=== PATIENT | female | born 1965 | race Caucasian/White ===

== ENCOUNTER 2019-08-30 23:55 | Emergency (ER) | payer OTHER, SELFPAY ==
[2019-08-31] VITALS (7 sets, daily range): BP systolic 142–153; BP diastolic 70–81; PULSE 61–69; RESP 16–17; TEMP 36.6; O2SAT 97–100; BMI 30.9
--- NOTE | 2019-08-31 00:11 | XR_ITS ---
PROCEDURE: XR FOREARM LT 2V CLINICAL INDICATION: fall Posttraumatic pain and deformity with swelling COMPARISON: No exams were available for comparison FINDINGS: Comminuted fracture involves the distal radius with mild dorsal angulation of the distal fracture fragment but no significant displacement. There may be intra-articular extension of the fracture better seen on the wrist images.. The joint spaces are well-preserved. No significant degenerative/arthritic changes. No erosive changes evident. Other findings:None. IMPRESSION: Comminuted nondisplaced distal radial fracture with dorsal angulation of the distal fracture fragment Dictated by: Jay Gilbert MD 08/31/2019 07:26 Electronically signed by Jay Gilbert MD in [place] 08/31/2019 07:26
--- NOTE | 2019-08-31 00:11 | XR_ITS ---
PROCEDURE: XR WRIST LT MIN 3V CLINICAL INDICATION: fall Posttraumatic pain and deformity COMPARISON: No exams were available for comparison FINDINGS: There is a comminuted distal radial fracture with dorsal angulation of the distal fracture fragment without significant displacement. There also appears to be a nondisplaced fracture involving the base of the ulnar styloid. There may be intra-articular extension of the distal radial fracture. This may be confirmed with CT if clinically warranted. There are mild osteoarthritic changes of the scapho trapezium joint. IMPRESSION: Comminuted distal radial fracture with possible intra-articular extension and suspected nondisplaced fracture at the base of the ulnar styloid. Dictated by: Jay Gilbert MD 08/31/2019 07:26 Electronically signed by Jay Gilbert MD in [place] 08/31/2019 07:26
--- NOTE | 2019-08-31 00:35 | HMH.EDUPEXT ---
ED Disposition Clinical Impression: Fracture of wrist Qualifiers: Encounter type: initial encounter Fracture type: closed Laterality: left Qualified Code(s): S62.102A - Fracture of unspecified carpal bone, left wrist, initial encounter for closed fracture Disposition: Home, Self-Care Condition on Discharge: Good Instructions: DI for Wrist Fracture Additional Instructions: call ortho this am Referrals: Provider,Ysabel, [Primary Care Provider] - Radha Paris MD [Physician] - - Critical Care Critical Care Time: No Attestation: On 08/30/19, the high probability of a clinically significant, sudden or life threatening deterioration of the following system(s) required my full and direct attention, intervention and personal management. The time I documented below is in addition to time spent performing reported procedures but includes the following listed in this critical care notation. Medical Decision Making - Medical Records Medical records reviewed: Yes: I reviewed the patient's medical records. - Ashu Inquiry Pt receiving controlled substance: No Vital Signs: 08/31/19 00:06 Temperature 97.9 F Temperature Source Oral Pulse Rate [Right Brachial] 66 Respiratory Rate 17 Blood Pressure [Right Arm] 153/81 H Blood Pressure Mean [Right Arm] 105 Blood Pressure Source [Right Arm] Automatic Cuff Blood Pressure Position [Right Arm] Sitting 02 Sat by Pulse Oximetry 97 Oxygen Delivery Method Room Air Orders (Tests/Meds): ED MEDICATIONS Discontinued Medications Generic Name Dose Route Start Last Admin Trade Name Freq PRN Reason Stop Dose Admin Fentanyl Citrate 50 mcg 08/31/19 00:57 Fentanyl 100mcg/2ml Vial IV 08/31/19 00:58 ONCE ONE Ketorolac Tromethamine 30 mg 08/31/19 00:38 Toradol 30mg/Ml Vial IV 08/31/19 00:39 ONCE ONE Midazolam HCl 2 mg 08/31/19 00:51 Midazolam 2mg/2ml Vial IV 08/31/19 00:52 ONCE ONE ORDERS Category Date Time Status XR forearm LT 2V Stat Exams 08/31/19 00:11 Ordered XR wrist LT min 3V Stat Exams 08/31/19 00:11 Ordered - Radiology Data #1 Image(s): Forearm, Hand Image Reviewed: Yes I reviewed the patient's radiology image Preliminary Findings: Abnormal (wrist fx ) - Physician Consults Physician Consulted: jeffrey Reason -: Pt condition Upper Extremity HPI - General Chief Complaint: Extremity Injury, Upper Stated Complaint: AO fall 08/30/19 23:30 possible broken L arm Time Seen by Provider: 08/31/19 00:15 Mode of Arrival: Ambulatory Source of Information: Patient, Medical Record Limitations: No Limitations Description of Symptoms (Recalled from ER Triage Doc. by RN): Patient reports she was walking through the house and tripped over an old tv that she had just replaced. Patient denies hitting her head or pain anywhere other than her left wrist that she landed on. - History of Present Illness HPI narrative: fell at home with acute lt wrist injury - no other injury and no loc MD complaint: injury to: left, wrist Onset (ago): hour(s) Other Extremity Injury: Left: wrist Handedness: right Place: home Severity: moderate Context: fall Associated symptoms: denies other symptoms - Related Data Allergies Allergy/AdvReac Type Severity Reaction Status Date / Time CODEINE Allergy Unknown Uncoded 04/12/17 14:05 PCN (PENICILLIN) Allergy Unknown Uncoded 04/12/17 14:05 [facility] History - Hepatitis A Screen Drug use history?: No High risk sexual behaviors?: No History of sexually transmitted infection?: No Currently employed?: No Childcare worker?: No Do you have indoor plumbing?: Yes Do you have electricity?: Yes Attestation statement:: This patient has been screened for Hepatitis A risk factors. I have reviewed the patient's past medical history: Yes - Social History Alcohol Intake: never Occupational Status: employed ROS Obtained: Yes All systems reviewed & no additional complaints - Const
--- NOTE | 2019-08-31 00:55 | PC.NURSE ---
Talked with Jonah from pharmacy, confirmed fentanyl dosing. 50mcg.
--- NOTE | 2019-08-31 01:40 | PC.NURSE ---
Patient came in for a fall that injured her left wrist. After reviewing x-rays, MD decided to set and splint under conscious sedation. After pt signed consent, patient was given 50mcg of fentanyl and 2mg versed. Patient tolerated very well. Patient was alert, oriented and talking through the entire procedure. Vitals signs within in normal limits throughout. Patient was discharged home with boyfriend and told to follow up with ortho first thing in the morning.
== END 2019-08-31 01:44 | disposition home or self-care (01) ==
PROVIDERS: Emergency Provider Emergency Medicine
DX: S52.502A Unspecified fracture of the lower end of left radius, initial encounter for closed fracture (principal); W01.0XXA Fall on same level from slipping, tripping and stumbling without subsequent striking against object, initial encounter; Y92.019 Unspecified place in single-family (private) house as the place of occurrence of the external cause; Z88.5 Allergy status to narcotic agent; Z88.0 Allergy status to penicillin
CPT/HCPCS: 25605; 29125; 73090; 73110; 96375; 99152; 99285

== ENCOUNTER → 2019-08-31 16:30 | Outpatient (CLI) | payer OTHER, SELFPAY ==
--- NOTE | 2019-08-31 16:52 | XR_ITS ---
PROCEDURE: XR WRIST LT MIN 3V CLINICAL INDICATION: post reduction wrist Fracture COMPARISON: XR WRIST LT MIN 3V from 08/31/2019 FINDINGS: Cast has been placed. Comminuted fracture of the distal radius once again noted with mild dorsal displacement and angulation of the distal fracture fragment. The dorsal angulation has slightly improved. IMPRESSION: Slight improvement in the dorsally angulated comminuted fracture of the distal radius with minimal dorsal displacement Dictated by: Jay Gilbetr MD 08/31/2019 17:32 Electronically signed by Jay Gilbert MD in [place] 08/31/2019 17:32
== END ==
PROVIDERS: Visit Provider Orthopaedic Surgery
DX: S52.502A Unspecified fracture of the lower end of left radius, initial encounter for closed fracture (principal); W01.0XXA Fall on same level from slipping, tripping and stumbling without subsequent striking against object, initial encounter; Y92.019 Unspecified place in single-family (private) house as the place of occurrence of the external cause; Z88.5 Allergy status to narcotic agent; Z88.0 Allergy status to penicillin
CPT/HCPCS: 73110

== ENCOUNTER → 2019-09-04 11:23 | Outpatient (CLI) | payer OTHER, SELFPAY ==
[2019-09-04 11:57] LABS: Basophils # 0.1 K/mm3 (0-0.2); Basophils % 0.8 % (0.1-2.0); Eosinophils # 0.2 K/mm3 (0.0-0.4); Eosinophils % 3.2 % (0.1-12.0); Hematocrit 40.1 % (37.0-47.0); Hemoglobin 12.5 g/dL (12.2-16.2); Lymphocytes # 1.9 K/mm3 (0.7-4.5); Lymphocytes % 30.8 % (10-50); Mean Corpuscular HGB Conc 31.2 g/dL (31.8-35.4); Mean Corpuscular Hemoglobin 28.8 pg (27.0-31.2); Mean Corpuscular Volume 92.3 fl (81-99); Mean Platelet Volume 7.9 fl (7.4-10.4); Monocytes # 0.3 K/mm3 (0.1-1.0); Monocytes % 5.3 % (1.7-9.3); Neutrophils # 3.6 K/mm3 (1.8-7.8); Neutrophils % 59.8 % (37.0-80.0); Platelet Count 307 K/mm3 (142-424); Red Blood Count 4.34 M/mm3 (4.20-5.40); Red Cell Distribution Width 12.9 % (11.5-17.5)
[2019-09-04 12:38] LABS: Chloride 104 mmol/L (98-107)
[2019-09-04 12:39] LABS: Sodium 135 mmol/L (136-145)
[2019-09-04 12:41] LABS: Alanine Aminotransferase 18 U/L (12-78); Alkaline Phosphatase 73 U/L (38-126); Aspartate Amino Transferase 24 U/L (14-36); Bilirubin,Total 0.4 mg/dl (0.2-1.3); Blood Urea Nitrogen 19 mg/dl (7-17); Estimated Glomerular Filt Rate 58 ml/min (>60); GFR (African American) 70 ML/MIN (>60)
[2019-09-04 12:42] LABS: Albumin Level 3.9 g/dl (3.5-5.0); Albumin/Globulin Ratio 1.5 (1.1-1.8); Calcium 9.3 mg/dl (8.4-10.2); Carbon Dioxide 28 mmol/L (22.0-30.0); Globulin 2.6 g/dL (1.3-3.2); Glucose 126 mg/dl (74-100); Total Protein,Serum 6.5 g/dl (6.3-8.2)
[2019-09-25 16:11] LABS: Covid-19 Nasal PCR Sendout Lex NOT DETECTED
== END ==
PROVIDERS: Visit Provider Orthopaedic Surgery
DX: Z01.818 Encounter for other preprocedural examination (principal); S62.109A Fracture of unspecified carpal bone, unspecified wrist, initial encounter for closed fracture
CPT/HCPCS: 36415; 80053; 85025; U0004

== ENCOUNTER 2019-09-06 08:02 | Day surgery (SDC) | payer OTHER, SELFPAY ==
--- NOTE | 2019-09-03 09:37 | SUR.PREOP ---
09/03/2019 @ 0937--PHONE CALL MADE TO PATIENT. PATIENT UNDERSTANDS THAT LAB WORK AND COVID TESTING NEEDS TO BE COMPLETED @ 1100 ON 09/04/2019. PATIENT UNDERSTANDS IF LAB WORK AND COVID-19 TESTS ARE NOT COMPLETED BY 12PM ON THAT DATE, THE SURGERY SCHEDULED WILL BE CANCELLED AND RESCHEDULED FOR ANOTHER TIME.
[2019-09-06] VITALS (15 sets, daily range): BP systolic 133–171; BP diastolic 60–93; PULSE 64–88; RESP 12–20; TEMP 36.4–43; O2SAT 93–96
--- NOTE | 2019-09-06 08:45 | ECG_ITS ---
APPROVED REPORT Exam: Resting ECG HR:64 bpm ECG Measurements Heart Rate 64 AXES MN 150 P 24 QRSd 104 QRS 38 QT 436 T 16 QTc 449 <Conclusion> Normal sinus rhythm Normal ECG Electronically signed by : Reji English, 09/07/2019 06:32:48
[2019-09-06 08:47] LABS: Urine Pregnancy, HCG Qual. Negative (Negative)
--- NOTE | 2019-09-06 12:19 | P.PN_ITS ---
[facility] Anesthesia Checklist - Structural Data Admitted From: Home Planned Operative Procedure/s: orif l wrist Consent for Planned Operative Procedure(s) Verified: Yes - Additional verifications Anesthesia Reactions: No Hx Blood Transfusions: No Blood Transfusion Reaction: No - Airway Assessment C-Spine Mobility Assessed: Yes TMJ Mobility Assessed: Yes Dentition: Good Dentition - Neurological Assessment Level of Consciousness: Awake, Alert, Appropriate - Anesthesia Plan Anesthesia Risk discussed: Yes Anesthesia Plan: Verified ASA Class: II Anesthesia Type: General w/block - Preoperative Comments Pre-Operative Comments: explained supraclav block to pt, pt agrees to proceed [facility] History I have reviewed the patient's past medical history: Yes Medical History: Denies:: Cancer, Diabetes Mellitus Type 1, Diabetes Mellitus Type 2, MRSA, Seizures *Have you ever received a pneumonia vaccine?: No *Have you received a flu vaccine this season?: No Other Medical History: Denies: Blood Transfusion Reaction Anesthesia experience/problems:: none Amputation: No Fractures: No - *Social History Smoking Status: Never smoker Alcohol Intake: never Substance Use Type: denies use *Occupational Status:: employed Housing: house *Travel in the last 8 weeks: None Family Hx:: Unable to obtain
--- NOTE | 2019-09-06 13:24 | XR_ITS ---
PROCEDURE: XR WRIST LT 2V CLINICAL INDICATION: ORIF LEFT WRIST COMPARISON: No exams were available for comparison FINDINGS: Fluoroscopy time: 3 minutes and 29 seconds Fluoro utilized for ORIF of the comminuted distal radial fracture. Multiple images submitted demonstrates placement of an anterior bone plate with multiple screws with good alignment and no significant displacement IMPRESSION: The good alignment status post ORIF distal radial fracture Dictated by: Jay Gilbert MD 09/06/2019 17:27 Electronically signed by Jay Gilbert MD in [place] 09/06/2019 17:27
--- NOTE | 2019-09-06 14:19 | P.PN_ITS ---
[facility] Anesthesia Record Part I Intake, IV Amount: 2,200 Estimated blood loss (mL): 0 Urine output (mL): 0 Blood Pressure: 162/80 SaO2: 93 Pulse Rate: 85 Respiratory Rate: 12 Temperature: 97.5 F Patient is:: Awake, Stable Stable to PACU at:: 14:15
--- NOTE | 2019-09-06 14:25 | XR_ITS ---
PROCEDURE: XR WRIST LT 2V CLINICAL INDICATION: s/p ORIF Follow-up surgery COMPARISON: XR WRIST LT MIN 3V from 08/31/2019 XR WRIST LT MIN 3V from 08/31/2019 FINDINGS: Status post ORIF distal radial fracture with an anterior bone plate. There is good alignment of the fracture fragments with decreased dorsal displacement and angulation of the distal radial fracture. IMPRESSION: Good alignment status post ORIF distal radial fracture Dictated by: Jay Gilbert MD 09/06/2019 15:41 Electronically signed by Jay Gilbert MD in [place] 09/06/2019 15:41
--- NOTE | 2019-09-06 15:25 | SUR.PHASEII ---
Percocet 5/325 given for C/O pain of 7 .
--- NOTE | 2019-09-06 15:43 | PC.NURSE ---
143-pt reports c/o nausea, medicated with Zofran 4mg IVP per JUN 1433-radiology at bedside 144-pt eating ice chips w/nolvia mist and yu well, reports nausea is easing, pt being medicated per JUN for pain, bp easing, at bedside 145-detailed report called to CELESTINO Greco 1501-pt transported to post op via stretcher w/gage rails up and left in care of CELESTINO Greco with bed locked in lowest position, vss, pt stable
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
--- NOTE | 2019-09-07 13:45 | HMH.ANESII ---
[facility] Anesthesia Record Part II Discharge Time: 14:45 Destination: [facility] PACU nurse assessment reviewed?: Yes Patient Condition:: Good Anesthesia Complications:: None Swallowing reflex intact?: Yes Cyanosis?: No Blood Pressure: 155/78 Pulse Rate: 82 Temperature: 99.1 F Mental Status: Alert & Oriented Pain level:: 7 Nausea and/or vomitting:: None Intake, IV Amount: 2,000
[2019-09-07 13:46] VITALS: BP 155/78; PULSE 82; TEMP 37.3
== END 2019-09-06 15:42 | disposition home or self-care (01) ==
PROVIDERS: Visit Provider Orthopaedic Surgery
PROC: (CPT 25608; principal; 2019-09-06 10:00)
DX: S52.572A Other intraarticular fracture of lower end of left radius, initial encounter for closed fracture (principal); W01.0XXA Fall on same level from slipping, tripping and stumbling without subsequent striking against object, initial encounter; Y92.019 Unspecified place in single-family (private) house as the place of occurrence of the external cause; G56.02 Carpal tunnel syndrome, left upper limb
CPT/HCPCS: 25608; 64721; 73100; 76000; 81025; 93005; 96374; C1713; C1776; J2405

== ENCOUNTER → 2019-09-18 10:23 | Outpatient (CLI) | payer OTHER, SELFPAY ==
--- NOTE | 2019-09-18 10:29 | XR_ITS ---
PROCEDURE: XR WRIST LT MIN 3V CLINICAL INDICATION: s/p distal radius FX- remove splint COMPARISON: XR WRIST LT 2V from 09/06/2019 FINDINGS: AP and lateral views of the wrist were obtained following removal of the cast. The volar bone plate is noted fixated to the radius by multiple threaded screws reducing the comminuted fracture of the distal radius in good alignment. There is no significant callus formation seen at the fracture line as yet. The carpal bones all appear intact. IMPRESSION: Stable post ORIF distal radial fracture Dictated by: Dr. Zak Roberts MD 09/18/2019 11:[address] Zak Roberts MD in [place] 09/18/2019 11:06
== END ==
PROVIDERS: PCP Nurse Practitioner Family; Visit Provider Orthopaedic Surgery
DX: S62.102A Fracture of unspecified carpal bone, left wrist, initial encounter for closed fracture (principal)
CPT/HCPCS: 73110

== ENCOUNTER → 2019-10-04 09:47 | Outpatient (CLI) | payer OTHER, SELFPAY ==
--- NOTE | 2019-10-04 09:56 | XR_ITS ---
PROCEDURE: XR WRIST LT MIN 3V CLINICAL INDICATION: s/p wrist fx Follow-up ORIF left wrist COMPARISON: XR WRIST LT MIN 3V from 08/31/2019 XR WRIST LT MIN 3V from 08/31/2019 XR WRIST LT 2V from 09/06/2019 XR WRIST LT MIN 3V from 09/18/2019 FINDINGS: Ventral bone plate remains in place. There is good alignment of the distal radial fracture. Fracture line is still visible. IMPRESSION: Good alignment status post ORIF distal radial fracture not significantly changed Dictated by: Jay Gilbert MD 10/04/2019 14:05 Electronically signed by Jay Gilbert MD in [place] 10/04/2019 14:05
== END ==
PROVIDERS: PCP Nurse Practitioner Family; Visit Provider Orthopaedic Surgery
DX: S62.102A Fracture of unspecified carpal bone, left wrist, initial encounter for closed fracture (principal)
CPT/HCPCS: 73110

== ENCOUNTER → 2019-10-25 09:19 | Outpatient (CLI) | payer OTHER, SELFPAY ==
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
== END ==
PROVIDERS: PCP Nurse Practitioner Family; Visit Provider Orthopaedic Surgery
DX: S62.102A Fracture of unspecified carpal bone, left wrist, initial encounter for closed fracture (principal)
CPT/HCPCS: 73110

== ENCOUNTER 2019-10-25 11:25 | Outpatient (RCR) | payer OTHER, SELFPAY | END 2019-10-25 12:00 | disposition home or self-care (01) | LOC: OT 11:25 | PROVIDERS: Visit Provider Orthopaedic Surgery | DX: S62.102A Fracture of unspecified carpal bone, left wrist, initial encounter for closed fracture (principal) | CPT/HCPCS: 97763 ==

== ENCOUNTER 2019-12-02 23:26 | Emergency (ER) | payer OTHER, SELFPAY ==
[2019-12-02 23:28] VITALS: BMI 31.7
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
[2019-12-02 23:40] VITALS: BP 138/81; PULSE 84; RESP 18; TEMP 36.9; O2SAT 96; BMI 31.7
[2019-12-02 23:53] LABS: ABG Base Excess -2.9 mmol/L (-2.4-2.3); ABG HCO3 21.7 mmhg (22.0-26.0); ABG Oxygen Saturation 97 % (90-100); ABG PCO2 34.4 mmhg (35.0-45.0); ABG PH 7.42 mmol/L (7.35-7.45); ABG PO2 82.9 mmhg (80-100); ABG TCO2 22.7 mmhg (23-27)
[2019-12-02 23:54] LABS: Allen's Test Y; Oxygen R/A %; Source R/R
[2019-12-03 00:01] LABS: Basophils # 0.1 K/mm3 (0-0.2); Basophils % 0.5 % (0.1-2.0); Eosinophils # 0.1 K/mm3 (0.0-0.4); Hematocrit 42.4 % (37.0-47.0); Hemoglobin 14.3 g/dL (12.2-16.2); Lymphocytes # 3.4 K/mm3 (0.7-4.5); Lymphocytes % 32.9 % (10-50); Mean Corpuscular HGB Conc 33.6 g/dL (31.8-35.4); Mean Corpuscular Hemoglobin 30.5 pg (27.0-31.2); Mean Corpuscular Volume 90.7 fl (81-99); Mean Platelet Volume 7.5 fl (7.4-10.4); Monocytes # 0.6 K/mm3 (0.1-1.0); Monocytes % 5.3 % (1.7-9.3); Neutrophils # 6.3 K/mm3 (1.8-7.8); Neutrophils % 60.3 % (37.0-80.0); Platelet Count 321 K/mm3 (142-424); Red Blood Count 4.68 M/mm3 (4.20-5.40); Red Cell Distribution Width 12.9 % (11.5-17.5); White Blood Count 10.5 K/mm3 (4.8-10.8)
[2019-12-03 00:05] VITALS: PULSE 78
[2019-12-03 00:06] VITALS: PULSE 81
[2019-12-03 00:08] LABS: Chloride 102 mmol/L (98-107); Sodium 140 mmol/L (136-145)
[2019-12-03 00:09] LABS: Potassium 3.5 mmoL/L (3.5-5.1)
[2019-12-03 00:11] LABS: Alanine Aminotransferase 19 U/L (12-78); Albumin Level 4.3 g/dl (3.5-5.0); Albumin/Globulin Ratio 1.2 (1.1-1.8); Alkaline Phosphatase 117 U/L (38-126); Anion Gap 16.5 mEq/L (5-15); Aspartate Amino Transferase 28 U/L (14-36); Bilirubin,Total 0.4 mg/dl (0.2-1.3); Blood Urea Nitrogen 19 mg/dl (7-17); Calcium 9.6 mg/dl (8.4-10.2); Carbon Dioxide 25 mmol/L (22.0-30.0); Creatinine Clearance Estimated 66 mL/min (50-200); Estimated Glomerular Filt Rate 43 ml/min (>60); GFR (African American) 52 ML/MIN (>60); Globulin 3.5 g/dL (1.3-3.2); Glucose 112 mg/dl (74-100); Total Protein,Serum 7.8 g/dl (6.3-8.2)
[2019-12-03 00:17] LABS: C-Reactive Protein 1.7 mg/L (0-4)
[2019-12-03 00:26] LABS: Erythrocyte Sedimentation Rate 16 mm/hr (0-30); Troponin I < 0.01 ng/ml (0.00-0.034)
[2019-12-03 00:28] LABS: Coronavirus 19 IgG Antibody Negative (Negative); Coronavirus 19 IgM Antibody Negative (Negative)
--- NOTE | 2019-12-03 00:31 | HMH.EDCP ---
ED Disposition Clinical Impression: Renal insufficiency Reactive airway disease with acute exacerbation Qualifiers: Asthma severity: moderate Asthma persistence: persistent Qualified Code(s): J45.41 - Moderate persistent asthma with (acute) exacerbation Disposition: Home, Self-Care Condition on Discharge: Good Instructions: DI for Shortness of Breath Additional Instructions: see pcp for follow up Referrals: Vickie Romero PA [Primary Care Provider] - - Critical Care Critical Care Time: No Attestation: On 12/02/19, the high probability of a clinically significant, sudden or life threatening deterioration of the following system(s) required my full and direct attention, intervention and personal management. The time I documented below is in addition to time spent performing reported procedures but includes the following listed in this critical care notation. Medical Decision Making - Medical Records Medical records reviewed: Yes: I reviewed the patient's medical records. - Ashu Inquiry Pt receiving controlled substance: No Vital Signs: 12/02/19 23:40 12/03/19 00:05 12/03/19 00:06 Temperature 98.4 F Temperature Source Oral Pulse Rate 78 81 Pulse Rate [Left] 84 Respiratory Rate 18 Blood Pressure [Right Arm] 138/81 Blood Pressure Mean [Right Arm] 100 Blood Pressure Source [Right Arm] Automatic Cuff Blood Pressure Position [Right Arm] Sitting 02 Sat by Pulse Oximetry 96 Oxygen Delivery Method Room Air - Lab Data Lab results reviewed: Yes: I reviewed the patient's lab results. Lab Results 12/02/19 23:41: WBC 10.5, RBC 4.68, Hgb 14.3, Hct 42.4, MCV 90.7, MCH 30.5, MCHC 33.6, RDW 12.9, Plt Count 321, MPV 7.5, Neut % (Auto) 60.3, Lymph % (Auto) 32.9, [place] % (Auto) 5.3, Eos % (Auto) 1.0, Baso % (Auto) 0.5, Neut # (Auto) 6.3, Lymph # (Auto) 3.4, [place] # (Auto) 0.6, Eos # (Auto) 0.1, Baso # (Auto) 0.1, ESR 16 12/02/19 23:41: Sodium 140, Potassium 3.5, Chloride 102, Carbon Dioxide 25, Anion Gap 16.5 H, BUN 19 H, Creatinine 1.30 H, Estimated Creat Clear 66, Estimated GFR 43 L, Est GFR ( Amer) 52 L, Glucose 112 H, Calcium 9.6, Total Bilirubin 0.4, AST 28, ALT 19, Alkaline Phosphatase 117, Troponin I < 0.01, C-Reactive Protein 1.7, Total Protein 7.8, Albumin 4.3, Globulin 3.5 H, Albumin/Globulin Ratio 1.2 12/02/19 23:41: SARS-CoV-2 IgG Ab (Rapid) Negative, SARS-CoV-2 IgM Ab (Rapid) Negative 12/02/19 23:52: Specimen Source R/r, O2 % R/a, ABG pH 7.42, ABG pCO2 34.4 L, ABG pO2 82.9, ABG HCO3 21.7 L, ABG Total CO2 22.7 L, ABG O2 Saturation 97, ABG Base Excess -2.9 L, Jay Test Y Result diagrams: 12/02/19 23:41 12/02/19 23:41 Orders (Tests/Meds): ED MEDICATIONS Generic Name Dose Route Start Last Admin Trade Name Freq PRN Reason Stop Dose Admin Sodium Chloride 1,000 mls @ 999 mls/hr 12/02/19 23:45 12/02/19 23:53 Sod Chlor 0.9% 1000ml Bag IV 12/03/19 00:45 999 mls/hr .Q1H1M PERRY Administration Discontinued Medications Generic Name Dose Route Start Last Admin Trade Name Freq PRN Reason Stop Dose Admin Albuterol/Ipratropium 3 ml 12/02/19 23:48 12/02/19 23:53 Duoneb 3ml Neb IH 12/02/19 23:49 3 ml ONCE ONE Administration Methylprednisolone Sodium Succinate 125 mg 12/02/19 23:39 12/02/19 23:53 Solu-Medrol 125mg/2ml Vial IV 12/02/19 23:40 125 mg ONCE ONE Administration ORDERS Category Date Time Status XR chest 2V Stat Exams 12/02/19 23:39 Taken Troponin I Q3H Lab 12/03/19 02:45 Ordered Troponin I Q3H Lab 12/03/19 05:45 Ordered ABG [Arterial Blood Gas] Stat RT 12/02/19 23:37 Ordered - Radiology Data #1 Image(s): Chest Image Reviewed: Yes I reviewed the patient's radiology image Preliminary Findings: Abnormal (nonspecific) - ECG Data Tracing #1 Normal Sinus Rhythm: Yes Ischemic changes: non-specific ST-T wave changes - ZABRINA Score for Non-Stemi Age of Patient: 50-59 years old Heart Rate: 70-89 bpm Sy
[2019-12-03 00:47] VITALS: BP 136/74; PULSE 78; RESP 16; TEMP 36.9; O2SAT 99
--- NOTE | 2019-12-03 23:39 | ECG_ITS ---
APPROVED REPORT Exam: Resting ECG HR:79 bpm ECG Measurements Heart Rate 79 AXES KS 136 P 35 QRSd 106 QRS 48 QT 396 T 2 QTc 454 <Conclusion> Normal sinus rhythm ST & T wave abnormality, consider inferior ischemia Abnormal ECG Electronically signed by : Reji English, 12/03/2019 20:00:50
== END 2019-12-03 00:49 | disposition home or self-care (01) ==
PROVIDERS: Emergency Provider Emergency Medicine; PCP Nurse Practitioner Family
DX: J45.901 Unspecified asthma with (acute) exacerbation (principal); N28.9 Disorder of kidney and ureter, unspecified; F41.9 Anxiety disorder, unspecified; Z87.891 Personal history of nicotine dependence; Z79.899 Other long term (current) drug therapy; Z88.0 Allergy status to penicillin; Z88.5 Allergy status to narcotic agent
CPT/HCPCS: 71046; 80053; 82803; 84484; 85025; 85651; 86140; 86328; 93005; 96365; 96375; 99282; 99283

== ENCOUNTER 2020-02-11 20:19 | Emergency (ER) | payer OTHER, SELFPAY ==
[2020-02-11 20:39] VITALS: BP 150/88; PULSE 76; RESP 12; TEMP 36.4; O2SAT 97; BMI 38.7
[2020-02-11 20:49] VITALS: BP 136/76; PULSE 69; RESP 17; TEMP 36.2; O2SAT 97; BMI 38.2
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
--- NOTE | 2020-02-11 20:58 | PC.NURSE ---
called rad to notify. spoke with
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
[2020-02-11 22:05] VITALS: BP 141/73; PULSE 89; RESP 16; TEMP 36.7; O2SAT 98
== END 2020-02-11 22:12 | disposition home or self-care (01) ==
LOC: UTC 20:28 → ER 20:45
PROVIDERS: Emergency Provider Emergency Medicine; PCP Nurse Practitioner Family
DX: S63.502A Unspecified sprain of left wrist, initial encounter (principal); S83.91XA Sprain of unspecified site of right knee, initial encounter; S83.92XA Sprain of unspecified site of left knee, initial encounter; Y04.0XXA Assault by unarmed brawl or fight, initial encounter; Y92.019 Unspecified place in single-family (private) house as the place of occurrence of the external cause; F41.9 Anxiety disorder, unspecified; Z79.899 Other long term (current) drug therapy; Z88.0 Allergy status to penicillin; Z88.5 Allergy status to narcotic agent
CPT/HCPCS: 71045; 73090; 73110; 73502; 73562; 99283

== ENCOUNTER 2021-09-05 18:01 | Emergency (ER) | payer OTHER, MEDICAID, SELFPAY ==
[2021-09-05 18:02] VITALS: BMI 36.0
--- NOTE | 2021-09-05 18:02 | PC.NURSE ---
at bedside upon arrival.
--- NOTE | 2021-09-05 18:04 | PC.NURSE ---
FSBS 111 upon arrival.
--- NOTE | 2021-09-05 18:08 | ECG_ITS ---
APPROVED REPORT Exam: Resting ECG HR:72 bpm ECG Measurements Heart Rate 72 AXES MO 140 P 39 QRSd 110 QRS 47 QT 382 T 20 QTc 406 Conclusion SINUS RHYTHM Left atrial abnormality Late R wave progression and Inf. STTW changes are at least 2 years old. BORDERLINE ECG UNCONFIRMED REPORT Electronically signed by : Reji English MD 09/06/2021 09:01:23
--- NOTE | 2021-09-05 18:08 | CT_ITS ---
PROCEDURE INFORMATION: Exam: CT Head Without Contrast Exam date and time: 09/05/21 06:14 PM Age: 56 years old Clinical indication: Dizziness and other: Vertigo; Additional info: Blurry viz, vertigo, lue weakness, started yesterd TECHNIQUE: Imaging protocol: Computed tomography of the head without contrast. Radiation optimization: All CT scans at this facility use at least one of these dose optimization techniques: automated exposure control; mA and/or kV adjustment per patient size (includes targeted exams where dose is matched to clinical indication); or iterative reconstruction. COMPARISON: No relevant prior studies available. FINDINGS: Brain: Normal. No hemorrhage. Unremarkable white matter. No mass effect. Cerebral ventricles: No ventriculomegaly. Paranasal sinuses: Visualized sinuses are unremarkable. No fluid levels. Mastoid air cells: Visualized mastoid air cells are well aerated. Bones/joints: Unremarkable. No acute fracture. Soft tissues: Unremarkable. IMPRESSION: No acute intracranial abnormality.
--- NOTE | 2021-09-05 18:09 | HMH.EDGENADL ---
ED Disposition Clinical Impression: Vertigo, Paresthesia and pain of left extremity Disposition: Home, Self-Care Condition on Discharge: Good Instructions: DI for Vertigo, DI for Transient Ischemic Attack Additional Instructions: follow up with neurology as scheduled, return for worse or any concerns Referrals: Vickie Romero PA [Primary Care Provider] - - Critical Care Critical Care Time: No Attestation: On , the high probability of a clinically significant, sudden or life threatening deterioration of the following system(s) required my full and direct attention, intervention and personal management. The time I documented below is in addition to time spent performing reported procedures but includes the following listed in this critical care notation. Medical Decision Making - Medical Records Medical records reviewed: Yes: I reviewed the patient's medical records. - Ashu Inquiry Pt receiving controlled substance: No Vital Signs: 09/05/21 18:15 09/05/21 18:24 Temperature 98.4 F Temperature Source Oral Pulse Rate 82 Pulse Rate [Left Radial] 85 Respiratory Rate 17 Blood Pressure 134/63 Blood Pressure [Right Arm] 167/84 H Blood Pressure Mean [Right Arm] 111 02 Sat by Pulse Oximetry 97 97 Oxygen Delivery Method Room Air - Lab Data Lab Results 09/05/21 18:09: WBC 10.7, RBC 4.68, Hgb 14.7, Hct 44.2, MCV 94.4, MCH 31.4 H, MCHC 33.3, RDW 13.1, Plt Count 324, MPV 8.3, Neut % (Auto) 77.1, Lymph % (Auto) 15.3, [place] % (Auto) 4.9, Eos % (Auto) 1.2, Baso % (Auto) 1.6, Neut # (Auto) 8.3 H, Lymph # (Auto) 1.6, [place] # (Auto) 0.5, Eos # (Auto) 0.1, Baso # (Auto) 0.2 09/05/21 18:09: Sodium 135 L, Potassium 4.2, Chloride 103, Carbon Dioxide 26, Anion Gap 10.2, BUN 28 H, Creatinine 1.20 H, Estimated Creat Clear 80, Estimated GFR 47 L, Est GFR ( Amer) 56 L, Glucose 130 H, Calcium 9.3, Total Bilirubin 0.5, AST 29, ALT 22, Alkaline Phosphatase 79, Total Protein 6.7, Albumin 3.9, Globulin 2.8, Albumin/Globulin Ratio 1.4 Result diagrams: 09/05/21 18:09 09/05/21 18:09 Orders (Tests/Meds): ED MEDICATIONS Generic Name Dose Route Start Last Admin Trade Name Freq PRN Reason Stop Dose Admin Sodium Chloride 1,000 mls @ 999 mls/hr 09/05/21 19:30 09/05/21 19:29 Sod Chlor 0.9% 1000ml Bag IV 09/05/21 20:30 999 mls/hr .Q1H1M PERRY Administration Discontinued Medications Generic Name Dose Route Start Last Admin Trade Name Freq PRN Reason Stop Dose Admin Aspirin 324 mg 09/05/21 19:23 09/05/21 19:29 Aspirin 81mg Chewable Tablet PO 09/05/21 19:24 324 mg ONCE ONE Administration Iopamidol 93 ml 09/05/21 19:33 09/05/21 19:34 Iopamidol-370 (76%);100ml Bottle IV 09/05/21 19:34 93 ml ONCE ONE Administration Meclizine HCl 50 mg 09/05/21 18:09 09/05/21 18:12 Meclizine 25mg Tablet PO 09/05/21 18:10 50 mg ONCE ONE Administration Sodium Chloride 50 ml 09/05/21 19:33 09/05/21 19:34 0.9 % Sodium Chloride 50 Ml Vial IV 09/05/21 19:34 50 ml ONCE ONE Administration Sodium Chloride 10 ml 09/05/21 19:33 09/05/21 19:34 Sodium Chloride 0.9% 10ml Syr (Rad Only) IV 09/05/21 19:34 10 ml ONCE ONE Administration ORDERS Category Date Time Status ECG Request by /Nse Stat Y 09/05/21 18:08 Stop Req - ECG Data Tracing #1 I reviewed this ECG and interpreted as documented below: ekg by me nsr, poss lae, non spec q waves, no st elev Medical Decision Narrative: 809pm reeval, neuro intact lue symptoms and vertigo resoved with meclizine, discussed cta results, has f/u with neurology scheduled, ok with plan to retur for worse General Adult HPI - General Stated complaint: left side weakness Time Seen by Provider: 09/05/21 18:09 - History of Present Illness HPI narrative: vertigo, blurry viz, nausea, lue weakness started yesterday, wax/wane h/o recent dx tia Onset (ago): day(s) Radiation: non-radiation Severity: moderate Consistenc
[2021-09-05 18:15] VITALS: BP 167/84; PULSE 85; RESP 17; TEMP 36.9; O2SAT 97; BMI 36.0
[2021-09-05 18:16] LABS: Basophils # 0.2 K/mm3 (0-0.2); Basophils % 1.6 % (0.1-2.0); Eosinophils # 0.1 K/mm3 (0.0-0.4); Eosinophils % 1.2 % (0.1-12.0); Hematocrit 44.2 % (37.0-47.0); Hemoglobin 14.7 g/dL (12.2-16.2); Lymphocytes # 1.6 K/mm3 (0.7-4.5); Lymphocytes % 15.3 % (10-50); Mean Corpuscular HGB Conc 33.3 g/dL (31.8-35.4); Mean Corpuscular Hemoglobin 31.4 pg (27.0-31.2); Mean Corpuscular Volume 94.4 fl (81-99); Mean Platelet Volume 8.3 fl (7.4-10.4); Monocytes # 0.5 K/mm3 (0.1-1.0); Monocytes % 4.9 % (1.7-9.3); Neutrophils # 8.3 K/mm3 (1.8-7.8); Neutrophils % 77.1 % (37.0-80.0); Platelet Count 324 K/mm3 (142-424); Red Blood Count 4.68 M/mm3 (4.20-5.40); Red Cell Distribution Width 13.1 % (11.5-17.5); White Blood Count 10.7 K/mm3 (4.8-10.8)
--- NOTE | 2021-09-05 18:16 | PC.NURSE ---
PT to rad
[2021-09-05 18:20] LABS: Chloride 103 mmol/L (98-107); Potassium 4.2 mmoL/L (3.5-5.1); Sodium 135 mmol/L (136-145)
[2021-09-05 18:22] LABS: Alanine Aminotransferase 22 U/L (12-78); Aspartate Amino Transferase 29 U/L (14-36); Blood Urea Nitrogen 28 mg/dl (7-17); Creatinine Clearance Estimated 80 mL/min (50-200); Estimated Glomerular Filt Rate 47 ml/min (>60); GFR (African American) 56 ML/MIN (>60)
[2021-09-05 18:23] LABS: Albumin Level 3.9 g/dl (3.5-5.0); Albumin/Globulin Ratio 1.4 (1.1-1.8); Alkaline Phosphatase 79 U/L (38-126); Anion Gap 10.2 mEq/L (5-15); Bilirubin,Total 0.5 mg/dl (0.2-1.3); Calcium 9.3 mg/dl (8.4-10.2); Carbon Dioxide 26 mmol/L (22.0-30.0); Globulin 2.8 g/dL (1.3-3.2); Glucose 130 mg/dl (74-100); Total Protein,Serum 6.7 g/dl (6.3-8.2)
[2021-09-05 18:24] VITALS: BP 134/63; PULSE 82; O2SAT 97
--- NOTE | 2021-09-05 18:24 | PC.NURSE ---
Pt returned from rad
--- NOTE | 2021-09-05 19:07 | CT_ITS ---
PROCEDURE INFORMATION: Exam: CT Angiography Head With Contrast, Arteriography Exam date and time: 09/05/21 07:14 PM Age: 56 years old Clinical indication: Weakness; Additional info: Vertigo, lue weakness/drift TECHNIQUE: Imaging protocol: Computed tomography angiography of the head with contrast. Exam focused on the arteries. 3D rendering (Not supervised by radiologist): MIP and/or 3D reconstructed images were created by the technologist. Radiation optimization: All CT scans at this facility use at least one of these dose optimization techniques: automated exposure control; mA and/or kV adjustment per patient size (includes targeted exams where dose is matched to clinical indication); or iterative reconstruction. Contrast material: ISOVUE 370; Contrast volume: 93 ml; Contrast route: INTRAVENOUS (IV); COMPARISON: CT HEAD/BRAIN WO CON 09/05/21 06:14 PM FINDINGS: ANTERIOR CIRCULATION: Right internal carotid artery: Unremarkable. Intracranial segment is patent with no significant stenosis. No aneurysm. Right middle cerebral artery: Unremarkable. No occlusion or significant stenosis. No aneurysm. Right anterior cerebral artery: Unremarkable. No occlusion or significant stenosis. No aneurysm. Left internal carotid artery: Unremarkable. Intracranial segment is patent with no significant stenosis. No aneurysm. Left middle cerebral artery: Unremarkable. No occlusion or significant stenosis. No aneurysm. Left anterior cerebral artery: Unremarkable. No occlusion or significant stenosis. No aneurysm. POSTERIOR CIRCULATION: Right vertebral artery: Unremarkable. No occlusion or significant stenosis. No aneurysm. Left vertebral artery: Unremarkable. No occlusion or significant stenosis. No aneurysm. Basilar artery: Unremarkable. No occlusion or significant stenosis. No aneurysm. Right posterior cerebral artery: Unremarkable. No occlusion or significant stenosis. No aneurysm. Left posterior cerebral artery: Unremarkable. No occlusion or significant stenosis. No aneurysm. Brain: No definite mass, mass effect, or midline shift. Cerebral ventricles: No ventriculomegaly. Bones/joints: Unremarkable. No acute fracture. Soft tissues: Unremarkable. IMPRESSION: No large vessel stenosis or occlusion.
--- NOTE | 2021-09-05 19:07 | CT_ITS ---
PROCEDURE INFORMATION: Exam: CT Angiography Neck With Contrast Exam date and time: 09/05/21 07:14 PM Age: 56 years old Clinical indication: Weakness; Additional info: Vertigo, lue weakness/drift TECHNIQUE: Imaging protocol: Computed tomography angiography of the neck with contrast. 3D rendering (Not supervised by radiologist): MIP and/or 3D reconstructed images were created by the technologist. Radiation optimization: All CT scans at this facility use at least one of these dose optimization techniques: automated exposure control; mA and/or kV adjustment per patient size (includes targeted exams where dose is matched to clinical indication); or iterative reconstruction. Contrast material: ISOVUE 370; Contrast volume: 93 ml; Contrast route: INTRAVENOUS (IV); COMPARISON: CT HEAD/BRAIN WO CON 09/05/21 06:14 PM FINDINGS: Right common carotid artery: No stenosis. No dissection or occlusion. Right internal carotid artery: No stenosis of the extracranial segment. No dissection or occlusion. Right external carotid artery: No occlusion or stenosis of the origin. Left common carotid artery: No stenosis. No dissection or occlusion. Left internal carotid artery: No stenosis of the extracranial segment. No dissection or occlusion. Left external carotid artery: No occlusion or stenosis of the origin. Right vertebral artery: No stenosis. No dissection or occlusion. Left vertebral artery: No stenosis. No dissection or occlusion. Soft tissues: Normal. No significant soft tissue swelling. Bones/joints: No acute fracture. IMPRESSION: No stenosis or occlusion. REFERENCES: NASCET CRITERIA. The degree of internal carotid artery stenosis is based on NASCET criteria. Normal is no stenosis. Mild is less than 50% stenosis. Moderate is 50-69% stenosis. Severe is 70% to 99% stenosis. Total occlusion is no detectable patent lumen.
--- NOTE | 2021-09-05 19:27 | PC.NURSE ---
patient to radiology
[2021-09-05 20:23] VITALS: BP 137/77; PULSE 74; RESP 16; TEMP 36.6; O2SAT 98
== END 2021-09-05 21:00 | disposition home or self-care (01) ==
PROVIDERS: Emergency Provider Emergency Medicine; PCP Nurse Practitioner Family
DX: R42 Dizziness and giddiness (principal); R20.2 Paresthesia of skin; R11.0 Nausea
CPT/HCPCS: 70450; 70496; 70498; 80053; 85025; 93005; 96360; 99284; Q9967

== ENCOUNTER → 2021-11-03 18:26 | Outpatient (CLI) | payer OTHER, SELFPAY ==
[2021-11-03 19:34] LABS: Microscopic, Urine URINE MICROSCOPIC (MICROSCOPIC)
[2021-11-03 19:38] LABS: Basophils # 0.1 K/mm3 (0-0.2); Basophils % 1.2 % (0.1-2.0); Eosinophils # 0.1 K/mm3 (0.0-0.4); Eosinophils % 1.3 % (0.1-12.0); Hematocrit 46.1 % (37.0-47.0); Hemoglobin 14.1 g/dL (12.2-16.2); Lymphocytes # 2.3 K/mm3 (0.7-4.5); Lymphocytes % 32.4 % (10-50); Mean Corpuscular HGB Conc 30.7 g/dL (31.8-35.4); Mean Corpuscular Hemoglobin 30.6 pg (27.0-31.2); Mean Corpuscular Volume 99.6 fl (81-99); Mean Platelet Volume 8.3 fl (7.4-10.4); Monocytes # 0.5 K/mm3 (0.1-1.0); Monocytes % 6.9 % (1.7-9.3); Neutrophils # 4.2 K/mm3 (1.8-7.8); Neutrophils % 58.2 % (37.0-80.0); Platelet Count 339 K/mm3 (142-424); Red Blood Count 4.63 M/mm3 (4.20-5.40); Red Cell Distribution Width 13.2 % (11.5-17.5); White Blood Count 7.2 K/mm3 (4.8-10.8)
[2021-11-03 19:46] LABS: Anion Gap 12.2 mEq/L (5-15); Blood Urea Nitrogen 16 mg/dl (7-17); Carbon Dioxide 28 mmol/L (22.0-30.0); Chloride 99 mmol/L (98-107); Estimated Glomerular Filt Rate 47 ml/min (>60); GFR (African American) 56 ML/MIN (>60); Glucose 116 mg/dl (74-100); Phosphorous 3.9 mg/dl (2.5-4.5); Potassium 3.2 mmoL/L (3.5-5.1); Sodium 136 mmol/L (136-145)
[2021-11-03 20:02] LABS: 25-OH Vitamin D, Total 26.5 ng/mL (30-100)
[2021-11-03 20:15] LABS: Creatinine,Urine Random 72 mg/dL (Not Estab.)
[2021-11-03 20:34] LABS: Appearance,Urine CLEAR (Clear); Bilirubin,Urine Negative (Negative); Blood, Urine Negative (Negative); Color,Urine YELLOW (Yellow); Glucose,Urine (UA) Negative (Negative); Ketones,Urine Negative (Negative); Leukocyte Esterase,Urine Negative (Negative); Nitrate,Urine Negative (Negative); Protein,Urine Negative (Negative); Specific Gravity, Urine <= 1.005 (1.005-1.030); Urobilinogen,Urine 0.2 EU/dl (0.2)
[2021-11-03 20:37] LABS: Bacteria,Urine Trace /lpf; Squamous Epithelial Cell,Urine Occasional #/hpf (0-5); WBC,Urine Occasional #/hpf (0-3)
== END ==
PROVIDERS: PCP Internal Medicine Nephrology; Visit Provider Internal Medicine Nephrology
DX: N18.9 Chronic kidney disease, unspecified (principal); E55.9 Vitamin D deficiency, unspecified
CPT/HCPCS: 36415; 80069; 81001; 82306; 82570; 84155; 85025

== ENCOUNTER 2022-01-06 00:39 | Emergency (ER) | payer OTHER, SELFPAY ==
[2022-01-06 00:39] VITALS: BP 164/87; PULSE 72; RESP 19; TEMP 36.8; O2SAT 98; BMI 51.5
--- NOTE | 2022-01-06 00:48 | ECG_ITS ---
APPROVED REPORT Exam: Resting ECG HR:77 bpm ECG Measurements Heart Rate 77 AXES ND 162 P 61 QRSd 111 QRS 64 QT 374 T 40 QTc 405 Conclusion SINUS RHYTHM Old nonsignificant Q waves in inferior leads. Late R wave progression, unchanged from prior ABNORMAL ECG UNCONFIRMED REPORT Electronically signed by : Reji English MD 01/06/2022 07:14:01
--- NOTE | 2022-01-06 00:48 | XR_ITS ---
PROCEDURE INFORMATION: Exam: XR Chest Exam date and time: 01/06/2022 1:08 AM Age: 56 years old Clinical indication: Sternal or substernal pain; Additional info: Chest pain TECHNIQUE: Imaging protocol: Radiologic exam of the chest. Views: 1 view. COMPARISON: CR XR CHEST AP 02/11/2020 9:01 PM FINDINGS: Lungs: Low lung volumes, limiting evaluation of lung bases. No definite acute airspace consolidation. Pleural spaces: No large pleural effusion. No pneumothorax. Heart/Mediastinum: Cardiomediastinal is likely unchanged from prior chest radiographs accounting for above the technique. Bones/joints: No acute osseous abnormality. IMPRESSION: No acute findings.
--- NOTE | 2022-01-06 00:49 | HMH.EDGENADL ---
Discharge Plan Disposition Patient Disposition: Home, Self-Care Condition: Good Chief Complaint: Chest Pain Prescriptions Prescriptions: No Action methocarbamol 750 mg tablet 750 mg PO DAILY Label Comments: TAKE 1 TABLET BY MOUTH TWICE DAILY NEEDED FOR MUSCLE SPASM bisoprolol-hydrochlorothiazide 2.5-6.25 mg tablet 1 tab PO DAILY Label Comments: TAKE 1 TABLET BY MOUTH ONCE DAILY topiramate 200 mg tablet 200 mg PO DAILY Label Comments: TAKE 2 TABLETS BY MOUTH ONCE DAILY potassium chloride 10 mEq Capsule, Extended Release 10 meq PO DAILY bumetanide 1 mg tablet 1 mg PO BID Activity Restrictions/Add. Instructions Additional Instructions/Restrictions: You have been evaluated for chest pain. This is possibly due to inflammation, chest wall pain. Please monitor your symptoms closely. Follow-up with your primary care doctor and primary cargo services coordinator. Return to the emergency department at once if chest pain should return or if you have any new or worsening symptoms, shortness of breath, difficulty breathing, other concerns Clinical Impressions Clinical Impression: Chest wall pain Instructions Patient Instructions: DI for Atypical Chest Pain Discharge ED Provider: Trisha Pedroza Adult HPI General Chief complaint: Chest Pain Stated complaint: Chest Pain Time Seen by Provider: 01/06/22 00:50 Mode of Arrival: Ambulatory Source of Information: Patient Limitations: No Limitations History of Present Illness HPI narrative: 56-year-old female presenting to the emergency department with chest pain. Pain is located in the left upper chest wall. Described as constant, pressure sensation. Started approximately 2 hours ago she was getting ready for bed. Has been constant since onset. Localized to the left upper chest. Does not radiate to the jaw, arm, back. No associated nausea, diaphoresis, cough, shortness of breath. She has had pain like this on and off for the last few days. No particular association with exertion or activity. Denies recent illness, fevers, chills, nausea, vomiting. She has history of CHF and CKD. Denies history of coronary artery disease. No medications prior to arrival. Does not take daily aspirin. Related Data Home Medications Medication Instructions Recorded Confirmed bisoprolol 2.5 1 tab PO DAILY Heart disease 08/31/19 01/06/22 mg-hydrochlorothiazide 6.25 mg tablet methocarbamol 750 mg tablet 750 mg PO DAILY Arthritis 08/31/19 01/06/22 topiramate 200 mg tablet 200 mg PO DAILY bp 08/31/19 01/06/22 bumetanide 1 mg tablet 1 mg PO BID Fluid 01/06/22 01/06/22 potassium chloride 10 mEq 10 meq PO DAILY Supplement 01/06/22 01/06/22 capsule,extended release Allergies Allergy/AdvReac Type Severity Reaction Status Date / Time codeine Allergy Unknown Verified 10/25/19 09:59 allergy reaction Penicillins Allergy Unknown Verified 10/25/19 09:59 allergy reaction PFSH PFSH Social History Smoking Status: Never smoker alcohol intake: never substance use type: denies use current occupational status: other Travel in the last 8 weeks: None housing: house current occupational exposures/hazards: Yes ROS Obtained: Yes All systems reviewed & no additional complaints except as documented Constitutional Constitutional: Denies chills, Denies fever(s) and Denies headache(s) ENT Ears, Nose, Mouth, and Throat: Denies dizziness and Denies headache(s) Cardiovascular Cardiovascular: Reports chest pain, Reports chest pain at rest, Denies dyspnea, Denies palpitations and Reports paroxysmal nocturnal dyspnea Respiratory Respiratory: Denies cough, Denies dyspnea, Denies pain with breathing and Denies wheezing Gastrointestinal Gastrointestingal: Denies abdominal pain, nausea or vomiting Musculoskeletal Musculoskeletal: Denies numbness and Denies radiating pain into limb Neurologic Neurologic: Denies di
[2022-01-06 00:52] LABS: Coronavirus 19, PCR Not Detected (NotDetected); Influenza A, PCR Not Detected (NotDetected); Influenza B, PCR Not Detected (NotDetected)
[2022-01-06 00:57] LABS: Basophils # 0.1 K/mm3 (0-0.2); Basophils % 1.2 % (0.1-2.0); Eosinophils # 0.4 K/mm3 (0.0-0.4); Eosinophils % 3.1 % (0.1-12.0); Hematocrit 44.8 % (37.0-47.0); Hemoglobin 14.1 g/dL (12.2-16.2); Lymphocytes # 2.4 K/mm3 (0.7-4.5); Lymphocytes % 19.3 % (10-50); Mean Corpuscular HGB Conc 31.5 g/dL (31.8-35.4); Mean Corpuscular Hemoglobin 29.4 pg (27.0-31.2); Mean Corpuscular Volume 93.4 fl (81-99); Mean Platelet Volume 7.8 fl (7.4-10.4); Monocytes # 0.6 K/mm3 (0.1-1.0); Neutrophils # 8.8 K/mm3 (1.8-7.8); Neutrophils % 71.4 % (37.0-80.0); Platelet Count 403 K/mm3 (142-424); Red Cell Distribution Width 12.9 % (11.5-17.5); White Blood Count 12.3 K/mm3 (4.8-10.8)
[2022-01-06 01:01] VITALS: BP 141/67; PULSE 68; RESP 19
[2022-01-06 01:01] LABS: Chloride 102 mmol/L (98-107); Potassium 3.8 mmoL/L (3.5-5.1); Sodium 138 mmol/L (136-145)
[2022-01-06 01:03] LABS: Alanine Aminotransferase 20 U/L (12-78); Aspartate Amino Transferase 29 U/L (14-36); Blood Urea Nitrogen 20 mg/dl (7-17); Creatinine Clearance Estimated 50 mL/min (50-200); Estimated Glomerular Filt Rate 52 ml/min (>60); GFR (African American) 62 ML/MIN (>60)
[2022-01-06 01:04] LABS: Albumin Level 4.3 g/dl (3.5-5.0); Albumin/Globulin Ratio 1.3 (1.1-1.8); Alkaline Phosphatase 138 U/L (38-126); Anion Gap 11.8 mEq/L (5-15); Calcium 8.7 mg/dl (8.4-10.2); Carbon Dioxide 28 mmol/L (22.0-30.0); Globulin 3.3 g/dL (1.3-3.2); Glucose 115 mg/dl (74-100); Total Protein,Serum 7.6 g/dl (6.3-8.2)
[2022-01-06 01:10] LABS: Bilirubin,Total < 0.1 mg/dl (0.2-1.3)
[2022-01-06 01:18] LABS: Troponin I < 0.01 ng/ml (0.00-0.034)
[2022-01-06 01:30] VITALS: BP 125/63; PULSE 68; RESP 17
[2022-01-06 02:00] VITALS: BP 132/70; PULSE 66; RESP 20
[2022-01-06 02:30] VITALS: BP 124/76; PULSE 76; RESP 14
--- NOTE | 2022-01-06 02:39 | PC.NURSE ---
PT AWARE THAT NEXT LABS ARE DUE AT 0245. NO ACUTE DISTRESS NOTED. PT PLAYING VIDEO GAMES ON PHONE.
--- NOTE | 2022-01-06 02:54 | PC.NURSE ---
TROPONIN DRAWN AND SENT PER MD REQUEST.
[2022-01-06 03:25] LABS: Troponin I < 0.01 ng/ml (0.00-0.034)
[2022-01-06 03:38] VITALS: BP 131/71; PULSE 67; PULSE 68; RESP 16; TEMP 36.8; O2SAT 97
== END 2022-01-06 03:57 | disposition home or self-care (01) ==
PROVIDERS: Emergency Provider Emergency Medicine; PCP Nurse Practitioner Family
DX: R07.89 Other chest pain (principal); Z88.5 Allergy status to narcotic agent; Z88.0 Allergy status to penicillin; Z79.899 Other long term (current) drug therapy
CPT/HCPCS: 71045; 80053; 84484; 85025; 93005; 96374; 99284; C9803; J2405; U0003; U0005

== ENCOUNTER 2022-02-10 19:33 | Emergency (ER) | payer OTHER, SELFPAY ==
[2022-02-10 20:02] VITALS: BP 135/85; PULSE 76; RESP 19; TEMP 36.8; O2SAT 98; BMI 36.0
--- NOTE | 2022-02-10 20:09 | EXP.UTC ---
Discharge Plan Disposition Patient Disposition: Home, Self-Care Condition: Good Prescriptions Prescriptions: No Action methocarbamol 750 mg tablet 750 mg PO DAILY Label Comments: TAKE 1 TABLET BY MOUTH TWICE DAILY NEEDED FOR MUSCLE SPASM bisoprolol-hydrochlorothiazide 2.5-6.25 mg tablet 1 tab PO DAILY Label Comments: TAKE 1 TABLET BY MOUTH ONCE DAILY topiramate 200 mg tablet 200 mg PO DAILY Label Comments: TAKE 2 TABLETS BY MOUTH ONCE DAILY potassium chloride 10 mEq Capsule, Extended Release 10 meq PO DAILY bumetanide 1 mg tablet 1 mg PO BID Referrals Follow up/Referrals: Vickie Romero PA [Primary Care Provider] - See instructions Activity Restrictions/Add. Instructions Additional Instructions/Restrictions: Follow up with [facility] for the result of your lab work and further treatment and evaluation Return if needed Straight to ER if any life threatening symptoms Clinical Impressions Clinical Impression: Routine lab draw Discharge ED Provider: Nancy Staton [facility] General Stated complaint: metabolic panel Mode of Arrival: Wheelchair Source of Information: Patient Limitations: No Limitations Time Seen by Provider: 02/10/22 20:09 Description of Symptoms (Recalled from Triage Doc. by RN): NEEDS LABS DRAWN FOR [facility] HEENT Symptoms (Recalled from RN notes): No Resp Symptoms (Recalled from RN notes): No Skin Symptoms (Recalled from RN notes): No MS Symptoms (Recalled from RN notes): No Functional Status (Recalled from RN notes): NA History of Present Illness Provider Complaint: Patient states that she was suppose to have an order to get CBC CMP and Vit D drawn but when she got here the order wasnt here and she has an appointment with [facility] in the morning and needs to get the labs drawn States that they told her that she could get them drawn and leave but she is unable to find the order so she came in here wanting to see if we could look up last lab work done by her architectural technologist and repeat it for them for her appointment in the morning Related Data Home Medications Medication Instructions Recorded Confirmed bisoprolol 2.5 1 tab PO DAILY Heart disease 08/31/19 01/06/22 mg-hydrochlorothiazide 6.25 mg tablet methocarbamol 750 mg tablet 750 mg PO DAILY Arthritis 08/31/19 01/06/22 topiramate 200 mg tablet 200 mg PO DAILY bp 08/31/19 01/06/22 bumetanide 1 mg tablet 1 mg PO BID Fluid 01/06/22 01/06/22 potassium chloride 10 mEq 10 meq PO DAILY Supplement 01/06/22 01/06/22 capsule,extended release Allergies Allergy/AdvReac Type Severity Reaction Status Date / Time codeine Allergy Unknown Verified 10/25/19 09:59 allergy reaction Penicillins Allergy Unknown Verified 10/25/19 09:59 allergy reaction Worker's Comp Is this a Worker's Comp case?: No PFSH PFSH Social History Smoking Status: Never smoker alcohol intake: never substance use type: denies use current occupational status: other Travel in the last 8 weeks: None housing: house current occupational exposures/hazards: Yes ROS Obtained: Yes All systems reviewed & no additional complaints except as documented and Yes Systems reviewed as appropriate & no additional complaints except as documented Constitutional Constitutional: Reports system reviewed and no additional complaints, except as documented and Reports as per HPI Comments: just needing repeat labs for Nephology appointement in the morning Cardiovascular Cardiovascular: Reports system reviewed and no additional complaints, except as documented and Reports as per HPI Respiratory Respiratory: Reports system reviewed and no additional complaints, except as documented and Reports as per HPI Gastrointestinal Gastrointestingal: Reports system reviewed and no additional complaints, except as documented and as per HPI Musculoskeletal Musculoskeletal: Reports system reviewed an
[2022-02-10 20:25] VITALS: BP 135/85; PULSE 76; RESP 18; TEMP 36.8; O2SAT 98
== END 2022-02-10 20:25 | disposition home or self-care (01) ==
PROVIDERS: Emergency Provider Nurse Practitioner; PCP Nurse Practitioner Family
DX: Z01.89 Encounter for other specified special examinations (principal)
CPT/HCPCS: 99211; G0463

== ENCOUNTER → 2022-03-23 10:35 | Outpatient (CLI) | payer OTHER, MEDICAID, SELFPAY ==
--- NOTE | 2022-03-23 10:43 | XR_ITS ---
FINAL REPORT CLINICAL HISTORY: knee pain, best images possible COMPARISON: 02/11/2020 FINDINGS: RIGHT KNEE Three weight-bearing views of the right knee were obtained. There is no acute fracture or dislocation. Visualized joint spaces are normally aligned. There are severe degenerative changes which are diffuse but most pronounced in the medial compartment. The bones are osteopenic. Bulky osteophytes are noted. Soft tissues are unremarkable. IMPRESSION: Interval progression of severe degenerative change. Reviewed, Interpreted and Dictated by Faustino Najera MD Transcribed by Xochitl Muniz Authenticated and [facility]
--- NOTE | 2022-03-23 10:43 | XR_ITS ---
FINAL REPORT CLINICAL HISTORY: knee pain, best images possible COMPARISON: 02/11/2020 FINDINGS: LEFT KNEE Three weight-bearing views of the left knee were obtained. There is no acute fracture or dislocation. Visualized joint spaces are normally aligned. There are severe degenerative changes which are diffuse but most pronounced in the medial compartment. The bones are osteopenic. Bulky osteophytes are noted. Soft tissues are unremarkable. IMPRESSION: Interval progression of severe degenerative change. Reviewed, Interpreted and Dictated by Faustino Najera MD Transcribed by Xochitl Muniz Authenticated and [facility]
== END ==
PROVIDERS: PCP Nurse Practitioner Family; Visit Provider Orthopaedic Surgery
DX: M25.561 Pain in right knee (principal); M25.562 Pain in left knee
CPT/HCPCS: 73562

== ENCOUNTER → 2022-04-20 08:46 | Outpatient (POV) | payer OTHER, MEDICAID, SELFPAY ==
--- NOTE | 2022-04-20 09:04 | EXP.PAIN.OV ---
HPI Data of Consult Patient: new to practice Consult date: 04/20/22 Requesting Physician: Dione Patino APRN Primary Care Provider: CAMILO Weller Consult Narrative Reason for consult: Bilateral knee pain History of present illness: Ms. Guzman is a 57 year old female who presents today as a new patient. She is a referral from Isaac Patino's office. Today she states her pain is 7 out of 10. She states the pain is all in her bilateral knees and denies any trauma or injury specific to this pain. She states this pain has been going on for years and progressively worsened over time. Patient states she was actually referred 20 years ago for knee surgery due to them being [id number] however she wanted to push it off at that point. Patient rates her pain today a 7 out of 10 and describes it as a sharp, achy, intense sensation that is worse with increased activity. Patient does have to use a cane or a rolling walker to help with her ambulation. Patient states this pain with decreased range of motion does interfere with her ability to perform activities of daily living and states that even walking is significantly affected. Patient states she did go to Dr. Patino here at [facility] for evaluation of her knee pain however he did think that she would do better at orthopedics. Patient is scheduled for left knee arthroplasty on June 11. Patient has had physical therapy in the past however this did not provide significant improvement. Patient does use Biofreeze and lidocaine patches to provide some temporary relief along with heat and ice. Patient is currently managed on tramadol 50 mg 4 times a day and gabapentin 600 mg 3 times a day from an outside provider. Patient denies any side effects from these medications. She states these medications do help. Patient states she did have multiple knee injections in the past that provided significant improvement however over time these became less and less effective. Patient states that she is also interested in physical therapy at this time for her left knee due to a recent locking sensation. Patient states she would like to get increased range of motion before she goes for her surgery. Patient states she does also have severe degenerative disc disease throughout her spine that she has been treated for in the past. Her Ashu is [phone]. Its been reviewed and appropriate. CC: Dione Patino APRN [facility] Disclaimer: The information contained in this section may have been updated after the patient was seen, as this information can be updated by other users. Social History Smoking Status: Never smoker alcohol intake: never substance use type: denies use current occupational status: other Travel in the last 8 weeks: None housing: house current occupational exposures/hazards: Yes Review of Systems Review of Systems Review of systems:: pertinent systems reviewed and negative unless documented below Review of systems (narrative): Review of Systems: General: No recent weight changes, no fever, no sleep disturbances Respiratory: No cough, no shortness of air, no recurring pulmonary infections Cardiovascular/peripheral vascular: No chest pain, no palpitations, no edema, no shortness of breath Gastrointestinal: No new onset incontinence, normal bowel movements reported Genitourinary: No new onset incontinence Musculoskeletal: Bilateral knee pain Psychiatric: [Normal mood/affect] Neurological: [Denies weakness in extremities], [denies balance issues] Meds Home Medications and Allergies Home Medications Medication Instructions Recorded Confirmed Type bisoprolol 2.5 1 tab PO DAILY Heart disease 08/31/19 03/23/22 History mg-hydrochlorothiazide 6.25 mg tablet methocarbamol 750 mg tablet 750 mg PO DAILY Arthritis 08/31/19 03/23/22 History topiramate 200 mg tablet 200 mg PO DAILY bp 08/31/19 03/23/22
[2022-04-20 09:09] VITALS: BP 142/72; PULSE 76; RESP 18; O2SAT 97; BMI 36.0
== END ==
PROVIDERS: PCP Nurse Practitioner Family; Visit Provider Nurse Practitioner Family
DX: M17.0 Bilateral primary osteoarthritis of knee (principal); Z79.899 Other long term (current) drug therapy
CPT/HCPCS: 99202; G0463

== ENCOUNTER 2022-05-04 10:57 | Outpatient (RCR) | payer OTHER, SELFPAY ==
--- NOTE | 2022-05-04 14:54 | HMH.PTOPEV ---
PT Outpatient Evaluation Rehab PT Outpatient Evaluation Start: 05/04/22 11:05 Freq: Status: Active Protocol: Document 05/04/22 11:52 CATE (Rec: 05/04/22 14:54 CATE [id number]) E-signed By Holger Floyd, PT Outpatient Therapy Subjective History Subjective History Pt reports h/o chronic left knee pain for 20+ years. Pt reports h/o multiple traumatic events that have cause previous injury to left knee, leading to recent Xrays revealing severe degeneration. Pt reports over the last month the left knee has 'fused ', and 'it used to move pretty good but now its stuck and painful.' Pt reports a left TKA is scheduled for 06/11/22, and 'I'm here hoping to get my quad tendon stretched out, and left knee moving better to get ready for surgery.' PMH: TIA July-reports some residual LLE weakness, chronic right knee pain w/limited ROM , kidney dx. Chief Complaint Pain,Stiff,Swelling,Weakness Symptom Type Ache,Throb,Sharp,Dull,Stabbing Symptoms Relieved By Nothing Symptoms Aggravated By Standing,Physical Activity, Walking Prior Functional Limitations Housework,Standing,Walking, Stairs Current Functional Limitations Housework,Standing,Walking, Stairs Symptom Description Constant and Continuous Level of pain today (0-10) 8 Pain scale - at its best (0-10) 8 Pain scale - at its worst (0-10) 10 Hip/Knee Eval Gait Observation General Gait Pattern Observation Antalgic Gait,Wide Based Gait, Shuffling Step,Hips Posterior to MAIK Assistive Device Assistive Devices Rolling / Wheeled Walker Palpation Tenderness left Knee Palpation Finding Tenderness Knee Palpation Overall Comment 3-4/4 global left knee,3-4/4 circumferentially around jt line MMT Hip Flexion Strength Grade 4 Good Hip Abduction Strength Grade 4 Good Hip Adduction Strength Grade 4 Good Hip Extension Strength Grade 4 Good Knee Extension Strength Grade 5 Normal Knee Flexion Strength Grade 5 Normal
== END 2022-05-04 10:59 | disposition home or self-care (01) ==
LOC: PT 10:57
PROVIDERS: PCP Nurse Practitioner Family; Visit Provider Nurse Practitioner Family
DX: M25.562 Pain in left knee (principal); M23.92 Unspecified internal derangement of left knee
CPT/HCPCS: 97140; 97163

== ENCOUNTER → 2022-05-12 15:23 | Outpatient (POV) | payer OTHER, SELFPAY ==
[2022-05-12 15:56] VITALS: BP 151/68; PULSE 87; RESP 18; O2SAT 97; BMI 37.4
--- NOTE | 2022-05-12 16:09 | EXP.PAIN.SOA ---
[facility] Pain Management SOAP Note Subjective:: Patient is a 57-year-old female who presents today for injection denial. We are currently treating the patient for osteoarthritis bilateral knees, bilateral knee pain. Today she rates her pain a 9 out of 10. Patient denies any new trauma or injury. Patient denies any change to location or type of pain she experiences. At our last visit we did prescribe compounding cream however she states this caused her to have nausea and diarrhea and has discontinued use. Patient does state that she continues to have significant pain in her right knee and describes it as a sharp achy intense sensation that is worse with increased activity. Patient continues to use a rolling walker to assist with ambulation. Patient does state this does affect her ability to perform activities of daily living and that she is unable to do the smallest things such as cooking or cleaning or even walking due to her pain. Patient did go to Dr. Patino here at [facility] initially for her knee pain however she was sent on to orthopedics. Patient is scheduled for a left knee arthroplasty on June 11. Patient states that she did go to her physical therapy referral appointment that we schedule however she states that at this initial evaluation she was told that they could not do anything for her. Patient states that he said that her knee was in such bad condition that they would not be able to provide any additional benefit. Patient does use Biofreeze and lidocaine patches along with heat and ice for temporary relief. Patient is managed with tramadol 50 mg 4 times a day and gabapentin 600 mg 3 times a day from an outside provider. Patient denies any side effects from these medications. She states these medications do not provide significant improvement. She is requesting something stronger for her pain. Her Ashu is [phone]. Its been reviewed and appropriate. Review of Systems: General: No recent weight changes, no fever, no sleep disturbances Respiratory: No cough, no shortness of air, no recurring pulmonary infections Cardiovascular/peripheral vascular: No chest pain, no palpitations, no edema, no shortness of breath Gastrointestinal: No new onset incontinence, normal bowel movements reported Genitourinary: No new onset incontinence Musculoskeletal: Bilateral knee pain Psychiatric: [Normal mood/affect] Neurological: [Denies weakness in extremities], [denies balance issues] Objective:: Physical Exam: General: Alert and oriented x3, no acute distress, pleasant and cooperative Lungs: Respirations even and unlabored, symmetrical chest expansion Eyes: PERRL Musculoskeletal: Flexion and extension of bilateral knees somewhat guarded secondary to pain, [antalgic gait noted] Neurological: Speech clear, no gross sensory deficit ORT score updated with low risk Assessment:: Osteoarthritis bilateral knees, bilateral knee pain Plan:: Patient continues to experience significant pain in her bilateral knees with limited range of motion. Patient has tried and failed conservative therapy such as oral medications, topicals, heat and ice, physical therapy, at home stretching and exercise for longer than 6 weeks. I do think the patient would get beneficial relief with a genicular nerve block. Risk and benefits were discussed with the patient. She would like to proceed forward with this plan of care. At this time we will not prescribe anything additional for pain. We will resubmit to insurance for a right knee genicular nerve block and contact the patient's once we have approval. Patient has been instructed to contact the clinic with any concerns before the next appointment. Dr. Lindsey has reviewed this note and agrees with this plan of care. This note was dictated using voice recognition software and make contain errors or omissions. [facility] Disclaimer: The information contained in this section may have been updated after the patient was seen,
== END ==
PROVIDERS: PCP Nurse Practitioner Family; Visit Provider Nurse Practitioner Family
DX: M17.0 Bilateral primary osteoarthritis of knee (principal); M25.561 Pain in right knee; M25.562 Pain in left knee
CPT/HCPCS: 99212; G0463

== ENCOUNTER 2022-09-01 15:29 | Emergency (ER) | payer OTHER, SELFPAY ==
[2022-09-01] VITALS (8 sets, daily range): BP systolic 126–144; BP diastolic 69–82; PULSE 62–74; RESP 16–20; TEMP 36.6–36.7; O2SAT 97–100; BMI 37.8
--- NOTE | 2022-09-01 16:09 | CT_ITS ---
PROCEDURE INFORMATION: Exam: CT Abdomen And Pelvis Without Contrast Exam date and time: 09/01/2022 4:58 PM Age: 57 years old Clinical indication: Abdominal pain; Flank; Lower; Additional info: Kidney stone protocol TECHNIQUE: Imaging protocol: Computed tomography of the abdomen and pelvis without contrast. Radiation optimization: All CT scans at this facility use at least one of these dose optimization techniques: automated exposure control; mA and/or kV adjustment per patient size (includes targeted exams where dose is matched to clinical indication); or iterative reconstruction. REPORTING DATA: Count of CT and Cardiac NM exams in prior 12 months: This patient has received 3 known CTs and 0 known cardiac nuclear medicine studies in the 12 months prior to the current study. COMPARISON: CR XR HIP LT 2-3V W/PELVIS 02/11/2020 9:08 PM FINDINGS: Lungs: Dependent bilateral lung base opacities favor atelectasis. Left upper quadrant click mild atelectasis Liver: Normal. No mass. Gallbladder and bile ducts: Normal. No calcified stones. No ductal dilation. Pancreas: Normal. No ductal dilation. Spleen: Normal. No splenomegaly. Adrenal glands: Normal. No mass. Kidneys and ureters: Normal. No hydronephrosis. Stomach and bowel: Unremarkable. No obstruction. No mucosal thickening. Appendix: No evidence of appendicitis. Intraperitoneal space: Unremarkable. No free air. No significant fluid collection. Vasculature: Unremarkable. No abdominal aortic aneurysm. Lymph nodes: Unremarkable. No enlarged lymph nodes. Urinary bladder: Unremarkable as visualized. Reproductive: Unremarkable as visualized. Bones/joints: Please see CT lumbar spine report for spine findings. Soft tissues: Normal. IMPRESSION: No CT evidence of obstructive nephropathy.
--- NOTE | 2022-09-01 16:21 | HMH.EDGENADL ---
Discharge Plan Disposition Patient Disposition: Home, Self-Care Prescriptions Prescriptions: New cefdinir 300 mg capsule 300 mg PO BID 10 Days Qty: 20 0RF No Action methocarbamol 750 mg tablet 750 mg PO DAILY Label Comments: TAKE 1 TABLET BY MOUTH TWICE DAILY NEEDED FOR MUSCLE SPASM bisoprolol-hydrochlorothiazide 2.5-6.25 mg tablet 1 tab PO DAILY Label Comments: TAKE 1 TABLET BY MOUTH ONCE DAILY topiramate 200 mg tablet 200 mg PO DAILY Label Comments: TAKE 2 TABLETS BY MOUTH ONCE DAILY potassium chloride 10 mEq Capsule, Extended Release 10 meq PO DAILY bumetanide 1 mg tablet 1 mg PO BID Referrals Follow up/Referrals: Vickie Romero PA [Primary Care Provider] - See instructions Activity Restrictions/Add. Instructions Additional Instructions/Restrictions: Follow-up withReturn for worsening pain dysuria or any other concerns within the next 8 hours Clinical Impressions Clinical Impression: Back pain Instructions Patient Instructions: DI for Acute Abdominal Pain Discharge ED Provider: Tejas Vazquez General Adult HPI General Chief complaint: Abdominal Pain Stated complaint: Possible Kidney Infection Time Seen by Provider: 09/01/22 15:30 Mode of Arrival: Wheelchair Source of Information: Patient Limitations: No Limitations Description of Symptoms (Recalled from ER Triage Doc. by RN): 57 F presents to ED with c/o blood tinged urine that began today, associated lower back pain. pt reports UTI treatment ongoing for 2 weeks. pt has been taking batrium. History of Present Illness HPI narrative: 57-year-old female presents with flank pain for 2 weeks and blood-tinged urine today. She says that she has been treated for urinary tract infection initially with Macrobid but had allergic reaction to it and then had Bactrim for 14 days per PCP with some improvement but then her pain and symptoms began again. She says that the pain is a little worse on the left side than the right. She follows with [facility] Related Data Home Medications Medication Instructions Recorded Confirmed bisoprolol 2.5 1 tab PO DAILY Heart disease 08/31/19 05/12/22 mg-hydrochlorothiazide 6.25 mg tablet methocarbamol 750 mg tablet 750 mg PO DAILY Arthritis 08/31/19 05/12/22 topiramate 200 mg tablet 200 mg PO DAILY bp 08/31/19 05/12/22 bumetanide 1 mg tablet 1 mg PO BID Fluid 01/06/22 05/12/22 potassium chloride 10 mEq 10 meq PO DAILY Supplement 01/06/22 05/12/22 capsule,extended release Previous Rx's Medication Instructions Recorded cefdinir 300 mg capsule 300 mg PO BID 10 days #20 caps 09/01/22 Allergies Allergy/AdvReac Type Severity Reaction Status Date / Time codeine Allergy Unknown Verified 03/23/22 13:08 allergy reaction Penicillins Allergy Unknown Verified 03/23/22 13:08 allergy reaction PFSH [facility] Disclaimer: The information contained in this section may have been updated after the patient was seen, as this information can be updated by other users. Medical History (Updated 09/01/22 @ 19:01 by Tejas Vazquez MD) Anxiety Arthritis Asthma HTN (hypertension) Surgical History (Updated 04/20/22 @ 09:44 by Lola Glover RN) H/O colonoscopy H/O left wrist surgery Social History (Updated 04/20/22 @ 09:45 by Lola Glover RN) Smoking Status: Never smoker alcohol intake: never substance use type: denies use current occupational status: other Travel in the last 8 weeks: None housing: house current occupational exposures/hazards: Yes ROS Obtained: Yes All systems reviewed & no additional complaints except as documented Constitutional Constitutional: Denies excessive sweating and Denies fatigue Eyes Eyes: Denies dry eyes ENT Ears, Nose, Mouth, and Throat: Denies dry mouth Cardiovascular Cardiovascular: Denies dyspnea Respiratory Respiratory: Denies dyspnea Gastrointestinal Gastrointestin
--- NOTE | 2022-09-01 16:31 | CT_ITS ---
PROCEDURE INFORMATION: Exam: CT Lumbar Spine Without Contrast Exam date and time: 09/01/2022 5:01 PM Age: 57 years old Clinical indication: Low back pain; Additional info: Lower back pain TECHNIQUE: Imaging protocol: Computed tomography of the lumbar spine without contrast. Radiation optimization: All CT scans at this facility use at least one of these dose optimization techniques: automated exposure control; mA and/or kV adjustment per patient size (includes targeted exams where dose is matched to clinical indication); or iterative reconstruction. REPORTING DATA: Count of CT and Cardiac NM exams in prior 12 months: This patient has received 3 known CTs and 0 known cardiac nuclear medicine studies in the 12 months prior to the current study. COMPARISON: CT ABDOMEN PELVIS WO CON 09/01/2022 4:58 PM FINDINGS: Bones/joints: Moderate loss of intervertebral disc space with degenerative changes at T11 through L1, and L4 through S1. Grade 1 anterolisthesis of L4 over L5 related to facet arthrosis with uncovering of the disc and resulting in moderate bilateral neural foraminal stenosis at that level. Moderate bilateral neural foraminal stenosis at L5-S1 secondary to facet and endplate osteophytosis. Soft tissues: Unremarkable. IMPRESSION: Moderate loss of intervertebral disc space with degenerative changes at T11 through L1, and L4 through S1. Grade 1 anterolisthesis of L4 over L5 related to facet arthrosis with uncovering of the disc and resulting in moderate bilateral neural foraminal stenosis at that level. Moderate bilateral neural foraminal stenosis at L5-S1 secondary to facet and endplate osteophytosis.
[2022-09-01 16:37] LABS: Basophils # 0.1 K/mm3 (0-0.2); Basophils % 0.9 % (0.1-2.0); Eosinophils # 0.2 K/mm3 (0.0-0.4); Eosinophils % 3.1 % (0.1-12.0); Hematocrit 41.6 % (37.0-47.0); Hemoglobin 13.3 g/dL (12.2-16.2); Lymphocytes % 35.3 % (10-50); Mean Corpuscular Hemoglobin 29.7 pg (27.0-31.2); Mean Corpuscular Volume 92.8 fl (81-99); Monocytes # 0.4 K/mm3 (0.1-1.0); Monocytes % 6.2 % (1.7-9.3); Neutrophils # 3.1 K/mm3 (1.8-7.8); Neutrophils % 54.5 % (37.0-80.0); Platelet Count 299 K/mm3 (142-424); Red Blood Count 4.49 M/mm3 (4.20-5.40); Red Cell Distribution Width 13.5 % (11.5-17.5); White Blood Count 5.7 K/mm3 (4.8-10.8)
--- NOTE | 2022-09-01 16:37 | PC.NURSE ---
UA sent to lab
[2022-09-01 16:40] LABS: Chloride 99 mmol/L (98-107); Potassium 3.7 mmoL/L (3.5-5.1); Sodium 138 mmol/L (136-145)
[2022-09-01 16:42] LABS: Blood Urea Nitrogen 17 mg/dl (7-17); Creatinine Clearance Estimated 76 mL/min (50-200); Estimated Glomerular Filt Rate 42 ml/min (>60); GFR (African American) 51 ML/MIN (>60)
[2022-09-01 16:43] LABS: Alanine Aminotransferase 22 U/L (12-78); Albumin Level 4.2 g/dl (3.5-5.0); Albumin/Globulin Ratio 1.4 (1.1-1.8); Alkaline Phosphatase 97 U/L (38-126); Anion Gap 18.7 mEq/L (5-15); Aspartate Amino Transferase 30 U/L (14-36); Bilirubin,Total 0.3 mg/dl (0.2-1.3); Calcium 8.9 mg/dl (8.4-10.2); Carbon Dioxide 24 mmol/L (22.0-30.0); Globulin 3.1 g/dL (1.3-3.2); Glucose 102 mg/dl (74-100); Lipase 85 U/L (23-300); Total Protein,Serum 7.3 g/dl (6.3-8.2)
[2022-09-01 16:44] LABS: Microscopic, Urine URINE MICROSCOPIC (MICROSCOPIC)
[2022-09-01 17:01] LABS: Appearance,Urine CLEAR (Clear); Bilirubin,Urine Negative (Negative); Blood, Urine Negative (Negative); Color,Urine YELLOW (Yellow); Glucose,Urine (UA) Negative (Negative); Ketones,Urine Negative (Negative); Leukocyte Esterase,Urine Negative (Negative); Nitrate,Urine Negative (Negative); PH,Urine 5.5 (5.0-8.5); Protein,Urine Negative (Negative); Urobilinogen,Urine 0.2 EU/dl (0.2)
== END 2022-09-01 19:27 | disposition home or self-care (01) ==
PROVIDERS: Emergency Provider Emergency Medicine; PCP Nurse Practitioner Family
DX: M54.50 Low back pain, unspecified (principal); R31.9 Hematuria, unspecified
CPT/HCPCS: 36415; 72131; 74176; 80053; 81001; 83690; 85025; 87086; 96361; 96374; 96375; 99285; J2405

== ENCOUNTER → 2023-03-23 07:26 | Outpatient (CLI) | payer MEDICAID, SELFPAY ==
--- NOTE | 2023-03-23 07:29 | MR_ITS ---
FINAL REPORT CLINICAL HISTORY: CHRONIC MIDLINE LOW BACK PAIN. low back pain worse on left side. intermittent bilateral leg pain COMPARISON: CT lumbar spine 09/01/2022 FINDINGS: Multiplanar MR imaging of the lumbar spine was performed without contrast. On the sagittal T2-weighted images, there is abnormal decreased signal involving primarily the L4-5 and L5-S1 discs. The vertebrae are of normal height. There is grade 1 anterolisthesis of L4 on L5. L1-2: There is no significant canal stenosis or neural foraminal narrowing. L2-3: A mild annular bulge is present, with mild bilateral neural foraminal narrowing. There is no significant canal stenosis. L3-4: Mild annular bulge is present, with mild bilateral neural foraminal narrowing. There is no significant canal stenosis. L4-5: There is a large annular bulge present, with severe canal stenosis, severe right neural foraminal narrowing, and moderate to severe left neural foraminal narrowing. L5-S1: A moderate-sized bulge is present, with mild right neural foraminal narrowing and mild to moderate left neural foraminal narrowing. There is no significant canal stenosis. IMPRESSION: Multilevel lumbar degenerative disc disease, most prominent at the L4-5 level with severe canal stenosis and severe right, moderate to severe left neural foraminal narrowing. There is also anterolisthesis of L4 on L5 at this level, grade 1. Reviewed, Interpreted and Dictated by Harris Pimentel MD Transcribed by India Rees Authenticated and [facility]
== END ==
PROVIDERS: PCP Nurse Practitioner Family; Visit Provider Nurse Practitioner Family
DX: M54.51 Vertebrogenic low back pain (principal); G89.29 Other chronic pain
CPT/HCPCS: 72148; 76376

== ENCOUNTER 2023-11-15 14:48 | Inpatient (IN) | payer MEDICAID, SELFPAY ==
[2023-11-15] VITALS (11 sets, daily range): BP systolic 111–156; BP diastolic 58–80; PULSE 56–76; RESP 14–22; TEMP 36.6–37.2; O2SAT 95–98; BMI 41.1; BMI 42.4
--- NOTE | 2023-11-15 14:47 | ECG_ITS ---
APPROVED REPORT Exam: Resting ECG HR:73 bpm ECG Measurements Heart Rate 73 AXES ND 161 P 64 QRSd 112 QRS 52 QT 391 T -2 QTc 417 Conclusion SINUS RHYTHM POSSIBLE INFERIOR MYOCARDIAL INFARCTION , PROBABLY OLD [30 ms Q WAVE IN II/aVF] BORDERLINE ECG UNCONFIRMED REPORT Electronically signed by : SHIRIN MORAN, 11/16/2023 06:03:49
--- NOTE | 2023-11-15 15:08 | XR_ITS ---
FINAL REPORT CLINICAL HISTORY: soa, chest pains started last night FINDINGS: No acute pulmonary opacity is present. There is no evidence of effusion or pneumothorax. Mediastinum is unremarkable. Heart size is normal. IMPRESSION: No acute abnormality. Authenticated and [facility]
--- NOTE | 2023-11-15 15:10 | [facility].EDCP ---
Discharge Plan Disposition Chief Complaint: Chest Pain Prescriptions Prescriptions: No Action methocarbamol 750 mg tablet 750 mg PO DAILY Patient Comments: TAKE 1 TABLET BY MOUTH TWICE DAILY NEEDED FOR MUSCLE SPASM bisoprolol-hydrochlorothiazide 2.5-6.25 mg tablet 1 tab PO DAILY Patient Comments: TAKE 1 TABLET BY MOUTH ONCE DAILY topiramate 200 mg tablet 200 mg PO DAILY Patient Comments: TAKE 2 TABLETS BY MOUTH ONCE DAILY oxycodone 5 mg tablet 5 mg PO gabapentin 800 mg tablet 800 mg PO tramadol 50 mg tablet 50 mg PO cephalexin 500 mg capsule 500 mg PO TID 10 Days Qty: 30 0RF bumetanide 1 mg tablet 1 mg PO BID potassium chloride 10 mEq capsule, extended release 10 meq PO DAILY Qty: 10 0RF Referrals Follow up/Referrals: Provider,Referral, MD [Primary Care Provider] - See instructions Discharge ED Provider: Shankar Lan General Chief Complaint: Chest Pain Stated Complaint: chest pain Time Seen by Provider: 11/15/23 15:00 History of Present Illness HPI narrative: 58-year-old female presents to the ER for concerns of chest pain. Patient does have a history of CHF on Bumex 0.5 mg 3 times daily, she states she has been gaining weight recently, up approximately 15 pounds in the last few months despite being compliant with her medication. Patient states her chest pain started yesterday, and has continued to be present, pressure-like sensation in the center of her chest radiating to the her left shoulder. She also has had an increase in her shortness of breath, worse with exertion, she has also had episodes of sweating and nausea. Patient reports previously having pneumonia and states this feels somewhat similar with tightness in the chest, however she does not have any of the other associated symptoms she had previously. Patient states she had 1 episode of emesis yesterday. She takes daily aspirin secondary to prior stroke. Related Data Home Medications Medication Instructions Recorded Confirmed bisoprolol 2.5 1 tab PO DAILY Heart disease 08/31/19 10/06/22 mg-hydrochlorothiazide 6.25 mg tablet methocarbamol 750 mg tablet 750 mg PO DAILY Arthritis 08/31/19 10/06/22 topiramate 200 mg tablet 200 mg PO DAILY bp 08/31/19 10/06/22 bumetanide 1 mg tablet 1 mg PO BID Fluid 01/06/22 10/06/22 gabapentin 800 mg tablet 800 mg PO 10/06/22 10/06/22 oxycodone 5 mg tablet 5 mg PO 10/06/22 10/06/22 tramadol 50 mg tablet 50 mg PO 10/06/22 10/06/22 Previous Rx's Medication Instructions Recorded potassium chloride 10 mEq 10 meq PO DAILY #10 caps 09/01/22 capsule,extended release cephalexin 500 mg capsule 500 mg PO TID 10 days #30 caps 10/06/22 Allergies Allergy/AdvReac Type Severity Reaction Status Date / Time codeine Allergy Unknown Verified 10/06/22 13:57 allergy reaction Penicillins Allergy Unknown Verified 10/06/22 13:57 allergy reaction PFSH [facility] Disclaimer: The information contained in this section may have been updated after the patient was seen, as this information can be updated by other users. Medical History Anxiety Arthritis Asthma HTN (hypertension) Surgical History H/O colonoscopy H/O left wrist surgery Social History Smoking Status: Never smoker alcohol intake: never substance use type: denies use current occupational status: other Travel in the last 8 weeks: None housing: house current occupational exposures/hazards: Yes ROS Obtained: Yes All systems reviewed & no additional complaints except as documented Constitutional Constitutional: Denies chills, Denies fever(s), Denies headache(s) and Denies weakness Eyes Eyes: Denies change in vision ENT Ears, Nose, Mouth, and Throat: Denies dizziness, Denies headache(s), Denies nasal congestion and Denies sore throat Cardiovascular Cardiovascular: Reports chest pain, Reports chest pain at rest, Reports chest pain with activity, Reports dyspnea, Reports dyspnea on exertion, Reports leg edema and Reports radiating jaw, neck or arm pain Respiratory Respiratory: Denies cough, Reports dyspnea and Reports dyspnea on exertion Gastrointestinal Gastrointestingal: Reports nausea and vomiting; Denies constipation or diarrhea Genitourinary Female Genitourinary: Denies dysuria Musculoskeletal Musculoskeletal: Denies arthralgias, Denies myalgias, Denies numbness and Denies tingling Integumentary/Breasts Skin/Breast: Denies change in pigmentation Neurologic Neurologic: Denies dizziness, Denies headache(s), Denies numbness, Denies tingling and Denies weakness Physical Exam General General appearance: alert and in no apparent distress Head Head exam: atraumatic and normocephalic Eye Eye exam: Present PERRL and EOMI ENT ENT exam: Present mucous membranes moist Neck Neck exam: Present normal inspection and full ROM Chest Chest inspection: Present symmetric chest wall rise Respiratory Respiratory exam: Present normal lung sounds bilaterally; Absent respiratory distress, wheezes or stridor Cardiovascular Cardiovascular exam: Present regular rate and normal rhythm Abdominal Exam Abdominal exam: Present soft; Absent distention or tenderness Extremities Exam Extremities exam: Present full ROM and edema (Mild, nonpitting) Neurological Exam Neurological exam: Present alert and oriented X3; Absent motor sensory deficit Psychiatric Psychiatric exam: Present normal affect and normal mood Skin Skin exam: Present warm and dry HEART Score HEART Score HEART Score assessment performed?: Yes History (anamnesis): Moderately suspicious ECG: Non-specific disturbance Age: 45-65 years Risk factors: 1-2 risk factors Troponin: </= normal limit HEART Score: 4 Critical Care Critical Care Time Critical Care Time: No Medical Decision Making Medical Records Medical records reviewed: Yes I reviewed the patient's medical records. MR Comment: Review of previous records demonstrates patient has been evaluated by her primary care physician for cellulitis, has previous fracture as well as bilateral knee replacement. ECG today appears similar compared to previous. Ashu Inquiry Pt receiving controlled substance: No Vital Signs Vital Signs: 11/15/23 14:49 11/15/23 15:31 11/15/23 15:51 Temperature 97.8 F Temperature Source Oral Pulse Rate 65 69 Pulse Rate [Left Radial] 76 Respiratory Rate 16 19 22 Blood Pressure 133/65 128/63 Blood Pressure [Right Arm] 140/70 Blood Pressure Mean 79 Blood Pressure Mean [Right Arm] 93 02 Sat by Pulse Oximetry 98 97 95 Oxygen Delivery Method Room Air 11/15/23 16:31 11/15/23 17:01 11/15/23 17:28 Temperature Temperature Source Pulse Rate 66 62 63 Pulse Rate [Left Radial] Respiratory Rate 22 Blood Pressure 117/58 L 122/71 156/80 H Blood Pressure [Right Arm] Blood Pressure Mean 84 85 Blood Pressure Mean [Right Arm] 02 Sat by Pulse Oximetry 97 98 98 Oxygen Delivery Method Lab Data Labs: Lab Results 11/15/23 14:57: WBC 5.5, RBC 4.18 L, Hgb 13.6, Hct 39.3, MCV 94.0, MCH 32.6 H, MCHC 34.7, RDW 13.9, Plt Count 248, MPV 8.2, Neut % (Auto) 65.4, Lymph % (Auto) 23.6, [place] % (Auto) 5.6, Eos % (Auto) 4.5, Baso % (Auto) 0.9, Neut # (Auto) 3.6, Lymph # (Auto) 1.3, [place] # (Auto) 0.3, Eos # (Auto) 0.3, Baso # (Auto) 0.1, Sodium 138, Potassium 4.2, Chloride 110 H, Carbon Dioxide 22, Anion Gap 10.2, BUN 16, Creatinine 1.00, Estimated Creat Clear 107, Estimated GFR 57 L, Est GFR ( Amer) 69, Glucose 121 H, Calcium 9.0, Magnesium 1.8, Total Bilirubin 0.5, AST 41 H, ALT 23, Alkaline Phosphatase 71, Troponin I < 0.01, NT-Pro-B Natriuret Pep 574 H, Total Protein 7.3, Albumin 4.1, Globulin 3.2, Albumin/Globulin Ratio 1.3 11/15/23 15:31: SARS-CoV-2 (PCR) Not detected, Influenza A Untype (PCR) Not detected, Influenza Type B (PCR) Not detected 11/15/23 14:57 11/15/23 14:57 Response Orders (Tests/Meds): ED MEDICATIONS Generic Name Dose Route Start Last Admin Trade Name Freq PRN Reason Stop Dose Admin Bumetanide 1 mg 11/15/23 17:42 Bumetanide 1mg/4ml Vial IV 11/15/23 17:43 ONCE ONE Discontinued Medications Generic Name Dose Route Start Last Admin Trade Name Freq PRN Reason Stop Dose Admin Aspirin 324 mg 11/15/23 15:08 11/15/23 15:25 Aspirin 81mg Chewable Tablet PO 11/15/23 15:09 324 mg ONCE ONE Administration Belladonna Alkaloids 60 ml 11/15/23 15:50 11/15/23 16:35 Belladonna Alkaloids 60 Ml Ml PO 11/15/23 15:51 60 ml ONCE ONE Administration Iopamidol 70 ml 11/15/23 16:18 11/15/23 16:19 Iopamidol-370 (76%);100ml Bottle IV 11/15/23 16:19 70 ml ONCE ONE Administration Ondansetron HCl 4 mg 11/15/23 15:08 11/15/23 15:25 Ondansetron 4mg/2ml Vial IV 11/15/23 15:09 4 mg ONCE ONE Administration Sodium Chloride 10 ml 11/15/23 16:18 11/15/23 16:19 Sodium Chloride 0.9% 10ml Syr (Rad Only) IV 11/15/23 16:19 10 ml ONCE ONE Administration Sodium Chloride 50 ml 11/15/23 16:18 11/15/23 16:19 0.9 % Sodium Chloride 50 Ml Vial IV 11/15/23 16:19 50 ml ONCE ONE Administration ORDERS Category Date Time Status CT abdomen pelvis w con Stat Cat Scan 11/15/23 15:[address] angio chest PE protocol Stat Cat Scan 11/15/23 15:50 Completed Cardiology Consult [Consult to Cardiology] [CONS] Cons 11/15/23 17:44 Active Routine CXR --portable [XR chest portable] Stat Exams 11/15/23 15:08 Completed BNP [NT Pro Brain Natriuretic Pep.] Stat Lab 11/15/23 14:57 Completed CBC w/Auto Diff [Complete Blood Count Auto Diff] Stat Lab 11/15/23 14:57 Completed CMP [Comprehensive Metabolic Panel] Stat Lab 11/15/23 14:57 Completed Complete Blood Count Auto Diff AMLAB Lab 11/16/23 06:00 Ordered Comprehensive Metabolic Panel AMLAB Lab 11/16/23 06:00 Ordered Lipid Panel AMLAB Lab 11/16/23 06:00 Ordered Magnesium AMLAB Lab 11/16/23 06:00 Ordered Magnesium Stat Lab 11/15/23 14:57 Completed Rapid PCR Covid and Flu A/B Stat Lab 11/15/23 15:31 Completed Trop I [Troponin I] Stat Lab 11/15/23 14:57 Completed Troponin I Q3H Lab 11/15/23 18:15 Ordered Troponin I Q3H Lab 11/15/23 21:15 Ordered Troponin I Timed Lab 11/16/23 06:00 Ordered CA echo doppler complete Routine Y 11/15/23 17:44 Ordered MDM Narrative Medical Decision Narrative: In summary, this 58-year-old female presents to the emergency department today with chest pain/pressure, dyspnea on exertion, weight gain over the last multiple months, nausea. On initial evaluation patient is hemodynamically stable, afebrile, no tenderness to palpation of the chest wall, no obvious abnormalities on her cardiopulmonary exam aside from bilateral lower extremity edema. Differential diagnosis includes but is not limited to ACS, CHF, I considered the possibility of PE however patient is not hypotensive, hypoxic, or tachycardic. She also has no history of blood clot. Additionally considered possibility of electrolyte abnormality, kidney failure, CHF exacerbation, pneumonia. Based on these concerns, I ordered cardiac workup, chest x-ray, serum labs. ECG personally interpreted demonstrates normal sinus rhythm, rate 73, normal axis, isolated depression in lead II without reciprocal changes, nonspecific, no STEMI. Patient received Zofran, chewable aspirin for treatment. Labs personally reviewed demonstrate CBC with no leukocytosis or anemia, platelets normal, CMP with normal sodium and potassium, chloride slightly elevated but nonactionable, normal creatinine, reassuring against kidney dysfunction despite patient's active diuretic use, initial troponin undetectably low at less than 0.01, reassuring against acute cardiac injury especially since patient has been symptomatic for nearly 24 hours. Repeat EKG personally interpreted demonstrates normal sinus rhythm, rate 70, no dynamic changes, normal axis, no STEMI, similar to previous. XR personally interpreted demonstrates no acute thoracic abnormality, no significant pulmonary edema or pleural effusion, no lobar infiltrate, see radiology read for final interpretation. Patient did start complaining of worsening chest pain in the ER, her blood pressure would not support nitro administration, so this was not given. She had already received aspirin. Her heart rate, blood pressure, and oxygenation remained stable. Symptoms are similar to esophageal spasm/reflux, she is receiving GI cocktail for symptomatic reasons, I also did decide to scan the patient for PE as well as for intra-abdominal pathology. CT imaging personally interpreted demonstrate no PE, multifocal adenopathy present, nonspecific and nonactionable at this time, abdomen unremarkable. See radiology read for final interpretation. On reassessment, GI cocktail had not significantly improved patient's symptoms. She does continue to be stable however. Patient ambulated in the ER, she had worsening symptoms with this Though her oxygen remained above 95% on room air. Patient continues to have angina that is worse with exertion as well as exertional dyspnea. I believe she requires admission for monitoring and inpatient cardiology evaluation. I discussed this case with Dr. Jorge who has accepted the patient for admission.
--- NOTE | 2023-11-15 15:14 | PC.NURSE ---
requested 2nd EKG be done in 30-45 from the time the order was put in. will do when time is up.
[2023-11-15 15:18] LABS: Chloride 110 mmol/L (98-107)
[2023-11-15 15:19] LABS: Potassium 4.2 mmoL/L (3.5-5.1); Sodium 138 mmol/L (136-145)
[2023-11-15 15:21] LABS: Alanine Aminotransferase 23 U/L (12-78); Albumin Level 4.1 g/dl (3.5-5.0); Albumin/Globulin Ratio 1.3 (1.1-1.8); Alkaline Phosphatase 71 U/L (38-126); Anion Gap 10.2 mEq/L (5-15); Aspartate Amino Transferase 41 U/L (14-36); Bilirubin,Total 0.5 mg/dl (0.2-1.3); Blood Urea Nitrogen 16 mg/dl (7-17); Carbon Dioxide 22 mmol/L (22.0-30.0); Creatinine Clearance Estimated 107 mL/min (50-200); Estimated Glomerular Filt Rate 57 ml/min (>60); GFR (African American) 69 ML/MIN (>60); Globulin 3.2 g/dL (1.3-3.2); Glucose 121 mg/dl (74-100); Total Protein,Serum 7.3 g/dl (6.3-8.2)
[2023-11-15 15:22] LABS: Basophils # 0.1 K/mm3 (0-0.2); Basophils % 0.9 % (0.1-2.0); Eosinophils # 0.3 K/mm3 (0.0-0.4); Eosinophils % 4.5 % (0.1-12.0); Hematocrit 39.3 % (37.0-47.0); Hemoglobin 13.6 g/dL (12.2-16.2); Lymphocytes # 1.3 K/mm3 (0.7-4.5); Lymphocytes % 23.6 % (10-50); Mean Corpuscular HGB Conc 34.7 g/dL (31.8-35.4); Mean Corpuscular Hemoglobin 32.6 pg (27.0-31.2); Mean Platelet Volume 8.2 fl (7.4-10.4); Monocytes # 0.3 K/mm3 (0.1-1.0); Monocytes % 5.6 % (1.7-9.3); Neutrophils # 3.6 K/mm3 (1.8-7.8); Neutrophils % 65.4 % (37.0-80.0); Platelet Count 248 K/mm3 (142-424); Red Blood Count 4.18 M/mm3 (4.20-5.40); Red Cell Distribution Width 13.9 % (11.5-17.5); White Blood Count 5.5 K/mm3 (4.8-10.8)
[2023-11-15] MEDS: ONDANSETRON 4MG/2ML VIAL 4 MG IV ×2 (15:25→21:23)
[2023-11-15] MEDS: ASPIRIN 81MG CHEWABLE TABLET 324 MG PO (15:25)
[2023-11-15 15:31] LABS: NT Pro Brain Natriuretic Pep. 574 pg/mL (0-125)
[2023-11-15 15:35] LABS: Coronavirus 19, PCR Not Detected (NotDetected); Influenza A, PCR Not Detected (NotDetected); Influenza B, PCR Not Detected (NotDetected)
[2023-11-15 15:46] LABS: Troponin I < 0.01 ng/ml (0.00-0.034)
--- NOTE | 2023-11-15 15:48 | ECG_ITS ---
APPROVED REPORT Exam: Resting ECG HR:70 bpm ECG Measurements Heart Rate 70 AXES LA 163 P 60 QRSd 122 QRS 60 QT 423 T 1 QTc 444 Conclusion SINUS RHYTHM ANTEROLATERAL MYOCARDIAL INFARCTION , OF INDETERMINATE AGE [40+ ms Q WAVE IN I/aVL/V3-V6] ABNORMAL ECG UNCONFIRMED REPORT Electronically signed by : SHIRIN MORAN, 11/16/2023 06:03:36
--- NOTE | 2023-11-15 15:50 | CT_ITS ---
FINAL REPORT TECHNIQUE: Thin section axial CT with contrast with multiplanar reconstruction CLINICAL HISTORY: soa, chest pain FINDINGS: Pulmonary vessels enhance in normal fashion without evidence of embolism. Thoracic aorta shows no dissection or aneurysm. There is mild atelectasis. No focal infiltrate is seen. There is no significant pleural effusion. There is no significant pericardial effusion. There is mild multifocal adenopathy. A right paratracheal node measures up to 23 mm. An AP window node measures up to 18 mm. There is mild bilateral hilar adenopathy. The largest node on the left measures 19 mm. IMPRESSION: 1. No evidence of pulmonary embolism. 2. Mild multifocal adenopathy. 4 to 6-month chest CT is recommended. Reviewed, Interpreted and Dictated by Faustino Najera MD Transcribed by Naomi Cruz Authenticated and [facility]
--- NOTE | 2023-11-15 15:50 | CT_ITS ---
FINAL REPORT TECHNIQUE: Axial CT images of the abdomen and pelvis were performed without IV contrast. This study was performed with techniques to keep radiation doses as low as reasonably achievable (ALARA). Individualized dose reduction techniques using automated exposure control or adjustment of mA and/or kV according to the patient's size were employed. CLINICAL HISTORY: chest pain nausea FINDINGS: Abdomen: The gallbladder is unremarkable. The solid organs are unremarkable. No bowel obstruction is present. There is mild fecal impaction. There is no free air. No fluid collection is seen. There is no adenopathy. Pelvis: The appendix is not visualized but there are no secondary signs of appendicitis. The uterus is unremarkable. No bowel wall thickening is present. There is no free fluid. No pelvic mass is seen. IMPRESSION: No acute findings. Reviewed, Interpreted and Dictated by Faustino Najera MD Transcribed by Naomi Cruz Authenticated and . [facility]
[2023-11-15 16:05] LABS: Magnesium 1.8 mg/dl (1.6-2.3)
[2023-11-15] MEDS: 0.9 % SODIUM CHLORIDE 50 ML VIAL IV (16:19)
[2023-11-15] MEDS: IOPAMIDOL-370 (76%);100ML BOTTLE 70 ML IV (16:19)
[2023-11-15] MEDS: SODIUM CHLORIDE 0.9% 10ML SYR (RAD ONLY) 10 ML IV (16:19)
[2023-11-15] MEDS: BELLADONNA ALKALOIDS 60 ML ML PO (16:35)
--- NOTE | 2023-11-15 17:30 | PC.NURSE ---
this nurse ambulated pt around nurses station to assess room air saturation while pt is ambulating. pt O2 sat was 96% at lowest. pt heart rate 90 at the highest. while ambulating pt reports that she is still experiencing shortness of breath while walking. pt reports that she does more strenous activity at home. notified.
--- NOTE | 2023-11-15 18:04 | PC.NURSE ---
report called to live on second floor
[2023-11-15] MEDS: BUMETANIDE 1MG/4ML VIAL 1 MG IV (18:12)
--- NOTE | 2023-11-15 18:36 | PC.NURSE ---
MED REC COMPLETED USING EXTERNAL MEDICATION HISTORY
--- NOTE | 2023-11-15 18:50 | EXP.HP ---
History of Present Illness *Admission Date: 11/15/23 *Reason for visit:: dyspnea with exertion *History of present illness: Ms. Andrews is a 58-year-old female with history of hypertension, heart disease, previous stroke, morbid obesity, neuropathy with cauda equina. She presented to the ER because of complaint of worsening shortness of breath with exertion over the past several days to week and gain of approximately 15 pounds in the last month despite taking her diuretic 0.5 mg 3 times a day. States that she was at an event a month ago and had no difficulty walking around with no dyspnea with exertion. She has become more fatigued with exertion and feels like her legs are more swollen. Had an episode of chest pain with exertion that started yesterday, better at rest. Pressure sensation that radiated to her left neck and shoulder. Denies any diarrhea or vomiting. No syncope. Did have an episode of sweating however accompanied by nausea. Says she feels short of breath like when she had pneumonia and pleurisy previously but does not have quite the same pain. Workup in the ER with negative CT PE, negative EKG, negative troponin. Continues to have chest pain however. ER requested admission for further management of CHF exacerbation given her elevated BNP and cardiology evaluation. On evaluation after arriving to the floor, patient appears chronically ill and is morbidly obese. Stable on room air. Speech somewhat pressured. Appears little anxious but states she is not. Reports compliance with her diuretic regimen but just not having any increase in urine output. Feels like she has had a difficult time voiding. Sometimes has difficulty with urination due to her back injury. Reports decreased sensation in her region. Alert and oriented x 4. [facility] Disclaimer: The information contained in this section may have been updated after the patient was seen, as this information can be updated by other users. Medical History (Updated 11/15/23 @ 19:29 by Celio Jorge MD) Asthma Anxiety HTN (hypertension) Arthritis Surgical History H/O left wrist surgery H/O colonoscopy Social History Smoking Status: Never smoker alcohol intake: never substance use type: denies use current occupational status: other Travel in the last 8 weeks: None housing: house current occupational exposures/hazards: Yes Review of Systems Review of Systems Review of systems (narrative): 14 point review of systems performed, pertinent positives and negatives as per HPI Constitutional Constitutional: Denies headache(s) and Denies weakness ENT Ears, Nose, Mouth, and Throat: Denies dizziness and Denies headache(s) *Musculoskeletal Musculoskeletal: Denies numbness and Denies tingling *Neurologic Neurologic: Denies dizziness, Denies headache(s), Denies numbness, Denies tingling and Denies weakness Meds Home Medications and Allergies Home Medications Medication Instructions Recorded Confirmed Type bisoprolol 2.5 1 tab PO HS Heart disease 08/31/19 11/15/23 History mg-hydrochlorothiazide 6.25 mg tablet topiramate 200 mg tablet 200 mg PO HS bp 08/31/19 11/15/23 History tramadol 50 mg tablet 50 mg PO NEEDED PRN Pain 10/06/22 11/15/23 History acetaminophen 500 mg tablet 500 mg PO Q6H PRN Pain 11/15/23 11/15/23 History albuterol sulfate 90 mcg/actuation 90 mcg inhalation NEEDED PRN 11/15/23 11/15/23 History aerosol inhaler (Ventolin HFA) Shortness Of Breath bisoprolol 2.5 1 tab PO DAILY 11/15/23 11/15/23 History mg-hydrochlorothiazide 6.25 mg tablet bumetanide 0.5 mg tablet 0.5 mg PO BID 11/15/23 11/15/23 History cholecalciferol (vitamin D3) 25 25 mcg PO HS 11/15/23 11/15/23 History mcg (1,000 unit) tablet gabapentin 600 mg tablet 600 mg PO TID 11/15/23 11/15/23 History potassium chloride 10 mEq 10 meq PO BID 11/15/23 11/15/23 History tablet,extended release venlafaxine 37.5 mg 37.5 mg PO HS 11/15/23 11/15/23 History capsule,extended release 24 hr New Prescriptions to Start Prescriptions: Allergies Allergy/AdvReac Type Severity Reaction Status Date / Time codeine Allergy Unknown Verified 10/06/22 13:57 allergy reaction Penicillins Allergy Unknown Verified 10/06/22 13:57 allergy reaction Exam Data for Last 24 hours Vital signs and Labs for Last 24 Hours: Temp Pulse Resp BP Pulse Ox O2 Del Method 98.0 F 62 14 122/69 97 Room Air 11/15/23 18:43 11/15/23 18:43 11/15/23 18:43 11/15/23 18:43 11/15/23 18:43 11/15/23 18:43 Laboratory Results - last 24 hr 11/15/23 14:57: WBC 5.5, RBC 4.18 L, Hgb 13.6, Hct 39.3, MCV 94.0, MCH 32.6 H, MCHC 34.7, RDW 13.9, Plt Count 248, MPV 8.2, Neut % (Auto) 65.4, Lymph % (Auto) 23.6, [facility] % (Auto) 5.6, Eos % (Auto) 4.5, Baso % (Auto) 0.9, Neut # (Auto) 3.6, Lymph # (Auto) 1.3, [facility] # (Auto) 0.3, Eos # (Auto) 0.3, Baso # (Auto) 0.1, Sodium 138, Potassium 4.2, Chloride 110 H, Carbon Dioxide 22, Anion Gap 10.2, BUN 16, Creatinine 1.00, Estimated Creat Clear 107, Estimated GFR 57 L, Est GFR ( Amer) 69, Glucose 121 H, Calcium 9.0, Magnesium 1.8, Total Bilirubin 0.5, AST 41 H, ALT 23, Alkaline Phosphatase 71, Troponin I < 0.01, NT-Pro-B Natriuret Pep 574 H, Total Protein 7.3, Albumin 4.1, Globulin 3.2, Albumin/Globulin Ratio 1.3 11/15/23 15:31: SARS-CoV-2 (PCR) Not detected, Influenza A Untype (PCR) Not detected, Influenza Type B (PCR) Not detected I & O for Last 24 hours: Intake & Output 11/12/23 11/13/23 11/14/23 11/15/23 23:59 23:59 23:59 23:59 Output Total 0 / 0 Balance 0 / 0 Weight 112.066 kg Constitutional Constitutional: no acute distress, morbidly obese, chronically ill appearing and cooperative *Routine HEENT Exam Head: Present normocephalic Eye: Present EOMI and PERRL ENT: Present mucous membranes moist *Routine Neck Exam Neck: Present supple; Absent lymphadenopathy Routine Chest/Breast/Axilla Exam Chest wall: Absent tenderness *Routine Respiratory Exam Respiratory: Present CTA bilaterally, crackles (in bases) and distant breath sounds; Absent rhonchi or wheezes *Routine Cardiovascular Exam Cardiovascular: Present RRR *Routine Abdominal Exam Abdominal: Present soft and normoactive bowel sounds; Absent tenderness *Routine Rectal Exam Rectal:: deferred *Routine Genitalia Exam Genitalia:: deferred *Routine Extremities Exam Extremities: Present edema (2+ to thighs); Absent cyanosis or clubbing Comments: Well-healed scars over both knees from previous joint replacements *Routine Skin Exam Skin: Present warm; Absent rash *Routine Neurological Exam Neurological: Present alert, oriented X3 and moving all extremities; Absent altered mental status Routine Psychiatric Exam Psychiatric: Present normal thought process and anxious Assessment and Plan *Assessment and plan (1) Chest pain: Status: Acute Qualifiers: Chest pain type: precordial pain Qualified Code(s): R07.2 - Precordial pain Category: Medical Code(s): R07.9 - Chest pain, unspecified (2) Dyspnea on exertion: Status: Acute Category: Medical Code(s): R06.09 - Other forms of dyspnea (3) Back pain: Status: Acute Qualifiers: Back pain location: low back pain Chronicity: chronic Back pain laterality: midline Category: Medical Code(s): M54.9 - Dorsalgia, unspecified (4) Morbid obesity: Status: Chronic Category: Medical Code(s): E66.01 - Morbid (severe) obesity due to excess calories (5) Anxiety: Status: Chronic Category: Medical Code(s): F41.9 - Anxiety disorder, unspecified (6) HTN (hypertension): Status: Chronic Qualifiers: Hypertension type: primary hypertension Qualified Code(s): I10 - Essential (primary) hypertension Category: Medical Code(s): I10 - Essential (primary) hypertension Plan 58-year-old female who presents with chest pain with exertion, worsening dyspnea with exertion. Concern for CHF exacerbation. Discussed case with ER physician, request admission for further management of CHF exacerbation and intractable chest pain/unstable angina. I agreed to admit for further management. Cardiology consulted. Will monitor on telemetry overnight. Initiating diuretics. Patient stable on room air. Has had significant weight gain. Monitor output closely. Further management pending evaluation in the morning. Problems addressed as follows: CHF exacerbation -Per my review of chest imaging, has increased pulmonary vascular congestion. Initiate Bumex 1 mg twice daily, first dose now. Strict I's and O's -BNP elevated at 570. -Reported 15 pound weight gain. -Echocardiogram ordered and pending. -Cardiology consulted, appreciate their recommendations. -Monitor on telemetry. -Resume home bisoprolol HCTZ 2.5 mg / 6.25 mg twice daily -Personal review of CT PE, no blood clots noted. EKG with no ischemic changes. Serial troponins <0.01 x2, repeat overnight. Chronic back pain, neuropathy: Continue gabapentin 600 mg 3 times a day, continue tramadol 50 mg as needed every 6 hours. Anxiety: Continue Effexor 37.5 mg nightly Morbid obesity: Complicates all aspects of her care. Full code 40 mg Lovenox subcu twice daily Cardiac diet, n.p.o. at midnight
[2023-11-15 18:56] LABS: Troponin I < 0.01 ng/ml (0.00-0.034)
[2023-11-15] MEDS: TRAMADOL 50MG TABLET 50 MG PO (21:04)
[2023-11-15] MEDS: ENOXAPARIN 40MG/0.4ML SYRINGE 40 MG SQ (21:04)
[2023-11-15] MEDS: GABAPENTIN 600MG TABLET 600 MG PO (21:04)
[2023-11-15] MEDS: TOPIRAMATE 200 MG 200 EACH PO (21:05)
--- NOTE | 2023-11-15 21:10 | PC.NURSE ---
2109: Pt medications are unavailable, contacted Ko Babb APRN and made aware at this time. No new orders given, pt will resume medications tomorrow am. 2114: Pt also complained of nausea, Ko called back, new orders for zofran 4mg
[2023-11-15] MEDS: ACETAMINOPHEN 500MG TAB 1000 MG PO (21:56)
[2023-11-15 21:58] LABS: Troponin I < 0.01 ng/ml (0.00-0.034)
[2023-11-16] VITALS (10 sets, daily range): BP systolic 107–131; BP diastolic 56–88; PULSE 52–72; RESP 16–20; TEMP 36.4–36.6; O2SAT 95–98; BMI 44.3
--- NOTE | 2023-11-16 03:35 | PC.NURSE ---
Pt is alert and oriented x4 and currently tolerating RA well. Pt has complained of moderate to severe pain in her left abd. Pt has also c/o nausea, pt has been treated per MAR. there have been no other acute changes.
[2023-11-16] MEDS: TRAMADOL 50MG TABLET 50 MG PO (03:51)
[2023-11-16] MEDS: ACETAMINOPHEN 500MG TAB 1000 MG PO (03:51)
--- NOTE | 2023-11-16 07:00 | CA_ITS ---
APPROVED REPORT EXAM: Comprehensive 2D, Doppler, and color-flow Echocardiogram Wool Merchant: Karine Ruffin RDCS Ht: 5 ft 4 in Wt: 240lbs BSA: 2.11 BP: 110/60 mmHg Indications: CP,DIZZINESS,EDEMA 2D Dimensions LA Volume 77.70 mL LA Volume Index 36.65 mL/m2 (M/F) 16-34 M-Mode Dimensions RVDd 1.96 cm (0.9-2.6) LA Diam 3.39 cm (1.9-4.0) LVDd 3.99 cm (3.5-5.7) LVDs 2.99 cm (3.5-5.7) IVSd 1.44 cm (0.6-1.1) PWd 1.14 cm (0.6-1.1) EF (Teich) 50.10% FS 25.10% EDV (Teich) 69.60 mL ESV (Teich) 34.70 mL LV Diastology E Decel Time 223 (160-240 msec) E/A Ratio 1.5 Mitral Valve MV E Max Turner. 86.0 (40-130 cm/s) MV A Velocity 57.0 (40-130 cm/s) E/A Ratio 1.50 MV PHT 65.0 ms Tricuspid Valve TR P. Velocity 248.00 cm/s RAP Estimate 10.00 mmHg RVSP 34.60 mmHg Left Ventricle The left ventricle is normal size. The left ventricular systolic function is normal. The left ventricular ejection fraction is within the normal range. There is increased LV wall thickness. There is normal LV segmental wall motion. The left ventricular diastolic function is normal. LVEF is 55%. Right Ventricle Right ventricle is mildly dilated. The right ventricular systolic function is normal. Atria Left atrium is mildly dilated. Right atrium is mildly dilated. There is no Doppler evidence of interatrial shunt. Aortic Valve The aortic valve opens well. There is no aortic valvular stenosis. No aortic regurgitation is present. Mitral Valve The mitral valve is normal in structure. No evidence of mitral valve stenosis. Trace mitral regurgitation. Tricuspid Valve The tricuspid valve leaflets are thin and pliable. Mild tricuspid regurgitation. RVSP is 25-30 mmHg. Pulmonic Valve The pulmonary valve is normal in structure. Trace pulmonic regurgitation. Great Vessels The aortic root is normal in size. Trace pulmonic regurgitation. IVC is normal in size and collapses >50% with inspiration. Pericardium There is no pericardial effusion. Other Information Study Quality: Fair Conclusion Normal biventricular systolic function. Mild RV dilation. No regional wall motion abnormalities are noted. Mild TR. Electronically signed by : Beatriz Toledo MD 11/16/2023 13:34:09
[2023-11-16 07:47] LABS: Basophils # 0.1 K/mm3 (0-0.2); Basophils % 1.3 % (0.1-2.0); Eosinophils # 0.3 K/mm3 (0.0-0.4); Eosinophils % 6.2 % (0.1-12.0); Hematocrit 40.2 % (37.0-47.0); Hemoglobin 12.7 g/dL (12.2-16.2); Lymphocytes # 1.4 K/mm3 (0.7-4.5); Lymphocytes % 33.8 % (10-50); Mean Corpuscular HGB Conc 31.6 g/dL (31.8-35.4); Mean Corpuscular Hemoglobin 30.1 pg (27.0-31.2); Mean Corpuscular Volume 95.2 fl (81-99); Mean Platelet Volume 8.2 fl (7.4-10.4); Monocytes # 0.5 K/mm3 (0.1-1.0); Neutrophils # 1.9 K/mm3 (1.8-7.8); Neutrophils % 46.6 % (37.0-80.0); Platelet Count 231 K/mm3 (142-424); Red Blood Count 4.22 M/mm3 (4.20-5.40); Red Cell Distribution Width 13.8 % (11.5-17.5); White Blood Count 4.2 K/mm3 (4.8-10.8)
[2023-11-16 07:52] LABS: Alanine Aminotransferase 18 U/L (12-78); Albumin Level 3.4 g/dl (3.5-5.0); Albumin/Globulin Ratio 1.2 (1.1-1.8); Alkaline Phosphatase 82 U/L (38-126); Anion Gap 7.8 mEq/L (5-15); Aspartate Amino Transferase 26 U/L (14-36); Bilirubin,Total 0.3 mg/dl (0.2-1.3); Blood Urea Nitrogen 18 mg/dl (7-17); Calcium 8.8 mg/dl (8.4-10.2); Carbon Dioxide 27 mmol/L (22.0-30.0); Chloride 108 mmol/L (98-107); Chol/HDL Ratio 2.9 (1-3.5); Cholesterol 158 mg/dl (140-200); Creatinine Clearance Estimated 45 mL/min (50-200); Estimated Glomerular Filt Rate 46 ml/min (>60); GFR (African American) 56 ML/MIN (>60); Globulin 2.8 g/dL (1.3-3.2); Glucose 83 mg/dl (74-100); HDL Cholesterol 54 mg/dl (40-60); Magnesium 2.1 mg/dl (1.6-2.3); Potassium 3.8 mmoL/L (3.5-5.1); Sodium 139 mmol/L (136-145); Total Protein,Serum 6.2 g/dl (6.3-8.2); Triglycerides 92 mg/dl (30-150); VLDL Cholesterol 18 mg/dL (0-40)
[2023-11-16 08:03] LABS: Direct LDL Cholesterol 68.29 mg/dL (100-129)
[2023-11-16 08:14] LABS: Troponin I < 0.01 ng/ml (0.00-0.034)
--- NOTE | 2023-11-16 08:30 | HMH.PHAINT1 ---
Pharmacy Intervention Comments: HOME MEDICATION LIST VERIFIED USING LIST FROM OUTPATIENT PHARMACY AND PT INTERVIEW
--- NOTE | 2023-11-16 09:14 | CT_ITS ---
APPROVED REPORT Correctional Cook: CLINICAL INDICATION Chest Pain TECHNIQUE Image Acquisition: A 128 slice MDCT scanner ([employer]) was used for data acquisition. A noncontrast coronary calcium scan was performed. A CT attenuation threshold of 130 Hounsfield units (HU) was used for the detection of calcium in contiguous voxels of 1 sq mm in area to be counted as individual lesions. Bolus tracking in the ascending aorta with a threshold of 180 HU was performed. Immediately afterwards, ECG synchronized cardiac CT was then performed from the cardiac base to apex using retrospective gating with ECG tube current modulation. A total of 85 mL of Isovue 370 mg/mL contrast medium was administered at 5 mL/sec followed by a saline flush using a biphasic injection protocol. A tube voltage of 120 KVp was used. The patient received the following medications prior to the cardiac CT. 0.4 mg of sublingual nitroglycerin The average heart rate at the time of acquisition was 51 bpm and regular. Image Reconstruction Transaxial images were reconstructed at 0.67 mm slide thickness. Data was reviewed interactively on an advanced workstation capable of 2 and 3-dimensional displays in all conventional reconstruction formats, including multiplanar reformations, maximum intensity projections, curved multiplanar reformations, and volume rendered reconstructions. When applicable, selected routine images describing the relevant coronary anatomy and pathology were saved and sent to PACS. Complications None Technical Quality Overall image quality was good. Coronary artery opacification was adequate. Total DLP (Dose-Length Product) is 2825.8 mGy-cm. The reported value represents the total of one or more individual components during the CT acquisition of this date and at this time, and as such, the same value may appear in more than one CT report depending on the interpreting/reporting physicians. COMPARISON None FINDINGS CT Coronary Calcium Scoring LMA (Left Main Artery) = 0 LAD (Left Anterior Descending) = 63 LCX (Left Coronary Circumflex) = 0 RCA (Right Coronary Artery) = 3 Total Calcium Score = 66 using the AJ-130 method. The observed calcium score of 66 is at 90th percentile for subjects of the same age, sex, and race/ethnicity. The interpretation of the calcium heart score is based on the following continuum*: 0 = no calcified plaque detected (risk of coronary artery disease is very low ??? less than 5%) 1-10 = calcium detected in extremely minimal levels (risk of coronary diseases is still low ??? less than 10%) 11-100 = mild levels of plaque detected with certainty (mild or minimal narrowing of heart arteries is likely) 101-400 = definite,at least moderate levels of plaque detected (relatively high risk of a heart attack within 3-5 years) >401-999 = extensive levels of plaque detected (high risk of heart attack, high levels of vascular disease are present, high likelihood of at least one significant coronary narrowing) *The calcium heart score quantifies the burden of coronary calcification/plaque in the coronary arteries. The calcium heart score is not able to evaluate the presence or burden of non-calcified (i.e. soft) plaque. There is no identifiable calcification in the aortic valve, mitral annulus or mitral valve, pericardium, or myocardium. Coronary CT Angiography The coronary arterial system is right dominant. Quantitative Stenosis Grading: Left Main (LM): The left main originates normally from the left sinus of Valsalva. The LM bifurcates into the left anterior descending artery and left circumflex artery. The LM is patent with no evidence of atherosclerosis. Left Anterior Descending (LAD) and Diagonal Branches: The LAD gives off 2 diagonal branch(es). There is calcified plaque in the proximal LAD with no significant luminal stenosis. There is also another non-calcified plaque noted in the mid-LAD segment with up to 50-70% luminal stenosis of indeterminate hemodynamic significance. There is no evidence of LAD-myocardial bridge. Left Circumflex (LCX) and Obtuse Marginals (OM): The LCX gives off 1 Obtuse Marginal (OM) branch(es). The LCX and its branches are patent with no evidence of atherosclerosis. Right Coronary Artery (RCA): The RCA originates normally from the right sinus of Valsalva. The RCA gives off a posterior descending artery (PDA) and posterolateral (PL) branches. There is calcified plaque in the proximal RCA segment, with no luminal stenosis. Non-Coronary Cardiac Findings: Analysis of the left ventricular (LV) structure and function was performed after 3-D reconstruction of the LV from axial images, with user-corrected automatic contouring for assessment of LV volumes and user-defined reconstruction from oblique planes for measurement of 3-D cardiac structure and function. -The left ventricle systolic function is normal. -There is no left atrial appendage filling defect. Two right pulmonary veins and two left pulmonary veins drain normally into the left atrium. -No pericardial thickening or calcification. -Central and branch pulmonary arteries in the [id number] are unremarkable. -Thoracic aorta within the visualized thoracic aortic-branches in the [id number] is unremarkable. Extracardiac Structures No significant extra-cardiac findings. Note, however, that this study is focused on the cardiac findings. IMPRESSION -Presence of coronary calcification with an Agatston score = 66 using the AJ-130 method. -The observed calcium score of 66 is at 90th percentile for subjects of the same age, sex, and race/ethnicity. -Moderate non-calcified plaque in the mid-LAD segment possibly with significant flow-limiting atherosclerosis in that segment. -CAD-RADS 3. Management recommendations per ACC/AHA guidelines*, as clinically appropriate. *Recommendations: CAD RADS 0: Reassurance. Consider non-atherosclerotic causes of chest pain. CAD RADS 1: Consider non-atherosclerotic causes of chest pain. Consider preventive therapy and risk factor modification. CAD RADS 2: Consider non-atherosclerotic causes of chest pain. Consider preventive therapy and risk factor modification, particularly for patients with nonobstructive plaque in multiple segments. CAD RADS 3: Consider further functional testing. Consider symptom-guided anti-ischemic and preventive pharmacotherapy as well as risk factor modification per published guideline statements. CAD RADS 4A: Consider further functional testing or invasive coronary angiography with revascularization per published guideline statements. Consider symptom-guided anti-ischemic and preventive pharmacotherapy as well as risk factor modification per published guideline statements. CAD RADS 4B: Invasive coronary angiography recommended with revascularization per published guideline statements. Consider symptom-guided anti-ischemic and preventive pharmacotherapy as well as risk factor modification per published guideline statements. CAD RADS 5: Consider invasive angiography and/or viability assessment with revascularization per published guideline statements. Consider symptom-guided anti-ischemic and preventive pharmacotherapy as well as risk factor modification per published guideline statements. CRITICAL RESULT None COMMUNICATION Per this written report The coronary and cardiac findings of this CCTA were reviewed, reported, and signed by Elliot Toledo MD (Outbound Sales Agent) Conclusion Electronically signed by : Beatriz Toledo MD 11/16/2023 13:31:37
[2023-11-16] MEDS: BUMETANIDE 1MG/4ML VIAL 2 MG IV ×2 (09:23→17:08)
[2023-11-16] MEDS: HYDROCODONE/APAP 5/325 MG TABLET 1 TAB PO ×3 (09:24→22:14)
[2023-11-16] MEDS: METHOCARBAMOL 500MG TABLET 500 MG PO ×2 (09:24→20:06)
[2023-11-16] MEDS: ENOXAPARIN 40MG/0.4ML SYRINGE 40 MG SQ ×2 (09:24→20:05)
[2023-11-16] MEDS: GABAPENTIN 600MG TABLET 600 MG PO ×2 (09:24→20:05)
--- NOTE | 2023-11-16 09:32 | P.CONCA_ITS ---
History of Present Illness History of Present Illness Consult date: 11/16/23 Requesting physician: Celio Jorge Consult reason: chest pain and shortness of breath Chief complaint: chest pain History of present illness: This is a 58-year-old white female presented to the emergency department complaints of chest pain and shortness of breath. She has a past medical history of hypertension, previous TIA, morbid obesity, chronic kidney disease, neuropathy with cauda equina and headaches. The patient states that she has been having worsening shortness of breath and chest pain for approximately 2 days. She states that she had sudden onset of pressure in the substernal aspect of her chest that radiated to the left side and up into her left shoulder and the left side of her neck and into her jaw. The patient states that this was coming and going for approximately 2 days and then she started to have profound shortness of breath. She also reports that she has gained approximately 15 pounds in the last month despite taking her Bumex half a milligram to 1 mg 3 times daily. She states that she has been on Bumex for quite some time for her edema and she does see a geophysical observer for chronic kidney disease who recently decreased her Bumex but she was still having to take the higher dose because of the shortness of breath and edema. The patient states that despite increasing her diuretics back to the 1 mg 3 times a day she did not have any increase in her urine output. The patient states that with her shortness of breath she had some orthopnea and bilateral lower extremity edema. She states that she felt like she was fluid overloaded and decided to come into the emergency department. Her chest pressure was also associated with shortness of breath, nausea and diaphoresis. She did have 1 episode of vomiting. She denies any fevers, chills, or diarrhea. The patient was admitted to the hospital due to her chest pain and elevated BNP consistent with CHF. She has been treated with IV Bumex and states that her symptoms have improved but she is still currently having the pressure in her chest. It was previously and 9 out of 10 in intensity and now it is around a 4-5/10 in intensity. Of note, during my examination this morning the patient is lying flat with no shortness of breath when I walk in the room. [facility] Disclaimer: The information contained in this section may have been updated after the patient was seen, as this information can be updated by other users. Medical History (Updated 11/16/23 @ 09:38 by Giuliana Mercedes APRN) (HFpEF) heart failure with preserved ejection fraction Abnormal electrocardiogram [ECG] [EKG] Unstable angina Asthma Anxiety HTN (hypertension) Arthritis Surgical History H/O left wrist surgery H/O colonoscopy Social History Smoking Status: Never smoker alcohol intake: never substance use type: denies use current occupational status: other Travel in the last 8 weeks: None housing: house current occupational exposures/hazards: Yes Review of Systems Review of Systems Review of systems:: pertinent systems reviewed and negative unless documented below Constitutional Constitutional: Reports system reviewed and no additional complaints, except as documented, Denies headache(s), Denies weakness and Reports weight gain Eyes Eyes: Reports system reviewed and no additional complaints, except as documented ENT Ears, Nose, Mouth, and Throat: Reports system reviewed and no additional complaints, except as documented, Denies dizziness and Denies headache(s) *Cardiovascular Cardiovascular: Reports system reviewed and no additional complaints, except as documented, Reports chest pain, Reports chest pain at rest, Reports chest pain with activity, Reports diaphoresis, Reports dyspnea, Reports dyspnea on exertion, Reports edema, Reports leg edema and Reports orthopnea *Respiratory Respiratory: Reports system reviewed and no additional complaints, except as documented, Denies cough, Reports dyspnea and Reports dyspnea on exertion *Gastrointestinal Gastrointestinal: Reports system reviewed and no additional complaints, except as documented, Reports nausea and Reports vomiting *Genitourinary Genitourinary: Reports system reviewed and no additional complaints, except as documented *Musculoskeletal Musculoskeletal: Reports system reviewed and no additional complaints, except as documented, Denies numbness and Denies tingling Integumentary/Breasts Skin/Breast: Reports system reviewed and no additional complaints, except as documented *Neurologic Neurologic: Reports system reviewed and no additional complaints, except as documented, Denies dizziness, Denies headache(s), Denies numbness, Denies ti ngling and Denies weakness Psychiatric Psychiatric: Reports system reviewed and no additional complaints, except as documented Endocrine Endocrine: Reports system reviewed and no additional complaints, except as documented Hematologic/Lymphatic Hematologic/Lymphatic: Reports system reviewed and no additional complaints, except as documented Allergic/Immunologic Allergic/Immunologic: Reports system reviewed and no additional complaints, except as documented Exam Data for Last 24 hours Vital signs and Labs for Last 24 Hours: Temp Pulse Resp BP Pulse Ox O2 Del Method 97.9 F 55 L 18 120/66 98 Room Air 11/16/23 08:00 11/16/23 08:00 11/16/23 08:00 11/16/23 08:00 11/16/23 08:00 11/16/23 08:00 Laboratory Results - last 24 hr 11/15/23 14:57: WBC 5.5, RBC 4.18 L, Hgb 13.6, Hct 39.3, MCV 94.0, MCH 32.6 H, MCHC 34.7, RDW 13.9, Plt Count 248, MPV 8.2, Neut % (Auto) 65.4, Lymph % (Auto) 23.6, [place] % (Auto) 5.6, Eos % (Auto) 4.5, Baso % (Auto) 0.9, Neut # (Auto) 3.6, Lymph # (Auto) 1.3, [place] # (Auto) 0.3, Eos # (Auto) 0.3, Baso # (Auto) 0.1, Sodium 138, Potassium 4.2, Chloride 110 H, Carbon Dioxide 22, Anion Gap 10.2, BUN 16, Creatinine 1.00, Estimated Creat Clear 107, Estimated GFR 57 L, Est GFR ( Amer) 69, Glucose 121 H, Calcium 9.0, Magnesium 1.8, Total Bilirubin 0.5, AST 41 H, ALT 23, Alkaline Phosphatase 71, Troponin I < 0.01, NT-Pro-B Natriuret Pep 574 H, Total Protein 7.3, Albumin 4.1, Globulin 3.2, Albumin/Globulin Ratio 1.3 11/15/23 15:31: SARS-CoV-2 (PCR) Not detected, Influenza A Untype (PCR) Not detected, Influenza Type B (PCR) Not detected 11/15/23 18:19: Troponin I < 0.01 11/15/23 21:17: Troponin I < 0.01 11/16/23 05:38: WBC 4.2 L, RBC 4.22, Hgb 12.7, Hct 40.2, MCV 95.2, MCH 30.1, MCHC 31.6 L, RDW 13.8, Plt Count 231, MPV 8.2, Neut % (Auto) 46.6, Lymph % (Auto) 33.8, [place] % (Auto) 12.0 H, Eos % (Auto) 6.2, Baso % (Auto) 1.3, Neut # (Auto) 1.9, Lymph # (Auto) 1.4, [place] # (Auto) 0.5, Eos # (Auto) 0.3, Baso # (Auto) 0.1, Sodium 139, Potassium 3.8, Chloride 108 H, Carbon Dioxide 27, Anion Gap 7.8, BUN 18 H, Creatinine 1.20 H, Estimated Creat Clear 45, Estimated GFR 46 L, Est GFR ( Amer) 56 L, Glucose 83 D, Calcium 8.8, Magnesium 2.1 D, Total Bilirubin 0.3, AST 26 D, ALT 18, Alkaline Phosphatase 82, Troponin I < 0.01, Total Protein 6.2 L, Albumin 3.4 L D, Globulin 2.8, Albumin/Globulin Ratio 1.2, Triglycerides 92, Cholesterol 158, LDL Cholesterol Direct 68.29 L, VLDL Cholesterol 18, HDL Cholesterol 54, Cholesterol/HDL Ratio 2.9 I & O for Last 24 hours: Intake & Output 11/13/23 11/14/23 11/15/23 11/16/23 23:59 23:59 23:59 23:59 Intake Total 480 / 480 270 / 270 Output Total 0 / 0 800 / 800 Balance 480 / 480 -530 / -530 Weight 247 lb 1 oz 259 lb 8 oz Narrative: EKG #1 shows sinus rhythm with a rate of 73 bpm and old anterior lateral OH pattern. EKG #2 shows sinus rhythm with a rate of 70 bpm and old anterior lateral OH pattern. Constitutional Constitutional: no acute distress and morbidly obese *Routine HEENT Exam Head: Present normocephalic and atraumatic ENT: Present mucous membranes moist *Routine Neck Exam Neck: Present supple, full ROM and normal carotid upstroke; Absent JVD, carotid bruit or lymphadenopathy *Routine Respiratory Exam Respiratory: Present CTA bilaterally, normal respiratory effort, able to speak in complete sentences and symmetric chest movement *Routine Cardiovascular Exam Cardiovascular: Present RRR, Normal S1 and Normal S2; Absent murmur or gallop *Routine Abdominal Exam Abdominal: Present soft and normoactive bowel sounds; Absent tenderness, distended or organomegaly *Routine Extremities Exam Extremities: Present full ROM, pulses intact and normal capillary refill; Absent cyanosis, clubbing or edema *Routine Skin Exam Skin: Present intact and warm; Absent erythema *Routine Neurological Exam Neurological: Present alert, oriented X3 and CN II-XII intact; Absent sensory deficit or motor deficit Routine Psychiatric Exam Psychiatric: Present normal affect Meds Home Medications and Allergies Home Medications ?Medication ?Instructions ?Recorded ?Confirmed ?Type tramadol 50 mg tablet 50 mg PO TIDP PRN Pain, Moderate 10/06/22 11/16/23 History acetaminophen 500 mg tablet 500 mg PO Q6H PRN Pain 11/15/23 11/15/23 History albuterol sulfate 90 mcg/actuation 90 mcg inhalation NEEDED PRN 11/15/23 11/15/23 History aerosol inhaler (Ventolin HFA) Shortness Of Breath bisoprolol 2.5 1 tab PO DAILY 11/15/23 11/15/23 History mg-hydrochlorothiazide 6.25 mg tablet bumetanide 0.5 mg tablet 0.5 mg PO BID 11/15/23 11/15/23 History cholecalciferol (vitamin D3) 25 25 mcg PO HS 11/15/23 11/15/23 History mcg (1,000 unit) tablet gabapentin 600 mg tablet 600 mg PO TID 11/15/23 11/15/23 History potassium chloride 10 mEq 20 meq PO BID 11/15/23 11/16/23 History tablet,extended release venlafaxine 37.5 mg 37.5 mg PO HS 11/15/23 11/15/23 History capsule,extended release 24 hr topiramate 100 mg tablet 100 mg PO DAILY 11/16/23 11/16/23 History New Prescriptions to Start Prescriptions: Allergies Allergy/AdvReac Type Severity Reaction Status Date / Time codeine Allergy Unknown Verified 10/06/22 13:57 allergy reaction Penicillins Allergy Unknown Verified 10/06/22 13:57 allergy reaction Assessment and Plan *Assessment and plan (1) Unstable angina: Status: Acute Category: Medical Code(s): I20.0 - Unstable angina (2) Dyspnea on exertion: Status: Acute Category: Medical Code(s): R06.09 - Other forms of dyspnea (3) (HFpEF) heart failure with preserved ejection fraction: Status: Acute Qualifiers: Heart failure chronicity: acute Qualified Code(s): I50.31 - Acute diastolic (congestive) heart failure Category: Medical Code(s): I50.30 - Unspecified diastolic (congestive) heart failure (4) Abnormal electrocardiogram [ECG] [EKG]: Status: Acute Category: Medical Code(s): R94.31 - Abnormal electrocardiogram [ECG] [EKG] (5) HTN (hypertension): Status: Chronic Qualifiers: Hypertension type: primary hypertension Qualified Code(s): I10 - Essential (primary) hypertension Category: Medical Code(s): I10 - Essential (primary) hypertension (6) Anxiety: Status: Chronic Category: Medical Code(s): F41.9 - Anxiety disorder, unspecified (7) Morbid obesity: Status: Chronic Category: Medical Code(s): E66.01 - Morbid (severe) obesity due to excess calories (8) Renal insufficiency: Status: Acute Category: Medical Code(s): N28.9 - Disorder of kidney and ureter, unspecified Plan Plan: 1. The patient was admitted to the hospital with acute HFpEF. She had an lexis vated BNP at 574. She has been diuresed with IV Lasix. She is on Bumex 2 mg IV twice daily. Will continue with IV diuresis at this time. Strict I's and O's. 2. Stop hydrochlorothiazide and leave her on bisoprolol 2.5 mg p.o. daily. 3. The patient is still having chest pain and symptoms consistent with unstable angina. She ruled out for an OH. Will plan to proceed with CTA of the coronary arteries to rule out ischemia. 4. Her heart rate is already less than 60 bpm so we will give her nitroglycerin 0.4 mg sublingual x 1 dose prior to the CTA of the coronary arteries. 5. Will obtain an echocardiogram to evaluate her LV function due to shortness of breath and elevated BNP. 6. Her blood pressure is well-controlled. 7. Her LDL goal is less than 100. Her LDL is 68. 8. The patient does have chronic kidney disease. Her creatinine is stable at 1.2. Will continue to follow her renal function. 9. Start Jardiance 10 mg daily due to her HFpEF. 10. Consider Entresto for HFpEF prior to discharge home, but will hold off on this for now due to be on lower side. 11. Further recommendations will be made pending the patient's response to treatment and the results of her echocardiogram and CTA of the coronary arteries today. Thank you for the opportunity to help participate in the care of this patient. All recommendations and orders are per Dr. Toledo. Addendum: CTA of the coronary artery shows: The patient has at least moderate coronary artery disease to the mid LAD in the range of 50 to 70% stenosis Will plan to proceed with left cardiac catheterization to evaluate her coronary artery disease due to the CCTA showing that she may have an LAD lesion in the 70% range and her unstable angina. Will proceed with left cardiac catheterization tomorrow. The patient has mentioned the risk and benefits of proceeding with left cardiac catheterization. The patient verbalized understanding and is agreeable to proceeding with the procedure. N.p.o. after midnight. Start aspirin 81 mg daily for coronary artery disease. Start Lipitor 40 mg p.o. nightly for coronary artery disease and hyperlipidemia. Stop bisoprolol. Studies show that beta-blockers should try to be avoided in patients with HFpEF. Start Entresto 24/26 mg p.o. twice daily for HFpEF. Repeat BMP in the morning.
--- NOTE | 2023-11-16 10:30 | PC.NURSE ---
Patient called out having nausea and chest pain. Patient given zofran. BP obtained and it was 134/80, nitroglycerin given, notified favce to face by RN, EKG obtained and troponin ordered. Patient states that the nitro did help her chest pain. Patient described the pain as a crushing pressure and rated it as an 8/10.
[2023-11-16] MEDS: NITROGLYCERIN 0.4MG SL TABLET 0.4 MG SL ×3 (10:35→21:42)
[2023-11-16] MEDS: ONDANSETRON 4MG/2ML VIAL 4 MG IV (10:35)
--- NOTE | 2023-11-16 10:45 | ECG_ITS ---
APPROVED REPORT Exam: Resting ECG HR:63 bpm ECG Measurements Heart Rate 63 AXES TN 171 P 50 QRSd 108 QRS 51 QT 434 T 19 QTc 442 Conclusion SINUS RHYTHM POSSIBLE LATERAL MYOCARDIAL INFARCTION , PROBABLY OLD [30 ms Q WAVE IN I/aVL/V5/V6] POSSIBLE INFERIOR MYOCARDIAL INFARCTION , PROBABLY OLD [30 ms Q WAVE IN II/aVF] BORDERLINE ECG UNCONFIRMED REPORT Electronically signed by : Reji English MD 11/16/2023 15:59:04
[2023-11-16] MEDS: SODIUM CHLORIDE 0.9% 10ML SYR (RAD ONLY) 10 ML IV (11:27)
[2023-11-16] MEDS: 0.9 % SODIUM CHLORIDE 50 ML VIAL IV (11:27)
[2023-11-16] MEDS: IOPAMIDOL-370 (76%);100ML BOTTLE 85 ML IV (11:27)
[2023-11-16 12:30] LABS: Troponin I < 0.01 ng/ml (0.00-0.034)
[2023-11-16] MEDS: ASPIRIN EC 81MG TABLET 81 MG PO (13:26)
--- NOTE | 2023-11-16 13:42 | P.PN_ITS ---
Subjective *Date: 11/16/23 *Time: 13:42 Interval history: Stable overnight from a cardiovascular standpoint. Having back pain with radiation down her left leg. Not getting relief with gabapentin and tramadol. Denies any nausea or vomiting. Had episode of chest pain this morning on rousheryln ds. Partially reproducible on exam but deeper in her chest per her report. Pressure-like in sensation. Slight nausea but no emesis. No shortness of breath. No oxygen requirement. Medical Exam Vital signs and Labs for Last 24 Hours: Vital Signs Temp Pulse Pulse Resp BP BP BP 11/16/23 12:00 60 11/16/23 12:00 97.6 F 52 L 20 121/62 11/16/23 08:00 60 11/16/23 08:00 97.9 F 55 L 18 120/66 11/16/23 07:00 11/16/23 05:00 11/16/23 04:00 97.6 F 58 L 16 107/56 L 11/16/23 04:00 60 11/16/23 03:00 11/16/23 01:00 11/16/23 00:00 60 11/15/23 23:58 97.9 F 56 L 17 111/63 11/15/23 23:00 11/15/23 21:00 11/15/23 20:00 11/15/23 20:00 70 11/15/23 19:47 98.9 F 60 18 140/74 11/15/23 18:43 98.0 F 62 14 122/69 11/15/23 18:30 98.0 F 63 22 156/80 H 11/15/23 17:28 63 22 156/80 H 11/15/23 17:01 62 122/71 11/15/23 16:31 66 117/58 L 11/15/23 15:51 69 22 128/63 11/15/23 15:31 65 19 133/65 11/15/23 14:49 97.8 F 76 16 140/70 Pulse Ox O2 Del Method 11/16/23 12:00 11/16/23 12:00 98 Room Air 11/16/23 08:00 11/16/23 08:00 98 Room Air 11/16/23 07:00 Room Air 11/16/23 05:00 Room Air 11/16/23 04:00 98 Room Air 11/16/23 04:00 11/16/23 03:00 Room Air 11/16/23 01:00 Room Air 11/16/23 00:00 11/15/23 23:58 97 Room Air 11/15/23 23:00 Room Air 11/15/23 21:00 Room Air 11/15/23 20:00 Room Air 11/15/23 20:00 11/15/23 19:47 97 Room Air 11/15/23 18:43 97 Room Air 11/15/23 18:30 Room Air 11/15/23 17:28 98 11/15/23 17:01 98 11/15/23 16:31 97 11/15/23 15:51 95 11/15/23 15:31 97 11/15/23 14:49 98 Room Air Intake and Output 11/15/23 11/16/23 11/16/23 23:59 07:59 15:59 Intake Total 480 / 480 510 / 510 Output Total 0 / 0 800 / 2600 1800 / 2600 Balance 480 / 480 -800 / -2090 -1290 / -2090 Intake: Intake, Oral Amount 480 / 480 510 / 510 Output: Output, Urine Amount 0 / 0 800 / 2600 1800 / 2600 Other: Number of Unmeasured Voids 1 Weight 112.066 kg 117.707 kg Patient Weight 11/16/23 23:59 Weight 117.707 kg Laboratory Results - last 24 hr 11/15/23 14:57: WBC 5.5, RBC 4.18 L, Hgb 13.6, Hct 39.3, MCV 94.0, MCH 32.6 H, MCHC 34.7, RDW 13.9, Plt Count 248, MPV 8.2, Neut % (Auto) 65.4, Lymph % (Auto) 23.6, [place] % (Auto) 5.6, Eos % (Auto) 4.5, Baso % (Auto) 0.9, Neut # (Auto) 3.6, Lymph # (Auto) 1.3, [place] # (Auto) 0.3, Eos # (Auto) 0.3, Baso # (Auto) 0.1, Sodium 138, Potassium 4.2, Chloride 110 H, Carbon Dioxide 22, Anion Gap 10.2, BUN 16, Creatinine 1.00, Estimated Creat Clear 107, Estimated GFR 57 L, Est GFR ( Amer) 69, Glucose 121 H, Calcium 9.0, Magnesium 1.8, Total Bilirubin 0 .5, AST 41 H, ALT 23, Alkaline Phosphatase 71, Troponin I < 0.01, NT-Pro-B Natriuret Pep 574 H, Total Protein 7.3, Albumin 4.1, Globulin 3.2, Albumin/Glob ulin Ratio 1.3 11/15/23 15:31: SARS-CoV-2 (PCR) Not detected, Influenza A Untype (PCR) Not detected, Influenza Type B (PCR) Not detected 11/15/23 18:19: Troponin I < 0.01 11/15/23 21:17: Troponin I < 0.01 11/16/23 05:38: WBC 4.2 L, RBC 4.22, Hgb 12.7, Hct 40.2, MCV 95.2, MCH 30.1, MCHC 31.6 L, RDW 13.8, Plt Count 231, MPV 8.2, Neut % (Auto) 46.6, Lymph % (Auto) 33.8, [place] % (Auto) 12.0 H, Eos % (Auto) 6.2, Baso % (Auto) 1.3, Neut # (Auto) 1.9, Lymph # (Auto) 1.4, [place] # (Auto) 0.5, Eos # (Auto) 0.3, Baso # (Auto) 0.1, Sodium 139, Potassium 3.8, Chloride 108 H, Carbon Dioxide 27, Anion Gap 7.8, BUN 18 H, Creatinine 1.20 H, Estimated Creat Clear 45, Estimated GFR 46 L, Est GFR ( Amer) 56 L, Glucose 83 D, Calcium 8.8, Magnesium 2.1 D, Total Bilirubin 0.3, AST 26 D, ALT 18, Alkaline Phosphatase 82, Troponin I < 0.01, Total Protein 6.2 L, Albumin 3.4 L D, Globulin 2.8, Albumin/Globulin Ratio 1.2, Triglycerides 92, Cholesterol 158, LDL Cholesterol Direct 68.29 L, VLDL Cholesterol 18, HDL Cholesterol 54, Cholesterol/HDL Ratio 2.9 11/16/23 11:45: Troponin I < 0.01 I & O for Labs for Last 24 Hours: Intake & Output 11/13/23 11/14/23 11/15/23 07/24/24 23:59 23:59 23:59 23:59 Intake Total 480 / 480 510 / 510 Output Total 0 / 0 2600 / 2600 Balance 480 / 480 -2089 / -2089 Weight 112.066 kg 117.707 kg Constitutional: Present no acute distress, morbidly obese and cooperative Head: Present atraumatic and normocephalic ENT: Present normal exam Neck: Present normal inspection Respiratory: Present CTA bilaterally and normal respiratory effort; Absent rhonchi, wheezes or crackles Cardiac: Present Reg Rate and Rhythm Comment:: Mild tenderness left upper chest pectoralis, does not reproduce all of her chest pain however GI: Present soft and normal bowel sounds; Absent distention or tenderness Rectal (female): Present deferred (female): Present deferred Extremities: Present normal inspection, full ROM and edema (Trace to the knees) Skin: Present intact; Absent erythema Neuro: Present Grossly Intact, alert, awake, oriented x 3 and moves all extremities Assessment and Plan *Assessment and plan (1) Unstable angina: Status: Acute Category: Medical Code(s): I20.0 - Unstable angina (2) (HFpEF) heart failure with preserved ejection fraction: Status: Acute Qualifiers: Heart failure chronicity: acute Qualified Code(s): I50.31 - Acute diastolic (congestive) heart failure Category: Medical Code(s): I50.30 - Unspecified diastolic (congestive) heart failure (3) CAD (coronary artery disease): Status: Acute Category: Medical Code(s): I25.10 - Atherosclerotic heart disease of tribal coronary artery without angina pectoris (4) Back pain: Status: Acute Qualifiers: Back pain laterality: midline Back pain location: low back pain Chronicity: chronic Category: Medical Code(s): M54.9 - Dorsalgia, unspecified (5) Morbid obesity: Status: Chronic Category: Medical Code(s): E66.01 - Morbid (severe) obesity due to excess calories (6) Anxiety: Status: Chronic Category: Medical Code(s): F41.9 - Anxiety disorder, unspecified (7) HTN (hypertension): Status: Chronic Qualifiers: Hypertension type: primary hypertension Qualified Code(s): I10 - Essential (primary) hypertension Category: Medical Code(s): I10 - Essential (primary) hypertension Plan 58-year-old female who presents with chest pain with exertion, worsening dyspnea with exertion. Concern for CHF exacerbation. Discussed case with ER physician, request admission for further management of CHF exacerbation and intractable chest pain/unstable angina. I agreed to admit for further management. Cardiol radah consulted. Will monitor on telemetry overnight. Initiating diuretics. Patient stable on room air. Has had significant weight gain. Monitor output closely. Further management pending evaluation in the morning. Problems addressed as follows: Unstable angina CAD CHF exacerbation -Continue Bumex 1 mg IV twice daily -Discussed case with cardiology, will obtain CCTA today. Pending results, will consider pursuing heart cath. -Slight improvement in breathing today. Remains on room air. Having pain this morning that responded to nitroglycerin -Reported 15 pound weight gain. -Echocardiogram repeat luminary result showing diastolic dysfunction. -Monitor on telemetry. - Continue aspirin 81 mg daily, Jardiance 10 mg daily, initiate Entresto 24/26 mg tablet twice daily - repeat EKG this morning with stable non-ischemic findings Chronic back pain, neuropathy: Continue gabapentin 600 mg q8hp. DC tramadol; Initiate Hydrocodone 3/325mg q6hp. monitor for toxicity. Anxiety: Continue Effexor 37.5 mg nightly Morbid obesity: Complicates all aspects of her care. Full code 40 mg Lovenox subcu twice daily Cardiac diet, n.p.o. at midnight
--- NOTE | 2023-11-16 13:53 | PC.NURSE ---
Home Medications Thomas Dawn ?Medication ?Instructions ?Recorded ?Confirmed tramadol 50 mg tablet 50 mg PO TIDP PRN Pain, Moderate 10/06/22 11/16/23 acetaminophen 500 mg tablet 500 mg PO Q6H PRN Pain 11/15/23 11/15/23 albuterol sulfate 90 mcg/actuation 90 mcg inhalation NEEDED PRN 11/15/23 11/15/23 aerosol inhaler (Ventolin HFA) Shortness Of Breath bisoprolol 2.5 1 tab PO DAILY 11/15/23 11/15/23 mg-hydrochlorothiazide 6.25 mg tablet bumetanide 0.5 mg tablet 0.5 mg PO BID 11/15/23 11/15/23 cholecalciferol (vitamin D3) 25 25 mcg PO HS 11/15/23 11/15/23 mcg (1,000 unit) tablet gabapentin 600 mg tablet 600 mg PO TID 11/15/23 11/15/23 potassium chloride 10 mEq 20 meq PO BID 11/15/23 11/16/23 tablet,extended release venlafaxine 37.5 mg 37.5 mg PO HS 11/15/23 11/15/23 capsule,extended release 24 hr topiramate 100 mg tablet 100 mg PO DAILY 11/16/23 11/16/23
--- NOTE | 2023-11-16 16:00 | PC.NURSE ---
Patient a&ox4 and vss. Patient had one time event of chest pain today MD aware. Patient has back pain as well and PRN medications are helping. Patient to be NPO after midnight per cardiology.
[2023-11-16] MEDS: SACUBITRIL/VALSARTAN 24-26MG TABLET 1 EACH PO (20:05)
[2023-11-16] MEDS: TOPIRAMATE 100MG TABLET 100 MG PO (20:06)
[2023-11-16] MEDS: VENLAFAXINE 37.5MG TABLET 37.5 MG PO (20:06)
[2023-11-16] MEDS: ATORVASTATIN 40MG TABLET 40 MG PO (20:06)
--- NOTE | 2023-11-16 21:37 | PC.NURSE ---
2130 PATIENT C/O LEFT CHEST PRESSURE 8/10 NON-RADIATING . NO SOA. BP 111/64 59 HR 18 RESPS 95% 02 SAT ROOM AIR. POSTURE RELAXED. WAS WATCHING TV. MARGO Ro APRN NOTIFIED AND ORDER RFECEIVED FOR SL NTG.
--- NOTE | 2023-11-16 21:51 | PC.NURSE ---
2133 PATIENT RECEIVED NTG 0.4 MG SL. AT 2138 PATIENT REPORTS NO RELEIF FROM CHEST PRESSURE. RATES 8/10. PATIENT DOES NOT LOOK DISTRESSED. POSTURE RELAXED. VS: 115/67 HR 72 RESPS 18 02 SAT 95% ON ROOM AIR. SKIN W/D AND PINK. LUNGS CTA, HR REGULAR. RECEIVED 2ND NTG SL AT 2141. AT 50 PATIENT REPORTS RELIEF FROM CHEST PAIN.
--- NOTE | 2023-11-16 22:17 | PC.NURSE ---
2214 pATIENT NOW C/O BACK AND JOINT PAIN 11/01. REQUESTED AND RECEIVED pERCOCET 5/325 MG 1 TAB PO.
--- NOTE | 2023-11-16 23:10 | PC.NURSE ---
[id number] PATIENT IS PAIN FREE AT THIS TIME. WATCHING tv. ON PHONE. NAD.
[2023-11-17] VITALS (20 sets, daily range): BP systolic 101–143; BP diastolic 52–94; PULSE 55–89; RESP 16–18; TEMP 36.4–36.7; O2SAT 95–100; BMI 43.3
[2023-11-17] MEDS: ONDANSETRON 4MG/2ML VIAL 4 MG IV (03:44)
[2023-11-17] MEDS: GABAPENTIN 600MG TABLET 600 MG PO ×2 (03:48→16:02)
--- NOTE | 2023-11-17 05:34 | PC.NURSE ---
NO FURTHER C/O CHEST PAIN. HAS HAD SOME BACK PAIN REQUIRING MEDICATION. RESTING QUIETLY AT THIS TIME. NPO FOR CARDIAC CATH TODAY.
[2023-11-17 06:34] LABS: Basophils # 0.1 K/mm3 (0-0.2); Basophils % 1.2 % (0.1-2.0); Eosinophils # 0.3 K/mm3 (0.0-0.4); Eosinophils % 7.2 % (0.1-12.0); Hematocrit 39.2 % (37.0-47.0); Lymphocytes # 1.3 K/mm3 (0.7-4.5); Lymphocytes % 29.4 % (10-50); Mean Corpuscular HGB Conc 33.2 g/dL (31.8-35.4); Mean Corpuscular Volume 93.5 fl (81-99); Mean Platelet Volume 7.7 fl (7.4-10.4); Monocytes # 0.3 K/mm3 (0.1-1.0); Neutrophils # 2.4 K/mm3 (1.8-7.8); Neutrophils % 55.2 % (37.0-80.0); Platelet Count 218 K/mm3 (142-424); Red Blood Count 4.19 M/mm3 (4.20-5.40); Red Cell Distribution Width 13.9 % (11.5-17.5); White Blood Count 4.4 K/mm3 (4.8-10.8)
[2023-11-17 06:50] LABS: Alanine Aminotransferase 18 U/L (12-78); Albumin Level 3.4 g/dl (3.5-5.0); Albumin/Globulin Ratio 1.2 (1.1-1.8); Alkaline Phosphatase 92 U/L (38-126); Anion Gap 9.2 mEq/L (5-15); Aspartate Amino Transferase 26 U/L (14-36); Bilirubin,Total 0.2 mg/dl (0.2-1.3); Blood Urea Nitrogen 20 mg/dl (7-17); Calcium 8.9 mg/dl (8.4-10.2); Carbon Dioxide 26 mmol/L (22.0-30.0); Chloride 106 mmol/L (98-107); Creatinine Clearance Estimated 54 mL/min (50-200); Estimated Glomerular Filt Rate 57 ml/min (>60); GFR (African American) 69 ML/MIN (>60); Globulin 2.8 g/dL (1.3-3.2); Glucose 89 mg/dl (74-100); Magnesium 2.2 mg/dl (1.6-2.3); Potassium 3.2 mmoL/L (3.5-5.1); Sodium 138 mmol/L (136-145); Total Protein,Serum 6.2 g/dl (6.3-8.2)
--- NOTE | 2023-11-17 07:08 | IR_ITS ---
APPROVED REPORT Patient Location: Inpatient Manager Medicaid: KAREEM Cho RT (R) PROCEDURES Left heart catheterization Left ventriculogram selective coronary angiogram Drug-eluting stent deployment to the mid LAD INDICATION Unstable angina, Coronary artery disease, Abnormal CCTA, Informed consent was obtained prior to the procedure. COMPLICATIONS NONE Estimated Blood Loss: LESS THAN 10 ML TECHNIQUE One percent lidocaine used to anesthetize the right anterior aspect of the wrist. The right radial artery was accessed via the Seldinger technique. A 6 Marshallese sheath was placed in the right radial artery. 2.5 mg of Verapamil, 800 mcg of nitroglycerin, 1mg Lidocaine and 5000 U Heparin were given through the arterial sheath. The papa catheter was also used to perform left heart catheterization, left ventriculogram and selective coronary angiogram. At the end of the diagnostic angiogram therapeutic heparin was administered giving a therapeutic ACT and the guide catheter was placed in left main artery followed by Choice PT extra-support wire placed distally. A 3.5 x 30 mm [place] frontier stent was deployed at 13 damian reducing the severe tandem stenoses to less than 10%. YUE-3 flow was present before and after the procedure. At the end the procedure the apparatus was removed the sheath was removed and hemostasis was achieved using TR banding patient was transferred to the postop putting in stable condition ANGIOGRAPHIC RESULTS The left main artery Normal The left anterior descending artery Has proximal 10% luminal irregularities with a mid vessel concentric 70 to 80% stenosis followed by an additional 50 to 60% stenosis with remaining vessel having mild diffuse 10% luminal regularities The circumflex artery Large nondominant normal The right coronary artery Dominant proximal 20 to 30% stenosis mid vessel concentric 30 to 40% stenosis and a distal 30% stenosis The VALENCIA ventriculogram reveals Normal 65% The left ventricular end-diastolic pressure 10 mmHg IMPRESSION Severe mid LAD disease as described above Successful stenting of the mid LAD severe disease reduced to 0% with 1 drug-eluting stent Normal ejection fraction Normal LVEDP PLAN 1. Effient and aspirin 2. LDL less than 55 to be achieved with high intensity statin 3. Avoidance of tobacco products 4. Cardiac rehabilitation 5. Risk factor modification Electronically signed by : Zackary Hilliard MD 11/17/2023 13:50:43
[2023-11-17] MEDS: HYDROCODONE/APAP 5/325 MG TABLET 1 TAB PO ×3 (07:39→22:43)
[2023-11-17] MEDS: POTASSIUM CHLORIDE 20MEQ TAB 40 MEQ PO ×2 (08:37→12:12)
[2023-11-17] MEDS: BUMETANIDE 1MG/4ML VIAL 2 MG IV (08:38)
[2023-11-17] MEDS: ASPIRIN EC 81MG TABLET 81 MG PO (08:38)
[2023-11-17] MEDS: SACUBITRIL/VALSARTAN 24-26MG TABLET 1 EACH PO ×2 (08:38→20:25)
[2023-11-17] MEDS: EMPAGLIFLOZIN 10MG TABLET 10 MG PO (08:38)
[2023-11-17] MEDS: ENOXAPARIN 40MG/0.4ML SYRINGE 40 MG SQ (08:38)
--- NOTE | 2023-11-17 09:38 | P.PN_ITS ---
Subjective Subjective Date: 11/17/23 Time: 09:00 Principal diagnosis: unstable angina, CAD Interval history: This is a 58-year-old female who presented to the emergency department with complaints of chest pain and shortness of breath. She did rule out for an MO. She underwent CCTA yesterday which showed a moderate and on calcified plaque in the mid LAD segment possibly with significant flow-limiting atherosclerosis in that segment. Further intervention with left cardiac catheterization has been recommended. This morning she states that she has had an episode of chest heaviness more so on the left side. It radiated to her left shoulder and neck. It was associated with shortness of breath and diaphoresis. It did resolve after a second dose of nitroglycerin was given. She denies any current chest pain or pressure. She states that her shortness of breath and lower extremity edema have significantly improved with diuresis but she still feels like she has fluid on board and would benefit from continued diuresis at this time. She denies any fever, chills, nausea, vomiting, diarrhea, PND or orthopnea. Exam Data for Last 24 hours Vital signs and Labs for Last 24 Hours: Temp Pulse Resp BP Pulse Ox O2 Del Method 97.6 F 60 18 114/68 97 Room Air 11/17/23 07:26 11/17/23 08:00 11/17/23 07:26 11/17/23 07:26 11/17/23 07:26 11/17/23 09:00 Laboratory Results - last 24 hr 11/16/23 11:45: Troponin I < 0.01 11/17/23 05:56: WBC 4.4 L, RBC 4.19 L, Hgb 13.0, Hct 39.2, MCV 93.5, MCH 31.0, MCHC 33.2, RDW 13.9, Plt Count 218, MPV 7.7, Neut % (Auto) 55.2, Lymph % (Auto) 29.4, [place] % (Auto) 7.0, Eos % (Auto) 7.2, Baso % (Auto) 1.2, Neut # (Auto) 2.4, Lymph # (Auto) 1.3, [place] # (Auto) 0.3, Eos # (Auto) 0.3, Baso # (Auto) 0.1, Sodium 138, Potassium 3.2 L, Chloride 106, Carbon Dioxide 26, Anion Gap 9.2, BUN 20 H, Creatinine 1.00, Estimated Creat Clear 54, Estimated GFR 57 L, Est GFR ( Amer) 69 D, Glucose 89, Calcium 8.9, Magnesium 2.2, Total Bilirubin 0.2, AST 26, ALT 18, Alkaline Phosphatase 92, Total Protein 6.2 L, Albumin 3.4 L , Globulin 2.8, Albumin/Globulin Ratio 1.2 I & O for Last 24 hours: Intake & Output 11/14/23 11/15/23 11/16/23 11/17/23 23:59 23:59 23:59 23:59 Intake Total 480 / 480 930 / 1170 240 / 240 Output Total 800 / 800 4800 / 5800 2450 / 2450 Balance -320 / -320 -3870 / -4630 -2210 / -2210 Weight 247 lb 1 oz 259 lb 8 oz 253 lb 11.2 oz Narrative: CCTA shows: -Presence of coronary calcification with an Agatston score = 66 using the AJ-130 method. -The observed calcium score of 66 is at 90th percentile for subjects of the same age, sex, and race/ethnicity. -Moderate non-calcified plaque in the mid-LAD segment possibly with significant flow-limiting atherosclerosis in that segment. -CAD-RADS 3. Management recommendations per ACC/AHA guidelines*, as clinically appropriate. Echo shows: Normal biventricular systolic function. Mild RV dilation. No regional wall motion abnormalities are noted. Mild TR. Constitutional Constitutional: no acute distress and morbidly obese *Routine HEENT Exam Head: Present normocephalic and atraumatic ENT: Present mucous membranes moist *Routine Neck Exam Neck: Present supple, full ROM and normal carotid upstroke; Absent JVD, carotid bruit or lymphadenopathy *Routine Respiratory Exam Respiratory: Present CTA bilaterally, normal respiratory effort, able to speak in complete sentences and symmetric chest movement *Routine Cardiovascular Exam Cardiovascular: Present RRR, Normal S1 and Normal S2; Absent murmur or gallop *Routine Abdominal Exam Abdominal: Present soft and normoactive bowel sounds; Absent tenderness, distended or organomegaly *Routine Extremities Exam Extremities: Present full ROM, pulses intact and normal capillary refill; Absent cyanosis, clubbing or edema *Routine Skin Exam Skin: Present intact and warm; Absent erythema *Routine Neurological Exam Neurological: Present alert, oriented X3 and CN II-XII intact; Absent sensory deficit or motor deficit Routine Psychiatric Exam Psychiatric: Present normal affect Progress Note: A&P Assessment and plan (1) Unstable angina: Status: Acute (2) (HFpEF) heart failure with preserved ejection fraction: Status: Acute (3) CAD (coronary artery disease): Status: Acute (4) HTN (hypertension): Status: Chronic (5) Back pain: Status: Acute (6) Morbid obesity: Status: Chronic (7) Anxiety: Status: Chronic Assessment and Plan Assessment and Plan for All Diagnoses:: Plan: 1. The patient was admitted to the hospital with chest pain and shortness of breath. She was found to have acute HFpEF. She had an elevated BNP. She has been diuresed with IV Bumex. She has a -3870 mL fluid balance overnight. Will continue IV Bumex at this time. 2. The patient is hypokalemic this morning. She is getting her potassium replaced per the hospitalist. Will also add spironolactone 25 mg p.o. daily as this is a potassium sparing diuretic and to help with an additional diuresis. 3. The patient continues to have symptoms consistent with unstable angina. CCTA showed that she does have moderate, non-calcified plaque in the mid LAD segment possibly with significant flow-limiting atherosclerosis in that segment. Will plan to proceed with left cardiac catheterization today to evaluate her coronary artery disease due to her unstable angina and abnormal CCTA. 4. The patient has mentioned the risks and benefits of proceeding with left cardiac catheterization. The patient verbalized understanding and is agreeable in proceeding with the procedure. 5. The patient will be n.p.o. in preparation for left cardiac catheterization. 6. Echocardiogram shows a normal ejection fraction and no significant valvular disease. 7. Her blood pressure is well-controlled. 8. Her LDL goal is less than 55. Her LDL is 68. She has been started on a statin. 9. Continue aspirin 81 mg daily. 10. The patient does have HFpEF. Will continue Bumex, Entresto and Jardiance. Spironolactone has been added today. 11. No beta-kelley as studies show that beta-blockers should try to be avoided in patients with HFpEF. 12. The patient does have chronic kidney disease. Her renal function is normal at this time. 13. Repeat a BMP in the morning. 14. Further recommendations will be made pending the patient's response to treatment and the results of her left cardiac catheterization today. Thank you for the opportunity to help participate in the care of this patient. All recommendations and orders are per Dr. Toleod. AMB Pre-cath Criteria Pre-cath considerations: Clinical evaluation and indication for coronary angiography includes:: know CAD, new onset angina <= 2 months and worsening angina Patient is describing chest pain symtom as:: typical angina Clinical risk factors:: CAD, HTN, HFpEF, morbid obesity, unstable angina Patient is taking:: beta kelley Risks and benefits:: We will plan to proceed with LHC/coronary angiography with right radial access. The patient has been educated on the risks and benefits of proceeding with LHC/coronary angiography with right radial access. The patient verbalized understanding and is agreeable in proceeding with the procedure.
[2023-11-17] MEDS: METHOCARBAMOL 500MG TABLET 500 MG PO (10:33)
[2023-11-17] MEDS: ACETAMINOPHEN 325MG TAB 650 MG PO ×2 (10:37→22:56)
--- NOTE | 2023-11-17 12:09 | PC.NURSE ---
Spoke with wharf laborer, they will come to get patient shortly. Patient aware and prepped and ready for procedure.
[2023-11-17] MEDS: SPIRONOLACTONE 25MG TABLET 25 MG PO (12:12)
[2023-11-17] MEDS: HEPARIN 1,000 UNITS/500ML NS (CATH LAB) 3000 UNIT IV (13:24)
[2023-11-17] MEDS: 0.9 % SODIUM CHLORIDE 500 ML 25 ML IV (13:24)
[2023-11-17] MEDS: diphenhydrAMINE 50MG/ML VIAL 50 MG IV (13:24)
[2023-11-17] MEDS: LIDOCAINE 1% 10ML MDV 20 ML IJ (13:25)
[2023-11-17] MEDS: VERAPAMIL 2.5MG/ML 2ML VIAL 2.5 MG IV (13:25)
[2023-11-17] MEDS: HEPARIN 1,000 UNITS/ML 10ML VIAL (CATH LAB) 10000 UNIT IV (13:26)
[2023-11-17] MEDS: NITROGLYCERIN 800MCG/8ML SYR (CATH LAB) 800 MCG IA (13:29)
[2023-11-17] MEDS: MIDAZOLAM HCL 1MG/1ML 5ML VIAL 1 MG IV (13:39)
[2023-11-17] MEDS: FENTANYL 100MCG/2ML VIAL 25 MCG IV (13:39)
[2023-11-17] MEDS: PRASUGREL 10MG TAB 60 MG PO (14:00)
[2023-11-17] MEDS: IOPAMIDOL-370 (76%);100ML BOTTLE 90 ML IV (14:19)
[2023-11-17 14:23] LABS: CATHL Activated Clotting Time 320 SEC (74-125)
[2023-11-17] MEDS: BUMETANIDE 1 MG TABLET PO (15:59)
--- NOTE | 2023-11-17 16:19 | PC.NURSE ---
Pt requested pain medication as soon as she arrived back to the floor from lift slab operator. Pt was informed that pain medication could not safely be given when she arrived back to the floor from the lift slab operator because she was so lethargic and it was not safe to give her narcotics. Pt had been educated multiple times that she was too drowsy to give her narcotic pain meds safely until patient was more alert. When patient was able to get pain medication Irma, RN had made 2 attempts to give patient her pain medication and as soon as she tried to assess the patient's pain she made 2 phone calls, one call with each attempt. This RN went into pt room to give pt pain medication. As soon as I walked through the door the patient was screaming and cussing at me. webbing inspectorCELESTINO Rodríguez came into room behind myself when I told the patient that she was not going to scream and cuss at me and our staff like that. webbing inspector asked MD what pain medications would be appropriate with the PRN medications ordered. MD stated that it was ok to give both her [place] and Gabapentin together this time. webbing inspectorCELESTINO Rodríguez pulled and gave pt's PRN pain medication and verified them with myself. Patient was again educated why nursing staff had to wait to give her her pain medications. Pt verbalized understanding. When this RN and discharge planner left pt's room the patient appeared to be more calm.
--- NOTE | 2023-11-17 17:39 | P.PN_ITS ---
Subjective *Date: 11/17/23 *Time: 17:39 Interval history: Some intermittent chest pain overnight. Still having some back pain. Awaiting heart cath this morning. Denies any nausea or vomiting. Stable on room air. Medical Exam Vital signs and Labs for Last 24 Hours: Vital Signs Temp Pulse Pulse Resp BP Pulse Ox O2 Del Method 11/17/23 16:50 Room Air 11/17/23 16:44 62 18 117/68 95 Room Air 11/17/23 16:15 60 16 129/75 100 Room Air 11/17/23 16:00 65 11/17/23 15:45 69 16 143/77 H 100 Room Air 11/17/23 15:15 58 L 16 127/88 100 Room Air 11/17/23 15:08 62 17 135/72 99 Room Air 11/17/23 15:00 Room Air 11/17/23 14:45 56 L 17 121/62 100 Room Air 11/17/23 14:30 56 L 16 117/62 100 Room Air 11/17/23 14:15 56 L 17 117/66 100 Room Air 11/17/23 14:10 97.5 F L 55 L 16 113/76 100 Room Air 11/17/23 12:58 Room Air 11/17/23 12:00 60 11/17/23 12:00 98.0 F 63 16 101/52 L 98 Room Air 11/17/23 11:00 Room Air 11/17/23 09:00 Room Air 11/17/23 08:00 60 11/17/23 08:00 Room Air 11/17/23 07:26 97.6 F 65 18 114/68 97 Room Air 11/17/23 06:37 Room Air 11/17/23 05:00 Room Air 11/17/23 04:00 97.7 F 60 17 107/72 L 97 Room Air 11/17/23 04:00 55 L 11/17/23 02:57 Room Air 11/17/23 01:00 Room Air 11/17/23 00:00 60 11/17/23 00:00 97.6 F 62 17 120/69 96 Room Air 11/16/23 22:59 Room Air 11/16/23 21:39 72 18 115/67 95 Room Air 11/16/23 21:30 59 L 18 111/64 95 Room Air 11/16/23 20:50 Room Air 07/24/24 20:00 97 Room Air 11/16/23 20:00 63 11/16/23 19:47 68 16 131/88 97 Room Air Intake and Output 11/17/23 11/17/23 11/17/23 07:59 15:59 23:59 Intake Total 240 / 240 0 / 240 Output Total 2450 / 2450 0 / 2450 0 / 2450 Balance -2210 / -2210 0 / -2210 0 / -2210 Intake: Intake, Oral Amount 240 / 240 0 / 240 Output: Output, Urine Amount 2450 / 2450 0 / 2450 0 / 2450 Other: Number of Unmeasured Voids 1 1 Weight 115.076 kg Patient Weight 11/17/23 23:59 Weight 115.076 kg Laboratory Results - last 24 hr 11/17/23 05:56: WBC 4.4 L, RBC 4.19 L, Hgb 13.0, Hct 39.2, MCV 93.5, MCH 31.0, MCHC 33.2, RDW 13.9, Plt Count 218, MPV 7.7, Neut % (Auto) 55.2, Lymph % (Auto) 29.4, [place] % (Auto) 7.0, Eos % (Auto) 7.2, Baso % (Auto) 1.2, Neut # (Auto) 2.4, Lymph # (Auto) 1.3, [place] # (Auto) 0.3, Eos # (Auto) 0.3, Baso # (Auto) 0.1, Sodium 138, Potassium 3.2 L, Chloride 106, Carbon Dioxide 26, Anion Gap 9.2, BUN 20 H, Creatinine 1.00, Estimated Creat Clear 54, Estimated GFR 57 L, Est GFR ( Amer) 69 D, Glucose 89, Calcium 8.9, Magnesium 2.2, Total Bilirubin 0.2, AST 26, ALT 18, Alkaline Phosphatase 92, Total Protein 6.2 L, Albumin 3.4 L , Globulin 2.8, Albumin/Globulin Ratio 1.2 11/17/23 13:32: Activated Clotting Time 320 H* I & O for Labs for Last 24 Hours: Intake & Output 11/14/23 11/15/23 11/16/23 11/17/23 23:59 23:59 23:59 23:59 Intake Total 480 / 480 930 / 1170 240 / 240 Output Total 800 / 800 4800 / 5800 2450 / 2450 Balance -320 / -320 -3870 / -4630 -2210 / -2210 Weight 112.066 kg 117.707 kg 115.076 kg Constitutional: Present no acute distress, morbidly obese and cooperative Head: Present atraumatic and normocephalic ENT: Present normal exam Neck: Present normal inspection Respiratory: Present CTA bilaterally and normal respiratory effort; Absent rhonchi, wheezes or crackles Cardiac: Present Reg Rate and Rhythm GI: Present soft and normal bowel sounds; Absent distention or tenderness Rectal (female): Present deferred (female): Present deferred Extremities: Present normal inspection, full ROM and edema (Trace to the knees) Skin: Present intact; Absent erythema Neuro: Present Grossly Intact, alert, awake, oriented x 3 and moves all extremities Assessment and Plan *Assessment and plan (1) Unstable angina: Status: Acute Category: Medical Code(s): I20.0 - Unstable angina (2) (HFpEF) heart failure with preserved ejection fraction: Status: Acute Qualifiers: Heart failure chronicity: acute Qualified Code(s): I50.31 - Acute diastolic (congestive) heart failure Category: Medical Code(s): I50.30 - Unspecified diastolic (congestive) heart failure (3) CAD (coronary artery disease): Status: Acute Category: Medical Code(s): I25.10 - Atherosclerotic heart disease of hoh coronary artery without angina pectoris (4) Back pain: Status: Acute Qualifiers: Back pain laterality: midline Back pain location: low back pain Chronicity: chronic Category: Medical Code(s): M54.9 - Dorsalgia, unspecified (5) Morbid obesity: Status: Chronic Category: Medical Code(s): E66.01 - Morbid (severe) obesity due to excess calories (6) Anxiety: Status: Chronic Category: Medical Code(s): F41.9 - Anxiety disorder, unspecified (7) HTN (hypertension): Status: Chronic Qualifiers: Hypertension type: primary hypertension Qualified Code(s): I10 - Essential (primary) hypertension Category: Medical Code(s): I10 - Essential (primary) hypertension Plan 58-year-old female who presents with chest pain with exertion, worsening dyspnea with exertion. Concern for CHF exacerbation. Discussed case with ER physician, request admission for further management of CHF exacerbation and intractable chest pain/unstable angina. I agreed to admit for further management. Cardiology consulted. CCTA yesterday with concern for LAD disease. Going for heart cath. Further management pending findings. Continues to require inpatient management. Problems addressed as follows: Unstable angina CAD CHF exacerbation -Continue Bumex 1 mg IV twice daily -Discussed case with cardiology, given calcifications identified in LAD on CCTA, will go for left heart cath today. Further management after intervention pending stent placement or not. -Shortness of breath improving. -Monitor on telemetry. - Continue aspirin 81 mg daily, Jardiance 10 mg daily, initiate Entresto 24/26 mg tablet twice daily, spironolactone 25 mg daily. -Potassium low at 3.2 due to diuresis. Will replace orally. Magnesium 2.2. Kidney function normal BUN 20, creatinine 1 Chronic back pain, neuropathy: Continue gabapentin 600 mg q8hp. Hydrocodone 5/325mg q6hp. monitor for toxicity. Anxiety: Continue Effexor 37.5 mg nightly Morbid obesity: Complicates all aspects of her care. Full code Heparinized in [employer]. Discontinue Lovenox. Cardiac diet, n.p.o. at midnight
--- NOTE | 2023-11-17 17:54 | PC.NURSE ---
Pt states she is feeling better after getting pain medication. Pt radial band off with no bleeding from site. VSS. Pt ambulating to and from bathroom independently. pt tolerating meals well. Pt resting in bed with no complaints at this time.
[2023-11-17] MEDS: ATORVASTATIN 40MG TABLET 40 MG PO (20:25)
[2023-11-17] MEDS: VENLAFAXINE 37.5MG TABLET 37.5 MG PO (20:26)
[2023-11-17] MEDS: TOPIRAMATE 100MG TABLET 100 MG PO ×2 (20:26→22:51)
[2023-11-17] MEDS: TOPIRAMATE 100MG TABLET 200 MG PO (22:52)
[2023-11-18] VITALS: PULSE 68
[2023-11-18 00:27] VITALS: BP 107/58; PULSE 69; RESP 17; TEMP 36.6; O2SAT 97
[2023-11-18] MEDS: GABAPENTIN 600MG TABLET 600 MG PO ×2 (00:27→08:21)
[2023-11-18 04:00] VITALS: PULSE 66; BMI 43.7
[2023-11-18 04:37] VITALS: BP 106/62; PULSE 66; RESP 16; TEMP 36.4; O2SAT 96
--- NOTE | 2023-11-18 04:39 | PC.NURSE ---
DRSG TO RIGHT RADIAL CATH SITE C/D/I. NO S/S OF COMPLICATIONS. NSR ON TELEMETRY. NO C/O CHEST PAIN OR SOA. VITAL SIGNS STABLE. AFEBRILE.
[2023-11-18 07:11] LABS: Alanine Aminotransferase 23 U/L (12-78); Albumin Level 3.9 g/dl (3.5-5.0); Albumin/Globulin Ratio 1.3 (1.1-1.8); Alkaline Phosphatase 90 U/L (38-126); Anion Gap 11.8 mEq/L (5-15); Aspartate Amino Transferase 45 U/L (14-36); Bilirubin,Total 0.6 mg/dl (0.2-1.3); Blood Urea Nitrogen 18 mg/dl (7-17); Carbon Dioxide 20 mmol/L (22.0-30.0); Chloride 110 mmol/L (98-107); Creatinine Clearance Estimated 60 mL/min (50-200); Estimated Glomerular Filt Rate 65 ml/min (>60); GFR (African American) 78 ML/MIN (>60); Glucose 88 mg/dl (74-100); Potassium 3.8 mmoL/L (3.5-5.1); Sodium 138 mmol/L (136-145); Total Protein,Serum 6.9 g/dl (6.3-8.2)
[2023-11-18 08:00] VITALS: BP 127/72; PULSE 59; PULSE 60; RESP 18; TEMP 36.4; O2SAT 99
[2023-11-18 08:01] LABS: Basophils # 0.1 K/mm3 (0-0.2); Basophils % 1.1 % (0.1-2.0); Eosinophils # 0.3 K/mm3 (0.0-0.4); Eosinophils % 6.6 % (0.1-12.0); Hematocrit 44.5 % (37.0-47.0); Hemoglobin 14.4 g/dL (12.2-16.2); Lymphocytes # 1.1 K/mm3 (0.7-4.5); Lymphocytes % 22.6 % (10-50); Mean Corpuscular HGB Conc 32.3 g/dL (31.8-35.4); Mean Corpuscular Hemoglobin 30.9 pg (27.0-31.2); Mean Corpuscular Volume 95.8 fl (81-99); Mean Platelet Volume 7.8 fl (7.4-10.4); Monocytes # 0.4 K/mm3 (0.1-1.0); Monocytes % 7.2 % (1.7-9.3); Neutrophils # 3.2 K/mm3 (1.8-7.8); Neutrophils % 62.5 % (37.0-80.0); Platelet Count 220 K/mm3 (142-424); Red Blood Count 4.65 M/mm3 (4.20-5.40); Red Cell Distribution Width 13.8 % (11.5-17.5); White Blood Count 5.1 K/mm3 (4.8-10.8)
[2023-11-18] MEDS: EMPAGLIFLOZIN 10MG TABLET 10 MG PO (08:16)
[2023-11-18] MEDS: BUMETANIDE 1 MG TABLET PO (08:16)
[2023-11-18] MEDS: ASPIRIN EC 81MG TABLET 81 MG PO (08:16)
[2023-11-18] MEDS: PRASUGREL 10MG TAB 10 MG PO (08:16)
[2023-11-18] MEDS: TOPIRAMATE 100MG TABLET 100 MG PO (08:16)
[2023-11-18] MEDS: SPIRONOLACTONE 25MG TABLET 25 MG PO (08:16)
[2023-11-18] MEDS: SACUBITRIL/VALSARTAN 24-26MG TABLET 1 EACH PO (08:16)
--- NOTE | 2023-11-18 08:16 | P.PN_ITS ---
Subjective Subjective Date: 11/18/23 Time: 08:15 Principal diagnosis: unstable angina, CAD Interval history: This is a 58-year-old patient who presented to the emergency department complaints of chest pain and shortness of breath. She was found to have acute HFpEF. She was also having unstable angina and underwent left cardiac catheterization with stenting to the mid LAD. She tolerated the procedure well and is on Effient and aspirin for dual antiplatelet therapy. This morning she denies any chest pain or pressure. She denies any shortness of breath or edema. She denies any fever, chills, nausea, vomiting, diarrhea, PND or orthopnea. Exam Data for Last 24 hours Vital signs and Labs for Last 24 Hours: Temp Pulse Resp BP Pulse Ox O2 Del Method 97.5 F L 59 L 18 127/72 99 Room Air 11/18/23 08:00 11/18/23 08:00 11/18/23 08:00 11/18/23 08:00 11/18/23 08:00 11/18/23 08:00 Laboratory Results - last 24 hr 11/17/23 13:32: Activated Clotting Time 320 H* 11/18/23 05:58: WBC 5.1, RBC 4.65, Hgb 14.4, Hct 44.5, MCV 95.8, MCH 30.9, MCHC 32.3, RDW 13.8, Plt Count 220, MPV 7.8, Neut % (Auto) 62.5, Lymph % (Auto) 22.6, [place] % (Auto) 7.2, Eos % (Auto) 6.6, Baso % (Auto) 1.1, Neut # (Auto) 3.2, Lymph # (Auto) 1.1, [place] # (Auto) 0.4, Eos # (Auto) 0.3, Baso # (Auto) 0.1, Sodium 138, Potassium 3.8, Chloride 110 H, Carbon Dioxide 20 L, Anion Gap 11.8, BUN 18 H, Creatinine 0.90, Estimated Creat Clear 60, Estimated GFR 65, Est GFR ( Amer) 78, Glucose 88, Calcium 9.0, Total Bilirubin 0.6, AST 45 H D, ALT 23 D, Alkaline Phosphatase 90, Total Protein 6.9, Albumin 3.9 D, Globulin 3.0, Albumin/Globulin Ratio 1.3 I & O for Last 24 hours: Intake & Output 11/15/23 11/16/23 11/17/23 11/18/23 23:59 23:59 23:59 23:59 Intake Total 480 / 480 930 / 1170 1820 / 1820 Output Total 800 / 800 4800 / 5800 3351 / 4151 1400 / 1400 Balance -320 / -320 -3870 / -4630 -1531 / -2331 -1400 / -1400 Weight 247 lb 1 oz 259 lb 8 oz 253 lb 11.2 oz 256 lb 6.4 oz Narrative: Left heart cath shows: The left main artery Normal The left anterior descending artery Has proximal 10% luminal irregularities with a mid vessel concentric 70 to 80% stenosis followed by an additional 50 to 60% stenosis with remaining vessel having mild diffuse 10% luminal regularities The circumflex artery Large nondominant normal The right coronary artery Dominant proximal 20 to 30% stenosis mid vessel concentric 30 to 40% stenosis and a distal 30% stenosis The VALENCIA ventriculogram reveals Normal 65% The left ventricular end-diastolic pressure 10 mmHg IMPRESSION Severe mid LAD disease as described above Successful stenting of the mid LAD severe disease reduced to 0% with 1 drug-eluting stent Normal ejection fraction Normal LVEDP PLAN 1. Effient and aspirin 2. LDL less than 55 to be achieved with high intensity statin 3. Avoidance of tobacco products 4. Cardiac rehabilitation 5. Risk factor modification Constitutional Constitutional: no acute distress and morbidly obese *Routine HEENT Exam Head: Present normocephalic and atraumatic ENT: Present mucous membranes moist *Routine Neck Exam Neck: Present supple, full ROM and normal carotid upstroke; Absent JVD, carotid bruit or lymphadenopathy *Routine Respiratory Exam Respiratory: Present CTA bilaterally, normal respiratory effort, able to speak in complete sentences and symmetric chest movement *Routine Cardiovascular Exam Cardiovascular: Present RRR, Normal S1 and Normal S2; Absent murmur or gallop *Routine Abdominal Exam Abdominal: Present soft and normoactive bowel sounds; Absent tenderness, distended or organomegaly *Routine Extremities Exam Extremities: Present full ROM, pulses intact and normal capillary refill; Absent cyanosis, clubbing or edema *Routine Skin Exam Skin: Present intact and warm; Absent erythema *Routine Neurological Exam Neurological: Present alert, oriented X3 and CN II-XII intact; Absent sensory deficit or motor deficit Routine Psychiatric Exam Psychiatric: Present normal affect Progress Note: A&P Assessment and plan (1) (HFpEF) heart failure with preserved ejection fraction: Status: Acute (2) CAD (coronary artery disease): Status: Acute (3) HTN (hypertension): Status: Chronic (4) Hyperlipidemia: Status: Acute (5) Back pain: Status: Acute (6) Morbid obesity: Status: Chronic (7) Anxiety: Status: Chronic Assessment and Plan Assessment and Plan for All Diagnoses:: Plan: 1. The patient was admitted to the hospital with HFpEF. She was diuresed with IV Bumex. Left cardiac catheterization yesterday showed an LVEDP of 10 mmHg so she was switched over to oral Bumex. Will continue with oral diuresis with Bumex 1 mg p.o. twice daily and spironolactone 25 mg p.o. daily as an outpatient. 2. Her potassium level has normalized. 3. The patient did undergo a left cardiac catheterization due to unstable angina and abnormal CCTA. She is status post stenting to the mid LAD with 1 drug-eluting stent. She tolerated the procedure well and will remain on Effient and aspirin for dual antiplatelet therapy. 4. Her blood pressure is well-controlled. 5. Her LDL goal is less than 55. Her LDL is 68. She has been started on a statin. 6. Will continue Bumex, Entresto, Jardiance and spironolactone for HFpEF. 7. No beta-kelley at this time as studies show beta-kelley should try to be avoided in patients with HFpEF. 8. Her renal function is normal. 9. Cardiac rehab on an outpatient basis. 10. The patient is stable for discharge home today from a cardiac standpoint. She will need to follow-up in cardiology clinic next week. 11. The patient can be discharged on the following cardiac medications: Aspirin 81 mg daily, Effient 10 mg p.o. daily, nitroglycerin 0.4 mg sublingual as needed for chest pain, Lipitor 40 mg p.o. nightly, Bumex 1 mg p.o. twice daily, Jardiance 10 mg daily, Entresto 24/26 mg p.o. twice daily, spironolactone 25 mg p.o. daily, Protonix 40 mg p.o. daily. Thank you for the opportunity to help participate in the care of this patient. All recommendations and orders are per Dr. Toledo.
--- NOTE | 2023-11-18 11:00 | PC.NURSE ---
During discharge of pt this nurse asked the pt if she had anyone to come pick her up to take her home, Pt stated I am my own ride i drove myself here my truck is parked in front of the ER and I have no one else for a ride . MD made aware and pt was educated that she is not 24 hour post heart cath and it is recommended not to drive. pt verbalized understanding but stated she was going to drive anyways.
--- NOTE | 2023-11-18 11:22 | P.DS_ITS ---
General Admission date:: 11/15/23 Discharge date: 11/18/23 HPI HPI HPI: Ms. Guzman is a 58-year-old female with history of hypertension, heart disease, previous stroke, morbid obesity, neuropathy with cauda equina. She presented to the ER because of complaint of worsening shortness of breath with exertion over the past several days to week and gain of approximately 15 pounds in the last month despite taking her diuretic 0.5 mg 3 times a day. States that she was at an event a month ago and had no difficulty walking around with no dyspnea with exertion. She has become more fatigued with exertion and feels like her legs are more swollen. Had an episode of chest pain with exertion that started yesterday, better at rest. Pressure sensation that radiated to her left neck and shoulder. Denies any diarrhea or vomiting. No syncope. Did have an episode of sweating however accompanied by nausea. Says she feels short of breath like when she had pneumonia and pleurisy previously but does not have quite the same pain. Workup in the ER with negative CT PE, negative EKG, negative troponin. Continues to have chest pain however. ER requested admission for further management of CHF exacerbation given her elevated BNP and cardiology evaluation. On evaluation after arriving to the floor, patient appears chronically ill and is morbidly obese. Stable on room air. Speech somewhat pressured. Appears little anxious but states she is not. Reports compliance with her diuretic regimen but just not having any increase in urine output. Feels like she has had a difficult time voiding. Sometimes has difficulty with urination due to her back injury. Reports decreased sensation in her region. Alert and oriented x 4. Hospital Course Hospital Course Hospital Course: 58-year-old female who presents with chest pain with exertion, worsening dyspnea with exertion. Concern for CHF exacerbation. Discussed case with ER physician, request admission for further management of CHF exacerbation and intractable chest pain/unstable angina. I agreed to admit for further management. Cardiology consulted. CCTA showed concern for LAD disease. Taken for heart cath on 11/16. Found to have mid LAD lesion. Stents placed. Achieved good results. Medically stable to discharge home on goal-directed therapy. Will have outpatient follow-up with cardiology. Problems addressed as follows: Unstable angina CAD CHF exacerbation -Patient was admitted for heart failure preserved ejection fraction, unstable angina, persistent chest pain. Cardiology was consulted. She was diuresed with Bumex with some improvement in shortness of breath but still having pain. CCTA was obtained showing calcifications in the LAD concerning for stenosis. Was taken for left heart cath on 11/16 which showed LVEDP of 10 mmHg so she was switched over to oral Bumex. Also found to have LAD stenosis of 80%. Received 1 drug-eluting stent to the mid LAD. Tolerated procedure well with resolution of her chest pain. Will continue aspirin and Effient daily for dual antiplatelet therapy. Blood pressures remained well-controlled. Started on Entresto low-dose, Jardiance, and spironolactone for heart failure. No beta- kelley at this time due to its relative contraindication and heart failure with preserved ejection fraction. LDL goal less than 55, LDL currently 68. Started on high intensity statin with Lipitor 40 mg nightly. Given her clinical improvement, patient stable to discharge home for further management as an outpatient. Chronic back pain, neuropathy: Continue gabapentin 600 mg q8hp. Hydrocodone 5/325mg q6hp. monitor for toxicity. Resume tramadol at discharge. Sent with short course of hydrocodone. Anxiety: Continue Effexor 37.5 mg nightly Morbid obesity: Complicates all aspects of her care. Stable to discharge home. Plan for close follow-up with cardiology. Recommended she discuss with her surgeon for her back the appropriate timeframe for possible surgery. Will need to be on aspirin and Effient for 2 to 3 months prior to considering elective surgical intervention. Exam Data for Last 24 hours Vital signs and Labs for Last 24 Hours: Temp Pulse Resp BP Pulse Ox O2 Del Method 97.6 F 60 18 114/68 97 Room Air 11/17/23 07:26 11/17/23 08:00 11/17/23 07:26 11/17/23 07:26 11/17/23 07:26 11/17/23 11:00 Laboratory Results - last 24 hr 11/16/23 11:45: Troponin I < 0.01 11/17/23 05:56: WBC 4.4 L, RBC 4.19 L, Hgb 13.0, Hct 39.2, MCV 93.5, MCH 31.0, MCHC 33.2, RDW 13.9, Plt Count 218, MPV 7.7, Neut % (Auto) 55.2, Lymph % (Auto) 29.4, [place] % (Auto) 7.0, Eos % (Auto) 7.2, Baso % (Auto) 1.2, Neut # (Auto) 2.4, Lymph # (Auto) 1.3, [place] # (Auto) 0.3, Eos # (Auto) 0.3, Baso # (Auto) 0.1, Sodium 138, Potassium 3.2 L, Chloride 106, Carbon Dioxide 26, Anion Gap 9.2, BUN 20 H, Creatinine 1.00, Estimated Creat Clear 54, Estimated GFR 57 L, Est GFR ( Amer) 69 D, Glucose 89, Calcium 8.9, Magnesium 2.2, Total Bilirubin 0.2, AST 26, ALT 18, Alkaline Phosphatase 92, Total Protein 6.2 L, Albumin 3.4 L , Globulin 2.8, Albumin/Globulin Ratio 1.2 I & O for Last 24 hours: Intake & Output 11/14/23 11/15/23 11/16/23 11/17/23 23:59 23:59 23:59 23:59 Intake Total 480 / 480 930 / 1170 240 / 240 Output Total 800 / 800 4800 / 5800 2450 / 2450 Balance -320 / -320 -3870 / -4630 -2210 / -2210 Weight 112.066 kg 117.707 kg 115.076 kg Constitutional Constitutional: no acute distress, morbidly obese and cooperative *Routine HEENT Exam Head: Present normocephalic Eye: Present EOMI and PERRL ENT: Present mucous membranes moist *Routine Neck Exam Neck: Present supple; Absent lymphadenopathy *Routine Respiratory Exam Respiratory: Present CTA bilaterally; Absent rhonchi, wheezes or crackles *Routine Cardiovascular Exam Cardiovascular: Present RRR *Routine Abdominal Exam Abdominal: Present soft and normoactive bowel sounds; Absent tenderness *Routine Rectal Exam Patient deferred: visual exam *Routine Exam Patient deferred: external exam *Routine Extremities Exam Extremities: Absent cyanosis, clubbing or edema *Routine Skin Exam Skin: Present warm; Absent rash *Routine Neurological Exam Neurological: Present alert, oriented X3 and moving all extremities; Absent altered mental status Results Data Completed and Pending Labs on day of discharge: Labs from last 24 hours 11/17/23 11/16/23 05:56 11:45 WBC 4.4 L RBC 4.19 L Hgb 13.0 Hct 39.2 MCV 93.5 MCH 31.0 MCHC 33.2 RDW 13.9 Plt Count 218 MPV 7.7 Neut % (Auto) 55.2 Lymph % (Auto) 29.4 [place] % (Auto) 7.0 Eos % (Auto) 7.2 Baso % (Auto) 1.2 Neut # (Auto) 2.4 Lymph # (Auto) 1.3 [place] # (Auto) 0.3 Eos # (Auto) 0.3 Baso # (Auto) 0.1 Sodium 138 Potassium 3.2 L Chloride 106 Carbon Dioxide 26 Anion Gap 9.2 BUN 20 H Creatinine 1.00 Estimated Creat Clear 54 Estimated GFR 57 L Est GFR ( Amer) 69 D Glucose 89 Calcium 8.9 Magnesium 2.2 Total Bilirubin 0.2 AST 26 ALT 18 Alkaline Phosphatase 92 Troponin I < 0.01 Total Protein 6.2 L Albumin 3.4 L Globulin 2.8 Albumin/Globulin Ratio 1.2 DS: Diagnosis Discharge Diagnosis (1) Unstable angina: Status: Acute Code(s): I20.0 - Unstable angina (2) (HFpEF) heart failure with preserved ejection fraction: Status: Acute Code(s): I50.30 - Unspecified diastolic (congestive) heart failure Qualifiers: Heart failure chronicity: acute Qualified Code(s): I50.31 - Acute diastolic (congestive) heart failure (3) CAD (coronary artery disease): Status: Acute Code(s): I25.10 - Atherosclerotic heart disease of [place] coronary artery without angina pectoris (4) HTN (hypertension): Status: Chronic Code(s): I10 - Essential (primary) hypertension Qualifiers: Hypertension type: primary hypertension Qualified Code(s): I10 - Essential (primary) hypertension (5) Back pain: Status: Acute Code(s): M54.9 - Dorsalgia, unspecified Qualifiers: Back pain laterality: midline Back pain location: low back pain Chronicity: chronic (6) Morbid obesity: Status: Chronic Code(s): E66.01 - Morbid (severe) obesity due to excess calories (7) Anxiety: Status: Chronic Code(s): F41.9 - Anxiety disorder, unspecified Meds Home Medications and Allergies Home Medications ?Medication ?Instructions ?Recorded ?Confirmed ?Type tramadol 50 mg tablet 50 mg PO TIDP PRN Pain, Moderate 10/06/22 11/16/23 History acetaminophen 500 mg tablet 500 mg PO Q6H PRN Pain 11/15/23 11/15/23 History albuterol sulfate 90 mcg/actuation 90 mcg inhalation NEEDED PRN 11/15/23 11/15/23 History aerosol inhaler (Ventolin HFA) Shortness Of Breath cholecalciferol (vitamin D3) 25 25 mcg PO HS 11/15/23 11/15/23 History mcg (1,000 unit) tablet gabapentin 600 mg tablet 600 mg PO TID 11/15/23 11/15/23 History potassium chloride 10 mEq 20 meq PO BID 11/15/23 11/16/23 History tablet,extended release venlafaxine 37.5 mg 37.5 mg PO HS 11/15/23 11/15/23 History capsule,extended release 24 hr topiramate 100 mg tablet 300 mg PO DAILY 11/16/23 11/17/23 History aspirin 81 mg tablet,delayed 81 mg PO DAILY 30 days #30 tabs 11/17/23 Rx release atorvastatin 40 mg tablet 40 mg PO HS 30 days #30 tabs 11/17/23 Rx bumetanide 1 mg tablet 1 mg PO BIDL 30 days #60 tabs 11/17/23 Rx empagliflozin 10 mg tablet 10 mg PO DAILY 30 days #30 tabs 11/17/23 Rx (Jardiance) hydrocodone 5 mg-acetaminophen 325 1 tab PO Q6HP PRN Severe Pain 11/17/23 Rx mg tablet (7-10) 3 days #12 tabs prasugrel 10 mg tablet 10 mg PO DAILY 30 days #30 tabs 11/17/23 Rx sacubitril 24 mg-valsartan 26 mg 1 tab PO BID 30 days #60 tabs 11/17/23 Rx tablet (Entresto) spironolactone 25 mg tablet 25 mg PO DAILY 30 days #30 tabs 11/17/23 Rx New Prescriptions to Start Prescriptions: Celio Grace atorvastatin Luisito,Celio bumetanide Celio Jorge empagliflozin [Jardiance] Celio Jorge hydrocodone-acetaminophen Celio Jorge prasugrel Celio Jorge sacubitril-valsartan [Entresto] Celio Jorge spironolactone Celio Jorge Allergies Allergy/AdvReac Type Severity Reaction Status Date / Time codeine Allergy Unknown Verified 10/06/22 13:57 allergy reaction Penicillins Allergy Unknown Verified 10/06/22 13:57 allergy reaction Discharge Plan Disposition Patient Disposition: Home, Self-Care Condition: Fair Discharge Order Discharge Orders: Discharge Order (Routine); Ordered 11/18/23 Ordered By: Celio Jorge Follow up Plan Follow up with: Lanette Cerda APRN [Referring] - 11/24/23 9:20 am Zackary Hilliard MD [Staff Physician] - 11/30/23 1:00 pm Prescriptions/Medication Reconciliation: New atorvastatin 40 mg Tablet 40 mg PO HS 30 Days Qty: 30 0RF aspirin 81 mg Tablet,Delayed Release (Dr/Ec) 81 mg PO DAILY 30 Days Qty: 30 0RF bumetanide 1 mg Tablet 1 mg PO BIDL 30 Days Qty: 60 0RF Jardiance 10 mg Tablet 10 mg PO DAILY 30 Days Qty: 30 0RF hydrocodone-acetaminophen 5-325 mg Tablet 1 tab PO Q6HP PRN (Reason: Severe Pain (7-10)) 3 Days Qty: 12 0RF prasugrel 10 mg Tablet 10 mg PO DAILY 30 Days Qty: 30 0RF Entresto 24-26 mg Tablet 1 tab PO BID 30 Days Qty: 60 0RF spironolactone 25 mg Tablet 25 mg PO DAILY 30 Days Qty: 30 0RF Continued tramadol 50 mg tablet 50 mg PO TIDP PRN (Reason: Pain, Moderate) venlafaxine 37.5 mg capsule,extended release 24hr 37.5 mg PO HS albuterol sulfate [Ventolin HFA] 90 mcg/actuation HFA aerosol inhaler 90 mcg INHALATION NEEDED PRN (Reason: Shortness Of Breath) cholecalciferol (vitamin D3) 25 mcg (1,000 unit) tablet 25 mcg PO HS gabapentin 600 mg tablet 600 mg PO TID potassium chloride 10 mEq tablet extended release 20 meq PO BID acetaminophen 500 mg Tablet 500 mg PO Q6H PRN (Reason: Pain) topiramate 100 mg tablet 300 mg PO DAILY Discontinued bisoprolol-hydrochlorothiazide 2.5-6.25 mg tablet 1 tab PO DAILY bumetanide 0.5 mg tablet 0.5 mg PO BID Problem Reconciliation Problems Reviewed?: Yes Patient Discharge Instructions ACTIVITY: Continue current activity DIET: continue same diet Patient Instructions: DI for Angina, DI for Cardiac Catheterization, DI for Surgical Site Infection Print Language: Japanese Providers Primary Care Provider: Provider,Referral Admit Provider: Celio Jorge Attending Provider: Celio Jorge
--- NOTE | 2023-11-21 13:00 | CARE MANAGER ---
Called and spoke with patient regarding recent discharge. Patient stated that she is feeling some better, has started new medication and aware of f/u appts. She has some concerns over all the new medication and her kidney function. Plans to have labs drawn prior to 11/23 visit with PCP. No other concerns voiced at time of call.
== END 2023-11-18 09:57 | disposition home or self-care (01) | DRG 321 ==
LOC: ER 15:14 → 2ND 17:46
PROVIDERS: Internal Medicine; Admitting Provider Internal Medicine Adolescent Medicine; Emergency Provider Emergency Medicine; Visit Provider Internal Medicine Adolescent Medicine
PROC: 027034Z Dilation of Coronary Artery, One Artery with Drug-eluting Intraluminal Device, Percutaneous Approach (ICD-10-PCS; principal; 2023-11-17 13:00)
DX: I13.0 Hypertensive heart and chronic kidney disease with heart failure and stage 1 through stage 4 chronic kidney disease, or unspecified chronic kidney disease (principal); I50.31 Acute diastolic (congestive) heart failure; G83.4 Cauda equina syndrome; Z68.41 Body mass index [BMI] 40.0-44.9, adult; I25.110 Atherosclerotic heart disease of native coronary artery with unstable angina pectoris; E66.01 Morbid (severe) obesity due to excess calories; Z86.73 Personal history of transient ischemic attack (TIA), and cerebral infarction without residual deficits; G62.9 Polyneuropathy, unspecified; G89.29 Other chronic pain; F41.9 Anxiety disorder, unspecified; N18.9 Chronic kidney disease, unspecified
CPT/HCPCS: 36415; 71045; 71275; 74177; 75574; 80053; 80061; 83735; 83880; 84484; 85025; 85347; 87636; 92928; 93005; 93306; 93458; 99152; 99285; C1725; C1769; C1874; C9600; J1200; J1644; J1650; J2250; J2405; J3010; Q9967

== ENCOUNTER 2023-12-24 14:45 | Emergency (ER) | payer MEDICAID, SELFPAY ==
[2023-12-24] VITALS (9 sets, daily range): BP systolic 110–136; BP diastolic 52–112; PULSE 58–75; RESP 13–20; TEMP 36.7; O2SAT 94–99; BMI 40.3
--- NOTE | 2023-12-24 14:45 | ECG_ITS ---
APPROVED REPORT Exam: Resting ECG HR:66 bpm ECG Measurements Heart Rate 66 AXES MS 163 P 50 QRSd 109 QRS 56 QT 386 T -8 QTc 399 Conclusion SINUS RHYTHM POSSIBLE LATERAL MYOCARDIAL INFARCTION , OF INDETERMINATE AGE [30 ms Q WAVE IN I/aVL/V5/V6] POSSIBLE INFERIOR MYOCARDIAL INFARCTION , OF INDETERMINATE AGE [30 ms Q WAVE IN II/aVF] ABNORMAL ECG Electronically signed by : MAHENDRA CASE, 12/27/2023 18:20:37
--- NOTE | 2023-12-24 15:12 | PC.NURSE ---
Dr. Serrano at [facility] for pt eval
--- NOTE | 2023-12-24 15:17 | XR_ITS ---
PROCEDURE INFORMATION: Exam: XR Chest Exam date and time: 12/24/2023 3:23 PM Age: 58 years old Clinical indication: Pain; Chest pressure; Additional info: Chest pain TECHNIQUE: Imaging protocol: Radiologic exam of the chest. Views: 1 view. Total images: 1 COMPARISON: CT ANGIO CHEST PE PROTOCOL 11/15/2023 4:10 PM FINDINGS: Lungs: Unremarkable. No consolidation. Pleural spaces: Unremarkable. No pleural effusion. No pneumothorax. Heart/Mediastinum: Unremarkable. No cardiomegaly. Bones/joints: Unremarkable. IMPRESSION: No acute findings.
--- NOTE | 2023-12-24 15:19 | ED_ITS ---
Discharge Plan Disposition Patient Disposition: Home, Self-Care Chief Complaint: Chest Pain Prescriptions Prescriptions: No Action tramadol 50 mg tablet 50 mg PO TIDP PRN (Reason: Pain, Moderate) venlafaxine 37.5 mg capsule,extended release 24hr 37.5 mg PO HS albuterol sulfate [Ventolin HFA] 90 mcg/actuation HFA aerosol inhaler 90 mcg INHALATION NEEDED PRN (Reason: Shortness Of Breath) cholecalciferol (vitamin D3) 25 mcg (1,000 unit) tablet 25 mcg PO HS gabapentin 600 mg tablet 600 mg PO TID potassium chloride 10 mEq tablet extended release 20 meq PO BID acetaminophen 500 mg Tablet 500 mg PO Q6H PRN (Reason: Pain) topiramate 100 mg tablet 300 mg PO DAILY atorvastatin 40 mg Tablet 40 mg PO HS 30 Days Qty: 30 0RF aspirin 81 mg Tablet,Delayed Release (Dr/Ec) 81 mg PO DAILY 30 Days Qty: 30 0RF bumetanide 1 mg Tablet 1 mg PO BIDL 30 Days Qty: 60 0RF prasugrel 10 mg Tablet 10 mg PO DAILY 30 Days Qty: 30 0RF Entresto 24-26 mg Tablet 1 tab PO BID 30 Days Qty: 60 0RF spironolactone 25 mg Tablet 25 mg PO DAILY 30 Days Qty: 30 0RF Referrals Follow up/Referrals: Provider,Referral, MD [Primary Care Provider] - See instructions Activity Restrictions/Add. Instructions Additional Instructions/Restrictions: At this time it was felt you are safe to be discharged home. If new or worsening symptoms please do not hesitate to return the emergency department. Please follow-up with cardiology clinic at 9 AM on Tuesday, tell them that Dr. Zach Angel agreed that you are to be seen. Clinical Impressions Clinical Impression: Chest pain Print Language Print Language: Samoan Discharge ED Provider: Sohail Serrano HPI General Chief Complaint: Chest Pain Stated Complaint: chest pain Time Seen by Provider: 12/24/23 14:58 Mode of Arrival: Ambulatory Source of Information: Patient Limitations: No Limitations Description of Symptoms (Recalled from ER Triage Doc. by RN): pt presents to ED with c/o chest pain ongoing for one month. pt reports approx 1 month ago she had a stent placed with dr angel. pt reports nausea began approx 1 hour ago, dizziness began approx 30 mins ago. History of Present Illness HPI narrative: Patient is a 58-year-old female with past medical history of recent cardiac stenting, hyperlipidemia, hypertension, obesity, volume overload who presents emergency department for evaluation of chest pain. Patient has had chest pain for many months ultimately resulting in stenting last month. Her chest pain has persisted, intermittent, daily. However over the last 48 hours it has been persistent, substernal and left chest, does not radiate through to the back, moderate in intensity. She has had episodes of lightheadedness with tunnel vision after she is walking around for a few minutes, never at rest. She has a slight cough, slight poorly localizable frontal left headache, generalized weakness. No vomiting. She is concerned about her chronic kidney disease. She has been compliant with her medications for which they changed many of few weeks ago. No other acute complaints at this time. Related Data Home Medications ?Medication ?Instructions ?Recorded ?Confirmed tramadol 50 mg tablet 50 mg PO TIDP PRN Pain, Moderate 10/06/22 11/30/23 acetaminophen 500 mg tablet 500 mg PO Q6H PRN Pain 11/15/23 11/30/23 albuterol sulfate 90 mcg/actuation 90 mcg inhalation NEEDED PRN 11/15/23 11/30/23 aerosol inhaler (Ventolin HFA) Shortness Of Breath cholecalciferol (vitamin D3) 25 25 mcg PO HS 11/15/23 11/30/23 mcg (1,000 unit) tablet gabapentin 600 mg tablet 600 mg PO TID 11/15/23 11/30/23 potassium chloride 10 mEq 20 meq PO BID 11/15/23 11/30/23 tablet,extended release venlafaxine 37.5 mg 37.5 mg PO HS 11/15/23 11/30/23 capsule,extended release 24 hr topiramate 100 mg tablet 300 mg PO DAILY 11/16/23 11/30/23 Previous Rx's ?Medication ?Instructions ?Recorded aspirin 81 mg tablet,delayed 81 mg PO DAILY 30 days #30 tabs 11/17/23 release atorvastatin 40 mg tablet 40 mg PO HS 30 days #30 tabs 11/17/23 bumetanide 1 mg tablet 1 mg PO BIDL 30 days #60 tabs 11/17/23 prasugrel 10 mg tablet 10 mg PO DAILY 30 days #30 tabs 11/17/23 sacubitril 24 mg-valsartan 26 mg 1 tab PO BID 30 days #60 tabs 11/17/23 tablet (Entresto) spironolactone 25 mg tablet 25 mg PO DAILY 30 days #30 tabs 11/17/23 Allergies Allergy/AdvReac Type Severity Reaction Status Date / Time codeine Allergy Unknown Verified 12/24/23 15:05 allergy reaction Penicillins Allergy Unknown Verified 12/24/23 15:05 allergy reaction PFSH PFS Disclaimer: The information contained in this section may have been updated after the patient was seen, as this information can be updated by other users. Medical History Hyperlipidemia (HFpEF) heart failure with preserved ejection fraction Abnormal electrocardiogram [ECG] [EKG] Unstable angina Asthma Anxiety HTN (hypertension) Arthritis Surgical History H/O left wrist surgery H/O colonoscopy Social History Smoking Status: Never smoker alcohol intake: never substance use type: denies use current occupational status: other Travel in the last 8 weeks: None housing: house current occupational exposures/hazards: Yes ROS Obtained: Yes Systems reviewed as appropriate & no additional complaints except as documented Physical Exam General General appearance: alert and in no apparent distress Head Head exam: atraumatic and normocephalic Eye Eye exam: Present PERRL and EOMI ENT ENT exam: Present mucous membranes moist Neck Neck exam: Present normal inspection Chest Chest inspection: Present normal inspection and symmetric chest wall rise Respiratory Respiratory exam: Present normal lung sounds bilaterally; Absent respiratory distress Cardiovascular Cardiovascular exam: Present regular rate and normal rhythm Abdominal Exam Abdominal exam: Present soft; Absent tenderness Extremities Exam Extremities exam: Present edema (Bilateral lower extremities distal to the knee) Neurological Exam Neurological exam: Present alert and CN II-XII intact; Absent motor sensory deficit Psychiatric Psychiatric exam: Present normal affect Skin Skin exam: Present warm and dry HEART Score HEART Score HEART Score assessment performed?: Yes History (anamnesis): Moderately suspicious ECG: Non-specific disturbance Age: 45-65 years Risk factors: Atherosclerosis history Troponin: </= normal limit HEART Score: 5 Critical Care Critical Care Time Critical Care Time: No Medical Decision Making Ashu Inquiry Pt receiving controlled substance: No Vital Signs Vital Signs: 12/24/23 14:47 12/24/23 15:06 12/24/23 16:01 Temperature 98.1 F Temperature Source Oral Pulse Rate 67 58 L Pulse Rate [Left Radial] 71 Respiratory Rate 19 16 Blood Pressure 124/57 L Blood Pressure [Right Arm] 126/75 Blood Pressure Mean [Right Arm] 92 02 Sat by Pulse Oximetry 97 95 Oxygen Delivery Method Room Air Room Air 12/24/23 16:31 12/24/23 17:00 12/24/23 17:30 Temperature Temperature Source Pulse Rate Pulse Rate [Left Radial] Respiratory Rate 16 18 13 Blood Pressure 132/60 136/69 110/52 L Blood Pressure [Right Arm] Blood Pressure Mean [Right Arm] 02 Sat by Pulse Oximetry 94 L 95 96 Oxygen Delivery Method Room Air Room Air Room Air 12/24/23 18:00 12/24/23 18:31 Temperature Temperature Source Pulse Rate 65 75 Pulse Rate [Left Radial] Respiratory Rate 18 19 Blood Pressure 128/77 120/90 Blood Pressure [Right Arm] Blood Pressure Mean [Right Arm] 02 Sat by Pulse Oximetry 94 L 99 Oxygen Delivery Method Room Air Room Air Lab Data Labs: Lab Results 12/24/23 14:58: WBC 5.8, RBC 4.77, Hgb 14.3, Hct 45.4, MCV 95.2, MCH 29.9, MCHC 31.5 L, RDW 13.4, Plt Count 246, MPV 8.1, Neut % (Auto) 69.3, Lymph % (Auto) 19.3, [place] % (Auto) 5.0, Eos % (Auto) 5.5, Baso % (Auto) 0.8, Neut # (Auto) 4.0, Lymph # (Auto) 1.1, [place] # (Auto) 0.3, Eos # (Auto) 0.3, Baso # (Auto) 0.1, D- Dimer 0.41, Sodium 138, Potassium 4.0, Chloride 106, Carbon Dioxide 25, Anion Gap 11.0, BUN 28 H, Creatinine 1.20 H, Estimated Creat Clear 87, Estimated GFR 46 L, Est GFR ( Amer) 56 L, Glucose 129 H, Calcium 9.1, Magnesium 2.2, Total Bilirubin 0.6, AST 35, ALT 24, Alkaline Phosphatase 80, Total Creatine Kinase 52, Troponin I < 0.01, NT-Pro-B Natriuret Pep 63.5, Total Protein 7.6, Albumin 4.5, Globulin 3.1, Albumin/Globulin Ratio 1.5, Lipase 89 12/24/23 18:06: Troponin I < 0.01 12/24/23 14:58 12/24/23 14:58 Response Orders (Tests/Meds): ED MEDICATIONS Discontinued Medications Generic Name Dose Route Start Last Admin Trade Name Freq PRN Reason Stop Dose Admin Acetaminophen 1,000 mg 12/24/23 15:17 12/24/23 15:26 Acetaminophen 1,000mg/100ml Vial IV 12/24/23 15:18 1,000 mg ONCE ONE Administration Aspirin 324 mg 12/24/23 15:17 12/24/23 15:26 Aspirin 81mg Chewable Tablet PO 12/24/23 15:18 324 mg ONCE ONE Administration Belladonna Alkaloids 60 ml 12/24/23 18:10 12/24/23 18:18 Belladonna Alkaloids 60 Ml Ml PO 12/24/23 18:11 60 ml ONCE ONE Administration Morphine Sulfate 4 mg 12/24/23 15:18 12/24/23 15:26 Morphine 4mg/Ml Syringe IV 12/24/23 15:19 4 mg ONCE ONE Administration Ondansetron HCl 4 mg 12/24/23 15:37 12/24/23 15:42 Ondansetron 4mg/2ml Vial IV 12/24/23 15:38 4 mg ONCE ONE Administration Promethazine HCl 25 mg 12/24/23 17:02 12/24/23 17:06 Promethazine Hcl 25mg/Ml 1ml Vial IV 12/24/23 17:03 25 mg ONCE ONE Administration Sodium Chloride 25 ml 12/24/23 17:02 12/24/23 17:06 Sodium Chloride 0.9% 25ml Bag IV 12/24/23 17:03 25 ml ONCE ONE Administration ORDERS Category Date Time Status CXR --portable [XR chest portable] Stat Exams 12/24/23 15:17 Completed POCUS Point of Care (ER Only) Stat Exams 12/24/23 15:19 Completed BNP [NT Pro Brain Natriuretic Pep.] Stat Lab 12/24/23 14:58 Completed CBC w/Auto Diff [Complete Blood Count Auto Diff] Stat Lab 12/24/23 14:58 Completed CK [Creatine Kinase] Stat Lab 12/24/23 14:58 Completed CMP [Comprehensive Metabolic Panel] Stat Lab 12/24/23 14:58 Completed D-Dimer Stat Lab 12/24/23 14:58 Completed Lipase Stat Lab 12/24/23 14:58 Completed MG [Magnesium] Stat Lab 12/24/23 14:58 Completed Trop I [Troponin I] Stat Lab 12/24/23 14:58 Completed Troponin I Q3H Lab 12/24/23 18:06 Completed Troponin I Q3H Lab 12/24/23 21:30 Ordered ECG Data Tracing #1: ECG Narrative: Independently turbid by me rate 66, rhythm is regular, axis is normal, no ST elevation in anatomical contiguous leads, QTc 399 Tracing #2: ECG Narrative: Independently interpreted by me rate is 59, rhythm is regular, axis is normal, no ST elevation in anatomical contiguous leads, QTc 420. No dynamic changes from prior. MDM Narrative Medical Decision Narrative: In summary patient is a 58-year-old female past medical history described above who presents emergency department for evaluation of chest pain, general tiredness, tunnel vision upon prolonged ambulation. Patient is hemodynamically stable nontoxic-appearing upon arrival, afebrile. Differential diagnosis includes ACS, chronic chest pain, viral syndrome, aortic dissection, pulmonary embolism, among others. Workup will be conducted with hematologic labs, chest x-ray, EKG, serial troponins. Initial inventions include IV Tylenol, aspirin, morphine, Zofran. Patient appears extravascular hypervolemic so crystalloid resuscitation will be deferred. Patient has a nonfocal neurologic exam therefore intracranial imaging was considered but will be deferred. From a cardiovascular standpoint she had a SHIREEN stent to the LAD on and is on DAPT with aspirin and Effient. The case was discussed with Dr. Angel who agrees that patient is appropriate for outpatient management at this time as acute stent thrombosis would be very clinically apparent. Patient will follow- up Tuesday at 9 AM with cardiology.
[2023-12-24 15:25] LABS: Basophils # 0.1 K/mm3 (0-0.2); Basophils % 0.8 % (0.1-2.0); Eosinophils # 0.3 K/mm3 (0.0-0.4); Eosinophils % 5.5 % (0.1-12.0); Hematocrit 45.4 % (37.0-47.0); Hemoglobin 14.3 g/dL (12.2-16.2); Lymphocytes # 1.1 K/mm3 (0.7-4.5); Lymphocytes % 19.3 % (10-50); Mean Corpuscular HGB Conc 31.5 g/dL (31.8-35.4); Mean Corpuscular Hemoglobin 29.9 pg (27.0-31.2); Mean Corpuscular Volume 95.2 fl (81-99); Mean Platelet Volume 8.1 fl (7.4-10.4); Monocytes # 0.3 K/mm3 (0.1-1.0); Neutrophils % 69.3 % (37.0-80.0); Platelet Count 246 K/mm3 (142-424); Red Blood Count 4.77 M/mm3 (4.20-5.40); Red Cell Distribution Width 13.4 % (11.5-17.5); White Blood Count 5.8 K/mm3 (4.8-10.8)
[2023-12-24] MEDS: ASPIRIN 81MG CHEWABLE TABLET 324 MG PO (15:26)
[2023-12-24] MEDS: MORPHINE 4MG/ML SYRINGE 4 MG IV (15:26)
[2023-12-24] MEDS: ACETAMINOPHEN 1,000MG/100ML VIAL 1000 MG IV (15:26)
[2023-12-24 15:27] LABS: Albumin Level 4.5 g/dl (3.5-5.0); Chloride 106 mmol/L (98-107); Sodium 138 mmol/L (136-145)
[2023-12-24 15:30] LABS: Alanine Aminotransferase 24 U/L (12-78); Albumin/Globulin Ratio 1.5 (1.1-1.8); Alkaline Phosphatase 80 U/L (38-126); Aspartate Amino Transferase 35 U/L (14-36); Bilirubin,Total 0.6 mg/dl (0.2-1.3); Blood Urea Nitrogen 28 mg/dl (7-17); Calcium 9.1 mg/dl (8.4-10.2); Carbon Dioxide 25 mmol/L (22.0-30.0); Creatine Kinase 52 U/L (30-135); Creatinine Clearance Estimated 87 mL/min (50-200); Estimated Glomerular Filt Rate 46 ml/min (>60); GFR (African American) 56 ML/MIN (>60); Globulin 3.1 g/dL (1.3-3.2); Glucose 129 mg/dl (74-100); Magnesium 2.2 mg/dl (1.6-2.3); Total Protein,Serum 7.6 g/dl (6.3-8.2)
[2023-12-24 15:40] LABS: NT Pro Brain Natriuretic Pep. 63.5 pg/mL (0-125)
[2023-12-24] MEDS: ONDANSETRON 4MG/2ML VIAL 4 MG IV (15:42)
[2023-12-24 15:43] LABS: Troponin I < 0.01 ng/ml (0.00-0.034)
[2023-12-24 15:50] LABS: D-Dimer 0.41 ug/mL (0.0-0.5)
[2023-12-24] MEDS: SODIUM CHLORIDE 0.9% 25ML BAG 25 ML IV (17:06)
[2023-12-24] MEDS: PROMETHAZINE HCL 25MG/ML 1ML VIAL 25 MG IV (17:06)
[2023-12-24] MEDS: BELLADONNA ALKALOIDS 60 ML ML PO (18:18)
[2023-12-24 18:20] LABS: Lipase 89 U/L (23-300)
[2023-12-24 18:53] LABS: Troponin I < 0.01 ng/ml (0.00-0.034)
--- NOTE | 2023-12-24 18:53 | ECG_ITS ---
APPROVED REPORT Exam: Resting ECG HR:59 bpm ECG Measurements Heart Rate 59 AXES WY 181 P 52 QRSd 114 QRS 60 QT 422 T 34 QTc 420 Conclusion SINUS BRADYCARDIA POSSIBLE LATERAL MYOCARDIAL INFARCTION , PROBABLY OLD [30 ms Q WAVE IN I/aVL/V5/V6] POSSIBLE INFERIOR MYOCARDIAL INFARCTION , PROBABLY OLD [30 ms Q WAVE IN II/aVF] BORDERLINE ECG Electronically signed by : MAHENDRA ACSE, 12/27/2023 18:16:37
== END 2023-12-24 19:25 | disposition home or self-care (01) ==
PROVIDERS: Emergency Provider Emergency Medicine
DX: R07.9 Chest pain, unspecified (principal); R11.0 Nausea; I11.0 Hypertensive heart disease with heart failure; E78.5 Hyperlipidemia, unspecified; I50.30 Unspecified diastolic (congestive) heart failure; I20.9 Angina pectoris, unspecified
CPT/HCPCS: 71045; 80053; 82550; 83690; 83735; 83880; 84484; 85025; 85378; 93005; 96374; 96375; 99285; J0131; J2270; J2405; J2550

== ENCOUNTER 2024-04-03 15:49 | Outpatient (CLI) | payer MEDICAID, SELFPAY ==
[2024-04-03 16:28] LABS: Basophils # 0.1 K/mm3 (0-0.2); Basophils % 0.9 % (0.1-2.0); Eosinophils # 0.1 K/mm3 (0.0-0.4); Eosinophils % 2.4 % (0.1-12.0); Hematocrit 42.6 % (37.0-47.0); Hemoglobin 14.6 g/dL (12.2-16.2); Lymphocytes # 1.3 K/mm3 (0.7-4.5); Lymphocytes % 26.5 % (10-50); Mean Corpuscular HGB Conc 34.3 g/dL (31.8-35.4); Mean Corpuscular Hemoglobin 32.5 pg (27.0-31.2); Mean Corpuscular Volume 94.6 fl (81-99); Mean Platelet Volume 7.6 fl (7.4-10.4); Monocytes # 0.4 K/mm3 (0.1-1.0); Monocytes % 7.7 % (1.7-9.3); Neutrophils # 3.2 K/mm3 (1.8-7.8); Neutrophils % 62.4 % (37.0-80.0); Platelet Count 251 K/mm3 (142-424); Red Cell Distribution Width 13.1 % (11.5-17.5); White Blood Count 5.1 K/mm3 (4.8-10.8)
[2024-04-03 18:08] LABS: Alanine Aminotransferase 17 U/L (12-78); Albumin Level 4.3 g/dl (3.5-5.0); Alkaline Phosphatase 81 U/L (38-126); Aspartate Amino Transferase 27 U/L (14-36); Bilirubin,Direct 0.4 mg/dl (0.0-0.4); Bilirubin,Indirect 0.1 mg/dL (0.0-0.9); Bilirubin,Total 0.5 mg/dl (0.2-1.3); Bilirubin,Unconjugated 0.1 mg/dL (0.0-1.1); Blood Urea Nitrogen 20 mg/dl (7-17); Calcium 9.2 mg/dl (8.4-10.2); Carbon Dioxide 24 mmol/L (22.0-30.0); Chloride 107 mmol/L (98-107); Chol/HDL Ratio 2.8 (1-3.5); Cholesterol 176 mg/dl (140-200); Estimated Glomerular Filt Rate 46 ml/min (>60); GFR (African American) 56 ML/MIN (>60); Glucose 95 mg/dl (74-100); HDL Cholesterol 63 mg/dl (40-60); Sodium 140 mmol/L (136-145); Total Protein,Serum 6.7 g/dl (6.3-8.2); Triglycerides 93 mg/dl (30-150); VLDL Cholesterol 19 mg/dL (0-40)
[2024-04-03 18:09] LABS: Anion Gap 12.7 mEq/L (5-15); Potassium 3.7 mmoL/L (3.5-5.1)
[2024-04-03 18:15] LABS: Free T4 (Free Thyroxine) 0.86 ng/dl (0.78-2.19)
[2024-04-03 18:19] LABS: Direct LDL Cholesterol 88.82 mg/dL (100-129)
[2024-04-03 18:37] LABS: Thyroid Stimulating Hormone 1.83 uIU/mL (0.465-4.68)
== END 2024-04-03 23:59 | disposition home or self-care (01) ==
LOC: LAB 15:50
PROVIDERS: PCP Nurse Practitioner Family; Visit Provider Physician Assistant
DX: R60.1 Generalized edema (principal); R07.89 Other chest pain; E78.49 Other hyperlipidemia; I25.10 Atherosclerotic heart disease of native coronary artery without angina pectoris; I50.31 Acute diastolic (congestive) heart failure; R94.31 Abnormal electrocardiogram [ECG] [EKG]; I10 Essential (primary) hypertension; R06.09 Other forms of dyspnea
CPT/HCPCS: 36415; 80048; 80061; 80076; 83735; 84439; 84443; 85025

== ENCOUNTER 2024-04-13 08:16 | Day surgery (SDC) | payer MEDICAID, SELFPAY ==
[2024-04-13] VITALS (11 sets, daily range): BP systolic 111–144; BP diastolic 60–85; PULSE 54–73; RESP 14–20; TEMP 36.7; O2SAT 95–100; BMI 40.5
--- NOTE | 2024-04-13 07:20 | IR_ITS ---
APPROVED REPORT Patient Location: Outpatient PROCEDURES Left heart catheterization Left ventriculogram Selective coronary angiogram INDICATION Worsening angina pectoris, Known coronary artery disease Informed consent was obtained prior to the procedure. COMPLICATIONS NONE Estimated Blood Loss: LESS THAN 10 ML TECHNIQUE One percent lidocaine used to anesthetize the right anterior aspect of the wrist. The right radial artery was accessed via the Seldinger technique. A 6 [place]ian sheath was placed in the right radial artery. 2.5 mg of Verapamil, 800 mcg of nitroglycerin, 1mg Lidocaine and 5000 U Heparin were given through the arterial sheath. The papa catheter was also used to perform left heart catheterization, left ventriculogram and selective coronary angiogram. At the end of the procedure the sheath was removed good hemostasis was achieved using Traclet band, patient was transferred to the postop holding area in stable condition. ANGIOGRAPHIC RESULTS The left main artery Normal The left anterior descending artery Has proximal 10% stenosis with a mid vessel stent which is widely patent free of in-stent restenosis with excellent proximal distal transitioning The circumflex artery Nondominant with 10% luminal regularities The right coronary artery Large and dominant with proximal 10 to 20% stenosis mid vessel along 30% stenosis with a distal eccentric 40% stenosis The VALENCIA ventriculogram reveals Preserved at 55% The left ventricular end-diastolic pressure 15 mmHg IMPRESSION Coronary artery disease as described above Slightly slow flow down the LAD consistent with endothelial dysfunction PLAN 1. Risk factor modification with empiric treatment for endothelial dysfunction 2. Maximize antianginal medications Electronically signed by : Zackary Hilliard MD 04/13/2024 14:41:28
[2024-04-13 09:04] LABS: Chloride 110 mmol/L (98-107); Potassium 4.1 mmoL/L (3.5-5.1); Sodium 136 mmol/L (136-145)
[2024-04-13 09:07] LABS: Anion Gap 8.1 mEq/L (5-15); Blood Urea Nitrogen 24 mg/dl (7-17); Carbon Dioxide 22 mmol/L (22.0-30.0); Creatinine Clearance Estimated 94 mL/min (50-200); Estimated Glomerular Filt Rate 51 ml/min (>60); GFR (African American) 62 ML/MIN (>60)
[2024-04-13 09:08] LABS: Calcium 8.9 mg/dl (8.4-10.2); Glucose 110 mg/dl (74-100)
[2024-04-13 09:40] LABS: Basophils % 0.9 % (0.1-2.0); Eosinophils % 2.6 % (0.1-12.0); Hematocrit 40.3 % (37.0-47.0); Hemoglobin 13.6 g/dL (12.2-16.2); Lymphocytes # 1.5 K/mm3 (0.7-4.5); Lymphocytes % 34.3 % (10-50); Mean Corpuscular HGB Conc 33.7 g/dL (31.8-35.4); Mean Corpuscular Hemoglobin 31.2 pg (27.0-31.2); Mean Corpuscular Volume 92.4 fl (81-99); Mean Platelet Volume 10.1 fl (7.4-10.4); Monocytes % 8.1 % (1.7-9.3); Neutrophils # 2.3 K/mm3 (1.8-7.8); Neutrophils % 53.9 % (37.0-80.0); Platelet Count 267 K/mm3 (142-424); Red Blood Count 4.36 M/mm3 (4.20-5.40); Red Cell Distribution Width 12.4 % (11.5-17.5); White Blood Count 4.3 K/mm3 (4.8-10.8)
[2024-04-13 09:41] LABS: Eosinophils # 0.1 K/mm3 (0.0-0.4); Monocytes # 0.4 K/mm3 (0.1-1.0)
[2024-04-13] MEDS: 0.9 % SODIUM CHLORIDE 500 ML 25 ML IV (10:21)
[2024-04-13] MEDS: FENTANYL 100MCG/2ML VIAL 50 MCG IV (10:21)
[2024-04-13] MEDS: LIDOCAINE 1% 10ML MDV 20 ML IJ (10:21)
[2024-04-13] MEDS: VERAPAMIL 2.5MG/ML 2ML VIAL 2.5 MG IV (10:22)
[2024-04-13] MEDS: NITROGLYCERIN 800MCG/8ML SYR (CATH LAB) 800 MCG IA (10:22)
[2024-04-13] MEDS: MIDAZOLAM HCL 1MG/ML 5ML VIAL 1 MG IV (10:22)
[2024-04-13] MEDS: HEPARIN 1,000 UNITS/ML 10ML VIAL (CATH LAB) 10000 UNIT IV (10:22)
[2024-04-13] MEDS: diphenhydrAMINE 50MG/ML VIAL 50 MG IV (11:10)
[2024-04-13] MEDS: HEPARIN 1,000 UNITS/500ML NS (CATH LAB) 3000 UNIT IV (11:10)
[2024-04-13] MEDS: ACETAMINOPHEN 325MG TAB 650 MG PO (12:45)
[2024-04-13] MEDS: IOPAMIDOL-370 (76%);100ML BOTTLE 50 ML IV (13:30)
== END 2024-04-13 13:42 | disposition home or self-care (01) ==
PROVIDERS: PCP Nurse Practitioner Family; Visit Provider Internal Medicine
DX: I25.118 Atherosclerotic heart disease of native coronary artery with other forms of angina pectoris (principal); R94.31 Abnormal electrocardiogram [ECG] [EKG]; Z79.899 Other long term (current) drug therapy; I50.30 Unspecified diastolic (congestive) heart failure; I11.0 Hypertensive heart disease with heart failure
CPT/HCPCS: 80048; 85025; 93458; 99152; C1725; C1769; J1200; J1644; J2250; J3010; Q9967

== ENCOUNTER 2024-05-21 15:39 | Emergency (ER) | payer MEDICAID, SELFPAY ==
--- NOTE | 2024-05-21 16:08 | ECG_ITS ---
APPROVED REPORT Exam: Resting ECG HR:70 bpm ECG Measurements Heart Rate 70 AXES CO 143 P 47 QRSd 112 QRS 54 QT 388 T 37 QTc 408 Conclusion SINUS RHYTHM PROBABLE ANTEROLATERAL MYOCARDIAL INFARCTION , PROBABLY OLD [35 ms Q WAVE IN I/aVL/V3-V6] ABNORMAL ECG Electronically signed by : MAHENDRA CASE, 05/21/2024 21:34:12
[2024-05-21 16:19] VITALS: BP 125/69; PULSE 69; RESP 18; TEMP 36.4; O2SAT 99; BMI 39.6
[2024-05-21 16:30] VITALS: BP 118/64; PULSE 61; O2SAT 99
--- NOTE | 2024-05-21 16:52 | [facility].EDGENADL ---
Discharge Plan Disposition Patient Disposition: Home, Self-Care Condition: Good Prescriptions Prescriptions: New methocarbamol 750 mg tablet 750 mg PO Q6H PRN (Reason: muscle spasm) Qty: 20 0RF lidocaine 5 % adhesive patch,medicated 1 patch topical DAILY Qty: 30 0RF Rx Instructions: leave on most painful area for up to 12 hrs No Action tramadol 50 mg tablet 50 mg PO TIDP PRN (Reason: Pain, Moderate) isosorbide mononitrate 30 mg tablet extended release 24 hr 30 mg PO DAILY Qty: 90 3RF nitroglycerin 0.4 mg tablet, sublingual 0.4 mg sublingual Q5-15M PRN (Reason: chest pain) Qty: 30 1RF Rx Instructions: do not exceed 3 doses per episode ondansetron 4 mg tablet,disintegrating 4 mg PO DAILY torsemide 20 mg tablet 20 mg PO BID Qty: 60 2RF spironolactone [Aldactone] 50 mg tablet 50 mg PO BID Qty: 60 2RF rosuvastatin [Crestor] 10 mg tablet 10 mg PO DAILY Qty: 30 2RF ranolazine 1,000 mg tablet extended release 12 hr See Rx Instructions .ROUTE .COMPLEX Qty: 180 3RF Dose Instruction: TAKE ONE TABLET BY MOUTH 2 TIMES A DAY Rx Instructions: TAKE ONE TABLET BY MOUTH 2 TIMES A DAY venlafaxine 37.5 mg capsule,extended release 24hr 37.5 mg PO HS albuterol sulfate [Ventolin HFA] 90 mcg/actuation HFA aerosol inhaler 90 mcg INHALATION NEEDED PRN (Reason: Shortness Of Breath) cholecalciferol (vitamin D3) 25 mcg (1,000 unit) tablet 25 mcg PO HS gabapentin 600 mg tablet 600 mg PO TID potassium chloride 10 mEq tablet extended release 20 meq PO BID acetaminophen 500 mg Tablet 500 mg PO Q6H PRN (Reason: Pain) topiramate 100 mg tablet 300 mg PO DAILY prasugrel 10 mg Tablet 10 mg PO DAILY 30 Days Qty: 30 0RF sacubitril-valsartan [Entresto] 24-26 mg Tablet 1 tab PO BID 30 Days Qty: 60 0RF Referrals Follow up/Referrals: Isaac Patino DO [Staff Physician] - See instructions Lanette Cerda APRN [Primary Care Provider] - See instructions Activity Restrictions/Add. Instructions Additional Instructions/Restrictions: We found no evidence of acute fracture during your visit today. If you have continued problems I have referred you to orthopedics for reevaluation. Follow-up with your PCP within 48 hours if you have no improvement new or worsening signs or symptoms or return to the ER as needed. Clinical Impressions Clinical Impression: Contusion of multiple sites Fall Qualifiers: Encounter type: initial encounter Qualified Code(s): W19.XXXA - Unspecified fall, initial encounter Print Language Print Language: Spanish Discharge ED Provider: Sohail Serrano General Adult HPI General Chief complaint: PAIN Stated complaint: AO/ fall LT knee RT shoulder ,finger inj Time Seen by Provider: 05/21/24 16:52 Mode of Arrival: Ambulatory Source of Information: Patient Limitations: No Limitations Description of Symptoms (Recalled from ER Triage Doc. by RN): c/o left knee, shoulder, right wrist and ring finger after tumbling down 3 steps yesterday, denies any loc, while waiting in the lobby pt developed chest pain and took her home dose of nitro which she reports helped her pain. Reports that the pain was higher in her left chest and since nitro it moved down under her left breast into her side and has improved. History of Present Illness HPI narrative: Patient presents for evaluation of a fall. Patient states that she fell down 2 concrete steps yesterday. She fell backwards with multiple contusions and but denies any loss of consciousness headache neck pain back pain. Her primary complaint is her left knee although she has visible contusions in other places. She has been able to bear weight but reports that is very painful. 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 She denies any chest pain shortness of breath fever chills hemoptysis hematochezia melena nausea vomit diarrhea loss of motor or sensory focal neurologic deficits. Related Data Home Medications ?Medication ?Instructions ?Recorded ?Confirmed tramadol 50 mg tablet 50 mg PO TIDP PRN Pain, Moderate 10/06/22 05/04/24 acetaminophen 500 mg tablet 500 mg PO Q6H PRN Pain 11/15/23 05/04/24 albuterol sulfate 90 mcg/actuation 90 mcg inhalation NEEDED PRN 11/15/23 05/04/24 aerosol inhaler (Ventolin HFA) Shortness Of Breath cholecalciferol (vitamin D3) 25 25 mcg PO HS 11/15/23 05/04/24 mcg (1,000 unit) tablet gabapentin 600 mg tablet 600 mg PO TID 11/15/23 05/04/24 potassium chloride 10 mEq 20 meq PO BID 11/15/23 05/04/24 tablet,extended release venlafaxine 37.5 mg 37.5 mg PO HS 11/15/23 05/04/24 capsule,extended release 24 hr topiramate 100 mg tablet 300 mg PO DAILY 11/16/23 05/04/24 ondansetron 4 mg disintegrating 4 mg PO DAILY 05/04/24 05/04/24 tablet Previous Rx's ?Medication ?Instructions ?Recorded prasugrel 10 mg tablet 10 mg PO DAILY 30 days #30 tabs 11/17/23 sacubitril 24 mg-valsartan 26 mg 1 tab PO BID 30 days #60 tabs 11/17/23 tablet (Entresto) isosorbide mononitrate 30 mg 30 mg PO DAILY #90 tabs 04/03/24 tablet,extended release 24 hr nitroglycerin 0.4 mg sublingual 0.4 mg sublingual Q5-15M PRN chest 04/03/24 tablet pain #30 tabs rosuvastatin 10 mg tablet (Crestor) 10 mg PO DAILY #30 tabs 04/04/24 spironolactone 50 mg tablet 50 mg PO BID #60 tabs 05/04/24 (Aldactone) torsemide 20 mg tablet 20 mg PO BID #60 tabs 05/04/24 ranolazine 1,000 mg See Rx Instructions .Route 05/17/24 tablet,extended release,12 hr .COMPLEX #180 tabs lidocaine 5 % topical patch 1 patch topical DAILY #30 ea 05/21/24 methocarbamol 750 mg tablet 750 mg PO Q6H PRN muscle spasm #20 05/21/24 tabs Allergies Allergy/AdvReac Type Severity Reaction Status Date / Time codeine Allergy Unknown Verified 05/04/24 10:12 allergy reaction Penicillins Allergy Unknown Verified 05/04/24 10:12 allergy reaction PFSH PFS Disclaimer: The information contained in this section may have been updated after the patient was seen, as this information can be updated by other users. Medical History (Updated 05/21/24 @ 19:46 by CAMILO Ramsay) Edema Hyperlipidemia (HFpEF) heart failure with preserved ejection fraction Abnormal electrocardiogram [ECG] [EKG] Unstable angina Asthma Anxiety HTN (hypertension) Arthritis Surgical History (Updated 05/04/24 @ 10:12 by Sherrell Servin MA) History of cardiac cath H/O left wrist surgery H/O colonoscopy Social History Smoking Status: Never smoker alcohol intake: never substance use type: denies use current occupational status: other Travel in the last 8 weeks: None housing: house current occupational exposures/hazards: Yes Have you lived/traveled outside [place] in past 30 days?: No Contact w/someone who lives/traveled outside [place] past 30 days?: No Exposure to someone with infectious disease in past 14 days?: No Do you have a fever (greater than 100.4 F or 38 C)?: No Have you tested positive for COVID-19: No Exposed to someone with COVID-19 in past 14 days?: No Do you have a sore throat?: No Do you have a cough?: No Do you have any weakness?: No Do you have any diarrhea?: No Are you experiencing any unusual bleeding?: No Do you have any muscle aches/pain?: No Do you have any abdominal pain?: No Are you experiencing loss of taste or smell?: No Other Medical History Have you received the Flu Vaccine for this season: No Have you received the Pneumonia Vaccine: No ROS Obtained: Yes Systems reviewed as appropriate & no additional complaints except as documented Physical Exam General General appearance: alert and in no apparent distress Respiratory Respiratory exam: Present normal lung sounds bilaterally Cardiovascular Cardiovascular exam: Present regular rate Neurological Exam Neurological exam: Present alert, oriented X3 and CN II-XII intact Medical Decision Making Medical Records Medical records reviewed: Yes I reviewed the patient's medical records. Screening: Per USPSTF and CDC recommendations, given the prevalence of disease in our region, it is our hospital?s policy to screen for HIV and viral Hepatitis for all patients aged 18 and over and those with ongoing risk factors. Ashu Inquiry Pt receiving controlled substance: No Vital Signs: 05/21/24 16:19 05/21/24 16:30 05/21/24 17:00 Temperature 97.6 F Temperature Source Oral Pulse Rate 61 70 Pulse Rate [Left Radial] 69 Respiratory Rate 18 Blood Pressure 118/64 125/97 H Blood Pressure [Right Arm] 125/69 Blood Pressure Mean [Right Arm] 87 02 Sat by Pulse Oximetry 99 99 98 Oxygen Delivery Method Room Air Room Air Room Air 05/21/24 17:31 05/21/24 18:31 05/21/24 20:11 Temperature 97.8 F Temperature Source Pulse Rate 76 68 61 Pulse Rate [Left Radial] Respiratory Rate 18 Blood Pressure 135/86 115/58 L 121/66 Blood Pressure [Right Arm] Blood Pressure Mean [Right Arm] 02 Sat by Pulse Oximetry 100 100 Oxygen Delivery Method Room Air Room Air Room Air Lab Data Lab results reviewed: Yes I reviewed the patient's lab results. Lab Results 05/21/24 16:12: WBC 5.4, RBC 4.37, Hgb 13.4, Hct 40.6, MCV 92.9, MCH 30.7, MCHC 33.0, RDW 12.0, Plt Count 255, MPV 10.6 H, Neut % (Auto) 60.1, Lymph % (Auto) 27.7, [place] % (Auto) 9.5 H, Eos % (Auto) 1.9, Baso % (Auto) 0.6, Neut # (Auto) 3.2, Lymph # (Auto) 1.5, [place] # (Auto) 0.5, Eos # (Auto) 0.1, Baso # (Auto) 0.0, PT 9.9, INR 0.89 L, Sodium 134 L, Potassium 4.1, Chloride 99, Carbon Dioxide 23, Anion Gap 16.1 H, BUN 25 H, Creatinine 1.40 H, Estimated Creat Clear 74, Estimated GFR 39 L, Est GFR ( Amer) 47 L, Glucose 107 H, Calcium 8.8, Total Bilirubin 0.3, AST 33, ALT 18, Alkaline Phosphatase 82, Total Protein 7.3, Albumin 4.4, Globulin 2.9, Albumin/Globulin Ratio 1.5, HCV Ab GLORIA w/Rflx PCR Qn Negative, HIV Ag/Ab Combo Qual Negative 05/21/24 19:40: Urine Color Yellow, Urine Appearance Clear, Urine pH 6.5, Ur Specific [place] 1.010, Urine Protein Negative, Urine Glucose (UA) Negative, Urine Ketones Negative, Urine Blood Negative, Urine Nitrate Negative, Urine Bilirubin Negative, Urine Urobilinogen 0.2, Ur Leukocyte Esterase Negative, Urine Opiates Screen Negative, Urine Methadone Screen Negative, Ur Barbituates Screen Negative, Ur Phencyclidine Scrn Negative, Ur Amphetamines Screen Negative, U Benzodiazepines Scrn Negative, Urine Cocaine Screen Negative, U Marijuana (THC) Screen Negative 05/21/24 16:12 05/21/24 16:12 Orders (Tests/Meds): ED MEDICATIONS Discontinued Medications Generic Name Dose Route Start Last Admin Trade Name Fernandoq PRN Reason Stop Dose Admin Acetaminophen 1,000 mg 05/21/24 17:05 05/21/24 17:45 Acetaminophen 1,000mg/100ml Vial IV 05/21/24 17:06 1,000 mg ONCE ONE Administration Hydromorphone HCl 0.5 mg 05/21/24 17:05 05/21/24 17:44 Hydromorphone 2mg/Ml Syringe IV 05/21/24 17:06 0.5 mg ONCE ONE Administration Iopamidol 160 ml 05/21/24 18:06 05/21/24 18:07 Iopamidol-370 (76%);100ml Bottle IV 05/21/24 18:07 160 ml ONCE ONE Administration Ondansetron HCl 4 mg 05/21/24 17:46 05/21/24 17:49 Ondansetron 4mg/2ml Vial IV 05/21/24 17:47 4 mg ONCE ONE Administration Oxycodone HCl 5 mg 05/21/24 20:01 05/21/24 20:08 Oxycodone 5mg Immediate Release Tablet PO 05/21/24 20:02 5 mg ONCE ONE Administration Sodium Chloride 50 ml 05/21/24 18:06 05/21/24 18:07 0.9 % Sodium Chloride 50 Ml Vial IV 05/21/24 18:07 50 ml ONCE ONE Administration Sodium Chloride 10 ml 05/21/24 18:06 05/21/24 18:07 Sodium Chloride 0.9% 10ml Syr (Rad Only) IV 05/21/24 18:07 10 ml ONCE ONE Administration ORDERS Category Date Time Status CT angio abdomen pelvis Stat Cat Scan 05/21/24 17:[address] angio chest - dissection Stat Cat Scan 05/21/24 17:[address] angio head Stat Cat Scan 05/21/24 17:[address] angio neck Stat Cat Scan 05/21/24 17:[address] cervical spine wo con Stat Cat Scan 05/21/24 17:[address] head/brain wo con Stat Cat Scan 05/21/24 17:[address] lumbar spine wo con Stat Cat Scan 05/21/24 17:[address] thoracic spine wo con Stat Cat Scan 05/21/24 17:05 Completed Elbow XR left mininum 3 views [XR elbow LT min 3V] Stat Exams 05/21/24 18:36 Completed Hand XR right minimum 3 views [XR hand RT min 3V] Stat Exams 05/21/24 18:36 Completed Knee XR left 3 views [XR knee LT 3V] Stat Exams 05/21/24 18:36 Completed Knee XR right 3 views [XR knee RT 3V] Stat Exams 05/21/24 18:36 Completed Shoulder XR left minimum 2 views [XR shoulder LT min 2V Exams 05/21/24 18:36 Completed ] Stat Wrist XR right 2 views [XR wrist RT 2V] Stat Exams 05/21/24 18:36 Completed CBC w/Auto Diff [Complete Blood Count Auto Diff] Stat Lab 05/21/24 16:12 Completed CMP [Comprehensive Metabolic Panel] Stat Lab 05/21/24 16:12 Completed HIV Combo Stat Lab 05/21/24 16:12 Completed Hepatitis C Ab Qual. W/ RFX Stat Lab 05/21/24 16:12 Completed INR [Prothrombin Time INR] Stat Lab 05/21/24 16:12 Completed UA [Urinalysis and Microscopic] Stat Lab 05/21/24 19:40 Results UDS [Drug Screen,Urine] Stat Lab 05/21/24 19:40 Completed Medical Decision Narrative: In summary patient is a 59-year-old female who presents to the emergency department for evaluation of eyad from a fall. Patient is hemodynamically stable with blood pressure 125/69 pulse 69 normal sinus rhythm on the bedside monitor breathing 18 times a minute satting at 99% on room air upon arrival, afebrile at 97.6. Physical exam is remarkable for an abrasion and contusion of the left upper arm, left elbow, left wrist, left hand, bilateral knees with the left being worse than the right. Patient does have full range of motion and all of her extremities and has no dorsal spine tenderness.. Differential diagnosis includes contusion or soft tissue injury versus connective tissue injury versus occult fracture etc. Initial workup will be conducted with hematologic labs ED trauma scans as patient is on anticoagulants and urines. Initial interventions include gentle crystalloid bolus Tylenol Robaxin Dilaudid. Initial workup reviewed by me shows that her hematologic labs are reassuring and nonactionable she has chronic kidney disease with her creatinine near baseline. Urinalysis is bland urine drug screen is negative Knauer 0.89 she has a stable H&H. My informal interpretation of all of her imaging shows no acute fracture on her plain film x-rays no acute bony injury on her CT scans no intracranial injuries and no bony fractures prior to radiology read. Upon repeat evaluation patient was able to ambulate in the ER and had improvement in her discomfort after initial interventions. Given this patient is appropriate for discharge with prescription for Robaxin and Lidoderm patches and a referral to orthopedics for ongoing management and care and strict return precautions. Patient verbalized understanding and agreement Critical Care Critical Care Time Critical Care Time: No
[2024-05-21 17:00] VITALS: BP 125/97; PULSE 70; O2SAT 98
--- NOTE | 2024-05-21 17:05 | CT_ITS ---
PROCEDURE INFORMATION: Exam: CTA Neck With Contrast Exam date and time: 05/21/2024 6:05 PM Age: 59 years old Clinical indication: Injury or trauma; Fall; Blunt trauma; Head; Additional info: Trauma, critical injury suspected TECHNIQUE: Imaging protocol: Computed tomographic angiography of the neck with contrast. Exam focused on the cervical segments of the vasculature. 3D rendering (Not supervised by radiologist): MIP and/or 3D reconstructed images were created by the technologist. Radiation optimization: All CT scans at this facility use at least one of these dose optimization techniques: automated exposure control; mA and/or kV adjustment per patient size (includes targeted exams where dose is matched to clinical indication); or iterative reconstruction. Contrast material: ISOVUE 370; Contrast volume: 80 ml; Contrast route: INTRAVENOUS (IV); COMPARISON: CT ANGIO NECK 09/05/2021 7:14 PM FINDINGS: Right common carotid artery: No stenosis. No dissection or occlusion. Right internal carotid artery: No stenosis of the extracranial segment. No dissection or occlusion. Right external carotid artery: No occlusion or stenosis of the origin. Left common carotid artery: No stenosis. No dissection or occlusion. Left internal carotid artery: No stenosis of the extracranial segment. No dissection or occlusion. Left external carotid artery: No occlusion or stenosis of the origin. Right vertebral artery: No stenosis. No dissection or occlusion. Left vertebral artery: No stenosis. No dissection or occlusion. Soft tissues: Normal. No significant soft tissue swelling. Bones/joints: No acute fracture. IMPRESSION: No stenosis or occlusion. REFERENCES: NASCET CRITERIA. The degree of stenosis in the cervical segment of the internal carotid artery is based on NASCET criteria. Normal is no stenosis. Mild is less than 50% stenosis. Moderate is 50-69% stenosis. Severe is 70% to 99% stenosis. Total occlusion is no detectable patent lumen.
--- NOTE | 2024-05-21 17:05 | CT_ITS ---
PROCEDURE INFORMATION: Exam: CT Cervical Spine Without Contrast Exam date and time: 05/21/2024 5:57 PM Age: 59 years old Clinical indication: Injury or trauma; Fall; Blunt trauma; Additional info: Trauma, critical injury suspected TECHNIQUE: Imaging protocol: Computed tomography of the cervical spine without contrast. Radiation optimization: All CT scans at this facility use at least one of these dose optimization techniques: automated exposure control; mA and/or kV adjustment per patient size (includes targeted exams where dose is matched to clinical indication); or iterative reconstruction. COMPARISON: CT ANGIO NECK 09/05/2021 7:14 PM FINDINGS: Bones: No acute fracture. Normal alignment. At C4-C5 there is disc osteophyte complex resulting in neuroforaminal and central canal narrowing. Milder changes at C5-C6. No no additional significant disc bulge or herniation. No severe spinal canal stenosis. No significant neural foraminal narrowing. Lungs: Lung apices are normal. Soft tissues: Unremarkable. IMPRESSION: No acute findings.
--- NOTE | 2024-05-21 17:05 | CT_ITS ---
PROCEDURE INFORMATION: Exam: CT Lumbar Spine Without Contrast Exam date and time: 05/21/2024 6:02 PM Age: 59 years old Clinical indication: Injury or trauma; Fall; Blunt trauma (contusions or hematomas); Additional info: Trauma, critical injury suspected TECHNIQUE: Imaging protocol: Computed tomography of the lumbar spine without contrast. Radiation optimization: All CT scans at this facility use at least one of these dose optimization techniques: automated exposure control; mA and/or kV adjustment per patient size (includes targeted exams where dose is matched to clinical indication); or iterative reconstruction. COMPARISON: MR LUMBAR SPINE WO CON 03/23/2023 7:28 AM FINDINGS: Bones/joints: No acute fracture identified. Multilevel degenerative changes most pronounced at L4-L5 and L5-S1. At L4-L5 moderate disc space narrowing and grade 1-2 spondylolisthesis up to 6 mm noted with associated [id number] central canal and moderate bilateral foramina narrowing. At L5-S1 [id number] degenerative disc disease with disc space narrowing and associated moderate left and [id number] right foramina narrowing. Soft tissues: Unremarkable. IMPRESSION: Degenerative changes most pronounced at the lower 2 levels as detailed above. No acute abnormality.
--- NOTE | 2024-05-21 17:05 | CT_ITS ---
PROCEDURE INFORMATION: Exam: CT Head Without Contrast Exam date and time: 05/21/2024 5:55 PM Age: 59 years old Clinical indication: Injury or trauma; Fall; Blunt trauma (contusions or hematomas); Additional info: Trauma, critical injury suspected TECHNIQUE: Imaging protocol: Computed tomography of the head without contrast. Radiation optimization: All CT scans at this facility use at least one of these dose optimization techniques: automated exposure control; mA and/or kV adjustment per patient size (includes targeted exams where dose is matched to clinical indication); or iterative reconstruction. COMPARISON: CT HEAD/BRAIN WO CON 05/21/2024 5:55 PM FINDINGS: Brain: Atrophy and chronic small vessel ischemic changes. No hemorrhage. No mass effect or midline shift. On series 3, image number 26, 27 there is a slightly linear area of hyperdensity which is felt to reflect tiny vascular calcification less likely an area of hemorrhage. Cerebral ventricles: No ventriculomegaly. Paranasal sinuses: Visualized sinuses are unremarkable. No fluid levels. Mastoid air cells: Visualized mastoid air cells are well aerated. Bones: Unremarkable. No acute fracture. Soft tissues: Unremarkable. IMPRESSION: Chronic changes in the brain but no acute intracranial abnormality.
--- NOTE | 2024-05-21 17:05 | CT_ITS ---
PROCEDURE INFORMATION: Exam: CTA Abdomen and Pelvis With Contrast Exam date and time: 05/21/2024 6:09 PM Age: 59 years old Clinical indication: Injury or trauma; Fall; Blunt trauma; Pelvic area; Bilateral; Additional info: Trauma, critical injury suspected TECHNIQUE: Imaging protocol: Computed tomographic angiography of the abdomen and pelvis with contrast. Exam focused on the arteries. 3D rendering (Not supervised by radiologist): MIP and/or 3D reconstructed images were created by the technologist. Radiation optimization: All CT scans at this facility use at least one of these dose optimization techniques: automated exposure control; mA and/or kV adjustment per patient size (includes targeted exams where dose is matched to clinical indication); or iterative reconstruction. Contrast material: ISOVUE 370; Contrast volume: 80 ml; Contrast route: INTRAVENOUS (IV); COMPARISON: CT ABDOMEN PELVIS W CON 11/15/2023 4:10 PM FINDINGS: Aorta: No aortic aneurysm. No aortic dissection. Celiac trunk and mesenteric arteries: No occlusion or significant stenosis. Renal arteries: No occlusion or significant stenosis. Right iliac arteries: No occlusion or significant stenosis. Left iliac arteries: No occlusion or significant stenosis. Liver: No mass. Gallbladder and biliary ducts: Unremarkable. No calcified stones. No ductal dilation. Pancreas: Unremarkable. No mass. No ductal dilation. Spleen: Unremarkable. No splenomegaly. Adrenal glands: Unremarkable. No mass. Kidneys and ureters: Unremarkable. No solid mass. No hydronephrosis. Stomach and bowel: Unremarkable. No obstruction. No mucosal thickening. Appendix: No evidence of appendicitis. Intraperitoneal space: Unremarkable. No free air. No significant fluid collection. Lymph nodes: Unremarkable. No enlarged lymph nodes. Urinary bladder: Unremarkable. No mass. Reproductive: Unremarkable as visualized. Bones/joints: No acute fracture. Soft tissues: Unremarkable. IMPRESSION: Unremarkable CTA.
--- NOTE | 2024-05-21 17:05 | CT_ITS ---
PROCEDURE INFORMATION: Exam: CTA Chest With Contrast Exam date and time: 05/21/2024 6:09 PM Age: 59 years old Clinical indication: Injury or trauma; Fall; Blunt trauma (contusions or hematomas); Additional info: Trauma, critical injury suspected TECHNIQUE: Imaging protocol: Computed tomographic angiography of the chest with contrast. Exam focused on the arteries. 3D rendering (Not supervised by radiologist): MIP and/or 3D reconstructed images were created by the technologist. Radiation optimization: All CT scans at this facility use at least one of these dose optimization techniques: automated exposure control; mA and/or kV adjustment per patient size (includes targeted exams where dose is matched to clinical indication); or iterative reconstruction. Contrast material: ISOVUE 370; Contrast volume: 80 ml; Contrast route: INTRAVENOUS (IV); COMPARISON: CT ANGIO CHEST PE PROTOCOL 11/15/2023 4:10 PM FINDINGS: Pulmonary arteries: Normal. No pulmonary emboli. Aorta: Unremarkable. No aortic aneurysm. No aortic dissection. Lungs: Incidental calcified nodules left upper left lower lobe. Lungs are otherwise clear. Pleural spaces: Unremarkable. No pneumothorax. No pleural effusion. Heart: Unremarkable. No cardiomegaly. No pericardial effusion. Lymph nodes: Unremarkable. No enlarged lymph nodes. Bones/joints: Unremarkable. No acute fracture. Soft tissues: Unremarkable. IMPRESSION: No acute abnormality.
--- NOTE | 2024-05-21 17:05 | CT_ITS ---
PROCEDURE INFORMATION: Exam: CT Thoracic Spine Without Contrast Exam date and time: 05/21/2024 5:59 PM Age: 59 years old Clinical indication: Injury or trauma; Fall; Blunt trauma (contusions or hematomas); Additional info: Trauma, critical injury suspected TECHNIQUE: Imaging protocol: Computed tomography of the thoracic spine without contrast. Radiation optimization: All CT scans at this facility use at least one of these dose optimization techniques: automated exposure control; mA and/or kV adjustment per patient size (includes targeted exams where dose is matched to clinical indication); or iterative reconstruction. COMPARISON: CT THORACIC SPINE WO CON 05/21/2024 5:59 PM FINDINGS: Bones/joints: No acute fracture. Normal alignment. No significant disc bulge or herniation. No severe spinal canal stenosis. No significant neural foraminal narrowing. Soft tissues: Unremarkable. IMPRESSION: Unremarkable CT Spine.
--- NOTE | 2024-05-21 17:05 | CT_ITS ---
PROCEDURE INFORMATION: Exam: CTA Head With Contrast, Arteriography Exam date and time: 05/21/2024 6:05 PM Age: 59 years old Clinical indication: Injury or trauma; Fall; Blunt trauma; Head; Additional info: Trauma, critical injury suspected TECHNIQUE: Imaging protocol: Computed tomographic angiography of the head with contrast. Exam focused on the arteries. 3D rendering (Not supervised by radiologist): MIP and/or 3D reconstructed images were created by the technologist. Radiation optimization: All CT scans at this facility use at least one of these dose optimization techniques: automated exposure control; mA and/or kV adjustment per patient size (includes targeted exams where dose is matched to clinical indication); or iterative reconstruction. Contrast material: ISOVUE 370; Contrast volume: 80 ml; Contrast route: INTRAVENOUS (IV); COMPARISON: CT HEAD/BRAIN WO CON 05/21/2024 5:55 PM FINDINGS: ANTERIOR CIRCULATION: Right internal carotid artery: Intracranial segment is patent with no significant stenosis. No aneurysm. Right middle cerebral artery: No occlusion or significant stenosis. No aneurysm. Right anterior cerebral artery: No occlusion or significant stenosis. No aneurysm. Left internal carotid artery: Intracranial segment is patent with no significant stenosis. No aneurysm. Left middle cerebral artery: No occlusion or significant stenosis. No aneurysm. Left anterior cerebral artery: No occlusion or significant stenosis. No aneurysm. POSTERIOR CIRCULATION: Right vertebral artery: No occlusion or significant stenosis. No aneurysm. Left vertebral artery: No occlusion or significant stenosis. No aneurysm. Basilar artery: No occlusion or significant stenosis. No aneurysm. Right posterior cerebral artery: No occlusion or significant stenosis. No aneurysm. Left posterior cerebral artery: No occlusion or significant stenosis. No aneurysm. Brain: No definite mass, mass effect, or midline shift. Cerebral ventricles: No ventriculomegaly. Bones/joints: Unremarkable. No acute fracture. Soft tissues: Unremarkable. IMPRESSION: No large vessel stenosis or occlusion.
[2024-05-21 17:22] LABS: Basophils % 0.6 % (0.1-2.0); Eosinophils # 0.1 K/mm3 (0.0-0.4); Eosinophils % 1.9 % (0.1-12.0); Hematocrit 40.6 % (37.0-47.0); Hemoglobin 13.4 g/dL (12.2-16.2); Lymphocytes # 1.5 K/mm3 (0.7-4.5); Lymphocytes % 27.7 % (10-50); Mean Corpuscular Hemoglobin 30.7 pg (27.0-31.2); Mean Corpuscular Volume 92.9 fl (81-99); Mean Platelet Volume 10.6 fl (7.4-10.4); Monocytes # 0.5 K/mm3 (0.1-1.0); Monocytes % 9.5 % (1.7-9.3); Neutrophils # 3.2 K/mm3 (1.8-7.8); Neutrophils % 60.1 % (37.0-80.0); Platelet Count 255 K/mm3 (142-424); Red Blood Count 4.37 M/mm3 (4.20-5.40); White Blood Count 5.4 K/mm3 (4.8-10.8)
[2024-05-21 17:26] LABS: Albumin Level 4.4 g/dl (3.5-5.0); Chloride 99 mmol/L (98-107); Sodium 134 mmol/L (136-145)
[2024-05-21 17:27] LABS: Potassium 4.1 mmoL/L (3.5-5.1)
[2024-05-21 17:28] LABS: INR 0.89 (0.9-1.1); Prothrombin Time 9.9 seconds (9.2-12.1)
[2024-05-21 17:29] LABS: Alanine Aminotransferase 18 U/L (12-78); Anion Gap 16.1 mEq/L (5-15); Aspartate Amino Transferase 33 U/L (14-36); Blood Urea Nitrogen 25 mg/dl (7-17); Carbon Dioxide 23 mmol/L (22.0-30.0); Creatinine Clearance Estimated 74 mL/min (50-200); Estimated Glomerular Filt Rate 39 ml/min (>60); GFR (African American) 47 ML/MIN (>60)
[2024-05-21 17:30] LABS: Albumin/Globulin Ratio 1.5 (1.1-1.8); Alkaline Phosphatase 82 U/L (38-126); Bilirubin,Total 0.3 mg/dl (0.2-1.3); Calcium 8.8 mg/dl (8.4-10.2); Globulin 2.9 g/dL (1.3-3.2); Glucose 107 mg/dl (74-100); Total Protein,Serum 7.3 g/dl (6.3-8.2)
[2024-05-21 17:31] VITALS: BP 135/86; PULSE 76; O2SAT 100
[2024-05-21] MEDS: HYDROMORPHONE 2MG/ML SYRINGE 0.5 MG IV (17:44)
[2024-05-21] MEDS: ACETAMINOPHEN 1,000MG/100ML VIAL 1000 MG IV (17:45)
[2024-05-21] MEDS: ONDANSETRON 4MG/2ML VIAL 4 MG IV (17:49)
[2024-05-21] MEDS: 0.9 % SODIUM CHLORIDE 50 ML VIAL IV (18:07)
[2024-05-21] MEDS: IOPAMIDOL-370 (76%);100ML BOTTLE 160 ML IV (18:07)
[2024-05-21] MEDS: SODIUM CHLORIDE 0.9% 10ML SYR (RAD ONLY) 10 ML IV (18:07)
[2024-05-21 18:10] LABS: HIV Combo NEGATIVE (Negative)
[2024-05-21 18:19] LABS: Hepatitis C Ab Qual. W/ RFX NEGATIVE (Negative)
[2024-05-21 18:31] VITALS: BP 115/58; PULSE 68; O2SAT 100
--- NOTE | 2024-05-21 18:36 | XR_ITS ---
PROCEDURE INFORMATION: Exam: XR Left Knee Exam date and time: 05/21/2024 6:50 PM Age: 59 years old Clinical indication: Injury or trauma; Fall; Blunt trauma; Knee; Left TECHNIQUE: Imaging protocol: Radiologic exam of the left knee. Views: 3 views. COMPARISON: CR XR KNEE LT 3V 05/21/2024 6:50 PM FINDINGS: Bones/joints: No acute fracture or dislocation. No are no complication. Soft tissues: There is mild prepatellar soft tissue swelling. IMPRESSION: No acute fracture or dislocation
--- NOTE | 2024-05-21 18:36 | XR_ITS ---
PROCEDURE INFORMATION: Exam: XR Left Elbow Exam date and time: 05/21/2024 6:50 PM Age: 59 years old Clinical indication: Injury or trauma; Fall; Blunt trauma (contusions or hematomas); Elbow; Left TECHNIQUE: Imaging protocol: Radiologic exam of the left elbow. Views: 3 or more views. COMPARISON: CR XR ELBOW LT MIN 3V 05/21/2024 6:50 PM FINDINGS: Bones/joints: Normal. Soft tissues: Normal. IMPRESSION: No acute findings.
--- NOTE | 2024-05-21 18:36 | XR_ITS ---
PROCEDURE INFORMATION: Exam: XR Right Wrist Exam date and time: 05/21/2024 6:50 PM Age: 59 years old Clinical indication: Injury or trauma; Fall; Blunt trauma (contusions or hematomas); Wrist; Right TECHNIQUE: Imaging protocol: Radiologic exam of the right wrist. Views: 1 or 2 views. COMPARISON: CR XR HAND RT MIN 3V 05/21/2024 6:50 PM FINDINGS: Bones/joints: Normal. Soft tissues: Normal. IMPRESSION: No acute findings.
--- NOTE | 2024-05-21 18:36 | XR_ITS ---
PROCEDURE INFORMATION: Exam: XR Left Shoulder Exam date and time: 05/21/2024 6:50 PM Age: 59 years old Clinical indication: Injury or trauma; Fall; Blunt trauma (contusions or hematomas); Shoulder; Left TECHNIQUE: Imaging protocol: Radiologic exam of the left shoulder. Views: 2 or more views. COMPARISON: CR XR SHOULDER LT MIN 2V 05/21/2024 6:50 PM FINDINGS: Bones/joints: Normal. Soft tissues: Normal. IMPRESSION: No acute findings.
--- NOTE | 2024-05-21 18:36 | XR_ITS ---
PROCEDURE INFORMATION: Exam: XR Right Hand Exam date and time: 05/21/2024 6:50 PM Age: 59 years old Clinical indication: Injury or trauma; Fall; Blunt trauma (contusions or hematomas); Hand; Right TECHNIQUE: Imaging protocol: Radiologic exam of the right hand. Views: 3 or more views. COMPARISON: CR XR WRIST RT 2V 05/21/2024 6:50 PM FINDINGS: Bones/joints: Normal. Soft tissues: Normal. IMPRESSION: No acute findings.
--- NOTE | 2024-05-21 18:36 | XR_ITS ---
PROCEDURE INFORMATION: Exam: XR Right Knee Exam date and time: 05/21/2024 6:50 PM Age: 59 years old Clinical indication: Injury or trauma; Fall; Blunt trauma; Knee; Right TECHNIQUE: Imaging protocol: Radiologic exam of the right knee. Views: 3 views. COMPARISON: CR XR KNEE RT 3V 05/21/2024 6:50 PM FINDINGS: Bones/joints: Total-knee arthroplasty device in place. No acute fracture or dislocation or hardware complication. Soft tissues: Normal. IMPRESSION: No acute findings.
[2024-05-21 19:52] LABS: Microscopic, Urine URINE MICROSCOPIC (MICROSCOPIC)
[2024-05-21 19:54] LABS: Appearance,Urine CLEAR (Clear); Bilirubin,Urine Negative (Negative); Blood, Urine Negative (Negative); Color,Urine YELLOW (Yellow); Glucose,Urine (UA) Negative (Negative); Ketones,Urine Negative (Negative); Leukocyte Esterase,Urine Negative (Negative); Nitrate,Urine Negative (Negative); PH,Urine 6.5 (5.0-8.5); Protein,Urine Negative (Negative); Urobilinogen,Urine 0.2 EU/dl (0.2)
--- NOTE | 2024-05-21 20:01 | PC.NURSE ---
Ambulatory without assistance, patient express she needed an madie bandage and she also stated that she just needed to go home and elevate it and ice the leg.
[2024-05-21] MEDS: OXYCODONE 5MG IMMEDIATE RELEASE TABLET 5 MG PO (20:08)
[2024-05-21 20:11] VITALS: BP 121/66; PULSE 61; RESP 18; TEMP 36.6; O2SAT 99
[2024-05-21 20:14] LABS: Amphetamine/Metha Screen,Urine Negative ng/ml (<1000); Benzodiazepines Screen,Urine Negative ng/ml (<200)
[2024-05-21 20:15] LABS: Barbiturates Screen,Urine Negative ng/ml (<200); Methadone Screen,Urine Negative ng/ml (<300)
[2024-05-21 20:16] LABS: Cannabinoid Screen,Urine Negative ng/ml (<50)
[2024-05-21 20:17] LABS: Cocaine Screen,Urine Negative ng/ml (<300); Opiate Screen,Urine Negative ng/ml (<300)
--- NOTE | 2024-05-21 20:17 | PC.NURSE ---
Applied COLUMBA bandage to pts L knee and administered Oxycodone 5mg IR as per the JUN.
[2024-05-21 20:18] LABS: Phencyclidine Screen,Urine Negative ng/ml (<25)
[2024-05-22 00:58] LABS: Bacteria,Urine Trace /lpf; Squamous Epithelial Cell,Urine Occasional #/hpf (0-5)
== END 2024-05-21 20:14 | disposition home or self-care (01) ==
PROVIDERS: Physician Assistant; Emergency Provider Emergency Medicine; PCP Nurse Practitioner Family
DX: S50.12XA Contusion of left forearm, initial encounter (principal); S50.02XA Contusion of left elbow, initial encounter; S60.212A Contusion of left wrist, initial encounter; S60.222A Contusion of left hand, initial encounter; S80.01XA Contusion of right knee, initial encounter; S80.02XA Contusion of left knee, initial encounter; M25.562 Pain in left knee; M25.512 Pain in left shoulder; M25.531 Pain in right wrist; M79.644 Pain in right finger(s); R07.9 Chest pain, unspecified; R51.9 Headache, unspecified; M54.2 Cervicalgia; M54.9 Dorsalgia, unspecified; W10.8XXA Fall (on) (from) other stairs and steps, initial encounter; Y93.89 Activity, other specified; Y92.9 Unspecified place or not applicable
CPT/HCPCS: 70450; 70496; 70498; 71275; 72125; 72128; 72131; 73030; 73080; 73100; 73130; 73562; 74174; 80053; 80307; 81001; 85025; 85610; 86803; 87389; 93005; 96374; 96375; 99285; J0131; J1171; J2405; Q9967

== ENCOUNTER 2024-07-25 17:44 | Observation (INO) | payer MEDICAID, SELFPAY ==
--- NOTE | 2024-07-25 17:41 | ECG_ITS ---
APPROVED REPORT Exam: Resting ECG HR:67 bpm ECG Measurements Heart Rate 67 AXES OK 168 P 29 QRSd 108 QRS 36 QT 413 T 12 QTc 428 Conclusion SINUS RHYTHM POSSIBLE LATERAL MYOCARDIAL INFARCTION , PROBABLY OLD [30 ms Q WAVE IN I/aVL/V5/V6] BORDERLINE ECG UNCONFIRMED REPORT Electronically signed by : SHIRIN MORAN, 07/26/2024 05:13:36
[2024-07-25 17:53] VITALS: BP 130/74; PULSE 63; RESP 18; TEMP 36.8; O2SAT 100; BMI 38.6
--- NOTE | 2024-07-25 17:53 | CT_ITS ---
PROCEDURE INFORMATION: Exam: CT Cervical Spine Without Contrast Exam date and time: 07/25/2024 6:10 PM Age: 59 years old Clinical indication: Injury or trauma; Fall; Blunt trauma; Additional info: Fall / on back TECHNIQUE: Imaging protocol: Computed tomography of the cervical spine without contrast. Radiation optimization: All CT scans at this facility use at least one of these dose optimization techniques: automated exposure control; mA and/or kV adjustment per patient size (includes targeted exams where dose is matched to clinical indication); or iterative reconstruction. COMPARISON: CT CERVICAL SPINE WO CON 05/21/2024 5:57 PM FINDINGS: Bones: No evident fracture. Degenerative changes of the C-spine most pronounced at C4-C5 and C5-C6. Otherwise unremarkable CT of the C-spine. Alignment and vertebral body heights are intact. Lungs: Lung apices are normal. Soft tissues: Unremarkable. IMPRESSION: Degenerative changes. No acute abnormality.
--- NOTE | 2024-07-25 17:53 | CT_ITS ---
PROCEDURE INFORMATION: Exam: CT Lumbar Spine Without Contrast Exam date and time: 07/25/2024 6:10 PM Age: 59 years old Clinical indication: Injury or trauma; Fall; Blunt trauma (contusions or hematomas); Additional info: Fall / low back pain TECHNIQUE: Imaging protocol: Computed tomography of the lumbar spine without contrast. Radiation optimization: All CT scans at this facility use at least one of these dose optimization techniques: automated exposure control; mA and/or kV adjustment per patient size (includes targeted exams where dose is matched to clinical indication); or iterative reconstruction. COMPARISON: CT LUMBAR SPINE WO CON 05/21/2024 6:02 PM FINDINGS: Bones/joints: No acute fracture. No bone lesions. Grade 2 anterolisthesis at L4-L5 and facet hypertrophy cause severe spinal stenosis. Disc space narrowing at L4-L5 and L5-S1. Small anterolateral osteophytes and facet hypertrophy at multiple levels. L1-L2: No significant disc bulge or herniation. No severe spinal canal stenosis. No significant neural foraminal narrowing. L2-L3: No significant disc bulge or herniation. No severe spinal canal stenosis. No significant neural foraminal narrowing. L3-L4: No significant disc bulge or herniation. No severe spinal canal stenosis. No significant neural foraminal narrowing. L4-L5: Concentric disc bulge. Grade 2 anterolisthesis and facet hypertrophy causes severe spinal canal stenosis. No significant neural foraminal narrowing. Moderately severe disc space narrowing L5-S1: No significant disc bulge or herniation. No severe spinal canal stenosis. No significant neural foraminal narrowing. Moderate disc space narrowing. Soft tissues: No paraspinal or retroperitoneal masses. IMPRESSION: No fractures in the lumbar spine. No disc protrusions. Severe spinal stenosis at L4-L5 due to grade 2 anterolisthesis and facet hypertrophy. Multilevel degenerative disc disease and facet hypertrophy in the lumbar spine.
--- NOTE | 2024-07-25 17:53 | XR_ITS ---
PROCEDURE INFORMATION: Exam: XR Left Hip Exam date and time: 07/25/2024 6:13 PM Age: 59 years old Clinical indication: Injury or trauma; Fall; Blunt trauma (contusions or hematomas); Left; Hip; Additional info: Fall / L hip pain TECHNIQUE: Imaging protocol: Radiologic exam of the left hip. Views: 2 or 3 views hip with pelvis when performed. COMPARISON: CT ANGIO ABDOMEN PELVIS 05/21/2024 6:09 PM FINDINGS: Bones/joints: No fractures, dislocations, or bone lesions. Soft tissues: No soft tissue masses or radiopaque foreign bodies. IMPRESSION: No acute findings in the left hip.
--- NOTE | 2024-07-25 17:53 | CT_ITS ---
PROCEDURE INFORMATION: Exam: CT Head Without Contrast Exam date and time: 07/25/2024 6:04 PM Age: 59 years old Clinical indication: Injury or trauma; Fall; Blunt trauma (contusions or hematomas); Additional info: Fall / hit head / [place] TECHNIQUE: Imaging protocol: Computed tomography of the head without contrast. Radiation optimization: All CT scans at this facility use at least one of these dose optimization techniques: automated exposure control; mA and/or kV adjustment per patient size (includes targeted exams where dose is matched to clinical indication); or iterative reconstruction. COMPARISON: CT ANGIO HEAD 05/21/2024 6:05 PM FINDINGS: Brain: Normal. No hemorrhage. Unremarkable white matter. No mass effect. Cerebral ventricles: No ventriculomegaly. Paranasal sinuses: Visualized sinuses are unremarkable. No fluid levels. Mastoid air cells: Visualized mastoid air cells are well aerated. Bones: Unremarkable. No acute fracture. Soft tissues: Unremarkable. IMPRESSION: No acute intracranial abnormality.
--- NOTE | 2024-07-25 17:53 | XR_ITS ---
PROCEDURE INFORMATION: Exam: XR Chest Exam date and time: 07/25/2024 6:13 PM Age: 59 years old Clinical indication: Pain; Left-sided; Additional info: Sp TECHNIQUE: Imaging protocol: Radiologic exam of the chest. Views: 1 view. COMPARISON: CT ANGIO CHEST 05/21/2024 6:09 PM FINDINGS: Lungs: No consolidation or lung nodules. Pleural spaces: No pleural effusion. No pneumothorax. Heart/Mediastinum: No abnormalities. No cardiomegaly. No pulmonary vascular congestion. Bones/joints: No fractures or bone lesions. IMPRESSION: No acute findings in the chest. No interval change.
--- NOTE | 2024-07-25 17:55 | ED_ITS ---
<Statement entered by Sohail Serrano MD - 07/25/24 23:19> I was consulted by the SARA, and we discussed the complexity of the problems being addressed. I approved the treatment and management plan for this patient's care in the emergency department, thus performing a substantive portion of the medical decision making. Sohail Serrano MD Discharge Plan Disposition Patient Disposition: Admitted Clinical Impressions Clinical Impression: Chest pain Discharge ED Provider: Sohail Serrano HPI <Blanche Pope, STRATEGIC ADVISOR - Last Filed: 07/25/24 21:29> General Chief Complaint: Chest Pain Stated Complaint: chest pain Time Seen by Provider: 07/25/24 17:47 History of Present Illness HPI narrative: Patient is a 59-year-old female PMHx CAD, HFpEF, HTN, morbid obesity, unstable angina, renal insufficiency, osteoarthritis, chronic back pain who presents to the ED for chest pain and a syncopal episode. Patient states that earlier today she got out of her car, passed out, fell to the ground on her back, subsequently hitting her head. Related Data Home Medications ?Medication ?Instructions ?Recorded ?Confirmed acetaminophen 500 mg tablet 500 mg PO Q6H PRN Pain 11/15/23 07/25/24 albuterol sulfate 90 mcg/actuation 90 mcg inhalation NEEDED PRN 11/15/23 07/25/24 aerosol inhaler (Ventolin HFA) Shortness Of Breath cholecalciferol (vitamin D3) 25 25 mcg PO HS 11/15/23 07/25/24 mcg (1,000 unit) tablet gabapentin 600 mg tablet 600 mg PO TID 11/15/23 07/25/24 potassium chloride 10 mEq 20 meq PO BID 11/15/23 07/25/24 tablet,extended release venlafaxine 37.5 mg 37.5 mg PO HS 11/15/23 07/25/24 capsule,extended release 24 hr topiramate 100 mg tablet 300 mg PO DAILY 11/16/23 07/25/24 ondansetron 4 mg disintegrating 4 mg PO DAILY 05/04/24 07/25/24 tablet oxycodone-acetaminophen 7.5 mg-325 1 tab PO BID PRN Pain 07/25/24 07/25/24 mg tablet ranolazine 1,000 mg 1,000 mg PO BID 07/25/24 07/25/24 tablet,extended release,12 hr Previous Rx's ?Medication ?Instructions ?Recorded prasugrel HCl 10 mg tablet 10 mg PO DAILY 30 days #30 tabs 11/17/23 sacubitril 24 mg-valsartan 26 mg 1 tab PO BID 30 days #60 tabs 11/17/23 tablet (Entresto) isosorbide mononitrate 30 mg 30 mg PO DAILY #90 tabs 04/03/24 tablet,extended release 24 hr nitroglycerin 0.4 mg sublingual 0.4 mg sublingual Q5-15M PRN chest 04/03/24 tablet pain #30 tabs spironolactone 50 mg tablet 50 mg PO BID #60 tabs 05/04/24 (Aldactone) torsemide 20 mg tablet 20 mg PO BID #60 tabs 05/04/24 lidocaine 5 % topical patch 1 patch topical DAILY #30 ea 05/21/24 methocarbamol 750 mg tablet 750 mg PO Q6H PRN muscle spasm #20 05/21/24 tabs rosuvastatin 10 mg tablet (Crestor) 10 mg PO DAILY #90 tabs 06/29/24 Allergies Allergy/AdvReac Type Severity Reaction Status Date / Time codeine Allergy Unknown Verified 05/04/24 10:12 allergy reaction Penicillins Allergy Unknown Verified 05/04/24 10:12 allergy reaction [facility] <Blanche Pope APRN - Last Filed: 07/25/24 21:29> [facility] Disclaimer: The information contained in this section may have been updated after the patient was seen, as this information can be updated by other users. Medical History (Updated 07/25/24 @ 21:03 by Dawn Montes RN) Edema Hyperlipidemia (HFpEF) heart failure with preserved ejection fraction Abnormal electrocardiogram [ECG] [EKG] Unstable angina Asthma Anxiety HTN (hypertension) Arthritis Surgical History (Updated 05/04/24 @ 10:12 by Sherrell Servin MA) History of cardiac cath H/O left wrist surgery H/O colonoscopy Social History Smoking Status: Never smoker alcohol intake: never substance use type: denies use current occupational status: other Travel in the last 8 weeks: None housing: house current occupational exposures/hazards: Yes Have you lived/traveled outside [place] in past 30 days?: No Contact w/someone who lives/traveled outside [place] past 30 days?: No Exposure to someone with infectious disease in past 14 days?: No Do you have a fever (greater than 100.4 F or 38 C)?: No Have you tested positive for COVID-19: No Exposed to someone with COVID-19 in past 14 days?: No Do you have a sore throat?: No Do you have a cough?: No Do you have any weakness?: No Do you have any diarrhea?: No Are you experiencing any unusual bleeding?: No Do you have any muscle aches/pain?: No Do you have any abdominal pain?: No Are you experiencing loss of taste or smell?: No Other Medical History Have you received the Flu Vaccine for this season: No Have you received the Pneumonia Vaccine: No <Blanche Pope APRN - Last Filed: 07/25/24 21:29> ROS Obtained: Yes Systems reviewed as appropriate & no additional complaints except as documented Physical Exam <Blanche Pope APRN - Last Filed: 07/25/24 21:29> General General appearance: alert and in no apparent distress Head Head exam: atraumatic and normocephalic Eye Eye exam: Present normal appearance and PERRL ENT ENT exam: Present normal exam Neck Neck exam: Present full ROM and tenderness (Posterior C-spine tenderness, no step-offs or deformity) Chest Chest inspection: Present normal inspection and symmetric chest wall rise; Absent tenderness Respiratory Respiratory exam: Present normal lung sounds bilaterally; Absent respiratory distress Cardiovascular Cardiovascular exam: Present regular rate Abdominal Exam Abdominal exam: Present soft and normal bowel sounds; Absent tenderness Extremities Exam Extremities exam: Present normal inspection and full ROM Back Exam Back exam: Present normal inspection, full ROM and other (T and L-spine tenderness, no step-offs or deformities. Left hip tenderness) Neurological Exam Neurological exam: Present alert and oriented X3 Psychiatric Psychiatric exam: Present normal affect and normal mood Skin Skin exam: Present warm and dry HEART Score <Blanche Pope APRN - Last Filed: 07/25/24 21:29> HEART Score HEART Score assessment performed?: Yes HEART Score: 5 Critical Care <Blanche Pope APRN - Last Filed: 07/25/24 21:29> Critical Care Time Critical Care Time: No Medical Decision Making <Blanche Pope APRN - Last Filed: 07/25/24 21:29> Ashu Inquiry Pt receiving controlled substance: No Vital Signs Vital Signs: 07/25/24 17:53 07/25/24 20:37 07/25/24 21:00 Temperature 98.2 F Temperature Source Oral Pulse Rate Pulse Rate [Right] 63 Respiratory Rate 18 Blood Pressure Blood Pressure [Right Arm] 130/74 Blood Pressure Mean [Right Arm] 92 Blood Pressure Source [Right Arm] Blood Pressure Position [Right Arm] Sitting 02 Sat by Pulse Oximetry 100 Oxygen Delivery Method Room Air Room Air Room Air 07/25/24 21:00 07/25/24 21:01 Temperature 98.2 F 98.1 F Temperature Source Oral Pulse Rate 87 Pulse Rate [Right] 64 Respiratory Rate 20 20 Blood Pressure 126/87 Blood Pressure [Right Arm] 143/59 H Blood Pressure Mean [Right Arm] 87 Blood Pressure Source [Right Arm] Automatic Cuff Blood Pressure Position [Right Arm] 02 Sat by Pulse Oximetry 99 Oxygen Delivery Method Room Air Room Air Lab Data Labs: Lab Results 07/25/24 17:50: WBC 6.2, RBC 4.33, Hgb 13.9, Hct 41.2, MCV 95.2, MCH 32.1 H, MCHC 33.7, RDW 13.2, Plt Count 261, MPV 10.2, Neut % (Auto) 62.7, Lymph % (Auto) 25.7, Mcduffie % (Auto) 9.1, Eos % (Auto) 1.5, Baso % (Auto) 0.8, Neut # (Auto) 3.9, Lymph # (Auto) 1.6, Mcduffie # (Auto) 0.6, Eos # (Auto) 0.1, Baso # (Auto) 0.1, D- Dimer 0.49, Sodium 136, Potassium 4.0, Chloride 100, Carbon Dioxide 25, Anion Gap 15.0, BUN 22 H, Creatinine 1.40 H, Estimated Creat Clear 71, Estimated GFR 39 L, Est GFR ( Amer) 47 L, Glucose 134 H, Calcium 9.3, Total Bilirubin 0.6, AST 31, ALT 17, Alkaline Phosphatase 86, Troponin I < 0.01, NT-Pro-B Natriuret Pep 124, Total Protein 7.7, Albumin 4.6, Globulin 3.1, Albumin/Globulin Ratio 1.5 07/25/24 18:03: Urine Color Yellow, Urine Appearance Clear, Urine pH 6.0, Ur Specific Franklin 1.015, Urine Protein Negative, Urine Glucose (UA) Negative, Urine Ketones Negative, Urine Blood Negative, Urine Nitrate Negative, Urine Bilirubin Negative, Urine Urobilinogen 0.2, Ur Leukocyte Esterase Negative, Urine RBC None, Urine WBC 3-5, Ur Squamous Epith Cells 10-20, Urine Bacteria 3+ 07/25/24 19:38: Troponin I < 0.01 07/25/24 17:50 07/25/24 17:50 Response Orders (Tests/Meds): ED MEDICATIONS Generic Name Dose Route Start Last Admin Trade Name Fregladis PRN Reason Stop Dose Admin Acetaminophen 650 mg 07/25/24 20:21 Acetaminophen 325mg Tab PO 08/24/24 20:20 Q4HP PRN Fever or Mild Pain (1-3) Nitroglycerin/Dextrose 250 mls @ 1.5 mls/hr 07/25/24 20:15 07/25/24 20:15 Nitroglycerin 50mg/250ml D5w IV 08/24/24 20:14 5 mcg/min .Q24H PERRY 1.5 mls/hr Administration Protocol 5 MCG/MIN Morphine Sulfate 2 mg 07/25/24 20:21 Morphine 2mg/Ml Syringe IV 08/24/24 20:20 Q4HP PRN Severe Pain (7-10) Nitroglycerin 0.4 mg 07/25/24 20:01 Nitroglycerin 0.4mg Sl Tablet SL 08/24/24 20:00 Q5MINP PRN Chest Pain Ondansetron HCl 4 mg 07/25/24 20:21 Ondansetron 4mg/2ml Vial IV 08/24/24 20:20 Q8HP PRN Nausea Sodium Chloride 10 ml 07/25/24 17:53 Sodium Chloride 0.9% 10ml Flush Syringe IV 08/24/24 17:52 NEEDED PRN Maintain IV Site Discontinued Medications Generic Name Dose Route Start Last Admin Trade Name Freq PRN Reason Stop Dose Admin Aspirin 324 mg 07/25/24 20:00 07/25/24 20:13 Aspirin 81mg Chewable Tablet PO 07/25/24 20:01 324 mg ONCE ONE Administration Enoxaparin Sodium 100 mg 07/25/24 20:07 07/25/24 20:15 Enoxaparin 100mg/Ml Syringe SUBCUT 07/25/24 20:08 100 mg ONCE ONE Administration Morphine Sulfate 4 mg 07/25/24 18:13 07/25/24 18:49 Morphine 4mg/Ml Syringe IV 07/25/24 18:14 4 mg ONCE ONE Administration Ondansetron HCl 4 mg 07/25/24 18:13 07/25/24 18:49 Ondansetron 4mg/2ml Vial IV 07/25/24 18:14 4 mg ONCE ONE Administration Ondansetron HCl 4 mg 07/25/24 20:01 07/25/24 20:13 Ondansetron 4mg/2ml Vial IV 07/25/24 20:02 4 mg ONCE ONE Administration ORDERS Category Date Time Status CT cervical spine wo con Stat Cat Scan 07/25/24 17:[address] head/brain wo con Stat Cat Scan 07/25/24 17:[address] lumbar spine wo con Stat Cat Scan 07/25/24 17:[address] thoracic spine wo con Stat Cat Scan 07/25/24 17:57 Completed Consult to Cardiology [CONS] Routine Cons 07/25/24 20:21 Active CXR --portable [XR chest portable] Stat Exams 07/25/24 17:53 Completed Hip XR left minimum 2 views [XR hip LT 2-3V w/pelvis] Exams 07/25/24 17:53 Completed Stat BNP [NT Pro Brain Natriuretic Pep.] Stat Lab 07/25/24 17:50 Completed Basic Metabolic Panel AMLAB Lab 07/26/24 06:00 Ordered CBC w/Auto Diff [Complete Blood Count Auto Diff] Stat Lab 07/25/24 17:50 Completed CMP [Comprehensive Metabolic Panel] Stat Lab 07/25/24 17:50 Completed Complete Blood Count Auto Diff AMLAB Lab 07/26/24 06:00 Ordered D-Dimer Stat Lab 07/25/24 17:50 Completed Lipid Panel AMLAB Lab 07/26/24 06:00 Ordered Magnesium AMLAB Lab 07/26/24 06:00 Ordered Trop I [Troponin I] Stat Lab 07/25/24 17:50 Completed Troponin I Q3H Lab 07/25/24 19:38 Completed Troponin I Q3H Lab 07/26/24 00:00 Ordered Troponin I Stat Lab 07/25/24 20:21 Ordered Urinalysis and Microscopic Stat Lab 07/25/24 18:03 Completed Urine Culture Stat Micro 07/25/24 18:03 Received ECG Request NEEDED Y 07/25/24 20:30 Ordered MDM Narrative Medical Decision Narrative: In summary, patient is a 59-year-old female PMHx CAD, HFpEF, HTN, morbid obesity, unstable angina, renal insufficiency, osteoarthritis, chronic back pain who presents to the ED for chest pain and a syncopal episode. Patient states that earlier today she got out of her car, passed out, fell to the ground on her back, subsequently hitting her head. Patient currently complaining of headache and left hip pain. Patient is unsure of how long she was out for. She states when she woke up she was alert and oriented. Patient states at baseline she has chronic back pain however pain along her spine is much worse after fall. Patient states that she normally has generalized chest pain due to unstable angina, states today her chest pain has been much worse noted to be on the left side of her chest described as a burning pain that radiates into her left neck and left jaw. Patient states normally her chest pain does not radiate. She has a history of 1 stent in October 2023. Denies fever, chills, visual changes, abdominal pain, nausea, vomiting, dysuria. Upon initial evaluation patient is alert, oriented and cooperative. She is currently stable. Physical exam is remarkable for C-spine tenderness, T-spine tenderness, L-spine tenderness, left hip tenderness. No nystagmus, PERRLA. Differential diagnosis ACS, dissection, pneumonia, pneumothorax. Reviewed cardiology note from 05/04/2024 which it is noted that risk factor modification with empiric treatment for endothelial dysfunction was discussed and advised to maximize antianginal medications at that time. Will proceed with hematological labs including troponin and D-dimer and chest x- ray. Obtaining CT of the head, C-spine, T-spine, L-spine and left hip imaging. CBC unremarkable for any leukocytosis, stable H&H. D-dimer 0.49. Urinalysis unremarkable. CMP remarkable for BUN 22, creatinine 1.40, appears to be baseline. GFR 39. Troponin <0.01. BNP 124. Heart Score 5. Formal read of the chest x-ray unremarkable for any acute cardiopulmonary findings. CT of the head without unremarkable for any acute intracranial process. Final read of the left hip unremarkable for any fracture. CT of the L-spine unremarkable for any fractures, no disc protrusions. Severe spinal stenosis at L4-L5 due to grade 2 anterior listhesis and facet hypertrophy. Multilevel degenerative disc disease in the lumbar spine. CT of the thoracic spine unremarkable for any acute fractures. Multilevel degenerative disc disease. CT C-spine unremarkable for any fractures, degenerative changes noted. While waiting on second troponin, patient states that her chest pain returned as a 7 out of 10, she took her own nitro and her chest pain was down to a 2 out of 10. I discussed with patient to please let us know when she is having chest pain and not to take her home nitro. I consulted cardiology who advised to place patient on a nitro drip and give Lovenox then admit patient overnight. Discussed with patient, she is agreeable to plan of care at this time. Admitted to . <Sohail Serrano MD - Last Filed: 07/25/24 18:33> Vital Signs Vital Signs: 07/25/24 17:53 07/25/24 20:37 07/25/24 21:00 Temperature 98.2 F Temperature Source Oral Pulse Rate Pulse Rate [Right] 63 Respiratory Rate 18 Blood Pressure Blood Pressure [Right Arm] 130/74 Blood Pressure Mean [Right Arm] 92 Blood Pressure Source [Right Arm] Blood Pressure Position [Right Arm] Sitting 02 Sat by Pulse Oximetry 100 Oxygen Delivery Method Room Air Room Air Room Air 07/25/24 21:00 07/25/24 21:01 Temperature 98.2 F 98.1 F Temperature Source Oral Pulse Rate 87 Pulse Rate [Right] 64 Respiratory Rate 20 20 Blood Pressure 126/87 Blood Pressure [Right Arm] 143/59 H Blood Pressure Mean [Right Arm] 87 Blood Pressure Source [Right Arm] Automatic Cuff Blood Pressure Position [Right Arm] 02 Sat by Pulse Oximetry 99 Oxygen Delivery Method Room Air Room Air Lab Data Labs: Lab Results 07/25/24 17:50: WBC 6.2, RBC 4.33, Hgb 13.9, Hct 41.2, MCV 95.2, MCH 32.1 H, MCHC 33.7, RDW 13.2, Plt Count 261, MPV 10.2, Neut % (Auto) 62.7, Lymph % (Auto) 25.7, Mcduffie % (Auto) 9.1, Eos % (Auto) 1.5, Baso % (Auto) 0.8, Neut # (Auto) 3.9, Lymph # (Auto) 1.6, Mcduffie # (Auto) 0.6, Eos # (Auto) 0.1, Baso # (Auto) 0.1, D- Dimer 0.49, Sodium 136, Potassium 4.0, Chloride 100, Carbon Dioxide 25, Anion Gap 15.0, BUN 22 H, Creatinine 1.40 H, Estimated Creat Clear 71, Estimated GFR 39 L, Est GFR ( Amer) 47 L, Glucose 134 H, Calcium 9.3, Total Bilirubin 0.6, AST 31, ALT 17, Alkaline Phosphatase 86, Troponin I < 0.01, NT-Pro-B Natriuret Pep 124, Total Protein 7.7, Albumin 4.6, Globulin 3.1, Albumin/Globulin Ratio 1.5 07/25/24 18:03: Urine Color Yellow, Urine Appearance Clear, Urine pH 6.0, Ur Specific Franklin 1.015, Urine Protein Negative, Urine Glucose (UA) Negative, Urine Ketones Negative, Urine Blood Negative, Urine Nitrate Negative, Urine Bilirubin Negative, Urine Urobilinogen 0.2, Ur Leukocyte Esterase Negative, Urine RBC None, Urine WBC 3-5, Ur Squamous Epith Cells 10-20, Urine Bacteria 3+ 07/25/24 19:38: Troponin I < 0.01 Response Orders (Tests/Meds): ED MEDICATIONS Generic Name Dose Route Start Last Admin Trade Name Freq PRN Reason Stop Dose Admin Acetaminophen 650 mg 07/25/24 20:21 Acetaminophen 325mg Tab PO 08/24/24 20:20 Q4HP PRN Fever or Mild Pain (1-3) Nitroglycerin/Dextrose 250 mls @ 1.5 mls/hr 07/25/24 20:15 07/25/24 20:15 Nitroglycerin 50mg/250ml D5w IV 08/24/24 20:14 5 mcg/min .Q24H PERRY 1.5 mls/hr Administration Protocol 5 MCG/MIN Morphine Sulfate 2 mg 07/25/24 20:21 Morphine 2mg/Ml Syringe IV 08/24/24 20:20 Q4HP PRN Severe Pain (7-10) Nitroglycerin 0.4 mg 07/25/24 20:01 Nitroglycerin 0.4mg Sl Tablet SL 08/24/24 20:00 Q5MINP PRN Chest Pain Ondansetron HCl 4 mg 07/25/24 20:21 Ondansetron 4mg/2ml Vial IV 08/24/24 20:20 Q8HP PRN Nausea Sodium Chloride 10 ml 07/25/24 17:53 Sodium Chloride 0.9% 10ml Flush Syringe IV 08/24/24 17:52 NEEDED PRN Maintain IV Site Discontinued Medications Generic Name Dose Route Start Last Admin Trade Name Freq PRN Reason Stop Dose Admin Aspirin 324 mg 07/25/24 20:00 07/25/24 20:13 Aspirin 81mg Chewable Tablet PO 07/25/24 20:01 324 mg ONCE ONE Administration Enoxaparin Sodium 100 mg 07/25/24 20:07 07/25/24 20:15 Enoxaparin 100mg/Ml Syringe SUBCUT 07/25/24 20:08 100 mg ONCE ONE Administration Morphine Sulfate 4 mg 07/25/24 18:13 07/25/24 18:49 Morphine 4mg/Ml Syringe IV 07/25/24 18:14 4 mg ONCE ONE Administration Ondansetron HCl 4 mg 07/25/24 18:13 07/25/24 18:49 Ondansetron 4mg/2ml Vial IV 07/25/24 18:14 4 mg ONCE ONE Administration Ondansetron HCl 4 mg 07/25/24 20:01 07/25/24 20:13 Ondansetron 4mg/2ml Vial IV 07/25/24 20:02 4 mg ONCE ONE Administration ORDERS Category Date Time Status CT cervical spine wo con Stat Cat Scan 07/25/24 17:[address] head/brain wo con Stat Cat Scan 07/25/24 17:[address] lumbar spine wo con Stat Cat Scan 07/25/24 17:[address] thoracic spine wo con Stat Cat Scan 07/25/24 17:57 Completed Consult to Cardiology [CONS] Routine Cons 07/25/24 20:21 Active CXR --portable [XR chest portable] Stat Exams 07/25/24 17:53 Completed Hip XR left minimum 2 views [XR hip LT 2-3V w/pelvis] Exams 07/25/24 17:53 Completed Stat BNP [NT Pro Brain Natriuretic Pep.] Stat Lab 07/25/24 17:50 Completed Basic Metabolic Panel AMLAB Lab 07/26/24 06:00 Ordered CBC w/Auto Diff [Complete Blood Count Auto Diff] Stat Lab 07/25/24 17:50 Completed CMP [Comprehensive Metabolic Panel] Stat Lab 07/25/24 17:50 Completed Complete Blood Count Auto Diff AMLAB Lab 07/26/24 06:00 Ordered D-Dimer Stat Lab 07/25/24 17:50 Completed Lipid Panel AMLAB Lab 07/26/24 06:00 Ordered Magnesium AMLAB Lab 07/26/24 06:00 Ordered Trop I [Troponin I] Stat Lab 07/25/24 17:50 Completed Troponin I Q3H Lab 07/25/24 19:38 Completed Troponin I Q3H Lab 07/26/24 00:00 Ordered Troponin I Stat Lab 07/25/24 20:21 Ordered Urinalysis and Microscopic Stat Lab 07/25/24 18:03 Completed Urine Culture Stat Micro 07/25/24 18:03 Received ECG Request NEEDED Y 07/25/24 20:30 Ordered ECG Data Tracing #1: ECG Narrative: Independently interpreted by me rate 67, rhythm is regular, axis is normal, no ST elevation in anatomical contiguous leads, QTc 428
--- NOTE | 2024-07-25 17:57 | CT_ITS ---
PROCEDURE INFORMATION: Exam: CT Thoracic Spine Without Contrast Exam date and time: 07/25/2024 6:10 PM Age: 59 years old Clinical indication: Injury or trauma; Fall; Blunt trauma (contusions or hematomas) TECHNIQUE: Imaging protocol: Computed tomography of the thoracic spine without contrast. Radiation optimization: All CT scans at this facility use at least one of these dose optimization techniques: automated exposure control; mA and/or kV adjustment per patient size (includes targeted exams where dose is matched to clinical indication); or iterative reconstruction. COMPARISON: CT THORACIC SPINE WO CON 05/21/2024 5:59 PM FINDINGS: Bones/joints: No acute fracture. Normal alignment. No significant disc bulge or herniation. No severe spinal canal stenosis. No significant neural foraminal narrowing. Mild disc space narrowing and small anterolateral osteophytes multiple levels. Soft tissues: No soft tissue masses. IMPRESSION: No acute findings in the thoracic spine. Mild multilevel degenerative disc disease.
[2024-07-25 18:07] LABS: Basophils # 0.1 K/mm3 (0-0.2); Basophils % 0.8 % (0.1-2.0); Eosinophils # 0.1 K/mm3 (0.0-0.4); Eosinophils % 1.5 % (0.1-12.0); Hematocrit 41.2 % (37.0-47.0); Hemoglobin 13.9 g/dL (12.2-16.2); Lymphocytes # 1.6 K/mm3 (0.7-4.5); Lymphocytes % 25.7 % (10-50); Mean Corpuscular HGB Conc 33.7 g/dL (31.8-35.4); Mean Corpuscular Hemoglobin 32.1 pg (27.0-31.2); Mean Corpuscular Volume 95.2 fl (81-99); Mean Platelet Volume 10.2 fl (7.4-10.4); Monocytes # 0.6 K/mm3 (0.1-1.0); Monocytes % 9.1 % (1.7-9.3); Neutrophils # 3.9 K/mm3 (1.8-7.8); Neutrophils % 62.7 % (37.0-80.0); Platelet Count 261 K/mm3 (142-424); Red Blood Count 4.33 M/mm3 (4.20-5.40); Red Cell Distribution Width 13.2 % (11.5-17.5); White Blood Count 6.2 K/mm3 (4.8-10.8)
[2024-07-25 18:09] LABS: Microscopic, Urine URINE MICROSCOPIC (MICROSCOPIC)
[2024-07-25 18:24] LABS: Appearance,Urine CLEAR (Clear); Bilirubin,Urine Negative (Negative); Blood, Urine Negative (Negative); Color,Urine YELLOW (Yellow); Glucose,Urine (UA) Negative (Negative); Ketones,Urine Negative (Negative); Leukocyte Esterase,Urine Negative (Negative); Nitrate,Urine Negative (Negative); Protein,Urine Negative (Negative); Specific Gravity, Urine 1.015 (1.005-1.030); Urobilinogen,Urine 0.2 EU/dl (0.2)
[2024-07-25 18:31] LABS: D-Dimer 0.49 ug/mL (0.0-0.5)
[2024-07-25 18:43] LABS: Alanine Aminotransferase 17 U/L (12-78); Albumin Level 4.6 g/dl (3.5-5.0); Albumin/Globulin Ratio 1.5 (1.1-1.8); Alkaline Phosphatase 86 U/L (38-126); Aspartate Amino Transferase 31 U/L (14-36); Bilirubin,Total 0.6 mg/dl (0.2-1.3); Blood Urea Nitrogen 22 mg/dl (7-17); Calcium 9.3 mg/dl (8.4-10.2); Carbon Dioxide 25 mmol/L (22.0-30.0); Chloride 100 mmol/L (98-107); Creatinine Clearance Estimated 71 mL/min (50-200); Estimated Glomerular Filt Rate 39 ml/min (>60); GFR (African American) 47 ML/MIN (>60); Globulin 3.1 g/dL (1.3-3.2); Glucose 134 mg/dl (74-100); Sodium 136 mmol/L (136-145); Total Protein,Serum 7.7 g/dl (6.3-8.2)
[2024-07-25] MEDS: ONDANSETRON 4MG/2ML VIAL 4 MG IV ×2 (18:49→20:13)
[2024-07-25] MEDS: MORPHINE 4MG/ML SYRINGE 4 MG IV (18:49)
[2024-07-25 18:55] LABS: NT Pro Brain Natriuretic Pep. 124 pg/mL (0-125)
[2024-07-25 19:21] LABS: Bacteria,Urine 3+ /lpf
[2024-07-25 19:25] LABS: Troponin I < 0.01 ng/ml (0.00-0.034)
--- NOTE | 2024-07-25 20:04 | ECG_ITS ---
APPROVED REPORT Exam: Resting ECG HR:56 bpm ECG Measurements Heart Rate 56 AXES PA 177 P 63 QRSd 110 QRS 64 QT 445 T 19 QTc 437 Conclusion SINUS BRADYCARDIA POSSIBLE INFERIOR MYOCARDIAL INFARCTION , PROBABLY OLD [30 ms Q WAVE IN II/aVF] BORDERLINE ECG UNCONFIRMED REPORT Electronically signed by : SHIRIN MORAN, 07/26/2024 05:13:20
[2024-07-25] MEDS: ASPIRIN 81MG CHEWABLE TABLET 324 MG PO (20:13)
[2024-07-25] MEDS: ENOXAPARIN 100MG/ML SYRINGE 100 MG SUBCUT (20:15)
[2024-07-25] MEDS: NITROGLYCERIN IN 5 % DEXTROSE 250 ML 1.5 MG IV (20:15)
[2024-07-25 20:28] LABS: Troponin I < 0.01 ng/ml (0.00-0.034)
[2024-07-25 21:00] VITALS: BP 143/59; PULSE 64; RESP 20; TEMP 36.8; O2SAT 99; BMI 41.6
--- NOTE | 2024-07-25 21:00 | PC.NURSE ---
Patient arrived to floor via stretcher from ED at 20:40.
[2024-07-25 21:01] VITALS: BP 126/87; PULSE 87; RESP 20; TEMP 36.7; O2SAT 98
--- NOTE | 2024-07-25 21:48 | P.HP_ITS ---
History of Present Illness *Admission Date: 07/25/24 *Reason for visit:: Syncope and chest pain *History of present illness: This is a 59-year-old female with a past medical history of CAD status post cardiac stents, HFpEF, hypertension, morbid obesity, renal insufficiency who presents emergency department today with complaints of left-sided chest pain and syncopal episode. She reports being under the care of Dr. Hilliard for cardiac services. Had stent placed in October of this past year. States that she has had cardiac cath since then and is continued medical management since stent placement. Today she was riding in a car when she got out of the car she became syncopal. States that she has also had intermittent left-sided chest pain for the last couple weeks. States that some of these chest pain episodes are significant. Describes the pain as significant chest pressure and heaviness. She also endorses LEAHY and orthopnea. States pain is worse with increasing activity. States pain is better with rest. Also reports nitro helps relieve pain. She did take a nitro in the emergency department with reduction in pain from a 7 to a 2. EKG without ischemia. Troponin negative x 2. Given patient's complaint of chest pain and syncopal episode, Dr. Hilliard was consulted. Recommends nitro drip, therapeutic Lovenox, n.p.o. and he will see patient in AM. Labs otherwise unremarkable except for known elevated creatinine with renal disease. She is admitted to the hospital service at this time [facility] Disclaimer: The information contained in this section may have been updated after the patient was seen, as this information can be updated by other users. Medical History (Updated 07/26/24 @ 15:26 by Giuliana Mercedes APRN) Syncope Angina pectoris Acute on chronic heart failure with preserved ejection fraction (HFpEF) Edema Hyperlipidemia (HFpEF) heart failure with preserved ejection fraction Abnormal electrocardiogram [ECG] [EKG] Unstable angina Asthma Anxiety HTN (hypertension) Arthritis Surgical History (Updated 05/04/24 @ 10:12 by Sherrell Servin MA) History of cardiac cath H/O left wrist surgery H/O colonoscopy Social History Smoking Status: Never smoker alcohol intake: never substance use type: denies use current occupational status: other Travel in the last 8 weeks: None housing: house current occupational exposures/hazards: Yes Other Medical History Have you received the Flu Vaccine for this season: No Have you received the Pneumonia Vaccine: No Review of Systems Review of Systems Review of systems:: pertinent systems reviewed and negative unless documented below Review of systems (narrative): Negative except for HPI Meds Home Medications and Allergies Home Medications ?Medication ?Instructions ?Recorded ?Confirmed ?Type acetaminophen 500 mg tablet 500 mg PO Q6HP PRN Mild Pain 11/15/23 07/26/24 History (Scale Score 1-4) cholecalciferol (vitamin D3) 25 25 mcg PO HS 11/15/23 07/25/24 History mcg (1,000 unit) tablet gabapentin 600 mg tablet 600 mg PO TID 11/15/23 07/25/24 History potassium chloride 10 mEq 20 meq PO BID 11/15/23 07/26/24 History tablet,extended release topiramate 100 mg tablet 300 mg PO DAILY 11/16/23 07/25/24 History prasugrel HCl 10 mg tablet 10 mg PO DAILY 30 days #30 tabs 11/17/23 07/25/24 Rx sacubitril 24 mg-valsartan 26 mg 1 tab PO BID 30 days #60 tabs 11/17/23 07/25/24 Rx tablet (Entresto) ondansetron 4 mg disintegrating 4 mg PO BIDP PRN Nausea And 05/04/24 07/26/24 History tablet Vomiting spironolactone 50 mg tablet 50 mg PO BID #60 tabs 05/04/24 07/25/24 Rx (Aldactone) lidocaine 5 % topical patch 1 patch topical DAILY #30 ea 05/21/24 07/25/24 Rx rosuvastatin 10 mg tablet (Crestor) 10 mg PO DAILY #90 tabs 06/29/24 07/25/24 Rx oxycodone-acetaminophen 7.5 mg-325 1 tab PO BIDP PRN Moderate Pain 07/25/24 07/26/24 History mg tablet (Scale Score 5-6) ranolazine 1,000 mg 1,000 mg PO BID 07/25/24 07/25/24 History tablet,extended release,12 hr isosorbide mononitrate 30 mg 60 mg (2 x 30 mg) PO DAILY 30 days 07/26/24 Rx tablet,extended release 24 hr #60 tabs methocarbamol 750 mg tablet 750 mg PO BIDP PRN muscle spasm 07/26/24 07/26/24 History nitroglycerin 0.4 mg sublingual 0.4 mg sublingual Q5MINP PRN chest 07/26/24 07/26/24 History tablet pain torsemide 100 mg tablet 100 mg PO DAILY #30 tabs 07/26/24 Rx venlafaxine 75 mg capsule,extended 75 mg PO HS #30 caps 07/26/24 Rx release 24 hr New Prescriptions to Start Prescriptions: isosorbide mononitrate Luisito,Celio torsemide Luisito,Celio venlafaxine Luisito,Celio Allergies Allergy/AdvReac Type Severity Reaction Status Date / Time codeine Allergy Unknown Verified 05/04/24 10:12 allergy reaction Penicillins Allergy Unknown Verified 05/04/24 10:12 allergy reaction Exam Data for Last 24 hours Vital signs and Labs for Last 24 Hours: Temp Pulse Resp BP Pulse Ox O2 Del Method 98.1 F 87 20 126/87 99 Room Air 07/25/24 21:01 07/25/24 21:01 07/25/24 21:01 07/25/24 21:01 07/25/24 21:00 07/25/24 21:01 Laboratory Results - last 24 hr 07/25/24 17:50: WBC 6.2, RBC 4.33, Hgb 13.9, Hct 41.2, MCV 95.2, MCH 32.1 H, MCHC 33.7, RDW 13.2, Plt Count 261, MPV 10.2, Neut % (Auto) 62.7, Lymph % (Auto) 25.7, Hinds % (Auto) 9.1, Eos % (Auto) 1.5, Baso % (Auto) 0.8, Neut # (Auto) 3.9, Lymph # (Auto) 1.6, Hinds # (Auto) 0.6, Eos # (Auto) 0.1, Baso # (Auto) 0.1, D-Dimer 0.49, Sodium 136, Potassium 4.0, Chloride 100, Carbon Dioxide 25, Anion Gap 15.0, BUN 22 H, Creatinine 1.40 H, Estimated Creat Clear 71, Estimated GFR 39 L, Est GFR ( Amer) 47 L, Glucose 134 H, Calcium 9.3, Total Bilirubin 0.6, AST 31, ALT 17, Alkaline Phosphatase 86, Troponin I < 0.01, NT-Pro-B Natriuret Pep 124, Total Protein 7.7, Albumin 4.6, Globulin 3.1, Albumin/Globulin Ratio 1.5 07/25/24 18:03: Urine Color Yellow, Urine Appearance Clear, Urine pH 6.0, Ur Specific [place] 1.015, Urine Protein Negative, Urine Glucose (UA) Negative, Urine Ketones Negative, Urine Blood Negative, Urine Nitrate Negative, Urine Bilirubin Negative, Urine Urobilinogen 0.2, Ur Leukocyte Esterase Negative, Urine RBC None, Urine WBC 3-5, Ur Squamous Epith Cells 10-20, Urine Bacteria 3+ 07/25/24 19:38: Troponin I < 0.01 I & O for Last 24 hours: Intake & Output 07/22/24 07/23/24 07/24/24 07/25/24 23:59 23:59 23:59 23:59 Weight 110.677 kg Constitutional Constitutional: no acute distress *Routine HEENT Exam Head: Present normocephalic Eye: Present EOMI and PERRL ENT: Present mucous membranes moist *Routine Neck Exam Neck: Present supple; Absent lymphadenopathy *Routine Respiratory Exam Respiratory: Present CTA bilaterally *Routine Cardiovascular Exam Cardiovascular: Present RRR *Routine Abdominal Exam Abdominal: Present soft and normoactive bowel sounds; Absent tenderness *Routine Rectal Exam Rectal:: deferred *Routine Genitalia Exam Genitalia:: deferred *Routine Extremities Exam Extremities: Absent cyanosis, clubbing or edema *Routine Skin Exam Skin: Present warm; Absent rash *Routine Neurological Exam Neurological: Present alert and oriented X3 Assessment and Plan *Assessment and plan (1) Chest pain: Status: Acute Category: Medical Code(s): R07.9 - Chest pain, unspecified (2) CAD (coronary artery disease): Status: Acute Qualifiers: Associated angina: with other forms of angina Coronary Disease- Associated Artery/Lesion type: [place] artery [place] vs. transplanted heart: menominee heart Qualified Code(s): I25.118 - Atherosclerotic heart disease of [place] coronary artery with other forms of angina pectoris Category: Medical Code(s): I25.10 - Atherosclerotic heart disease of [place] coronary artery without angina pectoris (3) Unstable angina: Status: Acute Category: Medical Code(s): I20.0 - Unstable angina (4) Hyperlipidemia: Status: Acute Qualifiers: Hyperlipidemia type: other hyperlipidemia Qualified Code(s): E78.49 - Other hyperlipidemia Category: Medical Code(s): E78.5 - Hyperlipidemia, unspecified (5) (HFpEF) heart failure with preserved ejection fraction: Status: Acute Qualifiers: Heart failure chronicity: acute Qualified Code(s): I50.31 - Acute diastolic (congestive) heart failure Category: Medical Code(s): I50.30 - Unspecified diastolic (congestive) heart failure (6) Morbid obesity: Status: Chronic Category: Medical Code(s): E66.01 - Morbid (severe) obesity due to excess calories (7) HTN (hypertension): Status: Chronic Qualifiers: Hypertension type: primary hypertension Qualified Code(s): I10 - Essential (primary) hypertension Category: Medical Code(s): I10 - Essential (primary) hypertension Plan Admit to medicine #CAD #Unstable angina Follows with Dr. Hilliard. Consulted on admission. Will see patient in AM. SHIREEN to LAD 10/2023 Troponin negative x today. EKG without ischemia. Given ongoing chest pain, has been made NPO. Placed on nitro drip. Therapeutic Lovenox given per Dr. Hilliard request. #Chronic diastolic heart failure Echocardiogram in October with normal biventricular function with mild RV dilatation Patient states that she has been on furosemide and Aldactone Reports increased fatigue and dyspnea on exertion Will obtain BNP now. Chest x-ray without evidence of overload Continue torsemide Hold Entresto for now CKD stage IIIb 3B Renal function at baseline. Monitor renal function with continued diuresis Repeat BMP in a.m. #Hypertension Continue home medications Currently on nitro drip, monitor #Anxiety Patient reports anxiety and situational stressors recently. Tearful on exam. Will provide patient with home anxiety medication
[2024-07-25 22:00] VITALS: BP 98/57; PULSE 69; RESP 18; O2SAT 99
[2024-07-25] MEDS: ATORVASTATIN 20MG TABLET 20 MG PO ×2 (22:12→22:13)
[2024-07-25] MEDS: TORSEMIDE 20MG TABLET 20 MG PO (22:13)
[2024-07-25 22:19] VITALS: PULSE 70
[2024-07-25] MEDS: OXYCODONE 7.5MG W/APAP 325MG TABLET 1 EACH PO (22:36)
[2024-07-26] VITALS (8 sets, daily range): BP systolic 83–116; BP diastolic 47–74; PULSE 55–71; RESP 11–22; TEMP 36.4–36.8; O2SAT 93–100; BMI 41.6
[2024-07-26 01:03] LABS: Troponin I < 0.01 ng/ml (0.00-0.034)
[2024-07-26] MEDS: ACETAMINOPHEN 325MG TAB 650 MG PO (02:34)
[2024-07-26] MEDS: LORazepam 0.5MG TABLET 0.5 MG PO (02:58)
[2024-07-26] MEDS: ONDANSETRON 4MG ODT 4 MG SL (02:58)
[2024-07-26 06:42] LABS: Basophils % 0.4 % (0.1-2.0); Eosinophils # 0.1 K/mm3 (0.0-0.4); Eosinophils % 2.8 % (0.1-12.0); Hematocrit 38.5 % (37.0-47.0); Hemoglobin 12.8 g/dL (12.2-16.2); Lymphocytes # 1.6 K/mm3 (0.7-4.5); Lymphocytes % 34.3 % (10-50); Mean Corpuscular HGB Conc 33.2 g/dL (31.8-35.4); Mean Corpuscular Hemoglobin 31.7 pg (27.0-31.2); Mean Corpuscular Volume 95.3 fl (81-99); Mean Platelet Volume 10.5 fl (7.4-10.4); Monocytes # 0.5 K/mm3 (0.1-1.0); Monocytes % 10.9 % (1.7-9.3); Neutrophils # 2.4 K/mm3 (1.8-7.8); Neutrophils % 51.6 % (37.0-80.0); Platelet Count 222 K/mm3 (142-424); Red Blood Count 4.04 M/mm3 (4.20-5.40); Red Cell Distribution Width 13.2 % (11.5-17.5); White Blood Count 4.6 K/mm3 (4.8-10.8)
[2024-07-26 06:54] LABS: Chloride 104 mmol/L (98-107); Potassium 3.7 mmoL/L (3.5-5.1); Sodium 136 mmol/L (136-145)
[2024-07-26 06:57] LABS: Anion Gap 10.7 mEq/L (5-15); Blood Urea Nitrogen 22 mg/dl (7-17); Carbon Dioxide 25 mmol/L (22.0-30.0); Cholesterol 114 mg/dl (140-200); Creatinine Clearance Estimated 38 mL/min (50-200); Estimated Glomerular Filt Rate 39 ml/min (>60); GFR (African American) 47 ML/MIN (>60); Glucose 101 mg/dl (74-100); Triglycerides 69 mg/dl (30-150); VLDL Cholesterol 14 mg/dL (0-40)
[2024-07-26 06:58] LABS: HDL Cholesterol 56 mg/dl (40-60); Magnesium 2.1 mg/dl (1.6-2.3)
[2024-07-26 07:08] LABS: Direct LDL Cholesterol 36.43 mg/dL (100-129)
--- NOTE | 2024-07-26 09:27 | HMH.PHAINT1 ---
Pharmacy Intervention Comments: MEDICATION RECONCILIATION COMPLETED ON PATIENT USING EXTERNAL FILL HISTORY FROM PHARMACY AND LIST FROM CARDIOLOGY OFFICE. -LONNIE SULLIVAN, DAVIDD
[2024-07-26] MEDS: VENLAFAXINE 37.5MG TABLET 18.75 MG PO (09:30)
--- NOTE | 2024-07-26 10:59 | P.DS_ITS ---
General Admission date:: 07/25/24 Discharge date: 07/26/24 HPI HPI HPI: This is a 59-year-old female with a past medical history of CAD status post cardiac stents, HFpEF, hypertension, morbid obesity, renal insufficiency who presents emergency department today with complaints of left-sided chest pain and syncopal episode. She reports being under the care of Dr. Hilliard for cardiac services. Had stent placed in October of this past year. States that she has had cardiac cath since then and is continued medical management since stent placement. Today she was riding in a car when she got out of the car she became syncopal. States that she has also had intermittent left-sided chest pain for the last couple weeks. States that some of these chest pain episodes are significant. Describes the pain as significant chest pressure and heaviness. She also endorses LEAHY and orthopnea. States pain is worse with increasing activity. States pain is better with rest. Also reports nitro helps relieve pain. She did take a nitro in the emergency department with reduction in pain from a 7 to a 2. EKG without ischemia. Troponin negative x 2. Given patient's complaint of chest pain and syncopal episode, Dr. Hilliard was consulted. Recommends nitro drip, therapeutic Lovenox, n.p.o. and he will see patient in AM. Labs otherwise unremarkable except for known elevated creatinine with renal disease. She is admitted to the hospital service at this time Hospital Course Hospital Course Hospital Course: 59-year-old female with history of CAD. Admitted for unstable angina. Troponins remained stable overnight. Cardiology evaluated, patient did not want a pursue heart cath during this admission. Recommend follow-up as an outpatient for further ischemic workup. Stable to discharge. Problems addressed as follows: #CAD #Unstable angina # Chronic diastolic heart failure # Hypertension Follows with Dr. Hilliard. Consulted on admission. Cardiology evaluated in the morning. Patient has a history of drug-eluting stent placed to the LAD proximately a year ago and October 2023. Had repeat cath in March that did not show any occlusion. Troponins have remained negative on serial evaluation. EKG without ischemia. Pain doing better by morning. Concern for anxiety component. Discussed case with cardiology, recommend increasing her torsemide to 100 mg daily. Continue home regimen otherwise with Entresto twice a day, isosorbide mononitrate increased to 60 mg daily, continue potassium supplementation, prasugrel 10 mg daily, Crestor 10 mg daily, spironolactone 50 mg twice daily. Close follow-up for further evaluation. CKD stage IIIb 3B Renal function at baseline. Remained at baseline on morning of discharge with potassium 3.7, magnesium 2.1, BUN 22 and creatinine 1.4. Needs repeat labs prior to follow-up with cardiology #Anxiety Patient reports anxiety and situational stressors recently. Was tearful initially on presentation. Feeling better by morning. Will increase her Effexor to 75 mg nightly. Concerned that this is a component of some of her pain. Total time spent on discharge 32 minutes in counseling, discussion with subspecialists, documentation, chart review, and direct care with patient. Exam Data for Last 24 hours Vital signs and Labs for Last 24 Hours: Temp Pulse Resp BP Pulse Ox O2 Del Method 97.6 F 63 16 107/74 L 99 Room Air 07/26/24 08:00 07/26/24 08:00 07/26/24 08:00 07/26/24 08:00 07/26/24 08:00 07/26/24 09:00 Laboratory Results - last 24 hr 07/25/24 17:50: WBC 6.2, RBC 4.33, Hgb 13.9, Hct 41.2, MCV 95.2, MCH 32.1 H, MCHC 33.7, RDW 13.2, Plt Count 261, MPV 10.2, Neut % (Auto) 62.7, Lymph % (Auto) 25.7, [place] % (Auto) 9.1, Eos % (Auto) 1.5, Baso % (Auto) 0.8, Neut # (Auto) 3.9, Lymph # (Auto) 1.6, [place] # (Auto) 0.6, Eos # (Auto) 0.1, Baso # (Auto) 0.1, D- Dimer 0.49, Sodium 136, Potassium 4.0, Chloride 100, Carbon Dioxide 25, Anion Gap 15.0, BUN 22 H, Creatinine 1.40 H, Estimated Creat Clear 71, Estimated GFR 39 L, Est GFR ( Amer) 47 L, Glucose 134 H, Calcium 9.3, Total Bilirubin 0.6, AST 31, ALT 17, Alkaline Phosphatase 86, Troponin I < 0.01, NT-Pro-B Natriuret Pep 124, Total Protein 7.7, Albumin 4.6, Globulin 3.1, Albumin/Globulin Ratio 1.5 07/25/24 18:03: Urine Color Yellow, Urine Appearance Clear, Urine pH 6.0, Ur Specific [place] 1.015, Urine Protein Negative, Urine Glucose (UA) Negative, Urine Ketones Negative, Urine Blood Negative, Urine Nitrate Negative, Urine Bilirubin Negative, Urine Urobilinogen 0.2, Ur Leukocyte Esterase Negative, Urine RBC None, Urine WBC 3-5, Ur Squamous Epith Cells 10-20, Urine Bacteria 3+ 07/25/24 19:38: Troponin I < 0.01 07/26/24 00:19: Troponin I < 0.01 07/26/24 05:46: WBC 4.6 L D, RBC 4.04 L, Hgb 12.8, Hct 38.5, MCV 95.3, MCH 31.7 H, MCHC 33.2, RDW 13.2, Plt Count 222, MPV 10.5 H, Neut % (Auto) 51.6, Lymph % (Auto) 34.3, [place] % (Auto) 10.9 H, Eos % (Auto) 2.8, Baso % (Auto) 0.4, Neut # (Auto) 2.4, Lymph # (Auto) 1.6, [place] # (Auto) 0.5, Eos # (Auto) 0.1, Baso # (Auto) 0.0, Sodium 136, Potassium 3.7, Chloride 104, Carbon Dioxide 25, Anion Gap 10.7, BUN 22 H, Creatinine 1.40 H, Estimated Creat Clear 38, Estimated GFR 39 L, Est GFR ( Amer) 47 L, Glucose 101 H D, Calcium 9.0, Magnesium 2.1, Triglycerides 69, Cholesterol 114 L, LDL Cholesterol Direct 36.43 L, VLDL Cholesterol 14, HDL Cholesterol 56, Cholesterol/HDL Ratio 2.0 I & O for Last 24 hours: Intake & Output 07/23/24 07/24/24 07/25/24 07/26/24 23:59 23:59 23:59 23:59 Intake Total 901.875 / 901.875 Output Total 0 / 0 0 / 0 Balance 0 8 901.875 / 901.875 Weight 110.677 kg 110.677 kg Constitutional Constitutional: no acute distress, morbidly obese and cooperative *Routine HEENT Exam Head: Present normocephalic Eye: Present EOMI and PERRL ENT: Present mucous membranes moist *Routine Neck Exam Neck: Present supple; Absent lymphadenopathy *Routine Respiratory Exam Respiratory: Present CTA bilaterally; Absent rhonchi, wheezes or crackles *Routine Cardiovascular Exam Cardiovascular: Present RRR *Routine Abdominal Exam Abdominal: Present soft and normoactive bowel sounds; Absent tenderness *Routine Rectal Exam Patient deferred: visual exam *Routine Exam Patient deferred: external exam *Routine Extremities Exam Extremities: Absent cyanosis, clubbing or edema *Routine Skin Exam Skin: Present warm; Absent rash *Routine Neurological Exam Neurological: Present alert, oriented X3 and moving all extremities; Absent altered mental status Results Data Completed and Pending Labs on day of discharge: Labs from last 24 hours 07/26/24 07/26/24 07/25/24 05:46 00:19 19:38 WBC 4.6 L D RBC 4.04 L Hgb 12.8 Hct 38.5 MCV 95.3 MCH 31.7 H MCHC 33.2 RDW 13.2 Plt Count 222 MPV 10.5 H Neut % (Auto) 51.6 Lymph % (Auto) 34.3 [place] % (Auto) 10.9 H Eos % (Auto) 2.8 Baso % (Auto) 0.4 Neut # (Auto) 2.4 Lymph # (Auto) 1.6 [place] # (Auto) 0.5 Eos # (Auto) 0.1 Baso # (Auto) 0.0 D-Dimer Sodium 136 Potassium 3.7 Chloride 104 Carbon Dioxide 25 Anion Gap 10.7 BUN 22 H Creatinine 1.40 H Estimated Creat Clear 38 Estimated GFR 39 L Est GFR ( Amer) 47 L Glucose 101 H D Calcium 9.0 Magnesium 2.1 Total Bilirubin AST ALT Alkaline Phosphatase Troponin I < 0.01 < 0.01 NT-Pro-B Natriuret Pep Total Protein Albumin Globulin Albumin/Globulin Ratio Triglycerides 69 Cholesterol 114 L LDL Cholesterol Direct 36.43 L VLDL Cholesterol 14 HDL Cholesterol 56 Cholesterol/HDL Ratio 2.0 Urine Color Urine Appearance Urine pH Ur Specific [place] Urine Protein Urine Glucose (UA) Urine Ketones Urine Blood Urine Nitrate Urine Bilirubin Urine Urobilinogen Ur Leukocyte Esterase Urine RBC Urine WBC Ur Squamous Epith Cells Urine Bacteria 04/02/25 04/02/25 18:03 17:50 WBC 6.2 RBC 4.33 Hgb 13.9 Hct 41.2 MCV 95.2 MCH 32.1 H MCHC 33.7 RDW 13.2 Plt Count 261 MPV 10.2 Neut % (Auto) 62.7 Lymph % (Auto) 25.7 [place] % (Auto) 9.1 Eos % (Auto) 1.5 Baso % (Auto) 0.8 Neut # (Auto) 3.9 Lymph # (Auto) 1.6 [place] # (Auto) 0.6 Eos # (Auto) 0.1 Baso # (Auto) 0.1 D-Dimer 0.49 Sodium 136 Potassium 4.0 Chloride 100 Carbon Dioxide 25 Anion Gap 15.0 BUN 22 H Creatinine 1.40 H Estimated Creat Clear 71 Estimated GFR 39 L Est GFR ( Amer) 47 L Glucose 134 H Calcium 9.3 Magnesium Total Bilirubin 0.6 AST 31 ALT 17 Alkaline Phosphatase 86 Troponin I < 0.01 NT-Pro-B Natriuret Pep 124 Total Protein 7.7 Albumin 4.6 Globulin 3.1 Albumin/Globulin Ratio 1.5 Triglycerides Cholesterol LDL Cholesterol Direct VLDL Cholesterol HDL Cholesterol Cholesterol/HDL Ratio Urine Color Yellow Urine Appearance Clear Urine pH 6.0 Ur Specific [place] 1.015 Urine Protein Negative Urine Glucose (UA) Negative Urine Ketones Negative Urine Blood Negative Urine Nitrate Negative Urine Bilirubin Negative Urine Urobilinogen 0.2 Ur Leukocyte Esterase Negative Urine RBC None Urine WBC 3-5 Ur Squamous Epith Cells 10-20 Urine Bacteria 3+ DS: Diagnosis Discharge Diagnosis (1) Chest pain: Status: Acute Code(s): R07.9 - Chest pain, unspecified (2) CAD (coronary artery disease): Status: Acute Code(s): I25.10 - Atherosclerotic heart disease of [place] coronary artery without angina pectoris Qualifiers: Associated angina: with other forms of angina Coronary Disease- Associated Artery/Lesion type: [place] artery [place] vs. transplanted heart: [place] heart Qualified Code(s): I25.118 - Atherosclerotic heart disease of [place] coronary artery with other forms of angina pectoris (3) Unstable angina: Status: Acute Code(s): I20.0 - Unstable angina (4) Hyperlipidemia: Status: Acute Code(s): E78.5 - Hyperlipidemia, unspecified Qualifiers: Hyperlipidemia type: other hyperlipidemia Qualified Code(s): E78.49 - Other hyperlipidemia (5) (HFpEF) heart failure with preserved ejection fraction: Status: Acute Code(s): I50.30 - Unspecified diastolic (congestive) heart failure Qualifiers: Heart failure chronicity: acute Qualified Code(s): I50.31 - Acute diastolic (congestive) heart failure (6) Morbid obesity: Status: Chronic Code(s): E66.01 - Morbid (severe) obesity due to excess calories (7) HTN (hypertension): Status: Chronic Code(s): I10 - Essential (primary) hypertension Qualifiers: Hypertension type: primary hypertension Qualified Code(s): I10 - Essential (primary) hypertension Meds Home Medications and Allergies Home Medications ?Medication ?Instructions ?Recorded ?Confirmed ?Type acetaminophen 500 mg tablet 500 mg PO Q6HP PRN Mild Pain 11/15/23 07/26/24 History (Scale Score 1-4) cholecalciferol (vitamin D3) 25 25 mcg PO HS 11/15/23 07/25/24 History mcg (1,000 unit) tablet gabapentin 600 mg tablet 600 mg PO TID 11/15/23 07/25/24 History potassium chloride 10 mEq 20 meq PO BID 11/15/23 07/26/24 History tablet,extended release topiramate 100 mg tablet 300 mg PO DAILY 11/16/23 07/25/24 History prasugrel HCl 10 mg tablet 10 mg PO DAILY 30 days #30 tabs 11/17/23 07/25/24 Rx sacubitril 24 mg-valsartan 26 mg 1 tab PO BID 30 days #60 tabs 11/17/23 07/25/24 Rx tablet (Entresto) ondansetron 4 mg disintegrating 4 mg PO BIDP PRN Nausea And 05/04/24 07/26/24 History tablet Vomiting spironolactone 50 mg tablet 50 mg PO BID #60 tabs 05/04/24 07/25/24 Rx (Aldactone) lidocaine 5 % topical patch 1 patch topical DAILY #30 ea 05/21/24 07/25/24 Rx rosuvastatin 10 mg tablet (Crestor) 10 mg PO DAILY #90 tabs 06/29/24 07/25/24 Rx oxycodone-acetaminophen 7.5 mg-325 1 tab PO BIDP PRN Moderate Pain 07/25/24 07/26/24 History mg tablet (Scale Score 5-6) ranolazine 1,000 mg 1,000 mg PO BID 07/25/24 07/25/24 History tablet,extended release,12 hr isosorbide mononitrate 30 mg 60 mg (2 x 30 mg) PO DAILY 30 days 07/26/24 Rx tablet,extended release 24 hr #60 tabs methocarbamol 750 mg tablet 750 mg PO BIDP PRN muscle spasm 07/26/24 07/26/24 History nitroglycerin 0.4 mg sublingual 0.4 mg sublingual Q5MINP PRN chest 07/26/24 07/26/24 History tablet pain torsemide 100 mg tablet 100 mg PO DAILY #30 tabs 07/26/24 Rx venlafaxine 75 mg capsule,extended 75 mg PO HS #30 caps 07/26/24 Rx release 24 hr New Prescriptions to Start Prescriptions: isosorbide mononitrate Celio Jorge torsemide Luisito,Celio venlafaxine Luisito,Celio Allergies Allergy/AdvReac Type Severity Reaction Status Date / Time codeine Allergy Unknown Verified 05/04/24 10:12 allergy reaction Penicillins Allergy Unknown Verified 05/04/24 10:12 allergy reaction Discharge Plan Disposition Patient Disposition: Home, Self-Care Condition: Fair Follow up Plan Follow up with: Giuliana Mercedes APRN [Nurse Practitioner] - 08/06/24 11:15 am Lanette Cerda APRN [Referring] - 08/09/24 3:40 pm Prescriptions/Medication Reconciliation: New venlafaxine 75 mg capsule,extended release 24hr 75 mg PO HS Qty: 30 0RF torsemide 100 mg tablet 100 mg PO DAILY Qty: 30 0RF Continued ondansetron 4 mg tablet,disintegrating 4 mg PO BIDP PRN (Reason: Nausea And Vomiting) spironolactone [Aldactone] 50 mg tablet 50 mg PO BID Qty: 60 2RF rosuvastatin [Crestor] 10 mg tablet 10 mg PO DAILY Qty: 90 1RF cholecalciferol (vitamin D3) 25 mcg (1,000 unit) tablet 25 mcg PO HS gabapentin 600 mg tablet 600 mg PO TID potassium chloride 10 mEq tablet extended release 20 meq PO BID acetaminophen 500 mg Tablet 500 mg PO Q6HP PRN (Reason: Mild Pain (Scale Score 1-4)) topiramate 100 mg tablet 300 mg PO DAILY prasugrel HCl 10 mg Tablet 10 mg PO DAILY 30 Days Qty: 30 0RF Entresto 24-26 mg Tablet 1 tab PO BID 30 Days Qty: 60 0RF oxycodone-acetaminophen 7.5-325 mg tablet 1 tab PO BIDP PRN (Reason: Moderate Pain (Scale Score 5-6)) ranolazine 1,000 mg tablet extended release 12 hr 1,000 mg PO BID methocarbamol 750 mg tablet 750 mg PO BIDP PRN (Reason: muscle spasm) nitroglycerin 0.4 mg tablet, sublingual 0.4 mg sublingual Q5MINP PRN (Reason: chest pain) Rx Instructions: do not exceed 3 doses per episode lidocaine 5 % adhesive patch,medicated 1 patch topical DAILY Qty: 30 0RF Rx Instructions: leave on most painful area for up to 12 hrs Changed isosorbide mononitrate 30 mg tablet extended release 24 hr 60 mg PO DAILY 30 Days Qty: 60 3RF Discontinued torsemide 20 mg tablet 20 mg PO BID Qty: 60 2RF venlafaxine 37.5 mg capsule,extended release 24hr 37.5 mg PO HS Other Ambulatory Orders: Comprehensive Metabolic Panel (Routine) Timeframe: 3 Days Facility: [facility] - Location: Laboratory Ordered By: Celio Jorge Magnesium (Routine) Timeframe: 3 Days Facility: [facility] - Location: Laboratory Ordered By: Celio Jorge Problem Reconciliation Problems Reviewed?: Yes Patient Discharge Instructions ACTIVITY: Continue current activity DIET: continue same diet Patient Instructions: DI for Atypical Chest Pain Print Language: Burkinan Providers Primary Care Provider: Provider,Referral Admit Provider: Celio Jorge Attending Provider: Celio Jorge
--- NOTE | 2024-07-26 13:20 | PC.NURSE ---
pt discharged and ambulated to ER by boom TIRADO/ giovanna RN to ER tam. Pt ambulatory and refused wheelchair.
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
--- NOTE | 2024-07-27 11:50 | SW/DCPLANNER ---
Spoke with patient on the phone. Patient stated that she is doing okay. Patient stated that she was able to get her medicine from clinic pharmacy. Patient stated that she has no concerns or questions at this time. Nahum Upton
== END 2024-07-26 13:30 | disposition home or self-care (01) ==
LOC: ER 18:03 → 2ND 20:58
PROVIDERS: Nurse Practitioner; Nurse Practitioner Acute Care; Admitting Provider Internal Medicine Adolescent Medicine; Emergency Provider Emergency Medicine; Visit Provider Internal Medicine Adolescent Medicine
DX: R55 Syncope and collapse (principal); I25.110 Atherosclerotic heart disease of native coronary artery with unstable angina pectoris; I11.0 Hypertensive heart disease with heart failure; E66.01 Morbid (severe) obesity due to excess calories; Z68.41 Body mass index [BMI] 40.0-44.9, adult; I50.33 Acute on chronic diastolic (congestive) heart failure; I13.0 Hypertensive heart and chronic kidney disease with heart failure and stage 1 through stage 4 chronic kidney disease, or unspecified chronic kidney disease; M19.90 Unspecified osteoarthritis, unspecified site; G89.29 Other chronic pain; S09.90XA Unspecified injury of head, initial encounter; F41.9 Anxiety disorder, unspecified; N18.32 Chronic kidney disease, stage 3b; Z79.899 Other long term (current) drug therapy; Z79.891 Long term (current) use of opiate analgesic; Z88.0 Allergy status to penicillin; Z88.5 Allergy status to narcotic agent; Z95.5 Presence of coronary angioplasty implant and graft; Z28.310 Unvaccinated for COVID-19; Z28.39 Other underimmunization status; Z79.02 Long term (current) use of antithrombotics/antiplatelets
CPT/HCPCS: 70450; 71045; 72125; 72128; 72131; 73502; 80048; 80053; 80061; 81001; 83735; 83880; 84484; 85025; 85378; 87086; 93005; 93225; 93227; 99285; G0378; J1650; J2270; J2405; Q0162

== ENCOUNTER 2024-08-06 09:17 | Outpatient (CLI) | payer MEDICAID, SELFPAY ==
[2024-08-06 10:35] LABS: Alanine Aminotransferase 16 U/L (12-78); Albumin Level 4.5 g/dl (3.5-5.0); Albumin/Globulin Ratio 1.5 (1.1-1.8); Alkaline Phosphatase 86 U/L (38-126); Anion Gap 16.4 mEq/L (5-15); Aspartate Amino Transferase 26 U/L (14-36); Bilirubin,Total 0.6 mg/dl (0.2-1.3); Blood Urea Nitrogen 29 mg/dl (7-17); Calcium 9.5 mg/dl (8.4-10.2); Carbon Dioxide 27 mmol/L (22.0-30.0); Chloride 99 mmol/L (98-107); Estimated Glomerular Filt Rate 42 ml/min (>60); GFR (African American) 51 ML/MIN (>60); Glucose 86 mg/dl (74-100); Magnesium 2.3 mg/dl (1.6-2.3); Potassium 4.4 mmoL/L (3.5-5.1); Sodium 138 mmol/L (136-145); Total Protein,Serum 7.5 g/dl (6.3-8.2)
== END 2024-08-06 23:59 | disposition home or self-care (01) ==
LOC: LAB 09:19
PROVIDERS: PCP Nurse Practitioner Family; Visit Provider Internal Medicine Adolescent Medicine
DX: I50.30 Unspecified diastolic (congestive) heart failure (principal); I25.10 Atherosclerotic heart disease of native coronary artery without angina pectoris; R55 Syncope and collapse; R07.89 Other chest pain
CPT/HCPCS: 36415; 80053; 83735; 93270; 93272

== ENCOUNTER 2024-08-06 12:55 | Observation (INO) | payer MEDICAID, SELFPAY ==
[2024-08-06] VITALS (7 sets, daily range): BP systolic 101–149; BP diastolic 58–68; PULSE 60–77; RESP 14–18; TEMP 36.4–36.6; O2SAT 97–99; BMI 41.3; BMI 39.6
--- NOTE | 2024-08-06 12:58 | ED_ITS ---
<Statement entered by Dione Ceja DO - 08/06/24 15:24> I was consulted by the SARA, and we discussed the complexity of the problems being addressed. I approved the treatment and management plan for this patient's care in the emergency department, thus performing a substantive portion of the medical decision making. Dione Ceja DO Discharge Plan Disposition Patient Disposition: Admitted Condition: Fair Clinical Impressions Clinical Impression: Unstable angina (HFpEF) heart failure with preserved ejection fraction Qualifiers: Heart failure chronicity: acute Qualified Code(s): I50.31 - Acute diastolic (congestive) heart failure CAD (coronary artery disease) Qualifiers: Coronary Disease-Associated Artery/Lesion type: [place] artery [place] vs. transplanted heart: [place] heart Associated angina: with other forms of angina Q ualified Code(s): I25.118 - Atherosclerotic heart disease of [place] coronary artery with other forms of angina pectoris Discharge ED Provider: Dione Ceja HPI <CAMILO Ramsay - Last Filed: 08/06/24 13:43> General Chief Complaint: Chest Pain Stated Complaint: Chest pain Time Seen by Provider: 08/06/24 12:58 History of Present Illness HPI narrative: Patient presents to the ER for evaluation of unstable angina. Patient has a longstanding history of cardiovascular disease, heart failure with preserved ejection fraction, essential hypertension, hyperlipidemia, asthma, morbid obesity. Patient was recently admitted to our facility on 07 25 for unstable angina and during that admission left heart cath was recommended however patient wished to pursue medical management instead and ultimately was discharged with a change of medication. She presented for evaluation to cardiology clinic this morning with still having symptoms and pain is 7 out of 10. She was offered direct admission from the office however patient deferred as she had to make arrangements for her animals. She went home and did so and presented back to the cardiology clinic and patient states that the receptionist airline lounge told me to check-in through the ER . Patient currently denies shortness of breath nausea vomiting diarrhea fever chills hemoptysis hematochezia melena hematemesis. Related Data Home Medications ?Medication ?Instructions ?Recorded ?Confirmed acetaminophen 500 mg tablet 500 mg PO Q6HP PRN Mild Pain 11/15/23 08/06/24 (Scale Score 1-4) cholecalciferol (vitamin D3) 25 25 mcg PO HS 11/15/23 08/06/24 mcg (1,000 unit) tablet gabapentin 600 mg tablet 600 mg PO TID PRN Pain 11/15/23 08/06/24 potassium chloride 10 mEq 20 meq PO BID 11/15/23 08/06/24 tablet,extended release topiramate 100 mg tablet 200 mg PO DAILY 11/16/23 08/06/24 ondansetron 4 mg disintegrating 4 mg PO BIDP PRN Nausea And 05/04/24 08/06/24 tablet Vomiting oxycodone-acetaminophen 7.5 mg-325 1 tab PO BIDP PRN Moderate Pain 07/25/24 08/06/24 mg tablet (Scale Score 5-6) ranolazine 1,000 mg 1,000 mg PO BID 07/25/24 08/06/24 tablet,extended release,12 hr methocarbamol 750 mg tablet 750 mg PO BIDP PRN muscle spasm 07/26/24 08/06/24 nitroglycerin 0.4 mg sublingual 0.4 mg sublingual Q5MINP PRN chest 07/26/24 08/06/24 tablet pain Previous Rx's ?Medication ?Instructions ?Recorded prasugrel HCl 10 mg tablet 10 mg PO DAILY 30 days #30 tabs 11/17/23 sacubitril 24 mg-valsartan 26 mg 1 tab PO BID 30 days #60 tabs 11/17/23 tablet (Entresto) lidocaine 5 % topical patch 1 patch topical DAILY #30 ea 05/21/24 rosuvastatin 10 mg tablet (Crestor) 10 mg PO DAILY #90 tabs 06/29/24 isosorbide mononitrate 30 mg 60 mg (2 x 30 mg) PO DAILY 30 days 07/26/24 tablet,extended release 24 hr #60 tabs torsemide 100 mg tablet 100 mg PO DAILY #30 tabs 07/26/24 venlafaxine 75 mg capsule,extended 75 mg PO HS #30 caps 07/26/24 release 24 hr spironolactone 50 mg tablet 50 mg PO BID #60 tabs 08/02/24 (Aldactone) Allergies Allergy/AdvReac Type Severity Reaction Status Date / Time codeine Allergy Anaphylaxis Verified 08/06/24 13:14 Penicillins Allergy Anaphylaxis Verified 08/06/24 13:14 [facility] <CAMILO Ramsay - Last Filed: 08/06/24 13:43> [facility] Disclaimer: The information contained in this section may have been updated after the patient was seen, as this information can be updated by other users. Medical History Syncope Angina pectoris Acute on chronic heart failure with preserved ejection fraction (HFpEF) Edema Hyperlipidemia (HFpEF) heart failure with preserved ejection fraction Abnormal electrocardiogram [ECG] [EKG] Unstable angina Asthma Anxiety HTN (hypertension) Arthritis Surgical History History of cardiac cath H/O left wrist surgery H/O colonoscopy Family History (Updated 08/06/24 @ 14:59 by Anne Wesley, RN) Other Diabetes Hypertension Renal disease Stroke Social History (Updated 08/06/24 @ 15:01 by Anne Wesley, RN) Smoking Status: Never smoker alcohol intake: former substance use type: denies use current occupational status: other Travel in the last 8 weeks: None housing: house current occupational exposures/hazards: Yes Have you lived/traveled outside US in past 30 days?: No Contact w/someone who lives/traveled outside US past 30 days?: No Exposure to someone with infectious disease in past 14 days?: No Do you have a fever (greater than 100.4 F or 38 C)?: No Have you tested positive for COVID-19: No Exposed to someone with COVID-19 in past 14 days?: No Do you have a sore throat?: No Do you have a cough?: No Do you have any weakness?: No Do you have any diarrhea?: No Are you experiencing any unusual bleeding?: No Do you have any muscle aches/pain?: No Do you have any abdominal pain?: No Are you experiencing loss of taste or smell?: No Other Medical History Have you received the Flu Vaccine for this season: No Have you received the Pneumonia Vaccine: No <CAMILO Ramsay - Last Filed: 08/06/24 13:43> ROS Obtained: Yes Systems reviewed as appropriate & no additional complaints except as documented Physical Exam <CAMILO Ramsay - Last Filed: 08/06/24 13:43> General General appearance: alert and in no apparent distress Respiratory Respiratory exam: Present normal lung sounds bilaterally Cardiovascular Cardiovascular exam: Present regular rate Neurological Exam Neurological exam: Present alert and oriented X3 HEART Score <CAMILO Ramsay - Last Filed: 08/06/24 13:43> HEART Score HEART Score assessment performed?: No Critical Care <CAMILO Ramsay - Last Filed: 08/06/24 13:43> Critical Care Time Critical Care Time: Yes Attestation: On 08/06/24, the high probability of a clinically significant, sudden or life threatening deterioration of the following system(s) required my full and direct attention, intervention and personal management. The time I documented below is in addition to time spent performing reported procedures but includes the following listed in this critical care notation. Total Time Total Critical Care Time: 35 Medical Decision Making <CAMILO Ramsay - Last Filed: 08/06/24 13:43> Medical Records Medical records reviewed: Yes I reviewed the patient's medical records. Ashu Inquiry Pt receiving controlled substance: No Vital Signs Vital Signs: 08/06/24 12:56 08/06/24 13:40 08/06/24 14:23 Temperature 98 F 98 F Temperature Source Oral Pulse Rate 77 Pulse Rate [Right] 77 Respiratory Rate 18 18 Blood Pressure 149/65 H Blood Pressure [Right Arm] 149/65 H Blood Pressure Mean [Right Arm] 93 Blood Pressure Source [Right Arm] Automatic Cuff Blood Pressure Position [Right Arm] Sitting 02 Sat by Pulse Oximetry 97 Oxygen Delivery Method Room Air Room Air Room Air Lab Data Lab results reviewed: Yes I reviewed the patient's lab results. Labs: Lab Results 08/06/24 13:20: WBC 5.8, RBC 4.25, Hgb 13.7, Hct 39.3, MCV 92.5, MCH 32.2 H, MCHC 34.9, RDW 12.6, Plt Count 244, MPV 10.4, Neut % (Auto) 66.1, Lymph % (Auto) 22.9, Rains % (Auto) 8.5, Eos % (Auto) 1.6, Baso % (Auto) 0.7, Neut # (Auto) 3.8, Lymph # (Auto) 1.3, [place] # (Auto) 0.5, Eos # (Auto) 0.1, Baso # (Auto) 0.0, PT 10.3, INR 0.91, Troponin I < 0.01 08/06/24 13:20 Response Orders (Tests/Meds): ED MEDICATIONS Generic Name Dose Route Start Last Admin Trade Name Freq PRN Reason Stop Dose Admin Acetaminophen 650 mg 08/06/24 13:50 Acetaminophen 325mg Tab PO 09/05/24 13:49 Q4HP PRN Fever or Mild Pain (1-3) Ondansetron HCl 4 mg 08/06/24 13:50 Ondansetron 4mg/2ml Vial IV 09/05/24 13:49 Q8HP PRN Nausea Discontinued Medications Generic Name Dose Route Start Last Admin Trade Name Freq PRN Reason Stop Dose Admin Enoxaparin Sodium 110 mg 08/06/24 13:45 08/06/24 13:45 Enoxaparin 120mg/0.8ml Syringe SUBCUT 08/06/24 13:46 110 mg ONCE ONE Administration ORDERS Category Date Time Status CBC w/Auto Diff [Complete Blood Count Auto Diff] Stat Lab 08/06/24 13:20 Completed INR [Prothrombin Time INR] Stat Lab 08/06/24 13:20 Completed Trop I [Troponin I] Stat Lab 08/06/24 13:20 Completed Troponin I Q3H Lab 08/06/24 16:30 Ordered Troponin I Q3H Lab 08/06/24 19:30 Ordered MDM Narrative Medical Decision Narrative: In summary patient is a 59-year-old female who presents to the emergency department for evaluation of unstable angina. Patient is hemodynamically stable with a blood pressure 149/65 heart rate 77 with what appears to be normal sinus rhythm on the bedside monitor breathing 18 times a minute satting at 97% on room air upon arrival, afebrile at 98. Physical exam is remarkable for a very pleasant well-nourished well-developed 59-year-old female who is tearful but otherwise in no acute distress. Breath sounds clear and equal bilateral to the bases without adventitious sounds. There is no dependent edema noted. Abdomen soft nontender no rebound or guarding or rigidity. Heart sounds S1-S2 regular rate and rhythm without murmurs gallops rubs or thrills.. Differential diagnosis includes unstable angina versus angina pectoris versus ACS. Initial workup will be conducted with troponin CBC and INR as patient already has labs done from this morning which I personally reviewed and did not show any acute abnormalities.. Initial interventions include 1 mg/kg of Lovenox twice a day and first dose given now. Given that patient was already tentatively offered admission from cardiology clinic I spoke with Giuliana Mercedes directly and we spoke about patient presentation LOUISE and patient management and she wishes the patient to be admitted for left heart cath tomorrow and 1 mg/kg of Lovenox. Given that I had an interactive discussion with hospital medicine regarding patient history presentation and patient management she will be admitted for further evaluation and care. <Dione Ceja, DO - Last Filed: 08/06/24 15:24> Vital Signs Vital Signs: 08/06/24 12:56 08/06/24 13:40 08/06/24 14:23 Temperature 98 F 98 F Temperature Source Oral Pulse Rate 77 Pulse Rate [Right] 77 Respiratory Rate 18 18 Blood Pressure 149/65 H Blood Pressure [Right Arm] 149/65 H Blood Pressure Mean [Right Arm] 93 Blood Pressure Source [Right Arm] Automatic Cuff Blood Pressure Position [Right Arm] Sitting 02 Sat by Pulse Oximetry 97 Oxygen Delivery Method Room Air Room Air Room Air Lab Data Labs: Lab Results 08/06/24 13:20: WBC 5.8, RBC 4.25, Hgb 13.7, Hct 39.3, MCV 92.5, MCH 32.2 H, MCHC 34.9, RDW 12.6, Plt Count 244, MPV 10.4, Neut % (Auto) 66.1, Lymph % (Auto) 22.9, Rains % (Auto) 8.5, Eos % (Auto) 1.6, Baso % (Auto) 0.7, Neut # (Auto) 3.8, Lymph # (Auto) 1.3, Rains # (Auto) 0.5, Eos # (Auto) 0.1, Baso # (Auto) 0.0, PT 10.3, INR 0.91, Troponin I < 0.01 Response Orders (Tests/Meds): ED MEDICATIONS Generic Name Dose Route Start Last Admin Trade Name Freq PRN Reason Stop Dose Admin Acetaminophen 650 mg 08/06/24 13:50 Acetaminophen 325mg Tab PO 09/05/24 13:49 Q4HP PRN Fever or Mild Pain (1-3) Ondansetron HCl 4 mg 08/06/24 13:50 Ondansetron 4mg/2ml Vial IV 09/05/24 13:49 Q8HP PRN Nausea Discontinued Medications Generic Name Dose Route Start Last Admin Trade Name Freq PRN Reason Stop Dose Admin Enoxaparin Sodium 110 mg 08/06/24 13:45 08/06/24 13:45 Enoxaparin 120mg/0.8ml Syringe SUBCUT 08/06/24 13:46 110 mg ONCE ONE Administration ORDERS Category Date Time Status CBC w/Auto Diff [Complete Blood Count Auto Diff] Stat Lab 08/06/24 13:20 Completed INR [Prothrombin Time INR] Stat Lab 08/06/24 13:20 Completed Trop I [Troponin I] Stat Lab 08/06/24 13:20 Completed Troponin I Q3H Lab 08/06/24 16:30 Ordered Troponin I Q3H Lab 08/06/24 19:30 Ordered ECG Data Tracing #1: Attestation: I reviewed this ECG and interpreted as documented below: ECG Narrative: Normal sinus rhythm with a ventricular to [address] changes concerning for ischemia. Normal intervals ECG initial impression date: 08/06/24 ECG initial impression time: 13:02
--- NOTE | 2024-08-06 13:00 | ECG_ITS ---
APPROVED REPORT Exam: Resting ECG HR:75 bpm ECG Measurements Heart Rate 75 AXES WV 172 P 55 QRSd 106 QRS 58 QT 388 T 45 QTc 417 Conclusion SINUS RHYTHM POSSIBLE INFERIOR MYOCARDIAL INFARCTION , PROBABLY OLD [30 ms Q WAVE IN II/aVF] POSSIBLE ANTEROLATERAL MYOCARDIAL INFARCTION , PROBABLY OLD [30 ms Q WAVE IN I/aVL/V3-V6] No STEMI Electronically signed by : ELZA ANNE, 08/07/2024 23:50:24
--- NOTE | 2024-08-06 13:30 | PC.NURSE ---
DON SPEAKING WITH CARDIOLOGY
--- NOTE | 2024-08-06 13:31 | PC.NURSE ---
[employer] TECHNICIAN NOTIFIED OF ADMISSION
[2024-08-06 13:37] LABS: Basophils % 0.7 % (0.1-2.0); Eosinophils # 0.1 K/mm3 (0.0-0.4); Eosinophils % 1.6 % (0.1-12.0); Hematocrit 39.3 % (37.0-47.0); Hemoglobin 13.7 g/dL (12.2-16.2); Lymphocytes # 1.3 K/mm3 (0.7-4.5); Lymphocytes % 22.9 % (10-50); Mean Corpuscular HGB Conc 34.9 g/dL (31.8-35.4); Mean Corpuscular Hemoglobin 32.2 pg (27.0-31.2); Mean Corpuscular Volume 92.5 fl (81-99); Mean Platelet Volume 10.4 fl (7.4-10.4); Monocytes # 0.5 K/mm3 (0.1-1.0); Monocytes % 8.5 % (1.7-9.3); Neutrophils # 3.8 K/mm3 (1.8-7.8); Neutrophils % 66.1 % (37.0-80.0); Nucleated Red Blood Cells # 0 10^3/uL; Nucleated Red Blood Cells % 0 %; Platelet Count 244 K/mm3 (142-424); Red Blood Count 4.25 M/mm3 (4.20-5.40); Red Cell Distribution Width 12.6 % (11.5-17.5); White Blood Count 5.8 K/mm3 (4.8-10.8)
--- NOTE | 2024-08-06 13:41 | PC.NURSE ---
I called report to Neal TIRADO
[2024-08-06] MEDS: ENOXAPARIN 120MG/0.8ML SYRINGE 110 MG SUBCUT (13:45)
--- NOTE | 2024-08-06 13:49 | P.HP_ITS ---
History of Present Illness *Admission Date: 08/06/24 *Reason for visit:: Unstable angina *History of present illness: Dawn Guzman is a 59-year-old female with a medical history significant for CAD with stent, HFpEF, hypertension, CKD stage IIIb, anxiety/depression who returns to the hospital for unstable angina. She was previously admitted 2 weeks ago for similar symptoms and patient preferred to pursue medical management with an increase in diuretic to torsemide 100 mg rather than undergoing LHC. She was evaluated by cardiology today for persistent left-sided chest pain both at rest and worse with exertion, shortness of breath. They recommended patient be a direct admit but patient wanted to get this on an outpatient basis. However, patient return to the ED for persistent symptoms. Workup in the ED significant for normal troponin, EKG without acute ischemic changes. ED provider discussed with cardiology who recommended admission for LHC in the morning, I also discussed case with ED provider and decision was made to admit patient for unstable angina. [facility] Disclaimer: The information contained in this section may have been updated after the patient was seen, as this information can be updated by other users. Medical History Syncope Angina pectoris Acute on chronic heart failure with preserved ejection fraction (HFpEF) Edema Hyperlipidemia (HFpEF) heart failure with preserved ejection fraction Abnormal electrocardiogram [ECG] [EKG] Unstable angina Asthma Anxiety HTN (hypertension) Arthritis Surgical History History of cardiac cath H/O left wrist surgery H/O colonoscopy Family History (Updated 08/06/24 @ 14:59 by Anne Wesley RN) Other Diabetes Hypertension Renal disease Stroke Social History (Updated 08/06/24 @ 15:01 by Anne Wesley, RN) Smoking Status: Never smoker alcohol intake: former substance use type: denies use current occupational status: other Travel in the last 8 weeks: None housing: house current occupational exposures/hazards: Yes Have you lived/traveled outside US in past 30 days?: No Contact w/someone who lives/traveled outside US past 30 days?: No Exposure to someone with infectious disease in past 14 days?: No Do you have a fever (greater than 100.4 F or 38 C)?: No Have you tested positive for COVID-19: No Exposed to someone with COVID-19 in past 14 days?: No Do you have a sore throat?: No Do you have a cough?: No Do you have any weakness?: No Do you have any diarrhea?: No Are you experiencing any unusual bleeding?: No Do you have any muscle aches/pain?: No Do you have any abdominal pain?: No Are you experiencing loss of taste or smell?: No Other Medical History Have you received the Flu Vaccine for this season: No Have you received the Pneumonia Vaccine: No Meds Home Medications and Allergies Home Medications ?Medication ?Instructions ?Recorded ?Confirmed ?Type acetaminophen 500 mg tablet 500 mg PO Q6HP PRN Mild Pain 11/15/23 08/06/24 History (Scale Score 1-4) cholecalciferol (vitamin D3) 25 25 mcg PO HS 11/15/23 08/06/24 History mcg (1,000 unit) tablet gabapentin 600 mg tablet 600 mg PO TID PRN Pain 11/15/23 08/06/24 History potassium chloride 10 mEq 20 meq PO BID 11/15/23 08/06/24 History tablet,extended release topiramate 100 mg tablet 200 mg PO DAILY 11/16/23 08/06/24 History prasugrel HCl 10 mg tablet 10 mg PO DAILY 30 days #30 tabs 11/17/23 08/06/24 Rx sacubitril 24 mg-valsartan 26 mg 1 tab PO BID 30 days #60 tabs 11/17/23 08/06/24 Rx tablet (Entresto) ondansetron 4 mg disintegrating 4 mg PO BIDP PRN Nausea And 05/04/24 08/06/24 History tablet Vomiting lidocaine 5 % topical patch 1 patch topical DAILY #30 ea 05/21/24 08/06/24 Rx rosuvastatin 10 mg tablet (Crestor) 10 mg PO DAILY #90 tabs 06/29/24 08/06/24 Rx oxycodone-acetaminophen 7.5 mg-325 1 tab PO BIDP PRN Moderate Pain 07/25/24 08/06/24 History mg tablet (Scale Score 5-6) ranolazine 1,000 mg 1,000 mg PO BID 07/25/24 08/06/24 History tablet,extended release,12 hr isosorbide mononitrate 30 mg 60 mg (2 x 30 mg) PO DAILY 30 days 07/26/24 08/06/24 Rx tablet,extended release 24 hr #60 tabs methocarbamol 750 mg tablet 750 mg PO BIDP PRN muscle spasm 07/26/24 08/06/24 History nitroglycerin 0.4 mg sublingual 0.4 mg sublingual Q5MINP PRN chest 07/26/24 08/06/24 History tablet pain torsemide 100 mg tablet 100 mg PO DAILY #30 tabs 07/26/24 08/06/24 Rx venlafaxine 75 mg capsule,extended 75 mg PO HS #30 caps 07/26/24 08/06/24 Rx release 24 hr spironolactone 50 mg tablet 50 mg PO BID #60 tabs 08/02/24 08/06/24 Rx (Aldactone) New Prescriptions to Start Prescriptions: Allergies Allergy/AdvReac Type Severity Reaction Status Date / Time codeine Allergy Anaphylaxis Verified 08/06/24 13:14 Penicillins Allergy Anaphylaxis Verified 08/06/24 13:14 Exam Data for Last 24 hours Vital signs and Labs for Last 24 Hours: Temp Pulse Resp BP Pulse Ox O2 Del Method 98 F 77 18 149/65 H 97 Room Air 08/06/24 12:56 08/06/24 12:56 08/06/24 12:56 08/06/24 12:56 08/06/24 12:56 08/06/24 12:56 Laboratory Results - last 24 hr 08/06/24 13:20: WBC 5.8, RBC 4.25, Hgb 13.7, Hct 39.3, MCV 92.5, MCH 32.2 H, MCHC 34.9, RDW 12.6, Plt Count 244, MPV 10.4, Neut % (Auto) 66.1, Lymph % (Auto) 22.9, [place] % (Auto) 8.5, Eos % (Auto) 1.6, Baso % (Auto) 0.7, Neut # (Auto) 3.8, Lymph # (Auto) 1.3, [place] # (Auto) 0.5, Eos # (Auto) 0.1, Baso # (Auto) 0.0 I & O for Last 24 hours: Intake & Output 08/03/24 08/04/24 08/05/24 08/06/24 23:59 23:59 23:59 23:59 Weight 109.316 kg Constitutional Constitutional: no acute distress and obese *Routine HEENT Exam Head: Present normocephalic Eye: Present EOMI and PERRL ENT: Present mucous membranes moist *Routine Neck Exam Neck: Present supple; Absent lymphadenopathy *Routine Respiratory Exam Respiratory: Present CTA bilaterally *Routine Cardiovascular Exam Cardiovascular: Present RRR *Routine Abdominal Exam Abdominal: Present soft and normoactive bowel sounds; Absent tenderness *Routine Rectal Exam Rectal:: deferred *Routine Genitalia Exam Genitalia:: deferred *Routine Extremities Exam Extremities: Absent cyanosis, clubbing or edema Comments: Bilateral lower extremity lymphedema without pitting edema. *Routine Skin Exam Skin: Present warm; Absent rash *Routine Neurological Exam Neurological: Present alert and oriented X3 Assessment and Plan *Assessment and plan (1) Acute on chronic heart failure with preserved ejection fraction (HFpEF): Status: Acute Category: Medical Code(s): I50.33 - Acute on chronic diastolic (congestive) heart failure (2) Unstable angina: Status: Acute Category: Medical Code(s): I20.0 - Unstable angina Plan Dawn Guzman is a 59-year-old female with a medical history significant for CAD with stent, HFpEF, hypertension, CKD stage IIIb, anxiety/depression who returns to the hospital for unstable angina. She was previously admitted 2 weeks ago for similar symptoms and patient preferred to pursue medical management with an increase in diuretic to torsemide 100 mg rather than undergoing LHC. She was evaluated by cardiology today for persistent left-sided chest pain both at rest and worse with exertion, shortness of breath. They recommended patient be a direct admit but patient wanted to get this on an outpatient basis. However, patient return to the ED for persistent symptoms. Workup in the ED significant for normal troponin, EKG without acute ischemic changes. ED provider discussed with cardiology who recommended admission for LH C in the morning, I also discussed case with ED provider and decision was made to admit patient for unstable angina. #Chest pain #Unstable angina #CAD with stent ? Patient has had longstanding left-sided chest pain both at rest and with exertion, had LHC with SHIREEN to LAD in October 2023. Patient states symptoms did not really improve much since then. ? She notes left-sided chest pain with no radiation that is worse both at rest and with exertion. She does have underlying asthma but believes it is well- controlled with rescue inhaler. No wheezing noted. ? Chest CTA October 2024 did not reveal acute findings, including pulmonary embolism. Symptoms ongoing at that time. Follow-up CXR. ? Does not seem to think it is related to eating, denies history of acid reflux. Patient does have underlying anxiety, which may be contributing. ? Cardiology consulted, will likely undergo LHC tomorrow. N.p.o. at midnight. ? Continue home prasugrel 10 mg, ranolazine 1000 mg twice daily, statin. ? Started Protonix 40 mg nightly. ? Continuous cardiac telemetry. #HFpEF #Hypertension ? Currently euvolemic. On room air. ? Blood pressure soft at 106/68 at this time. Hold BP meds until appropriate. #Bilateral lower extremity lymphedema ? Prominent without pitting edema, will need referral to outpatient lymphedema clinic. #CKD stage IIIb ? Creatinine 1.3, GFR 42. Stable. #Anxiety/depression ? Continue home venlafaxine 75 mg, topiramate. Full code DVT prophylaxis: Lovenox 40 mg
[2024-08-06 13:56] LABS: INR 0.91 (0.9-1.1); Prothrombin Time 10.3 seconds (10.1-12.5)
[2024-08-06 14:23] LABS: Troponin I < 0.01 ng/ml (0.00-0.034)
--- NOTE | 2024-08-06 14:25 | PC.NURSE ---
arrived by w/c from ED
--- NOTE | 2024-08-06 14:53 | HMH.PHAINT1 ---
Pharmacy Intervention Comments: home medication list verified using list from outpatient pharmacy and pt interview
--- NOTE | 2024-08-06 15:32 | CA_ITS ---
APPROVED REPORT EXAM: Comprehensive 2D, Doppler, and color-flow Echocardiogram Daycare Teacher: Sade Rodriguez RT(R) Ht: 5 ft 5 in Wt: 238lbs BSA: 2.13 BP: 149/65 mmHg Indications: angina, CP, edema, HTN, hyperlipidemia, HFpEF, asthma, abn EKG, CAD 2D Dimensions LA Volume 34.40 mL LA Volume Index 16.15 mL/m2 (M/F) 16-34 EF AP4 70.10 % GL Strain -31.8 % M-Mode Dimensions RVDd 2.73 cm (0.9-2.6) LA Diam 3.66 cm (1.9-4.0) LVDd 3.38 cm (3.5-5.7) LVDs 2.62 cm (3.5-5.7) IVSd 1.18 cm (0.6-1.1) PWd 0.87 cm (0.6-1.1) EF (Teich) 46.40% FS 22.50% EDV (Teich) 46.80 mL ESV (Teich) 25.10 mL LV Diastology E Decel Time 217 (160-240 msec) E/A Ratio 1.2 Mitral Valve MV E Max Turner. 82.0 (40-130 cm/s) MV A Velocity 66.0 (40-130 cm/s) E/A Ratio 1.25 MV PHT 63.0 ms Left Ventricle The left ventricle is normal size. The left ventricular systolic function is normal. The left ventricular ejection fraction is within the normal range. There is increased LV wall thickness. There is normal LV segmental wall motion. The left ventricular diastolic function is normal. LVEF is 60%. Right Ventricle Right ventricle is mildly dilated. The right ventricular systolic function is normal. Atria The left atrium size is normal. The right atrium size is normal. There is no Doppler evidence of interatrial shunt. Aortic Valve The aortic valve is mildly thickened. There is no hemodynamically significant aortic stenosis. No aortic regurgitation is present. Mitral Valve The mitral valve leaflets are mildly thickened. No evidence of mitral valve stenosis. Trace mitral regurgitation. Tricuspid Valve Tricuspid valve is grossly normal in structure and function. Mild tricuspid regurgitation. RVSP is normal. Pulmonic Valve The pulmonary valve is normal in structure. Trace pulmonic regurgitation. Great Vessels The aortic root is normal in size. IVC is normal in size and collapses >50% with inspiration. Pericardium There is no pericardial effusion. Other Information Study Quality: Technically Difficult Conclusion Technically difficult study due to poor acoustic windows. Normal biventricular systolic function. Mild RV dilation. Mild TR. Electronically signed by : Beatriz Toledo MD 08/06/2024 21:29:58
[2024-08-06] MEDS: ACETAMINOPHEN 325MG TAB 650 MG PO ×2 (16:31→23:30)
[2024-08-06 18:11] LABS: Troponin I < 0.01 ng/ml (0.00-0.034)
--- NOTE | 2024-08-06 18:45 | XR_ITS ---
PROCEDURE INFORMATION: Exam: XR Chest Exam date and time: 08/06/2024 7:00 PM Age: 59 years old Clinical indication: Pain; Chest pressure; Additional info: Left-sided chest pain TECHNIQUE: Imaging protocol: Radiologic exam of the chest. Views: 1 view. COMPARISON: CR XR CHEST PORTABLE 07/25/2024 6:13 PM FINDINGS: Lungs: Unremarkable. No consolidation. Pleural spaces: Unremarkable. No pleural effusion. No pneumothorax. Heart/Mediastinum: Unremarkable. No cardiomegaly. Bones/joints: Unremarkable. IMPRESSION: Stable chest x-ray with no acute disease.
[2024-08-06] MEDS: ATORVASTATIN 20MG TABLET 20 MG PO (20:13)
[2024-08-06] MEDS: PANTOPRAZOLE 40MG TABLET 40 MG PO (20:14)
[2024-08-06] MEDS: PATIENT'S OWN HOME MEDICATION (Ranolazine 1,000 mg tablet extended release 12 hr) 1000 EACH PO (20:14)
[2024-08-06] MEDS: OXYCODONE 7.5MG W/APAP 325MG TABLET 1 EACH PO (20:14)
[2024-08-06 20:26] LABS: NT Pro Brain Natriuretic Pep. 59.3 pg/mL (0-125)
[2024-08-06 20:29] LABS: Troponin I < 0.01 ng/ml (0.00-0.034)
[2024-08-07] VITALS (17 sets, daily range): BP systolic 95–130; BP diastolic 45–72; PULSE 47–65; RESP 14–18; TEMP 36.4–36.8; O2SAT 95–100; BMI 39.6
--- NOTE | 2024-08-07 03:25 | PC.NURSE ---
Pt has done well this shift. Continual denial of chest pain. Pt is currently NPO for possible heart cath in the morning. Resting in bed with eyes closed. Respirations even and unlabored. Bed is low, locked, and call light is in reach.
[2024-08-07 06:17] LABS: Basophils # 0.1 K/mm3 (0-0.2); Basophils % 1.2 % (0.1-2.0); Eosinophils # 0.2 K/mm3 (0.0-0.4); Eosinophils % 3.6 % (0.1-12.0); Hematocrit 36.7 % (37.0-47.0); Hemoglobin 12.7 g/dL (12.2-16.2); Lymphocytes # 1.5 K/mm3 (0.7-4.5); Lymphocytes % 36.9 % (10-50); Mean Corpuscular HGB Conc 34.6 g/dL (31.8-35.4); Mean Corpuscular Hemoglobin 32.5 pg (27.0-31.2); Mean Corpuscular Volume 93.9 fl (81-99); Mean Platelet Volume 10.6 fl (7.4-10.4); Monocytes # 0.5 K/mm3 (0.1-1.0); Monocytes % 11.1 % (1.7-9.3); Nucleated Red Blood Cells # 0 10^3/uL; Nucleated Red Blood Cells % 0 %; Platelet Count 203 K/mm3 (142-424); Red Blood Count 3.91 M/mm3 (4.20-5.40); Red Cell Distribution Width 12.7 % (11.5-17.5); Red Cell Distribution Width-SD 43.7 fL; White Blood Count 4.2 K/mm3 (4.8-10.8)
[2024-08-07 06:24] LABS: Albumin Level 3.8 g/dl (3.5-5.0); Chloride 104 mmol/L (98-107); Potassium 3.7 mmoL/L (3.5-5.1); Sodium 137 mmol/L (136-145)
[2024-08-07 06:26] LABS: Blood Urea Nitrogen 30 mg/dl (7-17); Creatinine Clearance Estimated 75 mL/min (50-200); Estimated Glomerular Filt Rate 39 ml/min (>60); GFR (African American) 47 ML/MIN (>60)
[2024-08-07 06:27] LABS: Alanine Aminotransferase 15 U/L (12-78); Albumin/Globulin Ratio 1.4 (1.1-1.8); Alkaline Phosphatase 67 U/L (38-126); Anion Gap 11.7 mEq/L (5-15); Aspartate Amino Transferase 26 U/L (14-36); Bilirubin,Total 0.4 mg/dl (0.2-1.3); Calcium 8.7 mg/dl (8.4-10.2); Carbon Dioxide 25 mmol/L (22.0-30.0); Globulin 2.8 g/dL (1.3-3.2); Glucose 88 mg/dl (74-100); Magnesium 2.2 mg/dl (1.6-2.3); Total Protein,Serum 6.6 g/dl (6.3-8.2)
[2024-08-07 06:52] LABS: Thyroid Stimulating Hormone 2.15 uIU/mL (0.465-4.68)
[2024-08-07 08:09] LABS: Hemoglobin A1C 5.2 % (4.0-6.0)
[2024-08-07] MEDS: TOPIRAMATE 100MG TABLET 200 MG PO (08:21)
[2024-08-07] MEDS: PRASUGREL 10MG TAB 10 MG PO (08:22)
[2024-08-07] MEDS: RANOLAZINE 500MG ER TABLET 1000 MG PO ×2 (08:22→20:08)
[2024-08-07] MEDS: LIDOCAINE 5% TRANSDERMAL PATCH 1 EACH TD (08:23)
[2024-08-07] MEDS: OXYCODONE 7.5MG W/APAP 325MG TABLET 1 EACH PO ×2 (08:28→20:09)
--- NOTE | 2024-08-07 09:32 | IR_ITS ---
APPROVED REPORT Patient Location: Inpatient Checker And Packer: KAREEM Cho RT (R) PROCEDURES Left heart catheterization Left ventriculogram Selective coronary angiogram Intravascular ultrasound of the dominant right coronary artery Drug-eluting stent deployment to the distal dominant right coronary INDICATION Coronary artery disease, Unstable angina, Angiographic ambiguity, MLA 3.9 mm??? in the distal dominant right coronary artery Informed consent was obtained prior to the procedure. COMPLICATIONS NONE Estimated Blood Loss: LESS THAN 10 ML TECHNIQUE One percent lidocaine used to anesthetize the right anterior aspect of the wrist. The right radial artery was accessed via the Seldinger technique. A 6 [place] sheath was placed in the right radial artery. 2.5 mg of Verapamil, 800 mcg of nitroglycerin, 1mg Lidocaine and 5000 U Heparin were given through the arterial sheath. The 6 [place]h JL 3 guide catheter was also used to perform left heart catheterization, left ventriculogram and selective coronary angiogram. At the end of the diagnostic angiogram therapeutic heparin was administered giving a therapeutic ACT and the guide catheter was placed in the right coronary artery followed by Choice PT extra-support wire placed distally. Intravascular ultrasound probe was advanced which demonstrated heavy distal plaque burden with an MLA of 3.9 mm??? and a large greater than 4 mm diameter vessel. Because of this a 4 mm x 38 mm [place] stent was deployed at 18 damian reducing the stenosis. Intravascular ultrasound probe was then reinserted which demonstrated good stent apposition distally with undersizing proximally. A 4.5 x 15 mm noncompliant balloon was deployed at 20 damian in the proximal portion and then advanced to half the length and then deployed again at 20 damian to post dilate. Post angiograph results demonstrated excellent stent apposition and expansion with excellent angiograph results. YUE-3 flow was present before and after the procedure. At the end of procedure the apparatus was removed the sheath was removed good hemostasis was achieved using TR banding patient was transferred to the postop putting her in stable condition ANGIOGRAPHIC RESULTS The left main artery Normal The left anterior descending artery Is proximally normal and has a stent in the mid segment which is widely patent with minimal in-stent restenosis with excellent proximal distal transitioning. There are diffuse 20% stenoses throughout the LAD. A large first diagonal artery is widely patent The circumflex artery Nondominant with 10% luminal regularities The right coronary artery Large and dominant with a distal 50% stenosis in the distal 60% stenosis The [place] ventriculogram reveals Normal 65% The left ventricular end-diastolic pressure 10 to 15 mmHg IMPRESSION Severe mid and distal dominant right coronary disease as described above Successful stenting of the mid to distal dominant right coronary severe disease reduced to 0% with 1 drug-eluting stent Patent stent in the mid LAD Normal ejection fraction Normal LVEDP PLAN 1. Dual antiplatelet therapy 2. Cardiac rehabilitation 3. Avoidance of tobacco products 4. Risk factor modification 5. LDL less than 55 to be achieved with high intensity statin Electronically signed by : Zackary Hilliard MD 08/07/2024 13:02:05
[2024-08-07] MEDS: ASPIRIN EC 81MG TABLET 81 MG PO (09:48)
[2024-08-07] MEDS: METOPROLOL SUCCINATE XL 25MG TABLET 25 MG PO (09:48)
[2024-08-07] MEDS: HEPARIN 1,000 UNITS/ML 10ML VIAL (CATH LAB) 5000 UNIT IV (11:29)
[2024-08-07] MEDS: diphenhydrAMINE 50MG/ML VIAL 50 MG IV (11:29)
[2024-08-07] MEDS: LIDOCAINE 1% 10ML MDV 10 ML IJ (11:29)
[2024-08-07] MEDS: HEPARIN 1,000 UNITS/500ML NS (CATH LAB) 3000 UNIT IV (11:29)
[2024-08-07] MEDS: 0.9 % SODIUM CHLORIDE 500 ML 25 ML IV (11:29)
[2024-08-07] MEDS: VERAPAMIL 2.5MG/ML 2ML VIAL 2.5 MG IV (11:30)
[2024-08-07] MEDS: NITROGLYCERIN 800MCG/8ML SYR (CATH LAB) 800 MCG IA (11:30)
--- NOTE | 2024-08-07 11:40 | P.CONCA_ITS ---
History of Present Illness History of Present Illness Consult date: 08/07/24 Requesting physician: Jose Elias Mccoy Consult reason: chest pain Chief complaint: chest pain History of present illness: 59-year-old white female well-established patient of our office with a history of multivessel CAD status post drug-eluting stents to LAD October 2023. She returned for another heart cath in March 2024 which revealed a patent stent and no new interventions warranted. She presented to this facility 2 weeks ago with worsening unstable angina, and IN was ruled out. Left heart cath recommended at that time but patient declined. She came to the office yesterday complaining of worsening symptoms which she describes as substernal chest tightness radiating to her left arm and neck associated with shortness of breath worse with activity improved with rest increasing in severity and frequency over the past several weeks. She is already on high-dose antianginals including nitrates and Ranexa. She was referred to the ER from the office yesterday for stabilization and plans for admission and left heart cath today. Patient states no symptoms at rest this morning, she is agreeable to left heart cath and has no questions at this time. Of note, she has had D-dimer checked on 2 seperate occasions with chest pain over the past 6 months and was neg both times. CTA chest in April was neg for PE and acute findings. [facility] Disclaimer: The information contained in this section may have been updated after the pat ient was seen, as this information can be updated by other users. Medical History Syncope Angina pectoris Acute on chronic heart failure with preserved ejection fraction (HFpEF) Edema Hyperlipidemia (HFpEF) heart failure with preserved ejection fraction Abnormal electrocardiogram [ECG] [EKG] Unstable angina Asthma Anxiety HTN (hypertension) Arthritis Surgical History History of cardiac cath H/O left wrist surgery H/O colonoscopy Family History Other Diabetes Hypertension Renal disease Stroke Social History Smoking Status: Never smoker alcohol intake: former substance use type: denies use current occupational status: other Travel in the last 8 weeks: None housing: house current occupational exposures/hazards: Yes Review of Systems Constitutional Constitutional: Denies fatigue and Denies weakness Eyes Eyes: Denies loss of vision ENT Ears, Nose, Mouth, and Throat: Denies hearing loss and Denies vertigo *Cardiovascular Cardiovascular: Reports chest pain, Denies dyspnea and Denies syncope *Respiratory Respiratory: Denies cough and Denies dyspnea *Gastrointestinal Gastrointestinal: Denies change in stool character, Denies nausea and Denies vomiting *Musculoskeletal Musculoskeletal: Denies muscle weakness Integumentary/Breasts Skin/Breast: Denies changing lesions *Neurologic Neurologic: Denies loss of vision, Denies syncope, Denies vertigo and Denies weakness Endocrine Endocrine: Denies fatigue Exam Data for Last 24 hours Vital signs and Labs for Last 24 Hours: Temp Pulse Resp BP Pulse Ox O2 Del Method 97.6 F 63 16 104/52 L 99 Room Air 08/07/24 08:00 08/07/24 08:00 08/07/24 08:00 08/07/24 08:00 08/07/24 08:00 08/07/24 10:05 Laboratory Results - last 24 hr 08/06/24 13:20: WBC 5.8, RBC 4.25, Hgb 13.7, Hct 39.3, MCV 92.5, MCH 32.2 H, MCHC 34.9, RDW 12.6, Plt Count 244, MPV 10.4, Neut % (Auto) 66.1, Lymph % (Auto) 22.9, [place] % (Auto) 8.5, Eos % (Auto) 1.6, Baso % (Auto) 0.7, Neut # (Auto) 3.8, Lymph # (Auto) 1.3, [place] # (Auto) 0.5, Eos # (Auto) 0.1, Baso # (Auto) 0.0, PT 10.3, INR 0.91, Troponin I < 0.01 08/06/24 16:42: Troponin I < 0.01 08/06/24 19:30: Troponin I < 0.01, NT-Pro-B Natriuret Pep 59.3 08/07/24 05:36: WBC 4.2 L D, RBC 3.91 L, Hgb 12.7, Hct 36.7 L, MCV 93.9, MCH 32.5 H, MCHC 34.6, RDW 12.7, Plt Count 203, MPV 10.6 H, Neut % (Auto) 47.0, Lymph % (Auto) 36.9, [place] % (Auto) 11.1 H, Eos % (Auto) 3.6, Baso % (Auto) 1.2, Neut # (Auto) 2.0, Lymph # (Auto) 1.5, [place] # (Auto) 0.5, Eos # (Auto) 0.2, Baso # (Auto) 0.1, Sodium 137, Potassium 3.7, Chloride 104, Carbon Dioxide 25, Anion Gap 11.7, BUN 30 H, Creatinine 1.40 H, Estimated Creat Clear 75, Estimated GFR 39 L, Est GFR ( Amer) 47 L, Glucose 88, Hemoglobin A1c 5.2, Calcium 8.7, Magnesium 2.2, Total Bilirubin 0.4, AST 26, ALT 15, Alkaline Phosphatase 67, Total Protein 6.6, Albumin 3.8 D, Globulin 2.8, Albumin/Globulin Ratio 1.4, TSH 2.15 I & O for Last 24 hours: Intake & Output 08/04/24 08/05/24 08/06/24 08/07/24 23:59 23:59 23:59 23:59 Intake Total 1000 / 1000 Balance 1000 / 1000 Weight 238 lb 4 oz 238 lb 3.986 oz Constitutional Constitutional: no acute distress and cooperative *Routine HEENT Exam Eye: Present PERRL *Routine Respiratory Exam Respiratory: Present CTA bilaterally; Absent accessory muscle use, wheezes or crackles *Routine Cardiovascular Exam Cardiovascular: Present RRR, Normal S1 and Normal S2; Absent murmur, gallop or rubs *Routine Abdominal Exam Abdominal: Present soft; Absent tenderness *Routine Extremities Exam Extremities: Present pulses intact; Absent cyanosis or edema *Routine Skin Exam Skin: Present intact; Absent erythema or wounds *Routine Neurological Exam Neurological: Present alert and oriented X3 Routine Psychiatric Exam Psychiatric: Present cooperative Meds Home Medications and Allergies Home Medications ?Medication ?Instructions ?Recorded ?Confirmed ?Type acetaminophen 500 mg tablet 500 mg PO Q6HP PRN Mild Pain 11/15/23 08/06/24 History (Scale Score 1-4) cholecalciferol (vitamin D3) 25 25 mcg PO HS 11/15/23 08/06/24 History mcg (1,000 unit) tablet gabapentin 600 mg tablet 600 mg PO TID PRN Pain 11/15/23 08/06/24 History potassium chloride 10 mEq 20 meq PO BID 11/15/23 08/06/24 History tablet,extended release topiramate 100 mg tablet 200 mg PO DAILY 11/16/23 08/06/24 History prasugrel HCl 10 mg tablet 10 mg PO DAILY 30 days #30 tabs 11/17/23 08/06/24 Rx sacubitril 24 mg-valsartan 26 mg 1 tab PO BID 30 days #60 tabs 11/17/23 08/06/24 Rx tablet (Entresto) ondansetron 4 mg disintegrating 4 mg PO BIDP PRN Nausea And 05/04/24 08/06/24 History tablet Vomiting lidocaine 5 % topical patch 1 patch topical DAILY #30 ea 05/21/24 08/06/24 Rx rosuvastatin 10 mg tablet (Crestor) 10 mg PO DAILY #90 tabs 06/29/24 08/06/24 Rx oxycodone-acetaminophen 7.5 mg-325 1 tab PO BIDP PRN Moderate Pain 07/25/24 08/06/24 History mg tablet (Scale Score 5-6) ranolazine 1,000 mg 1,000 mg PO BID 07/25/24 08/06/24 History tablet,extended release,12 hr isosorbide mononitrate 30 mg 60 mg (2 x 30 mg) PO DAILY 30 days 07/26/24 08/06/24 Rx tablet,extended release 24 hr #60 tabs methocarbamol 750 mg tablet 750 mg PO BIDP PRN muscle spasm 07/26/24 08/06/24 History nitroglycerin 0.4 mg sublingual 0.4 mg sublingual Q5MINP PRN chest 07/26/24 08/06/24 History tablet pain torsemide 100 mg tablet 100 mg PO DAILY #30 tabs 07/26/24 08/06/24 Rx venlafaxine 75 mg capsule,extended 75 mg PO HS #30 caps 07/26/24 08/06/24 Rx release 24 hr spironolactone 50 mg tablet 50 mg PO BID #60 tabs 08/02/24 08/06/24 Rx (Aldactone) New Prescriptions to Start Prescriptions: Allergies Allergy/AdvReac Type Severity Reaction Status Date / Time codeine Allergy Anaphylaxis Verified 08/06/24 13:14 Penicillins Allergy Anaphylaxis Verified 08/06/24 13:14 Assessment and Plan *Assessment and plan (1) Unstable angina: Status: Acute Category: Medical Code(s): I20.0 - Unstable angina (2) CAD (coronary artery disease): Status: Acute Qualifiers: Associated angina: with other forms of angina Coronary Disease- Associated Artery/Lesion type: [place] artery [place] vs. transplanted heart: [place] heart Qualified Code(s): I25.118 - Atherosclerotic heart disease of [place] coronary artery with other forms of angina pectoris Category: Medical Code(s): I25.10 - Atherosclerotic heart disease of [place] coronary artery without angina pectoris Plan CAD with Unstable Angina - CCS = 3 - EKG - SR without ichemia - ECHO: nml EF no WMA - Trop nml - Cont DAPT, Statin, Imdur, Ranexa - LHC today CKD III - baseline Cr 1.1 - 1.3 - monitor daily labs, dose adjust meds HLD - well controlled with LDL 36 Chronic Pain - Percocet, Methocarbamol, Lidocaine patches, Gabapentin If LHC unremarkable will defer to pain management.
[2024-08-07] MEDS: MIDAZOLAM HCL 1MG/ML 5ML VIAL 1 MG IV (12:36)
[2024-08-07] MEDS: FENTANYL 100MCG/2ML VIAL 50 MCG IV (12:37)
[2024-08-07] MEDS: IOPAMIDOL-370 (76%);100ML BOTTLE 90 ML IV (13:48)
--- NOTE | 2024-08-07 13:59 | PC.WOUNDNOTE ---
Called back to patient's room because she had some bleeding from right wrist. 2 of air that had been removed added back. vss.
[2024-08-07 14:06] LABS: CATHL Activated Clotting Time 337 SEC (74-125)
--- NOTE | 2024-08-07 15:55 | PC.NURSE ---
Right wristband removed and non adherent/tegaderm placed.
--- NOTE | 2024-08-07 17:26 | EXP.ACUTE.PN ---
Subjective *Date: 08/07/24 *Time: 17:26 Interval history: Continues to have intermittent chest pain. Stable on room air. Going for heart cath today. Denies nausea or vomiting. Alert and oriented x 4 Medical Exam Vital signs and Labs for Last 24 Hours: Vital Signs Temp Pulse Pulse Resp BP Pulse Ox O2 Del Method 08/07/24 16:35 98 F 53 L 17 107/51 L 100 Room Air 08/07/24 15:48 Room Air 08/07/24 15:35 98 F 52 L 17 98/52 L 100 Room Air 08/07/24 15:05 98 F 56 L 17 110/57 L 100 Room Air 08/07/24 14:35 98 F 52 L 17 113/71 100 Room Air 08/07/24 14:05 98 F 51 L 17 95/72 L 100 Room Air 08/07/24 14:03 Room Air 08/07/24 13:35 98 F 47 L 17 121/71 100 Room Air 08/07/24 13:20 98 F 52 L 17 96/64 L 100 Room Air 08/07/24 13:05 98 F 52 L 17 122/68 100 Room Air 08/07/24 12:05 98 F 49 L 16 110/49 L 100 Room Air 08/07/24 10:05 Room Air 08/07/24 08:34 Room Air 08/07/24 08:00 60 08/07/24 08:00 97.6 F 63 16 104/52 L 99 Room Air 08/07/24 07:23 Room Air 08/07/24 06:44 Room Air 08/07/24 05:00 Room Air 08/07/24 04:00 98.3 F 57 L 14 96/45 L 95 Room Air 08/07/24 04:00 55 L 08/07/24 03:00 Room Air 08/07/24 01:00 Room Air 08/07/24 00:00 65 08/06/24 23:00 Room Air 08/06/24 21:00 Room Air 08/06/24 20:00 70 08/06/24 20:00 Room Air 08/06/24 19:58 97.5 F L 64 14 113/58 L 99 Room Air Intake and Output 08/07/24 08/07/24 08/07/24 07:59 15:59 23:59 Other: Weight 108.068 kg Patient Weight 08/07/24 23:59 Weight 108.068 kg Laboratory Results - last 24 hr 08/06/24 16:42: Troponin I < 0.01 08/06/24 19:30: Troponin I < 0.01, NT-Pro-B Natriuret Pep 59.3 08/07/24 05:36: WBC 4.2 L D, RBC 3.91 L, Hgb 12.7, Hct 36.7 L, MCV 93.9, MCH 32.5 H, MCHC 34.6, RDW 12.7, Plt Count 203, MPV 10.6 H, Neut % (Auto) 47.0, Lymph % (Auto) 36.9, [place] % (Auto) 11.1 H, Eos % (Auto) 3.6, Baso % (Auto) 1.2, Neut # (Auto) 2.0, Lymph # (Auto) 1.5, [place] # (Auto) 0.5, Eos # (Auto) 0.2, Baso # (Auto) 0.1, Sodium 137, Potassium 3.7, Chloride 104, Carbon Dioxide 25, Anion Gap 11.7, BUN 30 H, Creatinine 1.40 H, Estimated Creat Clear 75, Estimated GFR 39 L, Est GFR ( Amer) 47 L, Glucose 88, Hemoglobin A1c 5.2, Calcium 8.7, Magnesium 2.2, Total Bilirubin 0.4, AST 26, ALT 15, Alkaline Phosphatase 67, Total Protein 6.6, Albumin 3.8 D, Globulin 2.8, Albumin/Globulin Ratio 1.4, TSH 2.15 08/07/24 12:15: Activated Clotting Time 337 H* I & O for Labs for Last 24 Hours: Intake & Output 08/04/24 08/05/24 08/06/24 08/07/24 23:59 23:59 23:59 23:59 Intake Total 1000 / 1000 Balance 1000 / 1000 Weight 108.068 kg 108.068 kg Constitutional: Present no acute distress, morbidly obese and cooperative Head: Present atraumatic and normocephalic ENT: Present normal exam Neck: Present normal inspection Respiratory: Present CTA bilaterally and normal respiratory effort; Absent rhonchi, wheezes or crackles Cardiac: Present Reg Rate and Rhythm GI: Present soft and normal bowel sounds; Absent distention or tenderness Rectal (female): Present deferred (female): Present deferred Extremities: Present normal inspection, full ROM and edema (Trace to the knees) Skin: Present intact; Absent erythema Neuro: Present Grossly Intact, alert, awake, oriented x 3 and moves all extremities Assessment and Plan *Assessment and plan (1) Unstable angina: Status: Acute Category: Medical Code(s): I20.0 - Unstable angina (2) Acute on chronic heart failure with preserved ejection fraction (HFpEF): Status: Acute Category: Medical Code(s): I50.33 - Acute on chronic diastolic (congestive) heart failure (3) Angina pectoris: Status: Acute Category: Medical Code(s): I20.9 - Angina pectoris, unspecified (4) CAD (coronary artery disease): Status: Acute Qualifiers: Coronary Disease-Associated Artery/Lesion type: [place] artery [place] vs. transplanted heart: [place] heart Associated angina: with other forms of angina Qualified Code(s): I25.118 - Atherosclerotic heart disease of [place] coronary artery with other forms of angina pectoris Category: Medical Code(s): I25.10 - Atherosclerotic heart disease of [place] coronary artery without angina pectoris (5) Hyperlipidemia: Status: Acute Qualifiers: Hyperlipidemia type: other hyperlipidemia Qualified Code(s): E78.49 - Other hyperlipidemia Category: Medical Code(s): E78.5 - Hyperlipidemia, unspecified (6) Anxiety: Status: Chronic Category: Medical Code(s): F41.9 - Anxiety disorder, unspecified (7) HTN (hypertension): Status: Chronic Qualifiers: Hypertension type: primary hypertension Qualified Code(s): I10 - Essential (primary) hypertension Category: Medical Code(s): I10 - Essential (primary) hypertension (8) Morbid obesity: Status: Chronic Category: Medical Code(s): E66.01 - Morbid (severe) obesity due to excess calories Plan Dawn Guzman is a 59-year-old female with a medical history significant for CAD with stent, HFpEF, hypertension, CKD stage IIIb, anxiety/depression who returns to the hospital for unstable angina. She was previously admitted 2 weeks ago for similar symptoms and patient preferred to pursue medical management with an increase in diuretic to torsemide 100 mg rather than undergoing LHC. She was evaluated by cardiology today for persistent left-sided chest pain both at rest and worse with exertion, shortness of breath. They recommended patient be a direct admit but patient wanted to get this on an outpatient basis. However, patient return to the ED for persistent symptoms. Workup in the ED significant for normal troponin, EKG without acute ischemic changes. ED provider discussed with cardiology who recommended admission for LHC in the morning, I also discussed case with ED provider and decision was made to admit patient for unstable angina. Taken for heart cath today. Received 1 stent. Continue monitoring overnight. Will discharge home tomorrow. Problems addressed as follows: #Chest pain #Unstable angina #CAD with stent ? Patient has had longstanding left-sided chest pain both at rest and with exertion, had LHC with SHIREEN to LAD in October 2023. Patient states symptoms did not really improve much since then. ? Discussed case with cardiology, taken for left heart cath. Found to have diffuse disease in the RCA, received 1 stent. Will monitor overnight due to receiving sedation and inability to drive herself home. - Continue home prasugrel 10 mg, ranolazine 1000 mg twice daily, statin. - Continue aspirin 81 mg daily. ? Continue Protonix 40 mg nightly. #HFpEF #Hypertension ? Currently euvolemic. On room air. Blood pressure well-controlled, holding home at this time #Bilateral lower extremity lymphedema ? Prominent without pitting edema, will need referral to outpatient lymphedema clinic. #CKD stage IIIb ? BUN elevated at 30, creatinine 1.4. Stable CKD. Potassium 3.7, magnesium 2.2. Repeat CBC, CMP, magnesium ordered for the morning. #Anxiety/depression ? Continue home venlafaxine 75 mg, topiramate. Full code DVT prophylaxis: Lovenox 40 mg Cardiac diet
[2024-08-07] MEDS: PANTOPRAZOLE 40MG TABLET 40 MG PO (20:08)
[2024-08-07] MEDS: ATORVASTATIN 20MG TABLET 20 MG PO (20:08)
[2024-08-07] MEDS: VENLAFAXINE XR 75MG CAPSULE 75 MG PO (20:08)
[2024-08-08] VITALS: BP 113/66; PULSE 60; PULSE 62; RESP 16; TEMP 36.4; O2SAT 96
--- NOTE | 2024-08-08 02:44 | PC.NURSE ---
Pt AOx4. VSS post R radial cath. Site clean dry and intact, no bleeding noted. Resting in bed with eyes closed. Respirations even and unlabored. Bed is low, locked, and call light is in reach.
[2024-08-08 04:00] VITALS: BP 113/61; PULSE 58; PULSE 60; RESP 17; TEMP 36.7; O2SAT 98; BMI 40.9
[2024-08-08 06:24] LABS: Basophils % 0.7 % (0.1-2.0); Eosinophils # 0.2 K/mm3 (0.0-0.4); Eosinophils % 2.6 % (0.1-12.0); Hematocrit 37.9 % (37.0-47.0); Hemoglobin 12.5 g/dL (12.2-16.2); Lymphocytes # 1.3 K/mm3 (0.7-4.5); Lymphocytes % 22.8 % (10-50); Mean Corpuscular Hemoglobin 31.9 pg (27.0-31.2); Mean Corpuscular Volume 96.7 fl (81-99); Mean Platelet Volume 10.5 fl (7.4-10.4); Monocytes # 0.5 K/mm3 (0.1-1.0); Monocytes % 9.2 % (1.7-9.3); Neutrophils # 3.8 K/mm3 (1.8-7.8); Neutrophils % 64.5 % (37.0-80.0); Nucleated Red Blood Cells # 0 10^3/uL; Nucleated Red Blood Cells % 0 %; Platelet Count 204 K/mm3 (142-424); Red Blood Count 3.92 M/mm3 (4.20-5.40); Red Cell Distribution Width 12.9 % (11.5-17.5); Red Cell Distribution Width-SD 45.5 fL; White Blood Count 5.8 K/mm3 (4.8-10.8)
[2024-08-08 06:43] LABS: Albumin Level 3.6 g/dl (3.5-5.0); Chloride 107 mmol/L (98-107); Potassium 3.8 mmoL/L (3.5-5.1); Sodium 137 mmol/L (136-145)
[2024-08-08 06:45] LABS: Blood Urea Nitrogen 22 mg/dl (7-17); Creatinine Clearance Estimated 41 mL/min (50-200); Estimated Glomerular Filt Rate 42 ml/min (>60); GFR (African American) 51 ML/MIN (>60)
[2024-08-08 06:46] LABS: Alanine Aminotransferase 14 U/L (12-78); Albumin/Globulin Ratio 1.3 (1.1-1.8); Alkaline Phosphatase 78 U/L (38-126); Anion Gap 9.8 mEq/L (5-15); Aspartate Amino Transferase 24 U/L (14-36); Bilirubin,Total 0.3 mg/dl (0.2-1.3); Calcium 8.5 mg/dl (8.4-10.2); Carbon Dioxide 24 mmol/L (22.0-30.0); Globulin 2.8 g/dL (1.3-3.2); Glucose 92 mg/dl (74-100); Magnesium 2.1 mg/dl (1.6-2.3); Total Protein,Serum 6.4 g/dl (6.3-8.2)
--- NOTE | 2024-08-08 07:08 | P.DS_ITS ---
General Admission date:: 08/06/24 Discharge date: 08/08/24 HPI HPI HPI: Dawn Guzman is a 59-year-old female with a medical history significant for CAD with stent, HFpEF, hypertension, CKD stage IIIb, anxiety/depression who returns to the hospital for unstable angina. She was previously admitted 2 weeks ago for similar symptoms and patient preferred to pursue medical management with an increase in diuretic to torsemide 100 mg rather than undergoing LHC. She was evaluated by cardiology today for persistent left-sided chest pain both at rest and worse with exertion, shortness of breath. They recommended patient be a direct admit but patient wanted to get this on an outpatient basis. However, patient return to the ED for persistent symptoms. Workup in the ED significant for normal troponin, EKG without acute ischemic changes. ED provider discussed with cardiology who recommended admission for LHC in the morning, I also discussed case with ED provider and decision was made to admit patient for unstable angina. Hospital Course Hospital Course Hospital Course: Dawn Guzman is a 59-year-old female with a medical history significant for CAD with stent, HFpEF, hypertension, CKD stage IIIb, anxiety/depression who returns to the hospital for unstable angina. She was previously admitted 2 w eeks ago for similar symptoms and patient preferred to pursue medical management with an increase in diuretic to torsemide 100 mg rather than undergoing LHC. She was evaluated by cardiology today for persistent left-sided chest pain both at rest and worse with exertion, shortness of breath. They recommended patient be a direct admit but patient wanted to get this on an outpatient basis. However, patient return to the ED for persistent symptoms. Workup in the ED significant for normal troponin, EKG without acute ischemic changes. ED provider discussed with cardiology who recommended admission for LHC in the morning, I also discussed case with ED provider and decision was made to admit patient for unstable angina. Taken for heart cath 08/07. Status post 1 stent to RCA. Monitored overnight. Stable to discharge home. Problems addressed as follows: #Chest pain #Unstable angina #CAD with stent ? Patient has had longstanding left-sided chest pain both at rest and with exertion, had LHC with SHIREEN to LAD in October 2023. Patient states symptoms did not really improve much since then. Discussed case with cardiology, taken for left heart cath. Found to have diffuse disease in the RCA, received 1 stent. Monitored overnight. Overall did well. Continue home prasugrel 10 mg daily, aspirin 81 mg daily, ranolazine to 1000 mg twice daily and statin therapy. Continue Protonix 40 mg nightly. Symptom-free on morning of discharge. Follow- up with cardiology in the next 1 to 2 weeks #HFpEF #Hypertension ? Currently euvolemic. On room air. Blood pressure well-controlled. Resume home regimen at discharge. #Bilateral lower extremity lymphedema ? Prominent without pitting edema, will need referral to outpatient lymphedema clinic. #CKD stage IIIb ? BUN elevated at 3 22, creatinine 1.3 on morning of discharge. Stable. #Anxiety/depression ? Continue home venlafaxine 75 mg, topiramate. Exam Data for Last 24 hours Vital signs and Labs for Last 24 Hours: Temp Pulse Resp BP Pulse Ox O2 Del Method 97.6 F 63 16 104/52 L 99 Room Air 08/07/24 08:00 08/07/24 08:00 08/07/24 08:00 08/07/24 08:00 08/07/24 08:00 08/07/24 10:05 Laboratory Results - last 24 hr 08/06/24 13:20: WBC 5.8, RBC 4.25, Hgb 13.7, Hct 39.3, MCV 92.5, MCH 32.2 H, MCHC 34.9, RDW 12.6, Plt Count 244, MPV 10.4, Neut % (Auto) 66.1, Lymph % (Auto) 22.9, [place] % (Auto) 8.5, Eos % (Auto) 1.6, Baso % (Auto) 0.7, Neut # (Auto) 3.8, Lymph # (Auto) 1.3, [place] # (Auto) 0.5, Eos # (Auto) 0.1, Baso # (Auto) 0.0, PT 10.3, INR 0.91, Troponin I < 0.01 08/06/24 16:42: Troponin I < 0.01 08/06/24 19:30: Troponin I < 0.01, NT-Pro-B Natriuret Pep 59.3 08/07/24 05:36: WBC 4.2 L D, RBC 3.91 L, Hgb 12.7, Hct 36.7 L, MCV 93.9, MCH 32.5 H, MCHC 34.6, RDW 12.7, Plt Count 203, MPV 10.6 H, Neut % (Auto) 47.0, Lymph % (Auto) 36.9, [place] % (Auto) 11.1 H, Eos % (Auto) 3.6, Baso % (Auto) 1.2, Neut # (Auto) 2.0, Lymph # (Auto) 1.5, [place] # (Auto) 0.5, Eos # (Auto) 0.2, Baso # (Auto) 0.1, Sodium 137, Potassium 3.7, Chloride 104, Carbon Dioxide 25, Anion Gap 11.7, BUN 30 H, Creatinine 1.40 H, Estimated Creat Clear 75, Estimated GFR 39 L, Est GFR ( Amer) 47 L, Glucose 88, Hemoglobin A1c 5.2, Calcium 8.7, Magnesium 2.2, Total Bilirubin 0.4, AST 26, ALT 15, Alkaline Phosphatase 67, Total Protein 6.6, Albumin 3.8 D, Globulin 2.8, Albumin/Globulin Ratio 1.4, TSH 2.15 I & O for Last 24 hours: Intake & Output 08/04/24 08/05/24 08/06/24 08/07/24 23:59 23:59 23:59 23:59 Intake Total 1000 / 1000 Balance 1000 / 1000 Weight 108.068 kg 108.068 kg Constitutional Constitutional: no acute distress, morbidly obese and cooperative *Routine HEENT Exam Head: Present normocephalic Eye: Present EOMI and PERRL ENT: Present mucous membranes moist *Routine Neck Exam Neck: Present supple; Absent lymphadenopathy *Routine Respiratory Exam Respiratory: Present CTA bilaterally; Absent rhonchi, wheezes or crackles *Routine Cardiovascular Exam Cardiovascular: Present RRR *Routine Abdominal Exam Abdominal: Present soft and normoactive bowel sounds; Absent tenderness *Routine Rectal Exam Patient deferred: visual exam *Routine Exam Patient deferred: external exam *Routine Extremities Exam Extremities: Absent cyanosis, clubbing or edema *Routine Skin Exam Skin: Present warm; Absent rash *Routine Neurological Exam Neurological: Present alert, oriented X3 and moving all extremities; Absent altered mental status Results Data Completed and Pending Labs on day of discharge: Labs from last 24 hours 08/07/24 08/06/24 08/06/24 05:36 19:30 16:42 WBC 4.2 L D RBC 3.91 L Hgb 12.7 Hct 36.7 L MCV 93.9 MCH 32.5 H MCHC 34.6 RDW 12.7 Plt Count 203 MPV 10.6 H Neut % (Auto) 47.0 Lymph % (Auto) 36.9 [place] % (Auto) 11.1 H Eos % (Auto) 3.6 Baso % (Auto) 1.2 Neut # (Auto) 2.0 Lymph # (Auto) 1.5 [place] # (Auto) 0.5 Eos # (Auto) 0.2 Baso # (Auto) 0.1 PT INR Sodium 137 Potassium 3.7 Chloride 104 Carbon Dioxide 25 Anion Gap 11.7 BUN 30 H Creatinine 1.40 H Estimated Creat Clear 75 Estimated GFR 39 L Est GFR ( Amer) 47 L Glucose 88 Hemoglobin A1c 5.2 Calcium 8.7 Magnesium 2.2 Total Bilirubin 0.4 AST 26 ALT 15 Alkaline Phosphatase 67 Troponin I < 0.01 < 0.01 NT-Pro-B Natriuret Pep 59.3 Total Protein 6.6 Albumin 3.8 D Globulin 2.8 Albumin/Globulin Ratio 1.4 TSH 2.15 08/06/24 13:20 WBC 5.8 RBC 4.25 Hgb 13.7 Hct 39.3 MCV 92.5 MCH 32.2 H MCHC 34.9 RDW 12.6 Plt Count 244 MPV 10.4 Neut % (Auto) 66.1 Lymph % (Auto) 22.9 [place] % (Auto) 8.5 Eos % (Auto) 1.6 Baso % (Auto) 0.7 Neut # (Auto) 3.8 Lymph # (Auto) 1.3 [place] # (Auto) 0.5 Eos # (Auto) 0.1 Baso # (Auto) 0.0 PT 10.3 INR 0.91 Sodium Potassium Chloride Carbon Dioxide Anion Gap BUN Creatinine Estimated Creat Clear Estimated GFR Est GFR ( Amer) Glucose Hemoglobin A1c Calcium Magnesium Total Bilirubin AST ALT Alkaline Phosphatase Troponin I < 0.01 NT-Pro-B Natriuret Pep Total Protein Albumin Globulin Albumin/Globulin Ratio TSH DS: Diagnosis Discharge Diagnosis (1) Unstable angina: Status: Acute Code(s): I20.0 - Unstable angina (2) CAD (coronary artery disease): Status: Acute Code(s): I25.10 - Atherosclerotic heart disease of [place] coronary artery without angina pectoris Qualifiers: Associated angina: with other forms of angina Coronary Disease- Associated Artery/Lesion type: [place] artery [place] vs. transplanted heart: [place] heart Qualified Code(s): I25.118 - Atherosclerotic heart disease of [place] coronary artery with other forms of angina pectoris Meds Home Medications and Allergies Home Medications ?Medication ?Instructions ?Recorded ?Confirmed ?Type acetaminophen 500 mg tablet 500 mg PO Q6HP PRN Mild Pain 11/15/23 08/06/24 History (Scale Score 1-4) cholecalciferol (vitamin D3) 25 25 mcg PO HS 11/15/23 08/06/24 History mcg (1,000 unit) tablet gabapentin 600 mg tablet 600 mg PO TID PRN Pain 11/15/23 08/06/24 History potassium chloride 10 mEq 20 meq PO BID 11/15/23 08/06/24 History tablet,extended release topiramate 100 mg tablet 200 mg PO DAILY 11/16/23 08/06/24 History prasugrel HCl 10 mg tablet 10 mg PO DAILY 30 days #30 tabs 11/17/23 08/06/24 Rx sacubitril 24 mg-valsartan 26 mg 1 tab PO BID 30 days #60 tabs 11/17/23 08/06/24 Rx tablet (Entresto) ondansetron 4 mg disintegrating 4 mg PO BIDP PRN Nausea And 05/04/24 08/06/24 History tablet Vomiting lidocaine 5 % topical patch 1 patch topical DAILY #30 ea 05/21/24 08/06/24 Rx rosuvastatin 10 mg tablet (Crestor) 10 mg PO DAILY #90 tabs 06/29/24 08/06/24 Rx oxycodone-acetaminophen 7.5 mg-325 1 tab PO BIDP PRN Moderate Pain 07/25/24 08/06/24 History mg tablet (Scale Score 5-6) ranolazine 1,000 mg 1,000 mg PO BID 07/25/24 08/06/24 History tablet,extended release,12 hr isosorbide mononitrate 30 mg 60 mg (2 x 30 mg) PO DAILY 30 days 07/26/24 08/06/24 Rx tablet,extended release 24 hr #60 tabs methocarbamol 750 mg tablet 750 mg PO BIDP PRN muscle spasm 07/26/24 08/06/24 History nitroglycerin 0.4 mg sublingual 0.4 mg sublingual Q5MINP PRN chest 07/26/24 08/06/24 History tablet pain torsemide 100 mg tablet 100 mg PO DAILY #30 tabs 07/26/24 08/06/24 Rx venlafaxine 75 mg capsule,extended 75 mg PO HS #30 caps 07/26/24 08/06/24 Rx release 24 hr spironolactone 50 mg tablet 50 mg PO BID #60 tabs 08/02/24 08/06/24 Rx (Aldactone) aspirin 81 mg tablet,delayed 81 mg PO DAILY 30 days #30 tabs 08/08/24 Rx release metoprolol succinate 25 mg 25 mg PO DAILY 30 days #30 tabs 08/08/24 Rx tablet,extended release 24 hr New Prescriptions to Start Prescriptions: Celio Grace metoprolol succinate Celio Jorge Allergies Allergy/AdvReac Type Severity Reaction Status Date / Time codeine Allergy Anaphylaxis Verified 08/06/24 13:14 Penicillins Allergy Anaphylaxis Verified 08/06/24 13:14 Discharge Plan Disposition Patient Disposition: Home, Self-Care Condition: Fair Follow up Plan Follow up with: Brandon Rivera PA [Physician Provider Network Manager] - 08/14/24 1:00 pm Lanette Cerda APRN [Referring] - 08/14/24 9:40 am Prescriptions/Medication Reconciliation: New aspirin 81 mg Tablet,Delayed Release (Dr/Ec) 81 mg PO DAILY 30 Days Qty: 30 0RF metoprolol succinate 25 mg Tablet Extended Release 24 Hr 25 mg PO DAILY 30 Days Qty: 30 0RF Continued ondansetron 4 mg tablet,disintegrating 4 mg PO BIDP PRN (Reason: Nausea And Vomiting) rosuvastatin [Crestor] 10 mg tablet 10 mg PO DAILY Qty: 90 1RF spironolactone [Aldactone] 50 mg tablet 50 mg PO BID Qty: 60 2RF cholecalciferol (vitamin D3) 25 mcg (1,000 unit) tablet 25 mcg PO HS gabapentin 600 mg tablet 600 mg PO TID PRN (Reason: Pain) potassium chloride 10 mEq tablet extended release 20 meq PO BID Rx Instructions: 1-2 TIMES A DAY acetaminophen 500 mg Tablet 500 mg PO Q6HP PRN (Reason: Mild Pain (Scale Score 1-4)) topiramate 100 mg tablet 200 mg PO DAILY prasugrel HCl 10 mg Tablet 10 mg PO DAILY 30 Days Qty: 30 0RF Entresto 24-26 mg Tablet 1 tab PO BID 30 Days Qty: 60 0RF oxycodone-acetaminophen 7.5-325 mg tablet 1 tab PO BIDP PRN (Reason: Moderate Pain (Scale Score 5-6)) ranolazine 1,000 mg tablet extended release 12 hr 1,000 mg PO BID methocarbamol 750 mg tablet 750 mg PO BIDP PRN (Reason: muscle spasm) nitroglycerin 0.4 mg tablet, sublingual 0.4 mg sublingual Q5MINP PRN (Reason: chest pain) Rx Instructions: do not exceed 3 doses per episode venlafaxine 75 mg capsule,extended release 24hr 75 mg PO HS Qty: 30 0RF isosorbide mononitrate 30 mg tablet extended release 24 hr 60 mg PO DAILY 30 Days Qty: 60 3RF torsemide 100 mg tablet 100 mg PO DAILY Qty: 30 0RF lidocaine 5 % adhesive patch,medicated 1 patch topical DAILY Qty: 30 0RF Rx Instructions: leave on most painful area for up to 12 hrs Other Ambulatory Orders: Basic Metabolic Panel (Routine) Timeframe: 20240814 Facility: [facility] - Location: Laboratory Ordered By: Brandon Rivera Complete Blood Count Auto Diff (Routine) Timeframe: 20240814 Facility: [facility] - Location: Laboratory Ordered By: Brandon Rivera Problem Reconciliation Problems Reviewed?: Yes Patient Discharge Instructions ACTIVITY: Continue current activity DIET: continue same diet Patient Instructions: Angina, DI for Heart Failure, DI for Cardiac Catheterization, DI for Surgical Site Infection Print Language: [place] Providers Primary Care Provider: Jordin Haney Hire Admit Provider: Jose Elias Mccoy Attending Provider: Jose Elias Mccoy
[2024-08-08 08:00] VITALS: BP 121/70; PULSE 55; PULSE 70; RESP 16; TEMP 36.6; O2SAT 98
[2024-08-08] MEDS: METOPROLOL SUCCINATE XL 25MG TABLET 25 MG PO (08:41)
[2024-08-08] MEDS: TORSEMIDE 20MG TABLET 100 MG PO (08:41)
[2024-08-08] MEDS: ISOSORBIDE MONO 60MG TAB.ER.24H 60 MG PO (08:41)
[2024-08-08] MEDS: PRASUGREL 10MG TAB 10 MG PO (08:41)
[2024-08-08] MEDS: RANOLAZINE 500MG ER TABLET 1000 MG PO (08:41)
[2024-08-08] MEDS: ASPIRIN EC 81MG TABLET 81 MG PO (08:41)
[2024-08-08] MEDS: LIDOCAINE 5% TRANSDERMAL PATCH 1 EACH TD (08:41)
[2024-08-08] MEDS: TOPIRAMATE 100MG TABLET 200 MG PO (08:41)
--- NOTE | 2024-08-08 11:47 | P.PN_ITS ---
Subjective Subjective Date: 08/08/24 Time: 09:30 Interval history: Successful stenting of RCA yesterday. Patient reports today her symptoms are completely resolved and she feels great. States she was not taking aspirin at home but will resume. Exam Data for Last 24 hours Vital signs and Labs for Last 24 Hours: Temp Pulse Resp BP Pulse Ox O2 Del Method 97.8 F 70 16 121/70 98 Room Air 08/08/24 08:00 08/08/24 08:00 08/08/24 08:00 08/08/24 08:00 08/08/24 08:00 08/08/24 10:53 Laboratory Results - last 24 hr 08/07/24 12:15: Activated Clotting Time 337 H* 08/08/24 05:45: WBC 5.8 D, RBC 3.92 L, Hgb 12.5, Hct 37.9, MCV 96.7, MCH 31.9 H , MCHC 33.0, RDW 12.9, Plt Count 204, MPV 10.5 H, Neut % (Auto) 64.5, Lymph % (Auto) 22.8, [place] % (Auto) 9.2, Eos % (Auto) 2.6, Baso % (Auto) 0.7, Neut # (Auto) 3.8, Lymph # (Auto) 1.3, [place] # (Auto) 0.5, Eos # (Auto) 0.2, Baso # (Auto) 0.0, Sodium 137, Potassium 3.8, Chloride 107, Carbon Dioxide 24, Anion Gap 9.8, BUN 22 H D, Creatinine 1.30 H, Estimated Creat Clear 41, Estimated GFR 42 L, Est GFR ( Amer) 51 L, Glucose 92, Calcium 8.5, Magnesium 2.1, Total Bilirubin 0.3, AST 24, ALT 14, Alkaline Phosphatase 78, Total Protein 6.4, Albumin 3.6, Globulin 2.8, Albumin/Globulin Ratio 1.3 I & O for Last 24 hours: Intake & Output 08/05/24 08/06/24 08/07/24 08/08/24 23:59 23:59 23:59 23:59 Intake Total 1000 / 1000 360 / 360 510 / 510 Output Total 0 / 0 Balance 1000 / 1000 360 / 360 510 / 510 Weight 238 lb 4 oz 238 lb 3.986 oz 246 lb Constitutional Constitutional: no acute distress and cooperative *Routine HEENT Exam Eye: Present PERRL *Routine Respiratory Exam Respiratory: Present CTA bilaterally; Absent accessory muscle use, wheezes or crackles *Routine Cardiovascular Exam Cardiovascular: Present RRR, Normal S1 and Normal S2; Absent murmur, gallop or rubs Comments: Right radial cath site normal on inspection and palpation *Routine Abdominal Exam Abdominal: Present soft; Absent tenderness *Routine Extremities Exam Extremities: Present pulses intact; Absent cyanosis or edema *Routine Skin Exam Skin: Present intact; Absent erythema or wounds *Routine Neurological Exam Neurological: Present alert and oriented X3 Routine Psychiatric Exam Psychiatric: Present cooperative Progress Note: A&P Assessment and plan (1) Unstable angina: Status: Acute (2) CAD (coronary artery disease): Status: Acute Assessment and Plan Assessment and Plan for All Diagnoses:: CAD with Unstable Angina - CCS = 3 - EKG - SR without ichemia - ECHO: nml EF no WMA - Trop nml - LHC - successful stenting of 50% RCA - patients symptoms completely resolved - Cont DABT, BB, Statin at discharge. She can try weaning her antianginal meds. CKD III - baseline Cr 1.1 - 1.3 - monitor daily labs, dose adjust meds HLD - well controlled with LDL 36 Chronic Pain - Percocet, Methocarbamol, Lidocaine patches, Gabapentin 08/08: CV stable for DC home on current meds. She needs f/u in our office 1-2 weeks post discharge. No lifting pushing or pulling greater than 10 pounds with the right wrist for 5 days.
--- NOTE | 2024-08-10 10:52 | SW/DCPLANNER ---
Phoned patient x2. Patient's voicemail isnt sat up to leave messages. Nahum Upton
== END 2024-08-08 10:56 | disposition home or self-care (01) ==
LOC: ER 13:32 → 2ND 13:35
PROVIDERS: Internal Medicine; Physician Assistant; Admitting Provider Student in an Organized Health Care Education/Training Program; Emergency Provider Emergency Medicine; Visit Provider Student in an Organized Health Care Education/Training Program
DX: I25.118 Atherosclerotic heart disease of native coronary artery with other forms of angina pectoris (principal); I50.33 Acute on chronic diastolic (congestive) heart failure; N18.32 Chronic kidney disease, stage 3b; I13.0 Hypertensive heart and chronic kidney disease with heart failure and stage 1 through stage 4 chronic kidney disease, or unspecified chronic kidney disease; E78.5 Hyperlipidemia, unspecified; F41.9 Anxiety disorder, unspecified; E66.01 Morbid (severe) obesity due to excess calories; Z68.41 Body mass index [BMI] 40.0-44.9, adult; J45.909 Unspecified asthma, uncomplicated; Z88.0 Allergy status to penicillin; Z88.5 Allergy status to narcotic agent; Z79.899 Other long term (current) drug therapy; Z82.49 Family history of ischemic heart disease and other diseases of the circulatory system; I89.0 Lymphedema, not elsewhere classified
CPT/HCPCS: 36415; 71045; 80053; 83036; 83735; 83880; 84443; 84484; 85025; 85347; 85610; 92928; 92978; 93005; 93306; 93458; 99152; 99291; C1725; C1769; C1874; C9600; G0378; J1200; J1644; J1650; J2250; J3010; Q9967

== ENCOUNTER 2024-08-14 11:07 | Outpatient (CLI) | payer MEDICAID, SELFPAY ==
[2024-08-14 12:00] LABS: Basophils % 0.8 % (0.1-2.0); Eosinophils # 0.1 Kmm3 (0.0-0.4); Eosinophils % 2.2 % (0.1-12.0); Hematocrit 42.8 % (37.0-47.0); Hemoglobin 14.3 g/dL (12.2-16.2); Lymphocytes % 19.1 % (10-50); Mean Corpuscular HGB Conc 33.4 g/dL (31.8-35.4); Mean Corpuscular Hemoglobin 32.3 pg (27.0-31.2); Mean Corpuscular Volume 96.6 fl (81-99); Mean Platelet Volume 10.4 fl (7.4-10.4); Monocytes # 0.4 K/mm3 (0.1-1.0); Monocytes % 7.3 % (1.7-9.3); Neutrophils # 3.6 K/mm3 (1.8-7.8); Neutrophils % 70.4 % (37.0-80.0); Nucleated Red Blood Cells # 0 10^3/uL; Nucleated Red Blood Cells % 0 %; Platelet Count 243 K/mm3 (142-424); Red Blood Count 4.43 M/mm3 (4.20-5.40); Red Cell Distribution Width 12.5 % (11.5-17.5); Red Cell Distribution Width-SD 44.2 fL; White Blood Count 5.1 K/mm3 (4.8-10.8)
[2024-08-14 12:24] LABS: Anion Gap 10.7 mEq/L (5-15); Blood Urea Nitrogen 22 mg/dl (7-17); Calcium 9.4 mg/dl (8.4-10.2); Carbon Dioxide 26 mmol/L (22.0-30.0); Chloride 108 mmol/L (98-107); Estimated Glomerular Filt Rate 42 ml/min (>60); GFR (African American) 51 ML/MIN (>60); Glucose 87 mg/dl (74-100); Potassium 4.7 mmoL/L (3.5-5.1); Sodium 140 mmol/L (136-145)
== END 2024-08-14 23:59 | disposition home or self-care (01) ==
LOC: LAB 11:08
PROVIDERS: PCP Nurse Practitioner Family; Visit Provider Physician Assistant
DX: I20.9 Angina pectoris, unspecified (principal)
CPT/HCPCS: 36415; 80048; 85025